=== PATIENT | female | born 1985 | race African-American/Black ===

== ENCOUNTER 2016-06-10 08:44 | Emergency (ER) | payer OTHER ==
[2016-06-10 08:49] VITALS: BP 150/79; PULSE 69; TEMP 98.2; BMI 44.3
--- NOTE | 2016-06-10 10:01 | PDOC ---
History of Present Illness - General Chief Complaint: Pain, Acute Stated Complaint: RT KNEE PAIN, SWOLLEN/BRUISED Time Seen by Provider: 06/10/16 09:13 History Source: Patient Exam Limitations: No Limitations - History of Present Illness Initial Comments: 06/10/16 10:33 Chief complaint: Right knee pain with swelling and bruising since falling on it yesterday History of present illness: Patient is a 31-year-old female insulin-dependent diabetic, with hypertension and repair of ACL right knee at 16 years of age. Patient reports that yesterday she was walking unsure whether or not of the condition of the ground that she was walking on was uneven or whether or not her right knee just gave out. Pt. has swelling, tenderness and bruising rt. knee since falling on it yesterday. Reports that she took ibuprofen yesterday but did not take any today. Patient is having difficulty walking due to pain. Patient has noticeable swelling to mid to upper patella. Patient can bend her knee is not able to extend fully. Denies any numbness of her right knee or leg. Patient denies any other injuries. Occurred: reports: yesterday Severity: Yes: severe (right knee swelling, tenderness, bruising ) Lower Extremity Pain Location: right: knee Method of Injury: Yes: fell Modifying Factors: improves with: immobilization Lower Ext. Injury Location - Specific Injury Location Knees: right ecchymosis (anterior ), right swelling, right pain Extremity Pain Location - Extremity Pain Location Extremity Pain Locations: right: knee Past History - Past Medical History Allergies/Adverse Reactions: Allergies Allergy/AdvReac Type Severity Reaction Status Date / Time No Known Allergies Allergy Verified 06/10/16 08:49 Home Medications: Ambulatory Orders Ibuprofen [Motrin -] 600 mg PO Q6H PRN #18 tablet MDD 4 06/10/16 Diabetes: Yes HTN: Yes Suicide Attempt (Hx): No Other medical history: obesity - Immunization History Immunization Up to Date: Yes - Psycho/Social/Smoking Cessation Hx Anxiety: No Suicidal Ideation: No Smoking Status: No Smoking History: Never smoked Number of Cigarettes Smoked Daily: 0 Information on smoking cessation initiated: No Hx Alcohol Use: No Drug/Substance Use Hx: No Substance Use Type: None Review of Systems - Review of Systems Able to Perform ROS?: Yes Constitutional: No: Symptoms Reported HEENTM: No: Symptoms Reported Respiratory: No: Symptoms reported Cardiac (ROS): No: Symptoms Reported ABD/GI: No: Symptoms Reported : No: Symptoms Reported Musculoskeletal: Yes: Joint Pain (rt. knee ), Joint Swelling (rt. knee) Integumentary: Yes: Bruising (rt. knee mid/suprapatella ) Neurological: No: Symptoms reported *Physical Exam - Vital Signs Last Vital Signs Temp Pulse Resp BP Pulse Ox 98.2 F 69 18 150/79 99 06/10/16 08:48 06/10/16 08:48 06/10/16 08:48 06/10/16 08:48 06/10/16 08:48 - Physical Exam General Appearance: Yes: Appropriately Dressed Vascular Pulses: Dorsalis-Pedis (R): 4+ Extremity: positive: Normal Capillary Refill, Tender (right knee ), Swelling ( rt.knee anterior/suprapatella ). negative: Normal Range of Motion (rt. knee with extension ) Integumentary: positive: Ecchymosis (mid/suprapatella rt. knee) Neurologic: positive: Alert, Normal Response, Respond to painful stimul (rt. knee), Responsive. negative: Numbness (rt. knee ), Sensory Deficit (rt. knee) Procedures - Consent Consent obtained: From Patient - Splinting Splint Location: Left: Knee Pre-Proc Neuro Vasc Exam: normal Pre-Made Type: knee immobilizer Splint Type: Yes: Long Leg (right ) Post-Proc Neuro Vasc Exam: normal Sling: No Complications: No Progress: 06/10/16 11:57 cane given for ambulation ED Treatment Course - ADDITIONAL ORDERS Additional order review: Laboratory Results 06/10/16 09:30 Urine HCG, Qual Negative Medical Decision Making - Medical Decision Making 06/10/16 10:36 Patient is a 31-year-old female insulin-dependent diabetic, with hypertension and repair of ACL right knee at 16 years of age. Patient reports that yesterday she was walking unsure whether or not of the condition of the ground that she was walking on was uneven or whether or not her right knee just gave out. Pt. has swelling, tenderness and bruising rt. knee since falling on it yesterday. Reports that she took ibuprofen yesterday but did not take any today. Patient is having difficulty walking due to pain. Patient has noticeable swelling to mid to upper patella. Patient can bend her knee is not able to extend fully. Denies any numbness of her right knee or leg. Patient denies any other injuries. Right knee bony abnormality And effusion plan: Urine hCG negative X-ray right knee no acute fracture, patella subluxed laterally however compared to xray 02/27/14 no change in position of patella Toradol 60 mg IM now knee immobilizer applied to right leg 06/10/16 11:58 06/10/16 11:59 follow up with orthopedist *DC/Admit/Observation/Transfer Diagnosis at time of Disposition: Fall Qualifiers: Encounter type: initial encounter Qualified Code(s): W19.XXXA - Unspecified fall, initial encounter Knee pain, acute Qualifiers: Laterality: right Qualified Code(s): M25.561 - Pain in right knee Contusion of knee, right Qualifiers: Encounter type: initial encounter Qualified Code(s): S80.01XA - Contusion of right knee, initial encounter - Discharge Dispostion Disposition: HOME Condition at time of disposition: Stable - Referrals Referrals: Shabbir Beck MD [Primary Care Provider] - Romeo Cabrera MD [Staff Physician] - - Patient Instructions Additional Instructions: Elevate right leg as much as possible and apply ice every hour or 2 for 15 minutes each time and keep immobilizer on during the day may take off at night and use Cane for ambulation You must follow up with orthopedist as soon as possible for further evaluation Return to emergency room if symptoms worsen Patient voiced understanding of discharge instructions and all questions were answered
[2016-06-10] MEDS ORDERED: KETOROLAC TROMETHAMINE 60 MG/2 ML VIAL ONE (10:06)
[2016-06-10] MEDS ORDERED: KETOROLAC TROMETHAMINE 60 MG/2 ML VIAL IM ONE (10:29)
== END 2016-06-10 12:10 | disposition home or self-care (01) ==
LOC: JERFT 08:44
PROC: 2W3LX1Z Immobilization of Right Lower Extremity using Splint (ICD-10-PCS; principal; 2016-06-10)
PROC: 3E0233Z Introduction of Anti-inflammatory into Muscle, Percutaneous Approach (ICD-10-PCS; 2016-06-10)
DX: S80.01XA Contusion of right knee, initial encounter (principal); E10.9 Type 1 diabetes mellitus without complications; Z79.4 Long term (current) use of insulin; I10 Essential (primary) hypertension; E66.01 Morbid (severe) obesity due to excess calories; Z68.41 Body mass index [BMI] 40.0-44.9, adult; W18.39XA Other fall on same level, initial encounter; Y93.01 Activity, walking, marching and hiking; Y92.480 Sidewalk as the place of occurrence of the external cause
CPT/HCPCS: 29505; 73562-TC-RT; 84703; 96372; 99281-25

== ENCOUNTER 2018-02-21 17:13 | Emergency (ER) | payer OTHER ==
[2018-02-21 17:18] VITALS: BP 133/94; PULSE 76; TEMP 98.1; BMI 44.8
[2018-02-21] MEDS ORDERED: ALBUTEROL SO4 2.5/IPRATROPIUM 0.5 INH SOL 3 ML VIAL.NEB. NEB ONE ×2 (17:46→17:48)
--- NOTE | 2018-02-21 17:55 | PDOC ---
History of Present Illness - General Chief Complaint: Cold Symptoms Stated Complaint: COUGHING/SORE THROAT Time Seen by Provider: 02/21/18 17:36 History Source: Patient Exam Limitations: No Limitations - History of Present Illness Initial Comments: 02/21/18 17:50 32 yr female with cough hoarse voice for 3 days worse today at work no fever. pt has history of asthma in the past. no abd pain or vomiting no chest pain. Past History - Past Medical History Allergies/Adverse Reactions: Allergies Allergy/AdvReac Type Severity Reaction Status Date / Time No Known Allergies Allergy Verified 02/21/18 17:17 Home Medications: Ambulatory Orders Benzonatate [Tessalon Pearls -] 200 mg PO TID #42 cap 02/21/18 COPD: No Diabetes: Yes HTN: Yes - Surgical History Appendectomy: Yes - Immunization History Immunization Up to Date: Yes - Suicide/Smoking/Psychosocial Hx Smoking Status: No Smoking History: Never smoked Number of Cigarettes Smoked Daily: 0 Information on smoking cessation initiated: No Hx Alcohol Use: No Drug/Substance Use Hx: No Substance Use Type: None Review of Systems - Review of Systems Able to Perform ROS?: Yes Is the patient limited Greek proficient: No Constitutional: No: Symptoms Reported HEENTM: Yes: Symptoms Reported Respiratory: Yes: Cough Cardiac (ROS): No: Symptoms Reported ABD/GI: No: Symptoms Reported : No: Symptoms Reported *Physical Exam - Vital Signs Last Vital Signs Temp Pulse Resp BP Pulse Ox 98.1 F 76 19 133/94 100 02/21/18 17:14 02/21/18 17:14 02/21/18 17:14 02/21/18 17:14 02/21/18 17:14 - Physical Exam General Appearance: Yes: Nourished, Appropriately Dressed HEENT: positive: EOMI, LINA, TMs Normal, Pharynx Normal Neck: positive: Supple. negative: Tender Respiratory/Chest: positive: Lungs Clear, Normal Breath Sounds, Decreased Breath Sounds. negative: Wheezing Cardiovascular: positive: Regular Rhythm, Regular Rate Gastrointestinal/Abdominal: positive: Normal Bowel Sounds, Soft Musculoskeletal: positive: Normal Inspection Extremity: positive: Normal Capillary Refill, Normal Inspection, Normal Range of Motion Integumentary: positive: Normal Color, Dry, Warm Neurologic: positive: Fully Oriented, Alert, Normal Mood/Affect, Normal Response , Motor Strength 5/5 Medical Decision Making - Medical Decision Making 02/21/18 17:51 cc: cough for one week worse the past 3 days , today hoarse voice no fever no chest pain will give duoneb now *DC/Admit/Observation/Transfer Diagnosis at time of Disposition: Viral upper respiratory tract infection with cough - Discharge Dispostion Disposition: HOME Condition at time of disposition: Good - Prescriptions Prescriptions: Benzonatate [Tessalon Pearls -] 200 mg PO TID #42 cap - Referrals Referrals: Shabbir Beck MD [Primary Care Provider] - - Patient Instructions Printed Discharge Instructions: DI for Viral Upper Respiratory Infection -- Adult Additional Instructions: drink pleanty of fluids to stay well hydrated honey on a teaspoon three times a day take ibuprofen as needed for pain gargle with warm salt water 4-5 times a day tessalon perels for cough voice rest follow with the ENT if symptoms worsen or persist - Post Discharge Activity Forms/Work/School Notes: Back to Work
== END 2018-02-21 18:41 | disposition home or self-care (01) ==
LOC: JERFT 17:13
PROC: 3E0F7GC Introduction of Other Therapeutic Substance into Respiratory Tract, Via Natural or Artificial Opening (ICD-10-PCS; principal; 2018-02-21)
DX: J06.9 Acute upper respiratory infection, unspecified (principal); I10 Essential (primary) hypertension; E11.9 Type 2 diabetes mellitus without complications; Z87.09 Personal history of other diseases of the respiratory system
CPT/HCPCS: 99281-25

== ENCOUNTER 2018-10-31 21:54 | Emergency (ER) | payer OTHER ==
[2018-10-31 22:26] VITALS: BMI 41.3
--- NOTE | 2018-10-31 23:09 | PDOC ---
History of Present Illness - General Chief Complaint: Head/Neck problem Stated Complaint: NUMBNESS FEELING SICK Time Seen by Provider: 10/31/18 22:39 - History of Present Illness Initial Comments: 10/31/18 23:06 CHIEF COMPLAINT: numbness, weakness HISTORY OF PRESENT ILLNESS: 33 yo F with hx of DMII, HTN, and depression presents to ED with numbness and weakness to R arm x 3 days. Patient states that she feels like her R foot is dragging and that she can't walk normally. Patient admits to being noncompliant with her diabetes and HTN medication, "don' t even ask me why, I just don't take them." Patient states she was seen at [facility] "sometimes this week because my my knee, they told me I have a sprained knee but I went to my doctor Dr. Beck and tony did an MRI and we're waiting for results." Denies change in vision, speech. No recent travel or sick contacts. PAST MEDICAL HISTORY: Denies past medical history FAMILY HISTORY: Denies SOCIAL HISTORY: Denies tobacco, alcohol, illicit drug use. SURGICAL HISTORY: Denies ALLERGIES: No known drug allergies REVIEW OF SYSTEMS General/Constitutional: Denies fever or chills. Denies weakness, weight change. HEENT: Denies change in vision. Denies ear pain or discharge. Denies sore throat. Cardiovascular: Denies chest pain or shortness of breath. Respiratory: Denies cough, wheezing, or hemoptysis. Gastrointestinal: Denies nausea, vomiting, diarrhea or constipation. Denies rectal bleeding. Genitourinary: Denies dysuria, frequency, or change in urination. Musculoskeletal: Numbness and weakness to R arm. "Dragging" R foot. Denies joint or muscle swelling or pain. Denies neck or back pain. Skin: Denies rash or easy bruising. Neurologic: Denies headache, vertigo, loss of consciousness, or loss of sensation. PHYSICAL EXAM General Appearance: Well-appearing, appropriately dressed. No apparent distress , no intoxication. HEENT: EOMI, PERRLA, normal ENT inspection, normal voice, TMs normal, pharynx normal. No conjunctival pallor. No photophobia, scleral icterus. Neck: Supple. Trachea midline. No tenderness, rigidity, carotid bruit, stridor , lymphadenopathy, or thyromegaly. Respiratory/Chest: Lungs CTAB. No shortness of breath, chest tenderness, respiratory distress, accessory muscle use. No crackles, rales, rhonchi, stridor , wheezing, dullness Cardiovascular: RRR. S1, S2. No JVD, murmur, bradycardia, tachycardia. Vascular Pulses: Dorsalis-Pedis (R): 2+, Dorsalis-Pedis (L): 2+ Gastrointestinal/Abdominal: Normal bowel sounds. Abdomen soft, non-distended. No tenderness or rebound tenderness. No organomegaly, pulsatile mass, guarding , hernia, hepatomegaly, splenomegaly. Lymphatic: No adenopathy, tenderness. Musculoskeletal/Extremities: Normal inspection. FROM of all extremities, normal capillary refill. Pelvis Stable. No CVA tenderness. No tenderness to extremities, pedal edema, swelling, erythema or deformity. Integumentary: Appropriate color, dry, warm. 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 Fully oriented, alert. Appropriate mood/affect. Motor strength 5/5. No appreciable EOM palsy, facial droop or sensory deficit. A&Ox3, follow commands, respond appropriately CN2-12: conjugate gaze, pupil round, equal and reactive to light. Visual field full to confrontation. EOMI without nystagmus, pursuit is smooth without saccade. Facial sensation and muscle activation intact bilaterally. Hearing intact bilaterally. Palate elevate symmetrically. Shoulder shrug and neck turn full strength. Tongue protrude midline. Motor: UE and LE strength 5/5 throughout bilaterally. Muscle tone and bulk normal. Sensory: pin prick & temp : BUE & BLE intact and equal bilaterally Vibration & propioception: intact bilaterally at 1st MCP and MTP joints. no sensory level noted on trunk Cerebellar: Rapid-alternating movement with regular rhythm without bradykinesia. Bnpcgu-sf-mirx and fnla-[id number] intact bilaterally without dysmetria or overshoot. R sided limp to gait. Negative Romberg No involuntary movement noted. No pronator drift. No clonus. Past History - Past Medical History Allergies/Adverse Reactions: Allergies Allergy/AdvReac Type Severity Reaction Status Date / Time No Known Allergies Allergy Verified 10/31/18 22:26 Home Medications: Ambulatory Orders NK [No Known Home Medication] 11/01/18 COPD: No Diabetes: Yes HTN: Yes - Surgical History Appendectomy: Yes - Immunization History Immunization Up to Date: Yes - Suicide/Smoking/Psychosocial Hx Smoking Status: No Smoking History: Never smoked Have you smoked in the past 12 months: No Number of Cigarettes Smoked Daily: 0 Information on smoking cessation initiated: No Hx Alcohol Use: Yes Drug/Substance Use Hx: No Substance Use Type: None *Physical Exam - Vital Signs Last Vital Signs Temp Pulse Resp BP Pulse Ox 98.5 F 54 L 18 175/85 H 100 10/31/18 22:23 10/31/18 22:23 10/31/18 22:23 10/31/18 22:23 10/31/18 22:23 ED Treatment Course - LABORATORY CBC & Chemistry Diagram: 11/01/18 00:01 11/01/18 00:01 Medical Decision Making - Medical Decision Making 11/01/18 02:26 33 yo F with hx of DMII, HTN, and depression presents to ED with numbness and weakness to R arm x 3 days. -labs -ekg -head ct labs - glucose 245, otherwise unremarkable ekg with sinus bradycardia. -fluids Pt signed out to Dr. Munoz. *DC/Admit/Observation/Transfer Diagnosis at time of Disposition: Knee pain, acute Qualifiers: Laterality: right Qualified Code(s): M25.561 - Pain in right knee - Discharge Dispostion Disposition: HOME Condition at time of disposition: Stable - Referrals Referrals: Ulises Ray MD [Staff Physician] - - Patient Instructions Printed Discharge Instructions: DI for Acute Pain -- Adult Additional Instructions: Please return to the emergency department with any new or worsening symptoms or concerns. Please follow up with your primary care physician within 72 hours. - Post Discharge Activity
[2018-11-01 00:41] LABS: BASO % 0.5 % (0-2.0); EOS % 1.3 % (0-4.5); HEMATOCRIT 36.3 % (32.4-45.2); HEMOGLOBIN 12.2 GM/dL (10.7-15.3); LYMPH % 35.4 % (8-40); MCH 28.7 pg (25.7-33.7); MCHC 33.5 g/dl (32.0-36.0); MEAN CELL VOLUME 85.8 fl (80-96); MEAN PLT VOLUME 8.2 fl (7.5-11.1); MONO % 7.5 % (3.8-10.2); NEUT % 55.3 % (42.8-82.8); PLATELET COUNT 320 K/MM3 (134-434); RBC 4.24 M/mm3 (3.60-5.2); RDW 14.2 % (11.6-15.6); WHITE BLOOD COUNT 9.8 K/mm3 (4.0-10.0)
[2018-11-01 00:43] VITALS: BP 156/83; PULSE 58; TEMP 98.6
[2018-11-01 00:44] LABS: URINE APPEARANCE CLEAR; URINE BILIRUBIN NEGATIVE (NEGATIVE); URINE COLOR YELLOW; URINE GLUCOSE (UA) 2+ (NEGATIVE); URINE KETONE NEGATIVE (NEGATIVE); URINE LEUK ESTERASE NEGATIVE (NEGATIVE); URINE NITRITE NEGATIVE (NEGATIVE); URINE PROTEIN TRACE (NEGATIVE); URINE UROBILINOGEN 0.2 mg/dL (0.2-1.0)
[2018-11-01 01:30] LABS: ALBUMIN 3.6 g/dl (3.4-5.0); BILIRUBIN,TOTAL 0.4 mg/dL (0.2-1); BLOOD UREA NITROGEN 13.2 mg/dL (7-18); CALCIUM 8.6 mg/dL (8.5-10.1); CREATININE 0.8 mg/dL (0.55-1.3); POTASSIUM 3.8 mmol/L (3.5-5.1)
[2018-11-01] MEDS ORDERED: SODIUM CHLORIDE 0.9% 500 ML INFUS.BAG IV ONE (02:19)
--- NOTE | 2018-11-01 03:43 | PDOC ---
*Physical Exam - Vital Signs Last Vital Signs Temp Pulse Resp BP Pulse Ox 98.6 F 58 L 18 156/83 99 10/31/18 22:45 10/31/18 22:45 10/31/18 22:45 10/31/18 22:45 10/31/18 22:45 - Physical Exam Comments: 11/01/18 03:37 GENERAL: Awake, alert, and fully oriented, in no acute distress HEAD: No signs of trauma, normocephalic, atraumatic EYES: PERRLA, EOMI, sclera anicteric, conjunctiva clear ENT: Auricles normal inspection, hearing grossly normal, nares patent, oropharynx clear without exudates. Moist mucosa NECK: Normal ROM, supple, no lymphadenopathy, JVD, or masses LUNGS: No distress, speaks full sentences, clear to auscultation bilaterally HEART: Regular rate and rhythm, normal S1 and S2, no murmurs, rubs or gallops, peripheral pulses normal and equal bilaterally. ABDOMEN: Soft, nontender, normoactive bowel sounds. No guarding, no rebound. No masses EXTREMITIES :+ Right sided limping gait. + R knee pain with passive extension. Otherwise normal inspection, Normal range of motion, no edema. No clubbing or cyanosis. NEUROLOGICAL: Cranial nerves II through XII grossly intact. Normal speech, normal gait, no focal sensorimotor deficits SKIN: Warm, Dry, normal turgor, no rashes or lesions noted ED Treatment Course - LABORATORY CBC & Chemistry Diagram: 11/01/18 00:01 11/01/18 00:01 - ADDITIONAL ORDERS Additional order review: Laboratory Results 11/01/18 11/01/18 11/01/18 00:10 00:10 00:01 Sodium 140 Potassium 3.8 Chloride 106 Carbon Dioxide 29 Anion Gap 5 L BUN 13.2 Creatinine 0.8 Est GFR (CKD-EPI)AfAm 112.27 Est GFR (CKD-EPI)NonAf 96.87 Random Glucose 245 H Lactic Acid Calcium 8.6 Total Bilirubin 0.4 AST 11 L ALT 15 Alkaline Phosphatase 96 Total Protein 8.0 Albumin 3.6 Urine Color Yellow Urine Appearance Clear Urine pH 5.0 Ur Specific [place] 1.020 Urine Protein Trace Urine Glucose (UA) 2+ H Urine Ketones Negative Urine Blood Negative Urine Nitrite Negative Urine Bilirubin Negative Urine Urobilinogen 0.2 Ur Leukocyte Esterase Negative Urine HCG, Qual Negative 11/01/18 00:00 Sodium Potassium Chloride Carbon Dioxide Anion Gap BUN Creatinine Est GFR (CKD-EPI)AfAm Est GFR (CKD-EPI)NonAf Random Glucose Lactic Acid 0.9 Calcium Total Bilirubin AST ALT Alkaline Phosphatase Total Protein Albumin Urine Color Urine Appearance Urine pH Ur Specific [place] Urine Protein Urine Glucose (UA) Urine Ketones Urine Blood Urine Nitrite Urine Bilirubin Urine Urobilinogen Ur Leukocyte Esterase Urine HCG, Qual 11/01/18 00:01 RBC 4.24 MCV 85.8 MCHC 33.5 RDW 14.2 MPV 8.2 Neutrophils % 55.3 Lymphocytes % 35.4 Monocytes % 7.5 Eosinophils % 1.3 Basophils % 0.5 - Medications Given in the ED: ED Medications Discontinued Medications Generic Name Dose Route Start Last Admin Trade Name Freq PRN Reason Stop Dose Admin Sodium Chloride 1,000 ml 11/01/18 02:19 11/01/18 02:40 Normal Saline - IV 11/01/18 02:20 1,000 ml ONCE ONE Administration Medical Decision Making - Medical Decision Making 11/01/18 03:40 33 yo F with h/o poorly controlled HTN, chronic R knee pain, and DM who p/w right lower extremity/knee weakness, and difficulty with ambulation. BP 175/85, HR 54, vitals otherwise wnl, AF, A&OX3. Physical exam unremarkable. Patient endorsed by Patricia Avilez NP. Absent neuro deficits on exam. CTH unremarkable, CBC unremarkable, UA negative. Glucose 245. Received NS. Patient symptoms improved. ED Course: 11/01/18 03:44 Patient ambulatory in ED. Stable for d/c with return precautions Advised to f/u PMD *DC/Admit/Observation/Transfer Diagnosis at time of Disposition: Knee pain, acute Qualifiers: Laterality: right Qualified Code(s): M25.561 - Pain in right knee - Discharge Dispostion Disposition: HOME Condition at time of disposition: Stable Decision to Admit order: No - Referrals Referrals: Ulises Ray MD [Staff Physician] - - Patient Instructions Printed Discharge Instructions: DI for Acute Pain -- Adult Additional Instructions: Please return to the emergency department with any new or worsening symptoms or concerns. Please follow up with your primary care physician within 72 hours. - Post Discharge Activity
--- NOTE | 2018-11-01 12:47 | EKG ---
Test Reason : Blood Pressure : / mmHG Vent. Rate : 052 BPM Atrial Rate : 052 BPM P-R Int : 162 ms QRS Dur : 090 ms QT Int : 448 ms P-R-T Axes : 011 021 005 degrees QTc Int : 416 ms SINUS BRADYCARDIA WITH SINUS ARRHYTHMIA NONSPECIFIC T WAVE ABNORMALITY Confirmed by ADAMARIS MARTINEZ MD ([id number]) on 11/01/2018 12:47:05 PM Referred By: Confirmed By:ADAMARIS MARTINEZ MD
== END 2018-11-01 04:50 | disposition home or self-care (01) ==
LOC: JER 21:54
PROC: 3E0337Z Introduction of Electrolytic and Water Balance Substance into Peripheral Vein, Percutaneous Approach (ICD-10-PCS; principal; 2018-10-31)
DX: M25.561 Pain in right knee (principal); G89.29 Other chronic pain; R26.89 Other abnormalities of gait and mobility; I10 Essential (primary) hypertension; E11.9 Type 2 diabetes mellitus without complications; F32.9 Major depressive disorder, single episode, unspecified; Z91.14 Patient's other noncompliance with medication regimen
CPT/HCPCS: 36415; 70450-TC; 80053; 81003; 83605; 84703; 85025; 93005; 93010; 99284-25

== ENCOUNTER 2018-11-04 18:14 | Inpatient (IN) | payer OTHER | END 2018-11-10 17:54 | disposition home or self-care (01) | LOC: JERBED 11-05 02:02 → J6S 11-05 06:22 → JER 18:14 ==

== ENCOUNTER 2019-12-29 22:00 | Inpatient (IN) | payer OTHER ==
--- OUTSIDE RECORDS SUMMARY | 2019-12-29 22:15 | XMS ---
:1985 Author Organization [facility] Care Team Providers Name Role Phone ED STAFF PHYSICIAN, MONIQUE Unavailable Unavailable BRENNA Song Unavailable Unavailable ED STAFF PHYSICIAN, STAFF Unavailable Unavailable TOMMIE COLLINS Unavailable Unavailable OUMAR PALMER Unavailable Unavailable [facility], [id number] Unavailable Unavailable ED STAFF PHYSICIANROSA Unavailable Unavailable EMANI GUNDERSON Unavailable Unavailable ZEINA Dailey Unavailable Unavailable Re-disclosure Warning The records that you are about to access may contain information from federally- assisted alcohol or drug abuse programs. If such information is present, then the following federally mandated warning applies: This information has been disclosed to you from records protected by federal confidentiality rules (42 CFR part 2). The federal rules prohibit you from making any further disclosure of this information unless further disclosure is expressly permitted by the written consent of the person to whom it pertains or as otherwise permitted by 42 CFR part 2. A general authorization for the release of medical or other information is NOT sufficient for this purpose. The Federal rules restrict any use of the information to criminally investigate or prosecute any alcohol or drug abuse patient.The records that you are about to access may contain highly sensitive health information, the redisclosure of which is protected by Article 27-F of the [facility] Public Health law. If you continue you may haveaccess to information: Regarding HIV / AIDS; Provided by facilities licensed or operated by the [facility] Office of Mental Health; or Provided by the [facility] Office for People With Developmental Disabilities. If such information is present, then the following [facility] mandated warning applies: This information has been disclosed to you from confidential records which are protected by state law. State law prohibits you from making any further disclosure of this information without the specific written consent of the person to whom it pertains, or as otherwise permitted by law. Any unauthorized further disclosure in violation of state law may result in a fine or residential sentence or both. A general authorization for the release of medical or other information is NOT sufficient authorization for further disclosure. Encounters Encounter Providers Location Date Indications Data Source(s ) Emergency Attender: ZEINA Mendoza 11/22/2019 [facility] PAWEL PAttender: 06:47:00 PM EDT [facility] Center STAFF ED STAFF - 11/23/2019 PHYSICIANAdmitter: 12:10:00 AM EDT ZEINA ARMAS P Patient discharged. Emergency Attender: MONIQUE ED STAFF H 10/24/2019 01:41:00 PM [facility] PHYSICIANAttender: BRENNA ANGULO EDT - 10/24/2019 [facility] KAttender: STAFF ED STAFF 08:12:00 PM EDT PHYSICIANAdmitter: MONIQUE ED STAFF PHYSICIAN Patient discharged. 10/24/2019 12:00:00 AM [facility] Medical EDT - 05/09/2019 Center 12:00:00 AM EST Outpatient 10/06/2019 05:15:00 PM [facility] Emergency Attender: ROSA ED H 06/25/2019 12:00:00 PM [facility] Medical STAFF EDT - 06/25/2019 Center PHYSICIANAttender: 08:22:00 PM EDT STAFF ED STAFF PHYSICIANAdmitter: ROSA ED STAFF PHYSICIAN Patient discharged. Outpatient Attender: [id number] [facility] 06/03/2019 12:25:35 PM [facility] ([facility]) Patient admitted. Inpatient Attender: OUMAR OSEGUERA H-HAL5 05/05/2019 03:12:00 [facility] YAttender: TOMMIE FELDMAN PM EST - 05/09/2019 [facility] AKINOAttender: STAFF ED STAFF 04:45:00 PM EST PHYSICIANAdmitter: OUMAR OSEGUERA YReferrer: OUMAR [place] Patient discharged. Emergency Attender: MONIQUE ED STAFF H 03/24/2019 11:39:00 AM [facility] PHYSICIANAttender: STAFF ED EST - 03/24/2019 Medical Center STAFF PHYSICIANAdmitter: 03:26:00 PM EST MONIQUE ED STAFF PHYSICIAN Patient discharged. Emergency H 10/27/2018 07:49:00 AM [facility] EDT Center Inpatient Attender: EMANI VERONICA H-HAL6 04/05/2018 05:41:00 PM [facility] YIPINGAdmitter: EST - 04/06/2018 Mira margy EMANI VERONICA 09:05:00 AM KYLAH JOAQUINReferrer: EMANI JOAQUIN Immunizations Vaccine Date Status Description Data Source(s) Influenza, injectable, MDCK, completed [facility] preservative free, Care Anna oration quadrivalent Medications Medication Brand Start Product Dose Route Administrative Pharm[facility] Indications Reaction Description Data Name Date Form Instructions Instructions Source(s) Acetaminoph acetam 1 complet Pain and Saint en 500 MG inophe ed Fever Kaylene Oral Tablet n Medical acetaminoph (Pain Center en (Pain and and Fever) Fever) 500 mg 500 mg Tablet, Tablet Ordered By: Janelle d By: LIUDMILAirection Aderon s: 1 tablet ke oral every Adenij six hours i, PRN pain MDDire ctions : 1 tablet oral every six hours PRN pain ampicillin- complet Saint sulbactam 3 ed [facility] Medical Intravenous Center EVERY 6 HOURS Now Routine doxycycline complet Saint hyclate 100 ed Kaylene mg IVPB Medical EVERY 12 Center HOUR Now Routine Insulin, insuli complet NovoLOG Mitch nt Aspart, n ed U-100 Kaylene Human 100 aspart Insulin Medic al UNT/ML U-100 aspart Center Injectable (NovoL Solution OG [NovoLog] U-100 insulin Insuli aspart n U-100 aspart (NovoLOG ) 100 U-100 unit/m Insulin L aspart) 100 Soluti unit/mL on, Solution, Ordere Ordered By: d By: amee Wolf MDDirection Adenij s: 0-10 i, subcutaneou MDDire s four ctions times daily : 0-10 before subcut meals and aneous at bedtime four times daily before meals and at bedtim e insulin insuli 15 U complet Levemir Mickey t detemir 100 n ed U-100 Kaylene UNT/ML detemi Insulin Medical Injectable r Center Solution U-100 [Levemir] (Levem insulin ir detemir U-100 U-100 Insuli (Levemir n) 100 U-100 unit/m Insulin) L 100 unit/mL Soluti Solution, on, Ordered By: Francis Luis d By: Radhames Shen MDDirection amee s: 15 unit Adenij subcutaneou i, s daily MDDire ctions : 15 unit subcut aneous daily Aspirin 81 aspiri 1 complet Mickey t MG Delayed n 81 ed Kaylene Release mg Medical Oral Tablet tablet Center aspirin 81 ,delay mg ed tablet,sowmya releas yed release e (DR/EC), (/EC Ordered By: ), in Francis Pop MDDirection d By: s: 1 tablet Sein oral daily Kiesha, MDDire ctions : 1 tablet oral daily 1 ML ketoro 1 mL complet Saint Ketorolac lac 30 ed Kaylene Tromethamin mg/mL Medical e 30 MG/ML (1 mL) Center Injection Soluti ketorolac on, 30 mg/mL (1 Ordere mL) d By: Radhames Recinos Ordered By: amee Shen, i, MDDirection MDDire s: 1 mL ctions intramuscul : 1 mL ar every intram six hours uscula PRN PAIN r every six hours PRN PAIN Naproxen naprox 1 complet Saint sodium 275 en ed Kaylene MG Oral sodium Medical Tablet 275 mg Center naproxen Tablet sodium 275 , mg Tablet, Ordere Ordered By: d By: Dayana Godinez MDDirection ch, s: 1 tablet MDDire oral three ctions times a day : 1 PRN pain tablet oral three times a day PRN pain Lisinopril lisino 1 complet Mickey t 10 MG Oral pril ed Kaylene Tablet 10 mg Medical lisinopril Tablet Center 10 mg , Tablet, Ordere Ordered By: d By: amee Wolf MDDirection Adenij s: 1 tablet i, oral daily MDDire ctions : 1 tablet oral daily sodium complet Saint chloride ed Kaylene 0.9 % (1000 Medical mL bag) Center Intravenous @ 100 mL/hr CONTINUOUS Cephalexin cephal 1 complet Mickey t 500 MG Oral exin ed Kaylene Capsule 500 mg Medical cephalexin Capsul Center 500 mg e, Capsule, Ordere Ordered By: d By: Joan Maier ns: 1 re, capsule FNPDir oral every ection twelve s: 1 hours capsul e oral every twelve hours methylPREDN 1 complet Saint ISolone 4 ed Kaylene mg Medical tablets,dos Center e pack, Ordered By: TANIA Stearnsirecttere ns: 1 package oral daily teriflunomi terifl complet Aubagio Saint de 14 MG unomid ed Kaylene Oral Tablet e Medical [Aubagio] ([facility]) 14 de mg (Aubagio) Tablet 14 mg Tablet 24 HR oxybut complet Saint Oxybutynin ynin ed Kaylene chloride 10 chlori Medica l MG Extended de 10 Center Release mg Oral Tablet tablet oxybutynin extend chloride 10 ed mg tablet releas extended e 24hr release 24hr Amlodipine amLODI complet Mickey t 10 MG Oral [place] ed Kaylene Tablet 10 mg Medical amLODIPine Tablet Center 10 mg Tablet Metoprolol metopr 1 complet Mickey t Tartrate 50 olol ed Kaylene MG Oral tartra Medical Tablet te 50 Center metoprolol mg tartrate 50 Tablet mg Tablet, , Ordered By: arun Gastelum By: MDDirection Sein s: 1 tablet Kiesha, oral twice MDDire a day ctions : 1 tablet oral twice a day Metformin metFOR 1 complet Saint hydrochlori MIN ed Kaylene de 1000 MG 1,000 Medical Oral Tablet mg Center metFORMIN Tablet 1,000 mg , Tablet, Ordere Ordered By: d By: Oumar Kinney MDDirection Kiesha, s: 1 tablet MDDire oral twice ctions a day : 1 tablet oral twice a day teriflunomi terifl complet Aubagio Saint de 14 MG unomid ed Kaylene Oral Tablet e Medical [Aubagio] ([facility]) 14 de mg (Aubagio) Tablet 14 mg Tablet ASPIRIN TAB complet Saint 81MG EC ed [facility] ASPIRIN TAB complet Saint 81MG EC [facility] Amlodipine amLODI complet Mickey t 10 MG Oral [place] ed Kaylene Tablet 10 mg Medical amLODIPine Tablet Center 10 mg Tablet Ciprofloxac ciprof complet Mtich nt in 500 MG loxaci ed Kaylene Oral Tablet n HCl Medical ciprofloxac 500 mg Center in HCl 500 Tablet mg Tablet Azithromyci AZITHr 1 complet Mitch nt n 250 MG omycin ed Kaylene Oral Tablet 250 mg Medica l AZITHromyci Tablet Center n 250 mg , Tablet, Ordere Ordered By: d By: Monique Purvis, madiha Purvis, s: 1 tablet MDDire oral daily ctions : 1 tablet oral daily Ciprofloxac ciprof 1 complet Mitch nt in 500 MG loxaci [facility] Oral Tablet n HCl Medical ciprofloxac 500 mg Center in HCl 500 Tablet mg Direct TabletDirec ions: tions: 1 1 tablet oral tablet twice a day oral twice a day BD PEN complet [facility] [id number] [facility] doxycycline Doxycy complet Misael tcheste hyclate 100 das ed r Count y MG Oral Hyclat Health Tablet e [100 Care Doxycycline mg Corporat io Hyclate Tablet n [100 mg ]: 100 Tablet]: Tablet 100 Tablet Oral Oral 10A-10 10A-10P P BD PEN complet Saint NEEDL [facility] [id number] [facility] albuterol 2 complet Saint sulfate [address] [facility]FA Medical Aerosol Center Inhaler, Ordered By: Tone Rae s: 2 puff by inhalation every six hours PRN shortness of breath Ibuprofen ibupro 1 complet Saint 800 MG Oral fen [facility] Tablet 800 mg Medical ibuprofen Tablet Center 800 mg , Tablet, Ordere Ordered By: d By: sloan Barragan s: 1 tablet , oral every DODire eight hours ctions PRN : 1 pain-modera tablet te oral every eight hours PRN pain-m oderat e Acetaminoph oxyCOD 1 complet Mitch nt en 325 MG / ONE-ac ed Guille s Oxycodone etamin Medical Hydrochlori ophen Center de 5 MG 5 Oral Tablet mg-325 oxyCODONE-a mg cetaminophe Tablet n 5 mg-325 , mg Tablet, Ordere Ordered By: d By: sloan Barragan s: 1 tablet , oral every DODire six hours ctions PRN pain : 1 tablet oral every six hours PRN pain atorvastati atorva 1 complet Mitch nt n 20 MG statin ed Kaylene Oral Tablet 20 mg Medical atorvastati Tablet Center n 20 mg , Tablet, Ordere Ordered By: d By: Oumar Kinney MDDirection Kiesha, s: 1 tablet MDDire oral daily ctions at bedtime : 1 tablet oral daily at bedtim e Amlodipine amLODI 1 complet Mickey t 10 MG Oral [place] ed Kaylene Tablet 10 mg Medical amLODIPine Tablet Center 10 mg , Tablet, Ordere Ordered By: d By: Ouamr Kinney MDDirection Kiesha, s: 1 tablet MDDire oral daily ctions : 1 tablet oral daily 3 ML insuli 1 U complet NovoLOG Mix Mitch nt Insulin, n asp ed 70-30FlexPen Gisele sephs Aspart prt-in U-100 Medical Protamine, sulin Center Human 70 aspart UNT/ML / (NovoL Insulin, OG Mix Aspart, 70-30F Human 30 lexPen UNT/ML Pen U-100) Injector 100 [NovoLog unit/m Mix] L insulin asp (70-30 prt-insulin ) aspart Insuli (NovoLOG n Pen, Mix Ordere 70-30FlexPe d By: n U-100) Sein 100 unit/mL Kiesha, (70-30) MDDire Insulin ctions Pen, : 1 Ordered By: unit Oumar Pop, subcut MDDirection aneous s: 1 unit daily subcutaneou s daily Lisinopril Lisino complet [place] cheste 10 MG Oral pril ed [facility] Tablet [10 mg Health Lisinopril Tablet Care [10 mg ]: 10 Corporatio Tablet]: 10 Tablet n Tablet Oral Oral DAILY IN DAILY MORNING IN [facility] G Lisinopril lisino 1 complet Mickey t 10 MG Oral pril ed [facility] Tablet 10 mg Medical lisinopril Tablet Center 10 mg , Tablet, Ordere Ordered By: d By: Oumar Kinney MDDirection Kiesha, s: 1 tablet MDDire oral daily ctions : 1 tablet oral daily ferrous ferrou 1 complet Saint sulfate 325 s ed Kaylene MG Oral sulfat Medical Tablet e 325 Center ferrous mg (65 sulfate 325 mg mg (65 mg iron) iron) Tablet Tablet, , Ordered By: Ordere arun Kinney By: MDDirection Sein s: 1 tablet Kiesha, oral daily MDDire ctions : 1 tablet oral daily gabapentin gabape 1 complet Mickey t 300 MG Oral ntin ed Kaylene Capsule 300 mg Medical gabapentin Capsul Center 300 mg e, Capsule, Ordere Ordered By: d By: Oumar Kinney MDDirection Kiesha, s: 1 MDDire capsule ctions oral three : 1 times a day capsul for for e oral numbness three and times tingling a day for for numbne ss and tingli ng ASPIRIN TAB complet [facility] 81MG EC ed [facility] Amlodipine amLODI complet Mickey t 10 MG Oral [place] ed Kaylene Tablet 10 mg Medical amLODIPine Tablet Center 10 mg Tablet ferrous ferrou complet Saint sulfate 325 s ed Kaylene MG Oral sulfat Medical Tablet e 325 Center ferrous mg (65 sulfate 325 mg mg (65 mg iron) iron) Tablet Tablet teriflunomi terifl complet Aubagio Saint de 14 MG unomid ed Kaylene Oral Tablet e Medical [Aubagio] ([facility] teriflunomi io) 14 de mg (Aubagio) Tablet 14 mg Tablet Ciprofloxac ciprof 1 complet Mitch nt in 500 MG loxaci ed Kaylene Oral Tablet n HCl Medical ciprofloxac 500 mg Center in HCl 500 Tablet mg Tablet, , Ordered By: Francis dias By: Rut Vidal, s: 1 tablet PADire oral twice ctions a day : 1 tablet oral twice a day Ibuprofen ibupro 1 complet Saint 600 MG Oral fen ed Kaylene Tablet 600 mg Medical ibuprofen Tablet Center 600 mg , Tablet, Ordere Ordered By: d By: Young Adams PADirection PADire s: 1 tablet ctions oral every : 1 eight hours tablet PRN pain oral every eight hours PRN pain Metoprolol metopr complet Mickey t Tartrate 50 olol ed Kaylene MG Oral tartra Medical Tablet te 50 Center metoprolol mg tartrate 50 Tablet mg Tablet Metformin metFOR complet Saint hydrochlori MIN ed Kaylene de 1000 MG 1,000 Medical Oral Tablet mg Center metFORMIN Tablet 1,000 mg Tablet 3 ML insuli complet NovoLOG Mix Mitch nt Insulin, n asp ed 70-30FlexPen Gisele sephs Aspart prt-in U-100 Medical Protamine, sulin Center Human 70 aspart UNT/ML / (NovoL Insulin, OG Mix Aspart, 70-30F Human 30 lexPen UNT/ML Pen U-100) Injector 100 [NovoLog unit/m Mix] L insulin asp (70-30 prt-insulin ) aspart Insuli (NovoLOG n Pen Mix 70-30FlexPe n U-100) 100 unit/mL (70-30) Insulin Pen metroNIDAZO 1 complet Saint LE 500 mg ed Kaylene TabletDirec Medical tions: 1 Center tablet oral every eight hours ferrous ferrou complet Saint sulfate 325 s ed Kaylene MG Oral sulfat Medical Tablet e 325 Center ferrous mg (65 sulfate 325 mg mg (65 mg iron) iron) Tablet Tablet Metronidazo Metron complet Misael tcheste le [address] [facility] Oral Tablet e [500 Health Metronidazo mg Care le [500 mg Tablet Corpora hal Tablet]: ]: 500 n 500 Tablet Tablet Oral Oral 10A-10P 10A-10 P ferrous ferrou complet Saint sulfate 325 s ed Kaylene MG Oral sulfat Medical Tablet e 325 Center ferrous mg (65 sulfate 325 mg mg (65 mg iron) iron) Tablet Tablet 3 ML insuli complet NovoLOG Mix Mitch nt Insulin, n asp ed 70-30FlexPen Gisele sephs Aspart prt-in U-100 Medical Protamine, sulin [place] Human 70 aspart UNT/ML / (NovoL Insulin, OG Mix Aspart, 70-30F Human 30 lexPen UNT/ML Pen U-100) Injector 100 [NovoLog unit/m Mix] L insulin asp (70-30 prt-insulin ) aspart Insuli (NovoLOG n Pen Mix 70-30FlexPe n U-100) 100 unit/mL (70-30) Insulin Pen Metformin metFOR complet Saint hydrochlori MIN ed Kaylene de 1000 MG 1,000 Medical Oral Tablet mg Center metFORMIN Tablet 1,000 mg Tablet Metformin metFOR complet [facility] hydrochlori MIN ed Kaylene de 1000 MG 1,000 Medical Oral Tablet mg Center metFORMIN Tablet 1,000 mg Tablet Metoprolol metopr complet Mickey t Tartrate 50 olol ed Kaylene MG Oral tartra Medical Tablet te 50 Center metoprolol mg tartrate 50 Tablet mg Tablet Metoprolol metopr complet Mickey t Tartrate 50 olol ed Kaylene MG Oral tartra Medical Tablet te 50 Center metoprolol mg tartrate 50 Tablet mg Tablet 3 ML insuli complet NovoLOG Mix Mitch nt Insulin, n asp ed 70-30FlexPen Gisele sephs Aspart prt-in U-100 Medical Protamine, sulin Center Human 70 aspart UNT/ML / (NovoL Insulin, OG Mix Aspart, 70-30F Human 30 lexPen UNT/ML Pen U-100) Injector 100 [NovoLog unit/m Mix] L insulin asp (70-30 prt-insulin ) aspart Insuli (NovoLOG n Pen Mix 70-30FlexPe n U-100) 100 unit/mL (70-30) Insulin Pen Acetaminoph Acetam complet Misael tcheste en 500 MG inophe ed r [facility] Oral Tablet n [500 Health Acetaminoph mg Care en [500 mg Tablet Corpora hal Tablet]: ]: n 1000 Oral 1000 EVERY 8 Oral HOURS EVERY 8 HOURS Insurance Providers Payer name Policy type Policy ID Covered Covered libertarian's Policy P bobby / Coverage libertarian ID relationship to [place] [facility] ormation type rivas MEDICAID [id number] SP [id number] AFFINITY [id number] SP [id number] AFFINITY O [id number] 01 [id number] HEALTH PLAN AFFINITY W [id number] 01 [id number] W [id number] 01 [id number] AFFINITY W [id number] 01 [id number] 200 AFFINITY O [id number] 01 [id number] 200 HEALTH PLAN Superior [id number] S [id number] 200 Vision MKD [place] [id number] S [id number] Options MKD Dental [id number] S [id number] Dentaquest D Medicaid [id number] S [id number] Regular Clinic Visit Affinity D [id number] S [id number] Managed Care Problems, Conditions, and Diagnoses Code Display Name Description Problem Type Effective Data Sour ce(s) Dates [id number] Recurrent major Recurrent major Complaint 10/08/2019 NET[facility]ART depressive depressive 09:15:00 PM ([place] episodes, moderate episodes, moderate EDT [facility]) I10 Essential ESSENTIAL Diagnosis 11/22/2019 [facility] (primary) (PRIMARY) 06:47:00 PM Medical Samuel r hypertension HYPERTENSION EDT E11.9 Type 2 diabetes TYPE 2 DIABETES Diagnosis 11/22/2019 Mickey Maurice mellitus without MELLITUS WITHOUT [facility]:47[facility] COMPLICATIONS EDT R10.9 Unspecified UNSPECIFIED Diagnosis 11/22/2019 [facility] mabry abdominal pain ABDOMINAL PAIN 06:47:00 PM Medic al Center EDT N70.11 Chronic CHRONIC Diagnosis 11/22/2019 [facility] salpingitis SALPINGITIS 06:47:[address] EDT R55 Syncope and SYNCOPE AND Diagnosis 11/22/2019 [facility]ab[facility] collapse COLLAPSE 06:47:00 PM Medical Cente r EDT N39.0 Urinary tract URINARY TRACT Diagnosis 10/24/2019 [facility] G[facility] pierce infection, site INFECTION, SITE 01:41:00 PM Med ical Center not specified NOT SPECIFIED EDT N83.9 Noninflammatory NONINFLAMMATORY Diagnosis 10/24/2019 [facility] Maurice disorder of ovary, DISORD OF OVARY, 01:41:00 PM Medical Center fallopian tube and FALLOP and BROAD EDT broad ligament, LIGMT, UNSP unspecified G35 Multiple sclerosis MULTIPLE SCLEROSIS Diagnosis 0 [facility] Kaylene 12:00:00 PM Medical Cente r EDT E11.65 Type 2 diabetes TYPE 2 DIABETES Diagnosis 05/09/2019 [facility] Maurice mellitus with MELLITUS WITH 04:45:00 PM Medical Center hyperglycemia HYPERGLYCEMIA EST G56.00 Carpal tunnel CARPAL TUNNEL Diagnosis 05/09/2019 [facility] pierce syndrome, SYNDROME, 04:45:00 PM Medical Cente r unspecified upper UNSPECIFIED UPPER EST limb LIMB Z79.4 residential PENITENTIARY Diagnosis 05/09/2019 [facility] (current) use of (CURRENT) USE OF 04:45:00 PM [facility] insulin INSULIN EST R20.0 Anesthesia of skin ANESTHESIA OF SKIN Diagnosis 0 [facility] 03:12:00 PM Medical Cente r EST J98.01 Acute bronchospasm ACUTE BRONCHOSPASM Diagnosis 9 [facility] Kaylene 11:39:00 AM Medical Cente r EST R05 Cough COUGH Diagnosis 03/24/2019 [facility] 11:39:00 AM Medical Cente r EST Y99.9 Unspecified UNSPECIFIED Diagnosis 10/27/2018 [facility] external cause EXTERNAL CAUSE 07:49:00 AM Medic al Center status STATUS EDT Y92.[address] Diagnosis 10/27/2018 [facility] or not applicable OR NOT APPLICABLE 07:49:00 AM Medical Center EDT Y93.9 Activity, ACTIVITY, Diagnosis 10/27/2018 [facility] unspecified UNSPECIFIED 07:49:[address] EDT X58.XXXA Exposure to other EXPOSURE TO OTHER Diagnosis 10/27/2018 [facility] specified factors, SPECIFIED FACTORS, 07:49:00 AM Medical Center initial encounter INITIAL ENCOUNTER EDT S83.91XA Sprain of SPRAIN OF Diagnosis 10/27/2018 [facility] unspecified site UNSPECIFIED SITE 07:49:00 AM [facility] of right knee, OF RIGHT KNEE, EDT initial encounter INITIAL ENCOUNTER M25.569 Pain in PAIN IN Diagnosis 10/27/2018 [facility] unspecified knee UNSPECIFIED KNEE 07:49:00 AM [facility] EDT E11.9 Type 2 diabetes Type 2 diabetes Diagnosis 06/18/2018 GREE NWAY ([place] mellitus without mellitus without 06:02:20 PM [facility] complications complications [facility]) D64.9 Anemia, Anemia, Diagnosis 06/18/2018 GEORGE (Moun t unspecified unspecified 06:02:20 PM [facility]) Results ID Date Data Source [id number] 11/22/2019 07:35:00 PM EDT [facility] 0400 Name Value Range Interpretation Description Data Sup porting Code Source(s) Document(s ) Erythrocytes 4.0-5.1 Below low normal <content Saint [#/volume] in styleCode="Bold Kaylene Blood by ">Red Blood Medical Automated count Cell Count Center </content>3.59 MCUMM L<content styleCode="Ital ics"> (4.0-5.1 MCUMM)</content > Leukocytes 4.4-11.0 <content Saint [#/volume] in styleCode="Bold Kaylene Blood by ">White Blood Medical Automated count Cell Count Center </content>8.48 KCUMM<content styleCode="Ital ics"> (4.4-11.0 KCUMM)</content > Hematocrit 36.0-46. Below low normal <content Saint [Volume 0 styleCode="Bold Kaylene Fraction] of ">Hematocrit Medical Blood by </content>30.5 Center Automated count % L<content styleCode="Ital ics"> (36.0-46.0 %)</content> Erythrocyte mean 32.0-37. <content [facility] corpuscular 0 styleCode="Bold Kaylene hemoglobin ">Mean Corpus. Medical concentration Hgb Center [Mass/volume] by Concentration Automated count (MCHC) </content>34.1 G/DL<content styleCode="Ital ics"> (32.0-37.0 G/DL)</content> Erythrocyte mean 26.0-34. <content [facility] corpuscular 0 styleCode="Bold Kaylene hemoglobin ">Mean Medical [Entitic mass] Corposcular Center by Automated Hemoglobin count </content>29.0 PG<content styleCode="Ital ics"> (26.0-34.0 PG)</content> Erythrocyte mean 80.0-100 <content Saint corpuscular .0 styleCode="Bold Kaylene volume [Entitic ">Mean Medical volume] by Corpuscular Center Automated count Volume </content>85.0 FL<content styleCode="Ital ics"> (80.0-100.0 FL)</content> Hemoglobin 12.3-16. Below low normal <content Saint [Mass/volume] in 0 styleCode="Bold Kaylene Blood ">Hemoglobin Medical </content>10.4 Center G/DL L<content styleCode="Ital ics"> (12.3-16.0 G/DL)</content> Platelets 130-400 <content Saint [#/volume] in styleCode="Bold Kaylene Blood by ">Platelet Medical Automated count Count Center </content>323 KCUMM<content styleCode="Ital ics"> (130-400 KCUMM)</content > UNK 0 <content Saint styleCode="Bold Kaylene ">Nucleated Red Medical Blood Cell Center </content>0.0 /100<content styleCode="Ital ics"> (0 /100)</content> Platelet mean 8.0-11.0 <content [facility] volume [Entitic styleCode="Bold Kaylene volume] in Blood ">Mean Platelet Medical by Automated Volume Center count </content>10.3 FL<content styleCode="Ital ics"> (8.0-11.0 FL)</content> UNK 0.0 <content [facility] styleCode="Bold Kaylene ">Nucleated Red Medical Blood Cell Center Count </content>0.00 KCUMM<content styleCode="Ital ics"> (0.0 KCUMM)</content > Erythrocyte 11.5-14. <content [facility] distribution 5 styleCode="Fitz Maurice width [Ratio] by ">Red Cell Medical Automated count Distribution Center Width </content>13.3 %<content styleCode="Ital ics"> (11.5-14.5 %)</content> ID Date Data Source GFR(Creatinine).[id number] 11/22/2019 07:35:00 PM EDT [facility] 0-0400 Name Value Range Interpretation Code Description Data Christy rce(s) Supporting Document(s ) UNK > 60 <content [facility] styleCode="Bold"> Medical Cent er EGFR </content>147 GFR<content styleCode="Italic s"> (> 60 GFR)</content> ID Date Data Source BMP.[id number] 11/22/2019 07:35:00 PM EDT [facility] Name Value Range Interpretation Description Data Sup porting Code Source(s) Document(s ) Potassium 3.5-5.3 <content [facility] [Moles/volume] styleCode="Fili Kaylene in Serum or d">Potassium Medical Plasma </content>4.0 Center MEQ/L<content styleCode="Madison lics"> (3.5-5.3 MEQ/L)</conten t> Sodium 137-145 Below low normal <content [facility] [Moles/volume] styleCode="Fili Kaylene in Serum or d">Sodium Medical Plasma </content>136 Center MEQ/L L<content styleCode="Madison lics"> (137-145 MEQ/L)</conten t> Carbon 22-30 <content [facility] dioxide, total styleCode="Fili Kaylene [Moles/volume] d">Carbon Medical in Serum or Dioxide Center Plasma </content>25 MEQ/L<content styleCode="Madison lics"> (22-30 MEQ/L)</conten t> UNK 7-17 <content [facility] styleCode="Fili Kaylene d">BUN Medical </content>7 Center MG/DL<content styleCode="Madison lics"> (7-17 MG/DL)</conten t> Glucose 74-106 Above high normal <content [facility] [Mass/volume] styleCode="Fili Hans in Serum or d">Glucose Medical Plasma </content>317 Center MG/DL H<content styleCode="Madison lics"> (74-106 MG/DL)</conten t> Calcium 8.4-10.2 <content [facility] [Mass/volume] styleCode="Fili Hans in Serum or d">Calcium Medical Plasma </content>9.2 Center MG/DL<content styleCode="Madison lics"> (8.4-10.2 MG/DL)</conten t> Chloride 98-107 <content [facility] [Moles/volume] styleCode="Fili Hans in Serum or d">Chloride Medical Plasma </content>105 Center MEQ/L<content styleCode="Madison lics"> (98-107 MEQ/L)</conten t> Creatinine 0.5-1.3 <content [facility] [Mass/volume] styleCode="Fili Hans in Serum or d">Creatinine Medical Plasma </content>0.6 Center MG/DL<content styleCode="Madison lics"> (0.5-1.3 MG/DL)</conten t> UNK > 60 <content [facility] styleCode="Fili Hans d">EGFR Medical </content>147 Center GFR<content styleCode="Madison lics"> (> 60 GFR)</content> ID Date Data Source Urinalysis.[id number] 11/22/2019 07:15:00 PM EDT [facility] 0 Name Value Range Interpretation Description Data Sup porting Code Source(s) Document(s ) Color of Urine YELLOW <content [facility] styleCode="Fili Hans d">Color, Medical Urine Center </content>YELL OW <content styleCode="Madison lics"> (YELLOW )</content> Glucose NEGATIVE <content [facility] [Mass/volume] styleCode="Fili Maurice in Urine by d">Urine Medical Test strip Glucose Center </content>250 MG/DL<content styleCode="Madison lics"> (NEGATIVE MG/DL)</conten t> UNK NEGATIVE <content [facility] styleCode="Fili Kaylene d">Urine Medical Bilirubin Center </content>NEGA TIVE <content styleCode="Madison lics"> (NEGATIVE )</content> UNK CLEAR <content [facility] styleCode="Fili Kaylene d">Urine Medical Clarity Center </content>Sl CLOUDY <content styleCode="Madison lics"> (CLEAR )</content> Ketones NEGATIVE <content [facility] [Mass/volume] styleCode="Fili Hans in Urine by d">Urine Medical Test strip Ketone Center </content>TRAC E MG/DL<content styleCode="Madison lics"> (NEGATIVE MG/DL)</conten t> Specific 1.015-1.02 Above high <content [facility] gravity of 5 normal styleCode="Fili Hans Urine by Test d">Urine Medical strip Specific Center [place] </content>>= 1.030 H<content styleCode="Madison lics"> (1.015-1.025 )</content> Hemoglobin NEGATIVE <content [facility] [Presence] in styleCode="Fili Hans Urine by Test d">Urine Blood Medical strip </content>MODE Center RATE <content styleCode="Madison lics"> (NEGATIVE )</content> Protein NEGATIVE <content [facility] [Mass/volume] styleCode="Fili Hans in Urine by d">Urine Medical Test strip Protein Center </content>30 MG/DL<content styleCode="Madison lics"> (NEGATIVE MG/DL)</conten t> Nitrite NEGATIVE <content [facility] [Presence] in styleCode="Fili Hans Urine by Test d">Urine Medical strip Nitrite Center </content>NEGA TIVE <content styleCode="Madison lics"> (NEGATIVE )</content> pH of Urine by 4.5-8.0 <content [facility] Test strip styleCode="Fili Kaylene d">Urine pH Medical </content>5.5 Center <content styleCode="Madison lics"> (4.5-8.0 )</content> Urobilinogen 0.2-1.0 <content [facility] [Units/volume] styleCode="Fili Hans in Urine by d">Urine Medical Test strip Urobilinogen Center </content>0.2 MG/DL<content styleCode="Madison lics"> (0.2-1.0 MG/DL)</conten t> Leukocyte NEGATIVE <content [facility] esterase styleCode="Fili Hans [Presence] in d">Urine Medical Urine by Test Leukocyte Center strip </content>SMAL L <content styleCode="Madison lics"> (NEGATIVE )</content> UNK NEGATIVE <content [facility] styleCode="Fili Kaylene d">Urine Medical Bacteria Center </content>MANY HPF<content styleCode="Madison lics"> (NEGATIVE HPF)</content> UNK 0-3 <content [facility] styleCode="Fili Kaylene d">Urine White Medical Blood Cell Center </content>10 - 20 HPF<content styleCode="Madison lics"> (0-3 HPF)</content> UNK 0-3 <content [facility] styleCode="Fili Kaylene d">Urine Red Medical Blood Cell Center </content>5 - 10 HPF<content styleCode="Madison lics"> (0-3 HPF)</content> UNK NONE SEEN <content [facility] styleCode="Fili Kaylene d">Epithelial Medical Cell Center </content>10 - 20 HPF<content styleCode="Madison lics"> (NONE SEEN HPF)</content> UNK 0-2 <content [facility] styleCode="Fili Kaylene d">Hyaline Medical Cast Center </content>1-3 LPF<content styleCode="Madison lics"> (0-2 LPF)</content> UNK NONE SEEN <content [facility] styleCode="Fili Kaylene d">Urine Mucus Medical </content>MANY Center HPF<content styleCode="Madison lics"> (NONE SEEN HPF)</content> ID Date Data Source Microbiology.[id number] 11/22/2019 07:15:00 PM EDT [facility] 400 Name Value Range Interpretation Code Description Data Christy rce(s) Supporting Document(s ) UNK <item><content [facility] styleCode="Bold"> Medical [facility] er Culture Status </content>
<t able><tbody><tr>< td>Specimen Number:</td><td>[id number]</td></tr ><tr><td>Sample Collection Date/Time: </td><td>11/22/2019 7:15 PM</td></tr><tr>< td>Specimen Source:</td><td>U RINE</td></tr><tr ><td>Culture Status:</td><td>P reliminary </td></tr><tr><td >Culture Report:</td><td>C ulture in progress </td></tr><tr><td >Urine Culture:</td><td> Collection Plate Date: 11/22/2019 19:45 </td></tr></tbody ></table></item> UNK <item><content [facility] styleCode="Bold"> Medical [facility] er Culture Report </content>
<t able><tbody><tr>< td>Specimen Number:</td><td>[id number]</td></tr ><tr><td>Sample Collection Date/Time: </td><td>11/22/2019 7:15 PM</td></tr><tr>< td>Specimen Source:</td><td>U RINE</td></tr><tr ><td>Urine Culture:</td><td> Collection Plate Date: 11/22/2019 19:45 </td></tr><tr><td >Culture Status:</td><td>P reliminary </td></tr><tr><td >Culture Report:</td><td>C ulture in progress </td></tr></tbody ></table></item> ID Date Data Source Urinalysis.[id number] 10/24/2019 02:55:00 PM EDT Mitch [facility] 0 Name Value Range Interpretation Description Data Sup porting Code Source(s) Document(s ) Color of Urine YELLOW <content [facility] styleCode="Fili Hans d">Color, Medical Urine Center </content>YELL OW <content styleCode="Madison lics"> (YELLOW )</content> UNK NEGATIVE <content [facility] styleCode="Fili Kaylene d">Urine Medical Bilirubin Center </content>NEGA TIVE <content styleCode="Madison lics"> (NEGATIVE )</content> UNK CLEAR <content [facility] styleCode="Fili Kaylene d">Urine Medical Clarity Center </content>ALTAGRACIA R <content styleCode="Madison lics"> (CLEAR )</content> Glucose NEGATIVE <content [facility] [Mass/volume] styleCode="Fili Hans in Urine by d">Urine Medical Test strip Glucose Center </content>>=10 00 MG/DL<content styleCode="Madison lics"> (NEGATIVE MG/DL)</conten t> Ketones NEGATIVE <content [facility] [Mass/volume] styleCode="Fili Hans in Urine by d">Urine Medical Test strip Ketone Center </content>NEGA TIVE MG/DL<content styleCode="Madison lics"> (NEGATIVE MG/DL)</conten t> pH of Urine by 4.5-8.0 <content [facility] Test strip styleCode="Fili Kaylene d">Urine pH Medical </content>5.5 Center <content styleCode="Madison lics"> (4.5-8.0 )</content> Hemoglobin NEGATIVE <content [facility] [Presence] in styleCode="Fili Hans Urine by Test d">Urine Blood Medical strip </content>TRAC Center E <content styleCode="Madison lics"> (NEGATIVE )</content> Specific 1.015-1.02 <content [facility] gravity of 5 styleCode="Fili Hans Urine by Test d">Urine Medical strip Specific Center [place] </content>1.02 5 <content styleCode="Madison lics"> (1.015-1.025 )</content> Protein NEGATIVE <content [facility] [Mass/volume] styleCode="Fili Maurice in Urine by d">Urine Medical Test strip Protein Center </content>NEGA TIVE MG/DL<content styleCode="Madison lics"> (NEGATIVE MG/DL)</conten t> UNK 0-3 <content [facility] styleCode="Fili Kaylene d">Urine Red Medical Blood Cell Center </content>3-5 HPF<content styleCode="Madison lics"> (0-3 HPF)</content> Urobilinogen 0.2-1.0 <content [facility] [Units/volume] styleCode="Fili Maurice in Urine by d">Urine Medical Test strip Urobilinogen Center </content>0.2 MG/DL<content styleCode="Madison lics"> (0.2-1.0 MG/DL)</conten t> Nitrite NEGATIVE <content [facility] [Presence] in styleCode="Fili Hans Urine by Test d">Urine Medical strip Nitrite Center </content>POSI TIVE <content styleCode="Madison lics"> (NEGATIVE )</content> Leukocyte NEGATIVE <content [facility] esterase styleCode="Fili Maurice [Presence] in d">Urine Medical Urine by Test Leukocyte Center strip </content>TRAC E <content styleCode="Madison lics"> (NEGATIVE )</content> UNK NEGATIVE <content [facility] styleCode="Fili Kaylene d">Urine Medical Bacteria Center </content>FEW HPF<content styleCode="Madison lics"> (NEGATIVE HPF)</content> UNK NONE SEEN <content [facility] styleCode="Fili Kaylene d">Epithelial Medical Cell Center </content>2-5 HPF<content styleCode="Madison lics"> (NONE SEEN HPF)</content> UNK 0-3 <content [facility] styleCode="Fili Kaylene d">Urine White Medical Blood Cell Center </content>10 - 20 HPF<content styleCode="Madison lics"> (0-3 HPF)</content> ID Date Data Source Microbiology.[id number] 10/24/2019 02:55:00 PM EDT [facility] 400 Name Value Range Interpretation Code Description Data Christy rce(s) Supporting Document(s ) UNK <item><content [facility] styleCode="Bold"> Medical [facility] er Culture Report </content>
<t able><tbody><tr>< td>Specimen Number:</td><td>[id number]</td></tr ><tr><td>Sample Collection Date/Time: </td><td> 0 2:55 PM</td></tr><tr>< td>Specimen Source:</td><td>U RINE</td></tr><tr ><td>Urine Culture:</td><td> Collection Plate Date: 10/24/2019 14:57 </td></tr><tr><td >Culture Status:</td><td>P reliminary </td></tr><tr><td >Culture Report:</td><td>C ulture in progress </td></tr></tbody ></table></item> UNK <item><content [facility] styleCode="Bold"> Medical [facility] er Culture Status </content>
<t able><tbody><tr>< td>Specimen Number:</td><td>[id number]</td></tr ><tr><td>Sample Collection Date/Time: </td><td> 0 2:55 PM</td></tr><tr>< td>Specimen Source:</td><td>U RINE</td></tr><tr ><td>Culture Status:</td><td>P reliminary </td></tr><tr><td >Culture Report:</td><td>C ulture in progress </td></tr><tr><td >Urine Culture:</td><td> Collection Plate Date: 10/24/2019 14:57 </td></tr></tbody ></table></item> ID Date Data Source Liver 10/24/2019 02:46:00 PM EDT [facility] Profile.[id number] Name Value Range Interpretation Description Data Sup porting Code Source(s) Document(s ) Aspartate 14-36 <content [facility] aminotransferase styleCode="Bold"> Magno hs [Enzymatic Aspartate Medical activity/volume] Aminotransferase Center in Serum or Plasma (AST) </content>26 IU/L<content styleCode="Italic s"> (14-36 IU/L)</content> Bilirubin.total 0.2-1.3 <content [facility] [Mass/volume] in styleCode="Bold"> Magno hs Serum or Plasma Bilirubin Total Medical </content>0.6 Center MG/DL<content styleCode="Italic s"> (0.2-1.3 MG/DL)</content> Alkaline 38-126 <content [facility] phosphatase styleCode="Bold"> Kaylene [Enzymatic Alkaline Medical activity/volume] Phosphatase (ALP) Cente r in Serum or Plasma </content>86 IU/L<content styleCode="Italic s"> (38-126 IU/L)</content> Alanine 7-30 <content [facility] aminotransferase styleCode="Bold"> Magno hs [Enzymatic Alanine Medical activity/volume] Aminotransferase Center in Serum or Plasma (ALT) </content>11 IU/L<content styleCode="Italic s"> (7-30 IU/L)</content> Albumin 3.5-5.0 <content [facility] [Mass/volume] in styleCode="Bold"> Magno hs Serum or Plasma Albumin Medical </content>3.6 Center G/DL<content styleCode="Italic s"> (3.5-5.0 G/DL)</content> UNK 0.0-0.3 <content [facility] styleCode="Bold"> Kaylene Bilirubin, Direct Medical </content>< 0.2 Center MG/DL<content styleCode="Italic s"> (0.0-0.3 MG/DL)</content> ID Date Data Source HematologyRou.[id number] 10/24/2019 02:46:00 PM EDT Mitch [facility] 0400 Name Value Range Interpretation Description Data Sup porting Code Source(s) Document(s ) Hemoglobin 12.3-16. Below low normal <content [facility] [Mass/volume] in 0 styleCode="Bold Kaylene Blood ">Hemoglobin Medical </content>11.9 Center G/DL L<content styleCode="Ital ics"> (12.3-16.0 G/DL)</content> Erythrocytes 4.0-5.1 <content [facility] [#/volume] in styleCode="Bold Kaylene Blood by ">Red Blood Medical Automated count Cell Count Center </content>4.05 MCUMM<content styleCode="Ital ics"> (4.0-5.1 MCUMM)</content > Erythrocyte mean 80.0-100 <content [facility] corpuscular .0 styleCode="Bold Kaylene volume [Entitic ">Mean Medical volume] by Corpuscular Center Automated count Volume </content>85.9 FL<content styleCode="Ital ics"> (80.0-100.0 FL)</content> Leukocytes 4.4-11.0 <content [facility] [#/volume] in styleCode="Bold Kaylene Blood by ">White Blood Medical Automated count Cell Count Center </content>8.08 KCUMM<content styleCode="Ital ics"> (4.4-11.0 KCUMM)</content > Hematocrit 36.0-46. Below low normal <content [facility] [Volume 0 styleCode="Bold Kaylene Fraction] of ">Hematocrit Medical Blood by </content>34.8 Center Automated count % L<content styleCode="Ital ics"> (36.0-46.0 %)</content> Erythrocyte mean 32.0-37. <content [facility] corpuscular 0 styleCode="Bold Kaylene hemoglobin ">Mean Corpus. Medical concentration Hgb Center [Mass/volume] by Concentration Automated count (MCHC) </content>34.2 G/DL<content styleCode="Ital ics"> (32.0-37.0 G/DL)</content> Erythrocyte 11.5-14. <content [facility] distribution 5 styleCode="Fitz Maurice width [Ratio] by ">Red Cell Medical Automated count Distribution Center Width </content>12.4 %<content styleCode="Ital ics"> (11.5-14.5 %)</content> Erythrocyte mean 26.0-34. <content [facility] corpuscular 0 styleCode="Bold Kaylene hemoglobin ">Mean Medical [Entitic mass] Corposcular Center by Automated Hemoglobin count </content>29.4 PG<content styleCode="Ital ics"> (26.0-34.0 PG)</content> Platelets 130-400 <content [facility] [#/volume] in styleCode="Bold Kaylene Blood by ">Platelet Medical Automated count Count Center </content>318 KCUMM<content styleCode="Ital ics"> (130-400 KCUMM)</content > UNK 0 <content [facility] styleCode="Bold Kaylene ">Nucleated Red Medical Blood Cell Center </content>0.0 /100<content styleCode="Ital ics"> (0 /100)</content> UNK 0.0 <content [facility] styleCode="Bold Kaylene ">Nucleated Red Medical Blood Cell Center Count </content>0.00 KCUMM<content styleCode="Ital ics"> (0.0 KCUMM)</content > Platelet mean 8.0-11.0 <content [facility] volume [Entitic styleCode="Bold Kaylene volume] in Blood ">Mean Platelet Medical by Automated Volume Center count </content>10.0 FL<content styleCode="Ital ics"> (8.0-11.0 FL)</content> ID Date Data Source GFR(Creatinine).[id number] 10/24/2019 02:46:00 PM EDT Mitch [facility] 0-0400 Name Value Range Interpretation Code Description Data Christy rce(s) Supporting Document(s ) UNK > 60 <content [facility] styleCode="Bold"> Medical Cent er EGFR </content>123 GFR<content styleCode="Italic s"> (> 60 GFR)</content> ID Date Data Source CHMROUTINECCDA.[id number] 10/24/2019 02:46:00 PM EDT [facility] -0400 Name Value Range Interpretation Description Data Sup porting Code Source(s) Document(s ) UNK 30-110 <content [facility] styleCode="Bold Medical ">Amylase Center </content>48 IU/L<content styleCode="Ital ics"> (30-110 IU/L)</content> Lipase 23-300 <content [facility] [Enzymatic styleCode="Bold Medical activity/vo ">Lipase Center lume] in </content>124 Serum or IU/L<content Plasma styleCode="Ital ics"> (23-300 IU/L)</content> ID Date Data Source [facility].[id number] 10/24/2019 02:46:00 PM EDT [facility] Name Value Range Interpretation Description Data Sup porting Code Source(s) Document(s ) Sodium 137-145 Below low <content [facility] [Moles/volume] in normal styleCode="Bold"> [facility]it [facility] Serum or Plasma Sodium Medical </content>132 Center MEQ/L L<content styleCode="Italic s"> (137-145 MEQ/L)</content> Carbon dioxide, 22-30 <content [facility] total styleCode="Bold"> Kaylene [Moles/volume] in Carbon Dioxide Medical Serum or Plasma </content>23 Center MEQ/L<content styleCode="Italic s"> (22-30 MEQ/L)</content> UNK 7-17 <content [facility] styleCode="Bold"> Kaylene BUN </content>10 Medical MG/DL<content Center styleCode="Italic s"> (7-17 MG/DL)</content> Chloride 98-107 <content [facility] [Moles/volume] in styleCode="Bold"> Mohit [facility] Serum or Plasma Chloride Medical </content>101 Center MEQ/L<content styleCode="Italic s"> (98-107 MEQ/L)</content> Potassium <content [facility] [Moles/volume] in styleCode="Bold"> Mohit phs Serum or Plasma Potassium Medical </content>Test Center not performed. MEQ/L (Reference Range: not available)
Calcium 8.4-10. <content [facility] [Mass/volume] in 2 styleCode="Bold"> Magno hs Serum or Plasma Calcium Medical </content>8.7 Center MG/DL<content styleCode="Italic s"> (8.4-10.2 MG/DL)</content> UNK > 60 <content [facility] styleCode="Bold"> Kalyene EGFR Medical </content>123 Center GFR<content styleCode="Italic s"> (> 60 GFR)</content> Creatinine 0.5-1.3 <content [facility] [Mass/volume] in styleCode="Bold"> Magno hs Serum or Plasma Creatinine Medical </content>0.7 Center MG/DL<content styleCode="Italic s"> (0.5-1.3 MG/DL)</content> Glucose 74-106 Above high <content [facility] [Mass/volume] in normal styleCode="Bold"> Magno hs Serum or Plasma Glucose Medical </content>278 Center MG/DL H<content styleCode="Italic s"> (74-106 MG/DL)</content> Alanine 7-30 <content [facility] aminotransferase styleCode="Bold"> Magno hs [Enzymatic Alanine Medical activity/volume] Aminotransferase Center in Serum or Plasma (ALT) </content>11 IU/L<content styleCode="Italic s"> (7-30 IU/L)</content> Alkaline 38-126 <content [facility] phosphatase styleCode="Bold"> Kaylene [Enzymatic Alkaline Medical activity/volume] Phosphatase (ALP) Cente r in Serum or Plasma </content>86 IU/L<content styleCode="Italic s"> (38-126 IU/L)</content> Bilirubin.total 0.2-1.3 <content [facility] [Mass/volume] in styleCode="Bold"> Magno hs Serum or Plasma Bilirubin Total Medical </content>0.6 Center MG/DL<content styleCode="Italic s"> (0.2-1.3 MG/DL)</content> Aspartate 14-36 <content [facility] aminotransferase styleCode="Bold"> Magno hs [Enzymatic Aspartate Medical activity/volume] Aminotransferase Center in Serum or Plasma (AST) </content>26 IU/L<content styleCode="Italic s"> (14-36 IU/L)</content> Albumin 3.5-5.0 <content [facility] [Mass/volume] in styleCode="Bold"> Magno hs Serum or Plasma Albumin Medical </content>3.6 Center G/DL<content styleCode="Italic s"> (3.5-5.0 G/DL)</content> ID Date Data Source Urinalysis.[id number] 06/25/2019 04:30:00 PM EDT Mitch [facility] 0 Name Value Range Interpretation Description Data Sup porting Code Source(s) Document(s ) UNK CLEAR <content Saint styleCode="[facility] d">Urine Medical Clarity Center </content>Sl CLOUDY <content styleCode="Madison lics"> (CLEAR )</content> Color of Urine YELLOW <content Saint styleCode="[facility] d">Color, Medical Urine Center </content>YELL OW <content styleCode="Madison lics"> (YELLOW )</content> Hemoglobin NEGATIVE <content [facility] [Presence] in styleCode="Fili Hans Urine by Test d">Urine Blood Medical strip </content>NEGA Center TIVE <content styleCode="Madison lics"> (NEGATIVE )</content> UNK NEGATIVE <content Saint styleCode="Fili Hans d">Urine Medical Bilirubin Center </content>NEGA TIVE <content styleCode="Madison lics"> (NEGATIVE )</content> Glucose NEGATIVE <content [facility] [Mass/volume] styleCode="Fili Hans in Urine by d">Urine Medical Test strip Glucose Center </content>>=10 00 MG/DL<content styleCode="Madison lics"> (NEGATIVE MG/DL)</conten t> Ketones NEGATIVE <content [facility] [Mass/volume] styleCode="Fili Hans in Urine by d">Urine Medical Test strip Ketone Center </content>NEGA TIVE MG/DL<content styleCode="Madison lics"> (NEGATIVE MG/DL)</conten t> Specific 1.015-1.02 Below low normal <content [facility] gravity of 5 styleCode="Fili Kaylene Urine by Test d">Urine Medical strip Specific Center [place] </content>1.01 0 L<content styleCode="Madison lics"> (1.015-1.025 )</content> pH of Urine by 4.5-8.0 <content [facility] Test strip styleCode="Fili Kaylene d">Urine pH Medical </content>6.0 Center <content styleCode="Madison lics"> (4.5-8.0 )</content> UNK 0-3 <content [facility] styleCode="Fili Kaylene d">Urine Red Medical Blood Cell Center </content>0-3 HPF<content styleCode="Madison lics"> (0-3 HPF)</content> Urobilinogen 0.2-1.0 <content [facility] [Units/volume] styleCode="Fili Kaylene in Urine by d">Urine Medical Test strip Urobilinogen Center </content>0.2 MG/DL<content styleCode="Madison lics"> (0.2-1.0 MG/DL)</conten t> Protein NEGATIVE <content [facility] [Mass/volume] styleCode="Fili Kaylene in Urine by d">Urine Medical Test strip Protein Center </content>NEGA TIVE MG/DL<content styleCode="Madison lics"> (NEGATIVE MG/DL)</conten t> Leukocyte NEGATIVE <content [facility] esterase styleCode="Fili Kaylene [Presence] in d">Urine Medical Urine by Test Leukocyte Center strip </content>TRAC E <content styleCode="Madison lics"> (NEGATIVE )</content> Nitrite NEGATIVE <content [facility] [Presence] in styleCode="Fili Kaylene Urine by Test d">Urine Medical strip Nitrite Center </content>POSI TIVE <content styleCode="Madison lics"> (NEGATIVE )</content> UNK NONE SEEN <content Saint styleCode="Fili Kaylene d">Epithelial Medical Cell Center </content>20-2 5 HPF<content styleCode="Madison lics"> (NONE SEEN HPF)</content> UNK 0-3 <content styleCode="Fili Hans d">Urine White Medical Blood Cell Center </content>5 - 10 HPF<content styleCode="Madison lics"> (0-3 HPF)</content> UNK NEGATIVE <content styleCode="Fili Hans d">Urine Medical Bacteria Center </content>MANY HPF<content styleCode="Madison lics"> (NEGATIVE HPF)</content> UNK NONE SEEN <content [facility] styleCode="Fili Hans d">Yeast Cell Medical </content>FEW Center HPF<content styleCode="Madison lics"> (NONE SEEN HPF)</content> ID Date Data Source Microbiology.[id number] 06/25/2019 04:30:00 PM EDT [facility] 400 Name Value Range Interpretation Code Description Data Christy rce(s) Supporting Document(s ) UNK <item><content Kaylene styleCode="Bold"> Medical Cent er Culture Status </content>
<t able><tbody><tr>< td>Specimen Number:</td><td>[id number]</td></tr ><tr><td>Sample Collection Date/Time: </td><td> 0 4:30 PM</td></tr><tr>< td>Specimen Source:</td><td>U RINE</td></tr><tr ><td>Culture Status:</td><td>P reliminary </td></tr><tr><td >Culture Report:</td><td>C ulture in progress </td></tr><tr><td >Urine Culture:</td><td> Collection Plate Date: 06/25/2019 16:40 </td></tr></tbody ></table></item> UNK <item><content [facility] styleCode="Bold"> Medical Cent er Culture Report </content>
<t able><tbody><tr>< td>Specimen Number:</td><td>[id number]</td></tr ><tr><td>Sample Collection Date/Time: </td><td> 0 4:30 PM</td></tr><tr>< td>Specimen Source:</td><td>U RINE</td></tr><tr ><td>Urine Culture:</td><td> Collection Plate Date: 06/25/2019 16:40 </td></tr><tr><td >Culture Status:</td><td>P reliminary </td></tr><tr><td >Culture Report:</td><td>C ulture in progress </td></tr></tbody ></table></item> ID Date Data Source HematologyRou.[id number] 06/25/2019 03:47:00 PM EDT [facility] 0400 Name Value Range Interpretation Description Data Sup porting Code Source(s) Document(s ) Erythrocytes 4.0-5.1 <content [facility] [#/volume] in styleCode="Bold Kaylene Blood by ">Red Blood Medical Automated count Cell Count Center </content>4.30 MCUMM<content styleCode="Ital ics"> (4.0-5.1 MCUMM)</content > Hematocrit 36.0-46. <content [facility] [Volume 0 styleCode="Bold Kaylene Fraction] of ">Hematocrit Medical Blood by </content>36.1 Center Automated count %<content styleCode="Ital ics"> (36.0-46.0 %)</content> Leukocytes 4.4-11.0 <content [facility] [#/volume] in styleCode="Bold Kaylene Blood by ">White Blood Medical Automated count Cell Count Center </content>10.77 KCUMM<content styleCode="Ital ics"> (4.4-11.0 KCUMM)</content > Hemoglobin 12.3-16. Below low normal <content [facility] [Mass/volume] in 0 styleCode="Bold Kaylene Blood ">Hemoglobin Medical </content>12.0 Center G/DL L<content styleCode="Ital ics"> (12.3-16.0 G/DL)</content> Erythrocyte 11.5-14. <content [facility] distribution 5 styleCode="Bold Kaylene width [Ratio] by ">Red Cell Medical Automated count Distribution Center Width </content>13.1 %<content styleCode="Ital ics"> (11.5-14.5 %)</content> Erythrocyte mean 26.0-34. <content [facility] corpuscular 0 styleCode="Bold Kaylene hemoglobin ">Mean Medical [Entitic mass] Corposcular Center by Automated Hemoglobin count </content>27.9 PG<content styleCode="Ital ics"> (26.0-34.0 PG)</content> Erythrocyte mean 80.0-100 <content [facility] corpuscular .0 styleCode="Bold Kaylene volume [Entitic ">Mean Medical volume] by Corpuscular Center Automated count Volume </content>84.0 FL<content styleCode="Ital ics"> (80.0-100.0 FL)</content> Erythrocyte mean 32.0-37. <content [facility] corpuscular 0 styleCode="Bold Kaylene hemoglobin ">Mean Corpus. Medical concentration Hgb Center [Mass/volume] by Concentration Automated count (MCHC) </content>33.2 G/DL<content styleCode="Ital ics"> (32.0-37.0 G/DL)</content> Platelets 130-400 <content [facility] [#/volume] in styleCode="Bold Kaylene Blood by ">Platelet Medical Automated count Count Center </content>345 KCUMM<content styleCode="Ital ics"> (130-400 KCUMM)</content > UNK 0 <content [facility] styleCode="Bold Kaylene ">Nucleated Red Medical Blood Cell Center </content>0.0 /100<content styleCode="Ital ics"> (0 /100)</content> UNK 0.0 <content [facility] styleCode="Bold Kaylene ">Nucleated Red Medical Blood Cell Center Count </content>0.00 KCUMM<content styleCode="Ital ics"> (0.0 KCUMM)</content > Platelet mean 8.0-11.0 <content [facility] volume [Entitic styleCode="Bold Kaylene volume] in Blood ">Mean Platelet Medical by Automated Volume Center count </content>9.8 FL<content styleCode="Ital ics"> (8.0-11.0 FL)</content> ID Date Data Source GFR(Creatinine).[id number] 06/25/2019 03:47:00 PM EDT [facility] 0-0400 Name Value Range Interpretation Code Description Data Christy rce(s) Supporting Document(s ) UNK > 60 <content [facility] styleCode="Bold"> Medical Cent er EGFR </content>123 GFR<content styleCode="Italic s"> (> 60 GFR)</content> ID Date Data Source MROUTINECCDA.[id number] 06/25/2019 03:47:00 PM EDT [facility] -0400 Name Value Range Interpretation Code Description Data Christy rce(s) Supporting Document(s ) UNK NEGATIVE <content [facility] styleCode="Bold" Medical Cente r >Acetone </content>NEGATI VE <content styleCode="Itali cs"> (NEGATIVE )</content> ID Date Data Source CardiacMarkers.[id number] 06/25/2019 03:47:00 PM EDT [facility] -0400 Name Value Range Interpretation Description Data Sup porting Code Source(s) Document(s ) Troponin < 0.034 <content [facility] I.cardiac styleCode="Bold Kaylene [Mass/volume ">Troponin I Medical ] in Serum </content>< Center or Plasma 0.012 NG/ML<content styleCode="Ital ics"> (< 0.034 NG/ML)</content > ID Date Data Source BMP.[id number] 06/25/2019 03:47:00 PM EDT [facility] Name Value Range Interpretation Description Data Sup porting Code Source(s) Document(s ) Carbon 22-30 <content [facility] dioxide, total styleCode="Fili Kaylene [Moles/volume] d">Carbon Medical in Serum or Dioxide Center Plasma </content>30 MEQ/L<content styleCode="Madison lics"> (22-30 MEQ/L)</conten t> Potassium 3.5-5.3 <content [facility] [Moles/volume] styleCode="Fili Kaylene in Serum or d">Potassium Medical Plasma </content>4.3 Center MEQ/L<content styleCode="Madison lics"> (3.5-5.3 MEQ/L)</conten t> Sodium 137-145 <content [facility] [Moles/volume] styleCode="Fili Kaylene in Serum or d">Sodium Medical Plasma </content>137 Center MEQ/L<content styleCode="Madison lics"> (137-145 MEQ/L)</conten t> Chloride 98-107 <content [facility] [Moles/volume] styleCode="Fili Kaylene in Serum or d">Chloride Medical Plasma </content>101 Center MEQ/L<content styleCode="Madison lics"> (98-107 MEQ/L)</conten t> UNK 7-17 <content [facility] styleCode="Fili Kaylene d">BUN Medical </content>13 Center MG/DL<content styleCode="Madison lics"> (7-17 MG/DL)</conten t> Calcium 8.4-10.2 <content [facility] [Mass/volume] styleCode="Fili Kaylene in Serum or d">Calcium Medical Plasma </content>9.7 Center MG/DL<content styleCode="Madison lics"> (8.4-10.2 MG/DL)</conten t> Glucose 74-106 Above high normal <content [facility] [Mass/volume] styleCode="Fili Kaylene in Serum or d">Glucose Medical Plasma </content>308 Center MG/DL H<content styleCode="Madison lics"> (74-106 MG/DL)</conten t> Creatinine 0.5-1.3 <content [facility] [Mass/volume] styleCode="Fili Kaylene in Serum or d">Creatinine Medical Plasma </content>0.7 Center MG/DL<content styleCode="Madison lics"> (0.5-1.3 MG/DL)</conten t> UNK > 60 <content [facility] styleCode="Fili Kaylene d">EGFR Medical </content>123 Center GFR<content styleCode="Madison lics"> (> 60 GFR)</content> ID Date Data Source GFR(Creatinine).[id number] 05/09/2019 06:30:00 AM [facility] 0-0500 Name Value Range Interpretation Code Description Data Christy rce(s) Supporting Document(s ) UNK > 60 <content [facility] styleCode="Bold"> Medical Cent er EGFR </content>124 GFR<content styleCode="Italic s"> (> 60 GFR)</content> ID Date Data Source ChemistrySpecia.[id number] 05/09/2019 06:30:00 AM [facility] 0-0500 Name Value Range Interpretation Description Data Sup porting Code Source(s) Document(s ) Folate > 3.0 <content [facility] [Mass/volume] styleCode="Fili Kaylene in Serum or d">Folic Acid Medical Plasma </content>7.59 Center NG/ML<content styleCode="Madison lics"> (> 3.0 NG/ML)</conten t> Cobalamin 239-931 <content [facility] (Vitamin B12) styleCode="Fili Kaylene [Mass/volume] d">Vitamin B12 Medical in Serum or </content>483 Center Plasma PG/ML<content styleCode="Madison lics"> (239-931 PG/ML)</conten t> ID Date Data Source CHMROUTINECCDA.[id number] 05/09/2019 06:30:00 AM [facility] -0500 Name Value Range Interpretation Code Description Data Supporting Source(s) Document(s ) Folate > 3.0 <content [facility] Kay[facility] [Mass/volum styleCode="Bold Medical e] in Serum ">Folic Acid Center or Plasma </content>7.59 NG/ML<content styleCode="Ital ics"> (> 3.0 NG/ML)</content > ID Date Data Source [facility].[id number] 05/09/2019 06:30:00 AM EST [facility] Name Value Range Interpretation Description Data Sup porting Code Source(s) Document(s ) Potassium 3.5-5.3 <content [facility] [Moles/volume] styleCode="Fili Kaylene in Serum or d">Potassium Medical Plasma </content>3.8 Center MEQ/L<content styleCode="Madison lics"> (3.5-5.3 MEQ/L)</conten t> Chloride 98-107 <content [facility] [Moles/volume] styleCode="Fili Kaylene in Serum or d">Chloride Medical Plasma </content>104 Center MEQ/L<content styleCode="Madison lics"> (98-107 MEQ/L)</conten t> Sodium 137-145 <content [facility] [Moles/volume] styleCode="Fili Kaylene in Serum or d">Sodium Medical Plasma </content>138 Center MEQ/L<content styleCode="Madison lics"> (137-145 MEQ/L)</conten t> UNK 7-17 <content [facility] styleCode="Fili Kaylene d">BUN Medical </content>14 Center MG/DL<content styleCode="Madison lics"> (7-17 MG/DL)</conten t> Creatinine 0.5-1.3 <content [facility] [Mass/volume] styleCode="Fili Kaylene in Serum or d">Creatinine Medical Plasma </content>0.7 Center MG/DL<content styleCode="Madison lics"> (0.5-1.3 MG/DL)</conten t> UNK > 60 <content [facility] styleCode="Fili Kaylene d">EGFR Medical </content>124 Center GFR<content styleCode="Madison lics"> (> 60 GFR)</content> Calcium 8.4-10.2 <content [facility] [Mass/volume] styleCode="Fili Kaylene in Serum or d">Calcium Medical Plasma </content>9.0 Center MG/DL<content styleCode="Madison lics"> (8.4-10.2 MG/DL)</conten t> Glucose 74-106 <content [facility] [Mass/volume] styleCode="Fili Kaylene in Serum or d">Glucose Medical Plasma </content>98 Center MG/DL<content styleCode="Madison lics"> (74-106 MG/DL)</conten t> Carbon 22-30 <content [facility] dioxide, total styleCode="Fili Kaylene [Moles/volume] d">Carbon Medical in Serum or Dioxide Center Plasma </content>28 MEQ/L<content styleCode="Madison lics"> (22-30 MEQ/L)</conten t> ID Date Data Source Liver 05/07/2019 06:15:00 AM EST [facility] Profile.[id number] Name Value Range Interpretation Description Data Sup porting Code Source(s) Document(s ) Aspartate 14-36 <content [facility] aminotransferase styleCode="Bold"> Magno hs [Enzymatic Aspartate Medical activity/volume] Aminotransferase Center in Serum or Plasma (AST) </content>16 IU/L<content styleCode="Italic s"> (14-36 IU/L)</content> Alanine 7-30 <content [facility] aminotransferase styleCode="Bold"> Magno hs [Enzymatic Alanine Medical activity/volume] Aminotransferase Center in Serum or Plasma (ALT) </content>13 IU/L<content styleCode="Italic s"> (7-30 IU/L)</content> Bilirubin.total 0.2-1.3 <content [facility] [Mass/volume] in styleCode="Bold"> Magno hs Serum or Plasma Bilirubin Total Medical </content>0.4 Center MG/DL<content styleCode="Italic s"> (0.2-1.3 MG/DL)</content> Albumin 3.5-5.0 <content [facility] [Mass/volume] in styleCode="Bold"> Magno hs Serum or Plasma Albumin Medical </content>3.8 Center G/DL<content styleCode="Italic s"> (3.5-5.0 G/DL)</content> Alkaline 38-126 <content [facility] phosphatase styleCode="Bold"> Kaylene [Enzymatic Alkaline Medical activity/volume] Phosphatase (ALP) Cente r in Serum or Plasma </content>97 IU/L<content styleCode="Italic s"> (38-126 IU/L)</content> ID Date Data Source HematologyRou.[id number] 05/07/2019 06:15:00 AM [facility] 0500 Name Value Range Interpretation Description Data Sup porting Code Source(s) Document(s ) Leukocytes 4.4-11.0 Above high <content [facility] [#/volume] in normal styleCode="Bold Kaylene Blood by ">White Blood Medical Automated count Cell Count Center </content>13.38 KCUMM H<content styleCode="Ital ics"> (4.4-11.0 KCUMM)</content > Erythrocytes 4.0-5.1 <content [facility] [#/volume] in styleCode="Bold Kaylene Blood by ">Red Blood Medical Automated count Cell Count Center </content>4.13 MCUMM<content styleCode="Ital ics"> (4.0-5.1 MCUMM)</content > Erythrocyte mean 80.0-100 <content [facility] corpuscular .0 styleCode="Bold Kaylene volume [Entitic ">Mean Medical volume] by Corpuscular Center Automated count Volume </content>85.0 FL<content styleCode="Ital ics"> (80.0-100.0 FL)</content> Hemoglobin 12.3-16. Below low normal <content [facility] [Mass/volume] in 0 styleCode="Bold Kaylene Blood ">Hemoglobin Medical </content>11.9 Center G/DL L<content styleCode="Ital ics"> (12.3-16.0 G/DL)</content> Erythrocyte mean 26.0-34. <content [facility] corpuscular 0 styleCode="Bold Kaylene hemoglobin ">Mean Medical [Entitic mass] Corposcular Center by Automated Hemoglobin count </content>28.8 PG<content styleCode="Ital ics"> (26.0-34.0 PG)</content> Erythrocyte mean 32.0-37. <content [facility] corpuscular 0 styleCode="Bold Kaylene hemoglobin ">Mean Corpus. Medical concentration Hgb Center [Mass/volume] by Concentration Automated count (MCHC) </content>33.9 G/DL<content styleCode="Ital ics"> (32.0-37.0 G/DL)</content> Hematocrit 36.0-46. Below low normal <content [facility] [Volume 0 styleCode="Bold Kaylene Fraction] of ">Hematocrit Medical Blood by </content>35.1 Center Automated count % L<content styleCode="Ital ics"> (36.0-46.0 %)</content> Erythrocyte 11.5-14. <content [facility] distribution 5 styleCode="Bold Kaylene width [Ratio] by ">Red Cell Medical Automated count Distribution Center Width </content>12.8 %<content styleCode="Ital ics"> (11.5-14.5 %)</content> UNK 0 <content [facility] styleCode="Bold Kaylene ">Nucleated Red Medical Blood Cell Center </content>0.0 /100<content styleCode="Ital ics"> (0 /100)</content> Platelets 130-400 <content [facility] [#/volume] in styleCode="Bold Kaylene Blood by ">Platelet Medical Automated count Count Center </content>334 KCUMM<content styleCode="Ital ics"> (130-400 KCUMM)</content > Platelet mean 8.0-11.0 <content [facility] volume [Entitic styleCode="Bold Kaylene volume] in Blood ">Mean Platelet Medical by Automated Volume Center count </content>10.3 FL<content styleCode="Ital ics"> (8.0-11.0 FL)</content> UNK 0.0 <content [facility] styleCode="Bold Kaylene ">Nucleated Red Medical Blood Cell Center Count </content>0.00 KCUMM<content styleCode="Ital ics"> (0.0 KCUMM)</content > ID Date Data Source GFR(Creatinine).[id number] 05/07/2019 06:15:00 AM [facility] 0-0500 Name Value Range Interpretation Code Description Data Christy rce(s) Supporting Document(s ) UNK > 60 <content [facility] styleCode="Bold"> Medical Cent er EGFR </content>124 GFR<content styleCode="Italic s"> (> 60 GFR)</content> ID Date Data Source MROUTINEMALGORZATADA.[id number] 05/07/2019 06:15:00 AM [facility] -0500 Name Value Range Interpretation Description Data Sup porting Code Source(s) Document(s ) UNK 2.3-3.5 <content [facility] styleCode="Bold Medical ">Globulin Center </content>3.4 G/DL<content styleCode="Ital ics"> (2.3-3.5 G/DL)</content> Protein 6.3-8.2 <content [facility] [Mass/volum styleCode="Bold Medical e] in Serum ">Total Protein Center or Plasma </content>7.2 G/DL<content styleCode="Ital ics"> (6.3-8.2 G/DL)</content> UNK >= 1.0 <content [facility] styleCode="Bold Medical ">AG Ratio Center </content>1.1 <content styleCode="Ital ics"> (>= 1.0 )</content> ID Date Data Source [facility].[id number] 05/07/2019 06:15:00 AM [facility] Name Value Range Interpretation Description Data Sup porting Code Source(s) Document(s ) Sodium 137-145 Below low <content [facility] [Moles/volume] in normal styleCode="Bold"> Mohit phs Serum or Plasma Sodium Medical </content>133 Center MEQ/L L<content styleCode="Italic s"> (137-145 MEQ/L)</content> Potassium 3.5-5.3 <content [facility] [Moles/volume] in styleCode="Bold"> Mohit phs Serum or Plasma Potassium Medical </content>4.3 Center MEQ/L<content styleCode="Italic s"> (3.5-5.3 MEQ/L)</content> Glucose 74-106 Above high <content [facility] [Mass/volume] in normal styleCode="Bold"> Magno hs Serum or Plasma Glucose Medical </content>395 Center MG/DL H<content styleCode="Italic s"> (74-106 MG/DL)</content> Carbon dioxide, 22-30 <content [facility] total styleCode="Bold"> Kaylene [Moles/volume] in Carbon Dioxide Medical Serum or Plasma </content>23 Center MEQ/L<content styleCode="Italic s"> (22-30 MEQ/L)</content> UNK 7-17 <content [facility] styleCode="Bold"> Kaylene BUN </content>16 Medical MG/DL<content Center styleCode="Italic s"> (7-17 MG/DL)</content> Creatinine 0.5-1.3 <content [facility] [Mass/volume] in styleCode="Bold"> Amgno hs Serum or Plasma Creatinine Medical </content>0.7 Center MG/DL<content styleCode="Italic s"> (0.5-1.3 MG/DL)</content> Chloride 98-107 <content [facility] [Moles/volume] in styleCode="Bold"> Mohit phs Serum or Plasma Chloride Medical </content>101 Center MEQ/L<content styleCode="Italic s"> (98-107 MEQ/L)</content> UNK > 60 <content [facility] styleCode="Bold"> Kaylene EGFR Medical </content>124 Center GFR<content styleCode="Italic s"> (> 60 GFR)</content> Calcium 8.4-10. <content [facility] [Mass/volume] in 2 styleCode="Bold"> Magno hs Serum or Plasma Calcium Medical </content>9.7 Center MG/DL<content styleCode="Italic s"> (8.4-10.2 MG/DL)</content> Alkaline 38-126 <content [facility] phosphatase styleCode="Bold"> Kaylene [Enzymatic Alkaline Medical activity/volume] Phosphatase (ALP) Cente r in Serum or Plasma </content>97 IU/L<content styleCode="Italic s"> (38-126 IU/L)</content> Alanine 7-30 <content [facility] aminotransferase styleCode="Bold"> Magno hs [Enzymatic Alanine Medical activity/volume] Aminotransferase Center in Serum or Plasma (ALT) </content>13 IU/L<content styleCode="Italic s"> (7-30 IU/L)</content> Aspartate 14-36 <content [facility] aminotransferase styleCode="Bold"> Magno hs [Enzymatic Aspartate Medical activity/volume] Aminotransferase Center in Serum or Plasma (AST) </content>16 IU/L<content styleCode="Italic s"> (14-36 IU/L)</content> Albumin 3.5-5.0 <content [facility] [Mass/volume] in styleCode="Bold"> Magno hs Serum or Plasma Albumin Medical </content>3.8 Center G/DL<content styleCode="Italic s"> (3.5-5.0 G/DL)</content> Bilirubin.total 0.2-1.3 <content [facility] [Mass/volume] in styleCode="Bold"> Magno hs Serum or Plasma Bilirubin Total Medical </content>0.4 Center MG/DL<content styleCode="Italic s"> (0.2-1.3 MG/DL)</content> ID Date Data Source LIPID.[id number] 05/06/2019 06:10:00 AM EST [facility] Name Value Range Interpretation Description Data Sup porting Code Source(s) Document(s ) Triglyceride < 150 <content [facility] [Mass/volume] in styleCode="Fili Kaylene Serum or Plasma d">Triglycerid [facility] Center </content>64 MG/DL<content styleCode="Madison lics"> (< 150 MG/DL)</conten t> Cholesterol -<200 Above high normal <content [facility] [Mass/volume] in styleCode="Fili Kaylene Serum or Plasma d">Cholesterol Medical </content>217 Center MG/DL H<content styleCode="Madison lics"> (-<200 MG/DL)</conten t> UNK > 60 Below low normal <content [facility] styleCode="Fili Kaylene d">HDL- Medical Cholesterol Center </content>58 MG/DL L<content styleCode="Madison lics"> (> 60 MG/DL)</conten t> UNK < 100 Above high normal <content [facility] styleCode="Fili Kaylene d">LDL-Cholest Medical gene Center </content>146 MG/DL H<content styleCode="Madison lics"> (< 100 MG/DL)</conten t> ID Date Data Source Hormones.[id number] 05/06/2019 06:10:00 AM [facility] Name Value Range Interpretation Description Data Sup porting Code Source(s) Document(s ) Thyrotropin 0.465-4. <content [facility] [Units/volume] 68 styleCode="Fili Kaylene in Serum or d">Thyroid Medical Plasma by Stimulating Center Detection Hormone limit <= 0.05 </content>0.53 mIU/L 5 MIU/L<content styleCode="Madison lics"> (0.465-4.68 MIU/L)</conten t> ID Date Data Source HematologyRou.[id number] 05/06/2019 06:10:00 AM EST [facility] 0500 Name Value Range Interpretation Description Data Sup porting Code Source(s) Document(s ) Hemoglobin 12.3-16. <content [facility] [Mass/volume] in 0 styleCode="Bold Kaylene Blood ">Hemoglobin Medical </content>12.3 Center G/DL<content styleCode="Ital ics"> (12.3-16.0 G/DL)</content> Leukocytes 4.4-11.0 Above high <content [facility] [#/volume] in normal styleCode="Bold Kaylene Blood by ">White Blood Medical Automated count Cell Count Center </content>11.60 KCUMM H<content styleCode="Ital ics"> (4.4-11.0 KCUMM)</content > Erythrocytes 4.0-5.1 <content [facility] [#/volume] in styleCode="Bold Kaylene Blood by ">Red Blood Medical Automated count Cell Count Center </content>4.36 MCUMM<content styleCode="Ital ics"> (4.0-5.1 MCUMM)</content > Hematocrit 36.0-46. <content [facility] [Volume 0 styleCode="Bold Kaylene Fraction] of ">Hematocrit Medical Blood by </content>37.3 Center Automated count %<content styleCode="Ital ics"> (36.0-46.0 %)</content> Erythrocyte 11.5-14. <content [facility] distribution 5 styleCode="Bold Kaylene width [Ratio] by ">Red Cell Medical Automated count Distribution Center Width </content>12.6 %<content styleCode="Ital ics"> (11.5-14.5 %)</content> Erythrocyte mean 80.0-100 <content [facility] corpuscular .0 styleCode="Bold Kaylene volume [Entitic ">Mean Medical volume] by Corpuscular Center Automated count Volume </content>85.6 FL<content styleCode="Ital ics"> (80.0-100.0 FL)</content> Erythrocyte mean 32.0-37. <content [facility] corpuscular 0 styleCode="Bold Kaylene hemoglobin ">Mean Corpus. Medical concentration Hgb Center [Mass/volume] by Concentration Automated count (MCHC) </content>33.0 G/DL<content styleCode="Ital ics"> (32.0-37.0 G/DL)</content> Erythrocyte mean 26.0-34. <content [facility] corpuscular 0 styleCode="Bold Kaylene hemoglobin ">Mean Medical [Entitic mass] Corposcular Center by Automated Hemoglobin count </content>28.2 PG<content styleCode="Ital ics"> (26.0-34.0 PG)</content> UNK 0 <content [facility] styleCode="Bold Kaylene ">Nucleated Red Medical Blood Cell Center </content>0.0 /100<content styleCode="Ital ics"> (0 /100)</content> Platelets 130-400 <content [facility] [#/volume] in styleCode="Bold Kaylene Blood by ">Platelet Medical Automated count Count Center </content>329 KCUMM<content styleCode="Ital ics"> (130-400 KCUMM)</content > UNK 0.0 <content [facility] styleCode="Bold Kaylene ">Nucleated Red Medical Blood Cell Center Count </content>0.00 KCUMM<content styleCode="Ital ics"> (0.0 KCUMM)</content > Platelet mean 8.0-11.0 <content [facility] volume [Entitic styleCode="Bold Kaylene volume] in Blood ">Mean Platelet Medical by Automated Volume Center count </content>10.2 FL<content styleCode="Ital ics"> (8.0-11.0 FL)</content> ID Date Data Source GFR(Creatinine).[id number] 05/06/2019 06:10:00 AM [facility] 0-0500 Name Value Range Interpretation Code Description Data Christy rce(s) Supporting Document(s ) UNK > 60 <content [facility] styleCode="Bold"> Medical Cent er EGFR </content>124 GFR<content styleCode="Italic s"> (> 60 GFR)</content> ID Date Data Source CHMROUTINECCDA.[id number] 05/06/2019 06:10:00 AM [facility] -0500 Name Value Range Interpretation Description Data Sup porting Code Source(s) Document(s ) Magnesium 1.6-2.3 <content [facility] [Mass/volume] styleCode="Fili Kaylene in Serum or d">Magnesium Medical Plasma </content>1.8 Center MG/DL<content styleCode="Madison lics"> (1.6-2.3 MG/DL)</conten t> Phosphate 2.5-4.5 <content [facility] [Mass/volume] styleCode="Fili Kaylene in Serum or d">Phosphorus Medical Plasma </content>3.8 Center MG/DL<content styleCode="Madison lics"> (2.5-4.5 MG/DL)</conten t> ID Date Data Source BMP.[id number] 05/06/2019 06:10:00 AM [facility] Name Value Range Interpretation Description Data Sup porting Code Source(s) Document(s ) Sodium 137-145 Below low normal <content [facility] [Moles/volume] styleCode="Fili Kaylene in Serum or d">Sodium Medical Plasma </content>136 Center MEQ/L L<content styleCode="Madison lics"> (137-145 MEQ/L)</conten t> Potassium 3.5-5.3 <content [facility] [Moles/volume] styleCode="Fili Kaylene in Serum or d">Potassium Medical Plasma </content>4.6 Center MEQ/L<content styleCode="Madison lics"> (3.5-5.3 MEQ/L)</conten t> UNK 7-17 <content [facility] styleCode="Fili Kaylene d">BUN Medical </content>14 Center MG/DL<content styleCode="Madison lics"> (7-17 MG/DL)</conten t> Creatinine 0.5-1.3 <content [facility] [Mass/volume] styleCode="Fili Kaylene in Serum or d">Creatinine Medical Plasma </content>0.7 Center MG/DL<content styleCode="Madison lics"> (0.5-1.3 MG/DL)</conten t> Carbon 22-30 <content [facility] dioxide, total styleCode="Fili Kaylene [Moles/volume] d">Carbon Medical in Serum or Dioxide Center Plasma </content>23 MEQ/L<content styleCode="Madison lics"> (22-30 MEQ/L)</conten t> Chloride 98-107 <content [facility] [Moles/volume] styleCode="Fili Kaylene in Serum or d">Chloride Medical Plasma </content>102 Center MEQ/L<content styleCode="Madison lics"> (98-107 MEQ/L)</conten t> Glucose 74-106 Above upper panic <content [facility] [Mass/volume] limits styleCode="Fili Kaylene in Serum or d">Glucose Medical Plasma </content><con Center tent styleCode="Fili d">428 MG/DL HH</content><c ontent styleCode="Madison lics"> (74-106 MG/DL)</conten t> UNK > 60 <content [facility] styleCode="Fili Hans d">EGFR Medical </content>124 Center GFR<content styleCode="Madison lics"> (> 60 GFR)</content> Calcium 8.4-10.2 <content [facility] [Mass/volume] styleCode="Fili Hans in Serum or d">Calcium Medical Plasma </content>9.4 Center MG/DL<content styleCode="Madison lics"> (8.4-10.2 MG/DL)</conten t> ID Date Data Source Urinalysis.[id number] 05/05/2019 04:43:00 PM EST [facility] 0 Name Value Range Interpretation Description Data Sup porting Code Source(s) Document(s ) Color of Urine YELLOW <content [facility] styleCode="Fili Hans d">Color, Medical Urine Center </content>YELL OW <content styleCode="Madison lics"> (YELLOW )</content> UNK NEGATIVE <content [facility] styleCode="Fili Hans d">Urine Medical Bilirubin Center </content>NEGA TIVE <content styleCode="Madison lics"> (NEGATIVE )</content> Glucose NEGATIVE <content [facility] [Mass/volume] styleCode="Fili Hans in Urine by d">Urine Medical Test strip Glucose Center </content>>=10 00 MG/DL<content styleCode="Madison lics"> (NEGATIVE MG/DL)</conten t> UNK CLEAR <content [facility] styleCode="Fili Kaylene d">Urine Medical Clarity Center </content>ALTGARACIA R <content styleCode="Madison lics"> (CLEAR )</content> Ketones NEGATIVE <content [facility] [Mass/volume] styleCode="Fili Hans in Urine by d">Urine Medical Test strip Ketone Center </content>NEGA TIVE MG/DL<content styleCode="Madison lics"> (NEGATIVE MG/DL)</conten t> Protein NEGATIVE <content [facility] [Mass/volume] styleCode="Fili Hans in Urine by d">Urine Medical Test strip Protein Center </content>NEGA TIVE MG/DL<content styleCode="Madison lics"> (NEGATIVE MG/DL)</conten t> Specific 1.015-1.02 Below low normal <content [facility] gravity of 5 styleCode="Fili Hans Urine by Test d">Urine Medical strip Specific Center [place] </content>1.01 0 L<content styleCode="Madison lics"> (1.015-1.025 )</content> pH of Urine by 4.5-8.0 <content [facility] Test strip styleCode="Fili Kaylene d">Urine pH Medical </content>5.5 Center <content styleCode="Madison lics"> (4.5-8.0 )</content> Hemoglobin NEGATIVE <content [facility] [Presence] in styleCode="Fili Hans Urine by Test d">Urine Blood Medical strip </content>SMAL Center L <content styleCode="Madison lics"> (NEGATIVE )</content> Urobilinogen 0.2-1.0 <content [facility] [Units/volume] styleCode="Fili Kaylene in Urine by d">Urine Medical Test strip Urobilinogen Center </content>0.2 MG/DL<content styleCode="Madison lics"> (0.2-1.0 MG/DL)</conten t> Nitrite NEGATIVE <content [facility] [Presence] in styleCode="Fili Hans Urine by Test d">Urine Medical strip Nitrite Center </content>NEGA TIVE <content styleCode="Madison lics"> (NEGATIVE )</content> UNK 0-3 <content [facility] styleCode="Fili Kaylene d">Urine Red Medical Blood Cell Center </content>3-5 HPF<content styleCode="Madison lics"> (0-3 HPF)</content> Leukocyte NEGATIVE <content [facility] esterase styleCode="Fili Kaylene [Presence] in d">Urine Medical Urine by Test Leukocyte Center strip </content>NEGA TIVE <content styleCode="Madison lics"> (NEGATIVE )</content> UNK NEGATIVE <content [facility] styleCode="Fili Kaylene d">Urine Medical Bacteria Center </content>MANY HPF<content styleCode="Madison lics"> (NEGATIVE HPF)</content> UNK NONE <content [facility] styleCode="Fili Kaylene d">Amorphous Medical [place] Center </content>FEW HPF<content styleCode="Madison lics"> (NONE HPF)</content> UNK NONE SEEN <content [facility] styleCode="Fili Kaylene d">Epithelial Medical Cell Center </content>5 - 10 HPF<content styleCode="Madison lics"> (NONE SEEN HPF)</content> UNK 0-3 <content [facility] styleCode="Fili Kaylene d">Urine White Medical Blood Cell Center </content>3-5 HPF<content styleCode="Madison lics"> (0-3 HPF)</content> ID Date Data Source HematologyRou.[id number] 05/05/2019 04:43:00 PM [facility] 0500 Name Value Range Interpretation Description Data Sup porting Code Source(s) Document(s ) Leukocytes 4.4-11.0 <content [facility] [#/volume] in styleCode="Bold Kaylene Blood by ">White Blood Medical Automated count Cell Count Center </content>10.23 KCUMM<content styleCode="Ital ics"> (4.4-11.0 KCUMM)</content > Erythrocytes 4.0-5.1 <content [facility] [#/volume] in styleCode="Bold Kaylene Blood by ">Red Blood Medical Automated count Cell Count Center </content>4.03 MCUMM<content styleCode="Ital ics"> (4.0-5.1 MCUMM)</content > Hematocrit 36.0-46. Below low normal <content [facility] [Volume 0 styleCode="Bold Kaylene Fraction] of ">Hematocrit Medical Blood by </content>34.3 Center Automated count % L<content styleCode="Ital ics"> (36.0-46.0 %)</content> Hemoglobin 12.3-16. Below low normal <content [facility] [Mass/volume] in 0 styleCode="Bold Kaylene Blood ">Hemoglobin Medical </content>11.5 Center G/DL L<content styleCode="Ital ics"> (12.3-16.0 G/DL)</content> Erythrocyte mean 80.0-100 <content [facility] corpuscular .0 styleCode="Bold Kaylene volume [Entitic ">Mean Medical volume] by Corpuscular Center Automated count Volume </content>85.1 FL<content styleCode="Ital ics"> (80.0-100.0 FL)</content> Erythrocyte 11.5-14. <content [facility] distribution 5 styleCode="Bold Kaylene width [Ratio] by ">Red Cell Medical Automated count Distribution Center Width </content>12.9 %<content styleCode="Ital ics"> (11.5-14.5 %)</content> Platelets 130-400 <content Saint [#/volume] in styleCode="Bold Kaylene Blood by ">Platelet Medical Automated count Count Center </content>316 KCUMM<content styleCode="Ital ics"> (130-400 KCUMM)</content > Platelet mean 8.0-11.0 <content Saint volume [Entitic styleCode="Bold Kaylene volume] in Blood ">Mean Platelet Medical by Automated Volume Center count </content>9.9 FL<content styleCode="Ital ics"> (8.0-11.0 FL)</content> Erythrocyte mean 32.0-37. <content [facility] corpuscular 0 styleCode="Bold Kaylene hemoglobin ">Mean Corpus. Medical concentration Hgb Center [Mass/volume] by Concentration Automated count (MCHC) </content>33.5 G/DL<content styleCode="Ital ics"> (32.0-37.0 G/DL)</content> Erythrocyte mean 26.0-34. <content [facility] corpuscular 0 styleCode="Bold Kaylene hemoglobin ">Mean Medical [Entitic mass] Corposcular Center by Automated Hemoglobin count </content>28.5 PG<content styleCode="Ital ics"> (26.0-34.0 PG)</content> UNK 1.6-7.3 <content [facility] styleCode="Bold Kaylene ">Neutrophil Medical Count Center </content>6.70 KCUMM<content styleCode="Ital ics"> (1.6-7.3 KCUMM)</content > Neutrophils 36-66 <content Saint [#/volume] in styleCode="Bold Kaylene Blood by ">Neutrophil Medical Automated count </content>65.5 Center %<content styleCode="Ital ics"> (36-66 %)</content> UNK 1.0-4.8 <content [facility] styleCode="Bold Kaylene ">Lymphocyte Medical Count Center </content>2.68 KCUMM<content styleCode="Ital ics"> (1.0-4.8 KCUMM)</content > Lymphocytes 24.0-44. <content [facility] [#/volume] in 0 styleCode="Bold Kaylene Blood by ">Lymphocyte Medical Automated count </content>26.2 Center %<content styleCode="Ital ics"> (24.0-44.0 %)</content> Eosinophils 0-5.0 <content Saint [#/volume] in styleCode="Bold Kaylene Blood by ">Eosinophil Medical Automated count </content>0.7 Center %<content styleCode="Ital ics"> (0-5.0 %)</content> Monocytes 3.0-10.0 <content [facility] [#/volume] in styleCode="Bold Kaylene Blood by ">Monocyte Medical Automated count </content>6.6 Center %<content styleCode="Ital ics"> (3.0-10.0 %)</content> UNK 0.2-0.9 <content [facility] styleCode="Bold Kaylene ">Monocyte Medical Count Center </content>0.68 KCUMM<content styleCode="Ital ics"> (0.2-0.9 KCUMM)</content > UNK 0.0-0.6 <content [facility] styleCode="Bold Kaylene ">Eosinophil Medical Count Center </content>0.07 KCUMM<content styleCode="Ital ics"> (0.0-0.6 KCUMM)</content > UNK 0-0.1 <content [facility] styleCode="Bold Kaylene ">Immature Medical Granulocyte Center Count </content>0.05 KCUMM<content styleCode="Ital ics"> (0-0.1 KCUMM)</content > UNK 0.0-0.3 <content [facility] styleCode="Bold Kaylene ">Basophil Medical Count Center </content>0.05 KCUMM<content styleCode="Ital ics"> (0.0-0.3 KCUMM)</content > UNK 0 <content [facility] styleCode="Bold Kaylene ">Nucleated Red Medical Blood Cell Center </content>0.0 /100<content styleCode="Ital ics"> (0 /100)</content> UNK 0.0 <content [facility] styleCode="Bold Kaylene ">Nucleated Red Medical Blood Cell Center Count </content>0.00 KCUMM<content styleCode="Ital ics"> (0.0 KCUMM)</content > Basophils 0.0-1.0 <content [facility] [#/volume] in styleCode="Bold Kaylene Blood by ">Basophil Medical Automated count </content>0.5 Center %<content styleCode="Ital ics"> (0.0-1.0 %)</content> UNK < 1 <content [facility] styleCode="Bold Kaylene ">Immature Medical Granulocyte Center Ratio </content>0.5 %<content styleCode="Ital ics"> (< 1 %)</content> ID Date Data Source GFR(Creatinine).[id number] 05/05/2019 04:43:00 PM EST [facility] 0-0500 Name Value Range Interpretation Code Description Data Christy rce(s) Supporting Document(s ) UNK > 60 <content [facility] [place] styleCode="Bold"> Medical Cent er EGFR </content>102 GFR<content styleCode="Italic s"> (> 60 GFR)</content> ID Date Data Source CHMROUTINECCDA.[id number] 05/05/2019 04:43:00 PM EST [facility] -0500 Name Value Range Interpretation Code Description Data Christy rce(s) Supporting Document(s ) UNK 4.2-5.8 Above high normal <content [facility] s styleCode="Bold" Medical Cente r >Hemoglobin A1C </content>11.7 % H<content styleCode="Itali cs"> (4.2-5.8 %)</content> UNK NEGATIVE <content Kaylene styleCode="Bold" Medical Cente r >Acetone </content>NEGATI VE <content styleCode="Itali cs"> (NEGATIVE )</content> ID Date Data Source CardiacMarkers.[id number] 05/05/2019 04:43:00 PM EST Mitch [facility] -0500 Name Value Range Interpretation Description Data Sup porting Code Source(s) Document(s ) Troponin < 0.034 <content Saint I.cardiac styleCode="Bold Kaylene [Mass/volume ">Troponin I Medical ] in Serum </content>< Center or Plasma 0.012 NG/ML<content styleCode="Ital ics"> (< 0.034 NG/ML)</content > ID Date Data Source BMP.[id number] 05/05/2019 04:43:00 PM EST [facility] Name Value Range Interpretation Description Data Sup porting Code Source(s) Document(s ) Sodium 137-145 Below low normal <content [facility] [Moles/volume] styleCode="Fili Kaylene in Serum or d">Sodium Medical Plasma </content>136 Center MEQ/L L<content styleCode="Madison lics"> (137-145 MEQ/L)</conten t> Carbon 22-30 <content [facility] dioxide, total styleCode="Fili Kaylene [Moles/volume] d">Carbon Medical in Serum or Dioxide Center Plasma </content>24 MEQ/L<content styleCode="Madison lics"> (22-30 MEQ/L)</conten t> Chloride 98-107 <content [facility] [Moles/volume] styleCode="Fili Kaylene in Serum or d">Chloride Medical Plasma </content>103 Center MEQ/L<content styleCode="Madison lics"> (98-107 MEQ/L)</conten t> Potassium 3.5-5.3 <content [facility] [Moles/volume] styleCode="Fili Kaylene in Serum or d">Potassium Medical Plasma </content>4.3 Center MEQ/L<content styleCode="Madison lics"> (3.5-5.3 MEQ/L)</conten t> Creatinine 0.5-1.3 <content [facility] [Mass/volume] styleCode="Fili Hans in Serum or d">Creatinine Medical Plasma </content>0.7 Center MG/DL<content styleCode="Madison lics"> (0.5-1.3 MG/DL)</conten t> Calcium 8.4-10.2 <content [facility] [Mass/volume] styleCode="Fili Hans in Serum or d">Calcium Medical Plasma </content>9.3 Center MG/DL<content styleCode="Madison lics"> (8.4-10.2 MG/DL)</conten t> UNK > 60 <content [facility] styleCode="Fili Hans d">EGFR Medical </content>102 Center GFR<content styleCode="Madison lics"> (> 60 GFR)</content> UNK 7-17 <content [facility] styleCode="Fili Hans d">BUN Medical </content>14 Center MG/DL<content styleCode="Madison lics"> (7-17 MG/DL)</conten t> Glucose 74-106 Above high normal <content [facility] [Mass/volume] styleCode="Fili Hans in Serum or d">Glucose Medical Plasma </content>359 Center MG/DL H<content styleCode="Madison lics"> (74-106 MG/DL)</conten t> ID Date Data Source Liver Profile 04/06/2018 05:30:00 AM EST [facility] Name Value Range Interpretation Description Data Sup porting Code Source(s) Document(s ) Aspartate 14-36 Above high <content [facility] aminotransferase normal styleCode="Bold"> Magno hs [Enzymatic Aspartate Medical activity/volume] Aminotransferase Center in Serum or Plasma (AST) </content>47 IU/L H<content styleCode="Italic s"> (14-36 IU/L)</content> Albumin 3.5-5.0 Below low <content [facility] [Mass/volume] in normal styleCode="Bold"> Magno hs Serum or Plasma Albumin Medical </content>3.2 Center G/DL L<content styleCode="Italic s"> (3.5-5.0 G/DL)</content> Alanine 7-30 <content [facility] aminotransferase styleCode="Bold"> Magno hs [Enzymatic Alanine Medical activity/volume] Aminotransferase Center in Serum or Plasma (ALT) </content>25 IU/L<content styleCode="Italic s"> (7-30 IU/L)</content> Alkaline 38-126 <content [facility] phosphatase styleCode="Bold"> Kaylene [Enzymatic Alkaline Medical activity/volume] Phosphatase (ALP) Cente r in Serum or Plasma </content>81 IU/L<content styleCode="Italic s"> (38-126 IU/L)</content> Bilirubin.total 0.2-1.3 <content [facility] [Mass/volume] in styleCode="Bold"> Magno hs Serum or Plasma Bilirubin Total Medical </content>0.8 Center MG/DL<content styleCode="Italic s"> (0.2-1.3 MG/DL)</content> ID Date Data Source HematologyRou 04/06/2018 05:30:00 AM EST [facility] Name Value Range Interpretation Description Data Sup porting Code Source(s) Document(s ) Erythrocytes 4.0-5.1 Below low normal <content [facility] [#/volume] in styleCode="Bold Kaylene Blood by ">Red Blood Medical Automated count Cell Count Center </content>3.51 MCUMM L<content styleCode="Ital ics"> (4.0-5.1 MCUMM)</content > Hematocrit 36.0-46. Below low normal <content [facility] [Volume 0 styleCode="Bold Kaylene Fraction] of ">Hematocrit Medical Blood by </content>29.8 Center Automated count % L<content styleCode="Ital ics"> (36.0-46.0 %)</content> Hemoglobin 12.3-16. Below low normal <content [facility] [Mass/volume] in 0 styleCode="Bold Kaylene Blood ">Hemoglobin Medical </content>10.1 Center G/DL L<content styleCode="Ital ics"> (12.3-16.0 G/DL)</content> Leukocytes 4.4-11.0 Above high <content Saint [#/volume] in normal styleCode="Bold Kaylene Blood by ">White Blood Medical Automated count Cell Count Center </content>13.82 KCUMM H<content styleCode="Ital ics"> (4.4-11.0 KCUMM)</content > Erythrocyte mean 80.0-100 <content [facility] corpuscular .0 styleCode="Bold Kaylene volume [Entitic ">Mean Medical volume] by Corpuscular Center Automated count Volume </content>84.9 FL<content styleCode="Ital ics"> (80.0-100.0 FL)</content> Erythrocyte mean 32.0-37. <content [facility] corpuscular 0 styleCode="Bold Kaylene hemoglobin ">Mean Corpus. Medical concentration Hgb Center [Mass/volume] by Concentration Automated count (MCHC) </content>33.9 G/DL<content styleCode="Ital ics"> (32.0-37.0 G/DL)</content> Erythrocyte 11.5-14. <content [facility] distribution 5 styleCode="Bold Kaylene width [Ratio] by ">Red Cell Medical Automated count Distribution Center Width </content>13.1 %<content styleCode="Ital ics"> (11.5-14.5 %)</content> Erythrocyte mean 26.0-34. <content [facility] corpuscular 0 styleCode="Bold Kaylene hemoglobin ">Mean Medical [Entitic mass] Corposcular Center by Automated Hemoglobin count </content>28.8 PG<content styleCode="Ital ics"> (26.0-34.0 PG)</content> Platelets 130-400 <content Saint [#/volume] in styleCode="Bold Kaylene Blood by ">Platelet Medical Automated count Count Center </content>348 KCUMM<content styleCode="Ital ics"> (130-400 KCUMM)</content > Platelet mean 8.0-11.0 <content [facility] volume [Entitic styleCode="Bold Kaylene volume] in Blood ">Mean Platelet Medical by Automated Volume Center count </content>9.4 FL<content styleCode="Ital ics"> (8.0-11.0 FL)</content> UNK 0.0 <content Saint styleCode="Bold Kaylene ">Nucleated Red Medical Blood Cell Center Count </content>0.00 KCUMM<content styleCode="Ital ics"> (0.0 KCUMM)</content > UNK 0 <content styleCode="Bold Kaylene ">Nucleated Red Medical Blood Cell Center </content>0.0 /100<content styleCode="Ital ics"> (0 /100)</content> ID Date Data Source GFR(Creatinine) 04/06/2018 05:30:00 AM [facility] Name Value Range Interpretation Code Description Data Christy rce(s) Supporting Document(s ) UNK > 60 <content [facility] styleCode="Bold"> Medical Cent er EGFR </content>107 GFR<content styleCode="Italic s"> (> 60 GFR)</content> ID Date Data Source Coagulation Rout 04/06/2018 05:30:00 AM [facility] Name Value Range Interpretation Description Data Sup porting Code Source(s) Document(s ) UNK 9.0-13.0 Above high normal <content styleCode="Bold" Kaylene >Protime Medical </content>15.0 Center SEC H<content styleCode="Itali cs"> (9.0-13.0 SEC)</content> aPTT in 25.1-36. <content Saint Platelet poor 5 styleCode="Bold" Kaylene plasma by >Partial Medical Coagulation Thromboplastin Center assay Time </content>30.7 SEC<content styleCode="Itali cs"> (25.1-36.5 SEC)</content> INR in 0.80-1.2 Above high normal <content [facility] Platelet poor 0 styleCode="Bold" Kaylene plasma by >INR Medical Coagulation </content>1.32 # Center assay H<content styleCode="Itali cs"> (0.80-1.20 #)</content> ID Date Data Source CHMROUTINECCDA 04/06/2018 05:30:00 AM [facility] Name Value Range Interpretation Description Data Sup porting Code Source(s) Document(s ) UNK >= 1.0 Below low normal <content [facility] styleCode="Bold Medical ">AG Ratio Center </content>0.8 NM L<content styleCode="Ital ics"> (>= 1.0 NM)</content> Protein 6.3-8.2 <content [facility] [place] [Mass/volum styleCode="Bold Medical e] in Serum ">Total Protein Center or Plasma </content>7.0 G/DL<content styleCode="Ital ics"> (6.3-8.2 G/DL)</content> UNK 2.3-3.5 Above high normal <content [facility] styleCode="Bold Medical ">Globulin Center </content>3.8 G/DL H<content styleCode="Ital ics"> (2.3-3.5 G/DL)</content> ID Date Data Source BMP 04/06/2018 05:30:00 AM [facility] Name Value Range Interpretation Description Data Sup porting Code Source(s) Document(s ) Sodium 137-145 <content [facility] [Moles/volume] in styleCode="Bold"> Mohit phs Serum or Plasma Sodium Medical </content>138 Center MEQ/L<content styleCode="Italic s"> (137-145 MEQ/L)</content> Carbon dioxide, 22-30 <content Saint total styleCode="Bold"> Kaylene [Moles/volume] in Carbon Dioxide Medical Serum or Plasma </content>26 Center MEQ/L<content styleCode="Italic s"> (22-30 MEQ/L)</content> Creatinine 0.5-1.3 <content [facility] [Mass/volume] in styleCode="Bold"> Magno hs Serum or Plasma Creatinine Medical </content>0.8 Center MG/DL<content styleCode="Italic s"> (0.5-1.3 MG/DL)</content> UNK 7-17 <content Saint styleCode="Bold"> Kaylene BUN </content>9 Medical MG/DL<content Center styleCode="Italic s"> (7-17 MG/DL)</content> Potassium 3.5-5.3 <content [facility] [Moles/volume] in styleCode="Bold"> Mohit phs Serum or Plasma Potassium Medical </content>4.0 Center MEQ/L<content styleCode="Italic s"> (3.5-5.3 MEQ/L)</content> Chloride 98-107 <content [facility] [Moles/volume] in styleCode="Bold"> Mohit phs Serum or Plasma Chloride Medical </content>103 Center MEQ/L<content styleCode="Italic s"> (98-107 MEQ/L)</content> Glucose 74-106 Above high <content Saint [Mass/volume] in normal styleCode="Bold"> Magno hs Serum or Plasma Glucose Medical </content>189 Center MG/DL H<content styleCode="Italic s"> (74-106 MG/DL)</content> Calcium 8.4-10. <content [facility] [Mass/volume] in 2 styleCode="Bold"> Magno hs Serum or Plasma Calcium Medical </content>8.6 Center MG/DL<content styleCode="Italic s"> (8.4-10.2 MG/DL)</content> UNK > 60 <content [facility] styleCode="Bold"> Kaylene EGFR Medical </content>107 Center GFR<content styleCode="Italic s"> (> 60 GFR)</content> Aspartate 14-36 Above high <content [facility] aminotransferase normal styleCode="Bold"> Magno hs [Enzymatic Aspartate Medical activity/volume] Aminotransferase Center in Serum or Plasma (AST) </content>47 IU/L H<content styleCode="Italic s"> (14-36 IU/L)</content> Bilirubin.total 0.2-1.3 <content [facility] [Mass/volume] in styleCode="Bold"> Magno hs Serum or Plasma Bilirubin Total Medical </content>0.8 Center MG/DL<content styleCode="Italic s"> (0.2-1.3 MG/DL)</content> Alanine 7-30 <content [facility] aminotransferase styleCode="Bold"> Magno hs [Enzymatic Alanine Medical activity/volume] Aminotransferase Center in Serum or Plasma (ALT) </content>25 IU/L<content styleCode="Italic s"> (7-30 IU/L)</content> Albumin 3.5-5.0 Below low <content [facility] [Mass/volume] in normal styleCode="Bold"> Magno hs Serum or Plasma Albumin Medical </content>3.2 Center G/DL L<content styleCode="Italic s"> (3.5-5.0 G/DL)</content> Alkaline 38-126 <content [facility] phosphatase styleCode="Bold"> Kaylene [Enzymatic Alkaline Medical activity/volume] Phosphatase (ALP) Cente r in Serum or Plasma </content>81 IU/L<content styleCode="Italic s"> (38-126 IU/L)</content> ID Date Data Source Microbiology 04/05/2018 10:45:00 PM EST [facility] Name Value Range Interpretation Code Description Data Christy rce(s) Supporting Document(s ) UNK <item><content [facility] styleCode="Bold"> Medical Cent er Culture Status </content>
<t able><tbody><tr>< td>Specimen Number:</td><td>[id number]</td></tr ><tr><td>Sample Collection Date/Time: </td><td>04/05/20 18 10:45 PM</td></tr><tr>< td>Specimen Source:</td><td>B LOOD</td></tr><tr ><td>Culture Report:</td><td>C ulture in progress </td></tr><tr><td >Culture Status:</td><td>P reliminary </td></tr><tr><td >Blood Culture:</td><td> Collection Plate Date: 04/05/2018 22:56 </td></tr></tbody ></table></item> UNK <item><content [facility] styleCode="Bold"> Medical Cent er Culture Report </content>
<t able><tbody><tr>< td>Specimen Number:</td><td>[id number]</td></tr ><tr><td>Sample Collection Date/Time: </td><td>04/05/20 18 10:45 PM</td></tr><tr>< td>Specimen Source:</td><td>B LOOD</td></tr><tr ><td>Blood Culture:</td><td> Collection Plate Date: 04/05/2018 22:56 </td></tr><tr><td >Culture Status:</td><td>P reliminary </td></tr><tr><td >Culture Report:</td><td>C ulture in progress </td></tr></tbody ></table></item> ID Date Data Source Urinalysis 04/05/2018 07:20:00 PM EST [facility] Name Value Range Interpretation Description Data Sup porting Code Source(s) Document(s ) UNK CLEAR <content [facility] styleCode="Fili Kaylene d">Urine Medical Clarity Center </content>ALTAGRACIA R <content styleCode="Madison lics"> (CLEAR )</content> Color of Urine YELLOW <content [facility] styleCode="Fili Kaylene d">Color, Medical Urine Center </content>YELL OW <content styleCode="Madison lics"> (YELLOW )</content> Glucose NEGATIVE <content [facility] [Mass/volume] styleCode="Fili Hans in Urine by d">Urine Medical Test strip Glucose Center </content>NEGA TIVE MG/DL<content styleCode="Madison lics"> (NEGATIVE MG/DL)</conten t> Ketones NEGATIVE <content [facility] [Mass/volume] styleCode="Fili Hans in Urine by d">Urine Medical Test strip Ketone Center </content>TRAC E MG/DL<content styleCode="Madison lics"> (NEGATIVE MG/DL)</conten t> UNK NEGATIVE <content [facility] styleCode="Fili Kaylene d">Urine Medical Bilirubin Center </content>NEGA TIVE <content styleCode="Madison lics"> (NEGATIVE )</content> Hemoglobin NEGATIVE <content Saint [Presence] in styleCode="Fili Kaylene Urine by Test d">Urine Blood Medical strip </content>[facility] L <content styleCode="Madison lics"> (NEGATIVE )</content> Specific 1.015-1.02 <content Saint gravity of 5 styleCode="Flii Kaylene Urine by Test d">Urine Medical strip Specific Center [place] </content>1.02 0 NM<content styleCode="Madison lics"> (1.015-1.025 NM)</content> Protein NEGATIVE <content Saint [Mass/volume] styleCode="Fili Kaylene in Urine by d">Urine Medical Test strip Protein Center </content>30 MG/DL<content styleCode="Madison lics"> (NEGATIVE MG/DL)</conten t> pH of Urine by 4.5-8.0 <content Saint Test strip styleCode="Fili Kaylene d">Urine pH Medical </content>5.5 Center NM<content styleCode="Madison lics"> (4.5-8.0 NM)</content> Urobilinogen 0.2-1.0 <content Saint [Units/volume] styleCode="Fili Kaylene in Urine by d">Urine Medical Test strip Urobilinogen Center </content>0.2 MG/DL<content styleCode="Madison lics"> (0.2-1.0 MG/DL)</conten t> Leukocyte NEGATIVE <content Saint esterase styleCode="Fili Kaylene [Presence] in d">Urine Medical Urine by Test Leukocyte Center strip </content>MODE RATE <content styleCode="Madison lics"> (NEGATIVE )</content> Nitrite NEGATIVE <content Saint [Presence] in styleCode="Fili Kaylene Urine by Test d">Urine Medical strip Nitrite Center </content>NEGA TIVE <content styleCode="Madison lics"> (NEGATIVE )</content> UNK 0-3 <content Saint styleCode="Fili Kaylene d">Urine White Medical Blood Cell Center </content>50 - 100 HPF<content styleCode="Madison lics"> (0-3 HPF)</content> UNK 0-3 <content Saint styleCode="Fili Kaylene d">Urine Red Medical Blood Cell Center </content>3-5 HPF<content styleCode="Madison lics"> (0-3 HPF)</content> UNK <content Saint styleCode="Fili Kaylene d">Epithelial Medical Cell Center </content>5 - 10 LPF (Reference Range: not available)<br/ > ID Date Data Source [id number] 04/02/2018 11:58:19 AM EST [facility] [id number] Name Value Range Interpretation Description Data Source(s ) Supporting Code Document(s ) Antibody NEG <td> [facility] 04/01/2018 [facility] 06:44</td><td> Care Antibody Corporation Screen </td><td> NEG
</td> Specimen 04/04/20 <td> [facility] expiration 18 23:59 04/01/2018 [facility] date of Blood 06:44</td><td> Care Specimen Corporation Expiration Date </td><td> 04/04/2018 23:59
</td> ABO-Rh Type O POS <td> [facility] 04/01/2018 [facility] 06:44</td><td> Care ABO-Rh Type Corporation </td><td> O POS
</td> Specimen 04/04/20 <td> [facility] expiration 18 23:59 04/01/2018 [facility] date of Blood 06:44</td><td> Care Specimen Corporation Expiration Date </td><td> 04/04/2018 23:59
</td> Antibody NEG <td> [facility] Screen 04/01/2018 [facility] 06:44</td><td> Care Antibody Corporation Screen </td><td> NEG
</td> ABO-Rh Type O POS <td> [facility] 04/01/2018 [facility] 06:44</td><td> Care ABO-Rh [employer] </td><td> O POS
</td> Specimen 04/04/20 <td> [facility] expiration 18 23:59 04/01/2018 [facility] date of Blood 06:44</td><td> Care Specimen Corporation Expiration Date </td><td> 04/04/2018 23:59
</td> Antibody NEG <td> [facility] Screen 04/01/2018 [facility] 06:44</td><td> Care Antibody Corporation Screen </td><td> NEG
</td> ABO-Rh Type O POS <td> [facility] 04/01/2018 [facility] 06:44</td><td> Care ABO-Rh [employer] </td><td> O POS
</td> ID Date Data Source [id number] 04/01/2018 09:56:13 AM EST [facility] [place] [id number] Corporation Name Value Range Interpretation Description Data Sup porting Code Source(s) Document(s ) Chest PA (PACSIMAGE <td> [facility] & Lateral 04/01/2018 [facility] ) Final 08:51</td><td> Care Result Chest PA & Corporation Name: CYNDIE Kristal MALEEQUA </td><td><para graph Sex: F : styleCode="Madison 1985 lics">(PACSIMA Location: F Admitting Physician: )</paragraph>< EMERGENCY br/>
SERVICE Final Result Requesting Physician:

ALIYAH SALDANA Name: CYNDIE, Exam: MALEEQUA CHEST PA AND
LATERAL 04/01/2018 Sex: F 09:12
PA and lateral : view of the 1985 chest Location: F Comparison:
05/31/2014 Admitting Indication: Physician: ADMISSION EMERGENCY Findings: SERVICE Lungs: Clear.
Heart and Requesting Mediastinum: Physician: Normal heart ALIYAH ELS size. Normal tree and

mediastinum. Exam: CHEST PA Pleura: The AND LATERAL costophrenic 04/01/2018 sulci are not 09:12 blunted. Bones and soft

<br/ tissues: > PA and Normal. lateral view IMPRESSION: of the chest 1. Unremarkable

chest x-ray Comparison: 2. Clinical 05/31/2014 history, including

signs, Indication: symptoms, or ADMISSION known diagnoses,

should be Findings: included on all

requisitions Lungs: Clear. to document medical
necessity. Heart and "Admission" is Mediastinum: not adequate. Normal heart size. Normal tree and Resident mediastinum. Radiologist: Attending

Radiologist: Pleura: The Bubba costophrenic Abraham MUNIZ sulci are not Finalizing blunted. Radiologist:
Bubba Bones and soft Abraham MUNIZ tissues: Transcribed Normal. Date:

04/01/2018 09:21 IMPRESSION: Finalized Date:

04/01/2018 1. 09:22 Unremarkable chest x-ray
2. Clinical history, including signs, symptoms, or known diagnoses,
should be included on all requisitions to document medical necessity.
"Admission" is not adequate.

<br/ >

Resident Radiologist:
Attending Radiologist: Bubba Rosario MD
Finalizing Radiologist: Bubba Rosario MD
Transcribed Date: 04/01/2018 09:21
Finalized Date: 04/01/2018 09:22

</td > Chest PA (PACSIMAGE <td> [facility] & Lateral 04/01/2018 [facility] ) Final 08:51</td><td> Care Result Chest PA & Corporation Name: MARCELLKristal MALEEQUA </td><td><para graph Sex: F : styleCode="Madison 1985 lics">(PACSIMA Location: F GE Admitting Physician: )</paragraph>< EMERGENCY br/>
SERVICE Final Result Requesting Physician:

ALIYAH SALDANA Name: CYNDIE, Exam: MALEEQUA CHEST PA AND
LATERAL 04/01/2018 Sex: F 09:12
PA and lateral : view of the 1985 chest Location: F Comparison:
05/31/2014 Admitting Indication: Physician: ADMISSION EMERGENCY Findings: SERVICE Lungs: Clear.
Heart and Requesting Mediastinum: Physician: Normal heart ALIYAH SALDANA size. Normal tree and

mediastinum. Exam: CHEST PA Pleura: The AND LATERAL costophrenic 04/01/2018 sulci are not 09:12 blunted. Bones and soft

<br/ tissues: > PA and Normal. lateral view IMPRESSION: of the chest 1. Unremarkable

chest x-ray Comparison: 2. Clinical 05/31/2014 history, including

signs, Indication: symptoms, or ADMISSION known diagnoses,

should be Findings: included on all

requisitions Lungs: Clear. to document medical
necessity. Heart and "Admission" is Mediastinum: not adequate. Normal heart size. Normal tree and Resident mediastinum. Radiologist: Attending

Radiologist: Pleura: The Bubba costophrenic Abraham MUNIZ sulci are not Finalizing blunted. Radiologist:
Bubba Bones and soft Abraham MUNIZ tissues: Transcribed Normal. Date:

04/01/2018 09:21 IMPRESSION: Finalized Date:

04/01/2018 1. 09:22 Unremarkable chest x-ray
2. Clinical history, including signs, symptoms, or known diagnoses,
should be included on all requisitions to document medical necessity.
"Admission" is not adequate.

<br/ >

Resident Radiologist:
Attending Radiologist: Bubba Rosario MD
Finalizing Radiologist: Bubba Rosario MD
Transcribed Date: 04/01/2018 09:21
Finalized Date: 04/01/2018 09:22

</td > Chest PA (PACSIMAGE <td> [facility] & Lateral 04/01/2018 [facility] ) Final 08:51</td><td> Care Result Chest PA & Corporation Name: CYNDIE Kristal MALEEQUA </td><td><para graph Sex: F : styleCode="Madison 1985 lics">(PACSIMA Location: F Admitting Physician: )</paragraph>< EMERGENCY br/>
SERVICE Final Result Requesting Physician:

ALIYAH SALDANA Name: CYNDIE, Exam: MALEEQUA CHEST PA AND
LATERAL 04/01/2018 Sex: F 09:12
PA and lateral : view of the 1985 chest Location: F Comparison:
05/31/2014 Admitting Indication: Physician: ADMISSION EMERGENCY Findings: SERVICE Lungs: Clear.
Heart and Requesting Mediastinum: Physician: Normal heart ALIYAH SALDANA size. Normal tree and

mediastinum. Exam: CHEST PA Pleura: The AND LATERAL costophrenic 04/01/2018 sulci are not 09:12 blunted. Bones and soft

<br/ tissues: > PA and Normal. lateral view IMPRESSION: of the chest 1. Unremarkable

chest x-ray Comparison: 2. Clinical 05/31/2014 history, including

signs, Indication: symptoms, or ADMISSION known diagnoses,

should be Findings: included on all

requisitions Lungs: Clear. to document medical
necessity. Heart and "Admission" is Mediastinum: not adequate. Normal heart size. Normal tree and Resident mediastinum. Radiologist: Attending

Radiologist: Pleura: The Bubba costophrenic Abraham MUNIZ sulci are not Finalizing blunted. Radiologist:
Bubba Bones and soft Abraham MUNIZ tissues: Transcribed Normal. Date:

04/01/2018 09:21 IMPRESSION: Finalized Date:

04/01/2018 1. 09:22 Unremarkable chest x-ray
2. Clinical history, including signs, symptoms, or known diagnoses,
should be included on all requisitions to document medical necessity.
"Admission" is not adequate.

<br/ >

Resident Radiologist:
Attending Radiologist: Bubba Rosario MD
Finalizing Radiologist: Bubba Rosario MD
Transcribed Date: 04/01/2018 09:21
Finalized Date: 04/01/2018 09:22

</td > Chest PA (PACSIMAGE <td> [facility] & Lateral 04/01/2018 [facility] ) Final 08:51</td><td> Care Result Chest PA & Corporation Name: Kristal AGEE MALEEQUA </td><td><para graph Sex: F : styleCode="Madison 1985 lics">(PACSIMA Location: F Admitting Physician: )</paragraph>< EMERGENCY br/>
SERVICE Final Result Requesting Physician:

ALIYAH SALDANA Name: CYNDIE Exam: MALEEQUA CHEST PA AND
LATERAL 04/01/2018 Sex: F 09:12
PA and lateral : view of the 1985 chest Location: F Comparison:
05/31/2014 Admitting Indication: Physician: ADMISSION EMERGENCY Findings: SERVICE Lungs: Clear.
Heart and Requesting Mediastinum: Physician: Normal heart ALIYAH SALDANA size. Normal tree and

mediastinum. Exam: CHEST PA Pleura: The AND LATERAL costophrenic 04/01/2018 sulci are not 09:12 blunted. Bones and soft

<br/ tissues: > PA and Normal. lateral view IMPRESSION: of the chest 1. Unremarkable

chest x-ray Comparison: 2. Clinical 05/31/2014 history, including

signs, Indication: symptoms, or ADMISSION known diagnoses,

should be Findings: included on all

requisitions Lungs: Clear. to document medical
necessity. Heart and "Admission" is Mediastinum: not adequate. Normal heart size. Normal tree and Resident mediastinum. Radiologist: Attending

Radiologist: Pleura: The Bubba costophrenic Abraham MUNIZ sulci are not Finalizing blunted. Radiologist:
Bubba Bones and soft Abraham MUNIZ tissues: Transcribed Normal. Date:

04/01/2018 09:21 IMPRESSION: Finalized Date:

04/01/2018 1. 09:22 Unremarkable chest x-ray
2. Clinical history, including signs, symptoms, or known diagnoses,
should be included on all requisitions to document medical necessity.
"Admission" is not adequate.

<br/ >

Resident Radiologist:
Attending Radiologist: Bubba Rosario MD
Finalizing Radiologist: Bubba Rosario MD
Transcribed Date: 04/01/2018 09:21
Finalized Date: 04/01/2018 09:22

</td > ID Date Data Source [id number] 04/01/2018 09:56:13 AM EST [facility] [place] [id number] Corporation Name Value Range Interpretation Description Data Sup porting Code Source(s) Document(s ) Leukocytes 9.7 k/mm3 4.5-10 <td> 04/02/2018 [facility] [#/volume] in .8 05:45</td><td> [facility] Blood by k/mm3 WBC </td><td> Health Care Automated count Corporation 9.7
(4.5-10.8) k/mm3 </td> Erythrocytes 3.98 m/mm3 3.80-5 <td> 04/02/2018 [facility] r [#/volume] in .10 05:45</td><td> [facility] Blood m/mm3 RBC </td><td> Health Care Corporation 3.98
(3.80-5.10) m/mm3 </td> Erythrocyte 86.4 fL 80.0-9 <td> 04/02/2018 [facility] mean 6.0 fL 05:45</td><td> [facility] corpuscular MCV </td><td> Health Care volume [[employer] volume] by 86.4 Automated count
(80.0-96.0) fL </td> Erythrocyte 28.4 pg 27.0-3 <td> 04/02/2018 [facility] mean 1.5 pg 05:45</td><td> [facility] corpuscular MCH </td><td> Health Care hemoglobin Corporation [Entitic mass] 28.4 by Automated count
(27.0-31.5) pg </td> Hematocrit 34.4 % 36.0-4 <td> 04/02/2018 [facility] [Volume 5.0 % 05:45</td><td> County Fraction] of HCT Health Care Blood by </td><td><jose miguel Corporation Automated count raph styleCode="Bold "> 34.4 L </paragraph>
(36.0-45.0) % </td> Erythrocyte 32.8 % 32.0-3 <td> 04/02/2018 [facility] mean 6.0 % 05:45</td><td> [facility] corpuscular MCHC </td><td> Health Care hemoglobin Corporation concentration 32.8 [Mass/volume] in Blood from
Fetus by (32.0-36.0) % Automated count </td> Hemoglobin 11.3 g/dL 11.6-1 <td> 04/02/2018 [facility] [Mass/volume] 5.0 05:45</td><td> County in Blood g/dL HGB Health Care </td><td><jose miguel Corporation raph styleCode="Bold "> 11.3 L </paragraph>
(11.6-15.0) g/dL </td> Basophils+Eosin 0.7 % 0.0-5. <td> 04/02/[address] [facility] ter ophils+Monocyte 0 % 05:45</td><td> County s [#/volume] in Eosinophils Health Care Blood by </td><td> [employer] Automated count 0.7
(0.0-5.0) % </td> Platelets 365 k/mm3 160-41 <td> 04/02/2018 [facility] [#/volume] in 0 05:45</td><td> [facility] Blood by k/mm3 Platelet Count Health Care Automated count </td><td> [employer] 365
(160-410) k/mm3 </td> Platelet mean 9.8 fL 9.8-12 <td> 04/02/2018 [facility] r volume [Entitic .8 fL 05:45</td><td> County volume] in MPV </td><td> Health Care Blood by [employer] Automated count 9.8
(9.8-12.8) fL </td> Monocytes/Leuko 8.6 % 0.0-11 <td> 04/02/2018 [facility] cytes [Pure .0 % 05:45</td><td> County number Monocytes. Health Care fraction] in </td><td> [employer] Blood by Automated count 8.6
(0.0-11.0) % </td> Lymphocytes 22.9 % 18.0-5 <td> 04/02/2018 [facility] [#/volume] in 3.0 % 05:45</td><td> [facility] Blood by Lymphocytes Health Care Automated count </td><td> [employer] 22.9
(18.0-53.0) % </td> Erythrocyte 12.4 % 11.5-1 <td> 04/02/2018 [facility] distribution 4.5 % 05:45</td><td> [facility] width [Entitic RDW </td><td> Health Car e volume] by [employer] Automated count 12.4
(11.5-14.5) % </td> Neutrophils [#] 67.1 % 36.0-7 <td> 04/02/2018 [facility] in Body fluid 3.0 % 05:45</td><td> [facility] by Manual count Neutrophils Health Care </td><td> [employer] 67.1
(36.0-73.0) % </td> Immature 0.4 % 0.0-0. <td> 04/02/2018 [facility] granulocytes/10 5 % 05:45</td><td> [facility] 0 leukocytes in IG% </td><td> [facility] re Blood by [employer] Automated count 0.4
(0.0-0.5) %
The IG fraction represents metamyelocytes, myelocytes and/or
promyelocytes and is only reported as part of the automated
differential when found at a percentage of less than 6.
If higher than 6%, a manual differential will be performed.

(0.0-0.5) % </td> Basophils 0.3 % 0.0-2. <td> 04/02/2018 [facility] [#/volume] in 0 % 05:45</td><td> [facility] Blood by [employer] [facility] [employer] Automated count </td><td> [employer] 0.3
(0.0-2.0) % </td> Chloride 108 mEq/L 98-107 <td> 04/01/2018 [facility] [Moles/volume] mEq/L 06:44</td><td> [facility] in Serum or Chloride Health Care Plasma </td><td><Ynvisible raph styleCode="Bold "> 108 H </paragraph>
(98-107) mEq/L </td> Glucose 218 mg/dL 70-105 <td> 04/01/2018 [facility] [Mass/volume] mg/dL 06:44</td><td> County in Blood Glucose-Serum Health Care </td><td><jose miguel [employer] raph styleCode="Bold "> 218 H </paragraph>
(70-105) mg/dL </td> Sodium 138 mEq/L 135-14 <td> 04/01/2018 [facility] [Moles/volume] 5 06:44</td><td> County in Serum or mEq/L Sodium-Serum Health Care Plasma </td><td> [employer] 138
(135-145) mEq/L </td> Urea nitrogen 8 mg/dL 6-22 <td> 04/01/2018 [facility] r [Mass/volume] mg/dL 06:44</td><td> County in Blood BUN </td><td> Health Care [facility] 8
(6-22) mg/dL </td> Potassium 3.7 mEq/L 3.5-5. <td> 04/01/2018 [facility] [Moles/volume] 1 06:44</td><td> County in Serum or mEq/L Potassium-Serum Health Care Plasma </td><td> [employer] 3.7
(3.5-5.1) mEq/L </td> Carbon dioxide, 24 mEq/L 22-30 <td> 04/01/2018 [facility] total mEq/L 06:44</td><td> County [Moles/volume] CO2 </td><td> Health Car e in Serum or Corporation Plasma 24
(22-30) mEq/L </td> Calcium 8.8 mg/dL 8.6-10 <td> 04/01/2018 [facility] [Mass/volume] .2 06:44</td><td> County in Blood mg/dL Calcium Health Care </td><td> [employer] 8.8
(8.6-10.2) mg/dL </td> Creatinine 0.87 mg/dL 0.57-1 <td> 04/01/2018 [facility] [Moles/volume] .11 06:44</td><td> County in Serum or mg/dL Creatinine. Health Care Plasma </td><td> [employer] 0.87
(0.57-1.11) mg/dL </td> Hemolysis index No <td> 04/01/2018 [facility] of Serum or Hemolysis 06:44</td><td> [facility] Plasma Hemolysis Index Health [facility] </td><td> [employer] No Hemolysis
</td> Anion gap in 6 mEq/L 7-13 <td> 04/01/2018 [facility] Serum or Plasma mEq/L 06:44</td><td> [facility] Anion Gap Health Care </td><td><Ynvisible raph styleCode="Bold "> 6 L </paragraph>
(7-13) mEq/L </td> Lipemic index No Lipemia <td> 04/01/2018 [facility] of Serum or 06:44</td><td> [facility] Plasma Lipemia Index Health [facility] </td><td> [employer] No Lipemia
</td> Hemoglobin A1C 9.7 % 4.0-5. <td> 04/01/2018 [facility] 6 % 06:44</td><td> [facility] Hemoglobin A1C [facility] Care </td><td><[employer] graph styleCode="Bold "> 9.7 H </paragraph>
(4.0-5.6) %
Increased risk for diabetes mellitus is seen in patients with HgA1C values
between 5.7-6.4%. Values > or = 6.5% are considered diagnostic of diabetes
mellitus.
===
ESTIMATED AVERAGE GLUCOSE (eAG)
---
RELATIONSHIP BETWEEN A1C AND eAG
===
A1C(%) eAG(mg/dL)
6 1 26
7 1 54
8 1 83
9 2 12
10 240
11 269
12 298
Source: Adapted from [place] [employer]. Standards of medical
care in diabetes-2014. Diabetes Care.2014;37(Tsang pp 1):S14-S80, table 8.

PLEASE NOTE NEW REFERENCE RANGES EFFECTIVE 14

(4.0-5.6) % </td> Prothrombin 10.9 secs 9.8-12 <td> 04/01/2018 [facility] time (PT) .0 06:44</td><td> [facility] secs Prothrombin Health Care Time. [facility] </td><td> 10.9
(9.8-12.0) secs </td> Icteric index Not <td> 04/01/2018 [facility] r of Serum or Icteric 06:44</td><td> [facility] Plasma Icteric Index Health Care </td><td> [facility] Not Icteric
</td> Glucose 112 mg/dL 70-105 <td> 04/03/2018 [facility] [Mass/volume] mg/dL 08:26</td><td> [facility] in Capillary Glucose - Health Care blood by Finger Stick [employer] Glucometer </td><td><jose miguel raph styleCode="Bold "> 112 H </paragraph>
(70-105) mg/dL </td> aPTT panel - 31.8 secs 25.0-3 <td> 04/01/2018 [facility] Platelet poor 2.0 06:44</td><td> [facility] plasma secs Partial [facility] Thromboplastin [facility] Time </td><td> 31.8
(25.0-32.0) secs </td> Erythrocyte 28.4 pg 27.0-3 <td> 04/02/2018 [facility] mean 1.5 pg 05:45</td><td> [facility] corpuscular MCH </td><td> Health Care hemoglobin Corporation [Entitic mass] 28.4 by Automated count
(27.0-31.5) pg </td> Erythrocyte 86.4 fL 80.0-9 <td> 04/02/2018 [facility] mean 6.0 fL 05:45</td><td> [facility] corpuscular MCV </td><td> Health Care volume [[employer] volume] by 86.4 Automated count
(80.0-96.0) fL </td> Hematocrit 34.4 % 36.0-4 <td> 04/02/2018 [facility] [Volume 5.0 % 05:45</td><td> [facility] Fraction] of HCT Health Care Blood by </td><td><Ynvisible Automated count raph styleCode="Bold "> 34.4 L </paragraph>
(36.0-45.0) % </td> Hemoglobin 11.3 g/dL 11.6-1 <td> 04/02/2018 [facility] [Mass/volume] 5.0 05:45</td><td> [facility] in Blood g/dL [facility]GB Health Care </td><td><Ynvisible raph styleCode="Bold "> 11.3 L </paragraph>
(11.6-15.0) g/dL </td> Erythrocytes 3.98 m/mm3 3.80-5 <td> 04/02/2018 [facility] r [#/volume] in .10 05:45</td><td> County Blood m/mm3 RBC </td><td> Health Care [employer] 3.98
(3.80-5.10) m/mm3 </td> Leukocytes 9.7 k/mm3 4.5-10 <td> 04/02/2018 [facility] [#/volume] in .8 05:45</td><td> [facility] Blood by k/mm3 WBC </td><td> Health Care Automated count [employer] 9.7
(4.5-10.8) k/mm3 </td> Monocytes/Leuko 8.6 % 0.0-11 <td> 04/02/2018 [facility] cytes [Pure .0 % 05:45</td><td> County number Monocytes. Health Care fraction] in </td><td> [employer] Blood by Automated count 8.6
(0.0-11.0) % </td> Lymphocytes 22.9 % 18.0-5 <td> 04/02/2018 [facility] [#/volume] in 3.0 % 05:45</td><td> [facility] Blood by Lymphocytes Health Care Automated count </td><td> [employer] 22.9
(18.0-53.0) % </td> Platelets 365 k/mm3 160-41 <td> 04/02/2018 [facility] [#/volume] in 0 05:45</td><td> [facility] Blood by k/mm3 Platelet Count Health Care Automated count </td><td> [employer] 365
(160-410) k/mm3 </td> Platelet mean 9.8 fL 9.8-12 <td> 04/02/2018 [facility] r volume [Entitic .8 fL 05:45</td><td> County volume] in MPV </td><td> Health Care Blood by [employer] Automated count 9.8
(9.8-12.8) fL </td> Erythrocyte 12.4 % 11.5-1 <td> 04/02/2018 [facility] distribution 4.5 % 05:45</td><td> County width [Entitic RDW </td><td> Health Car e volume] by [employer] Automated count 12.4
(11.5-14.5) % </td> Erythrocyte 32.8 % 32.0-3 <td> 04/02/2018 [facility] mean 6.0 % 05:45</td><td> [facility] corpuscular MCHC </td><td> [facility] hemoglobin [employer] concentration 32.8 [Mass/volume] in Blood from
Fetus by (32.0-36.0) % Automated count </td> Sodium 138 mEq/L 135-14 <td> 04/01/2018 [facility] [Moles/volume] 5 06:44</td><td> County in Serum or mEq/L Sodium-Serum [facility] Plasma </td><td> Corporation 138
(135-145) mEq/L </td> Glucose 218 mg/dL 70-105 <td> 04/01/2018 [facility] [Mass/volume] mg/dL 06:44</td><td> [facility] in Blood Glucose-Serum [facility] </td><td><[facility] raph styleCode="Bold "> 218 H </paragraph>
(70-105) mg/dL </td> Neutrophils [#] 67.1 % 36.0-7 <td> 04/02/2018 [facility] in Body fluid 3.0 % 05:45</td><td> [facility] by Manual count Neutrophils [facility] </td><td> [employer] 67.1
(36.0-73.0) % </td> Immature 0.4 % 0.0-0. <td> 04/02/2018 [facility] granulocytes/10 5 % 05:45</td><td> [facility] 0 leukocytes in IG% </td><td> [facility] Blood by [employer] Automated count 0.4
(0.0-0.5) %
The IG fraction represents metamyelocytes, myelocytes and/or
promyelocytes and is only reported as part of the automated
differential when found at a percentage of less than 6.
If higher than 6%, a manual differential will be performed.

(0.0-0.5) % </td> Basophils 0.3 % 0.0-2. <td> 04/02/2018 [facility] [#/volume] in 0 % 05:45</td><td> County Blood by Basophils [facility] Care Automated count </td><td> Corporation 0.3
(0.0-2.0) % </td> Basophils+Eosin 0.7 % 0.0-5. <td> 04/02/2018 [facility] ophils+Monocyte 0 % 05:45</td><td> County s [#/volume] in Eosinophils Health Care Blood by </td><td> [employer] Automated count 0.7
(0.0-5.0) % </td> Calcium 8.8 mg/dL 8.6-10 <td> 04/01/2018 [facility] [Mass/volume] .2 06:44</td><td> [facility] in Blood mg/dL Calcium [facility] </td><td> [employer] 8.8
(8.6-10.2) mg/dL </td> Creatinine 0.87 mg/dL 0.57-1 <td> 04/01/2018 [facility] [Moles/volume] .11 06:44</td><td> [facility] in Serum or mg/dL Creatinine. Health Care Plasma </td><td> [employer] 0.87
(0.57-1.11) mg/dL </td> Urea nitrogen 8 mg/dL 6-22 <td> 04/01/2018 [facility] r [Mass/volume] mg/dL 06:44</td><td> [facility] in Blood BUN </td><td> [facility] Care [facility] 8
(6-22) mg/dL </td> Carbon dioxide, 24 mEq/L 22-30 <td> 04/01/2018 [facility] total mEq/L 06:44</td><td> [facility] [Moles/volume] CO2 </td><td> Health [facility] e in Serum or Corporation Plasma 24
(22-30) mEq/L </td> Chloride 108 mEq/L 98-107 <td> 04/01/2018 [facility] [Moles/volume] mEq/L 06:44</td><td> County in Serum or Chloride Health Care Plasma </td><td><Ynvisible raph styleCode="Bold "> 108 H </paragraph>
(98-107) mEq/L </td> Potassium 3.7 mEq/L 3.5-5. <td> 04/01/2018 [facility] [Moles/volume] 1 06:44</td><td> [facility] in Serum or mEq/L Potassium-Serum Health Care Plasma </td><td> [employer] 3.7
(3.5-5.1) mEq/L </td> Hemoglobin A1C 9.7 % 4.0-5. <td> 04/01/2018 [facility] 6 % 06:44</td><td> [facility] Hemoglobin A1C Health Care </td><td><[employer] graph styleCode="Bold "> 9.7 H </paragraph>
(4.0-5.6) %
Increased risk for diabetes mellitus is seen in patients with HgA1C values
between 5.7-6.4%. Values > or = 6.5% are considered diagnostic of diabetes
mellitus.
===
ESTIMATED AVERAGE GLUCOSE (eAG)
---
RELATIONSHIP BETWEEN A1C AND eAG
===
A1C(%) eAG(mg/dL)
6 1 26
7 1 54
8 1 83
9 2 12
10 240
11 269
12 298
Source: Adapted from [place] [employer]. Standards of medical
care in diabetes-2014. Diabetes Care.2014;37(Tsang pp 1):S14-S80, table 8.

PLEASE NOTE NEW REFERENCE RANGES EFFECTIVE 14

(4.0-5.6) % </td> aPTT panel - 31.8 secs 25.0-3 <td> 04/01/2018 [facility] Platelet poor 2.0 06:44</td><td> [facility] plasma secs Partial Health Care Thromboplastin [facility] Time </td><td> 31.8
(25.0-32.0) secs </td> Prothrombin 10.9 secs 9.8-12 <td> 04/01/2018 [facility] time (PT) .0 06:44</td><td> [facility] secs Prothrombin Health Care Time. Corporation </td><td> 10.9
(9.8-12.0) secs </td> Icteric index Not <td> 04/01/2018 [facility] r of Serum or Icteric 06:44</td><td> [facility] Plasma Icteric Index Health Care </td><td> Corporation Not Icteric
</td> Lipemic index No Lipemia <td> 04/01/2018 [facility] er of Serum or 06:44</td><td> [facility] Plasma Lipemia Index Health Care </td><td> [employer] No Lipemia
</td> Hemolysis index No <td> 04/01/[address] Serum or Hemolysis 06:44</td><td> [facility] Plasma Hemolysis Index Health Care </td><td> Corporation No Hemolysis
</td> Anion gap in 6 mEq/L 7-13 <td> 04/01/2018 [facility] Serum or Plasma mEq/L 06:44</td><td> [facility] Anion Gap Health Care </td><td><Ynvisible raph styleCode="Bold "> 6 L </paragraph>
(7-13) mEq/L </td> Glucose 132 mg/dL 70-105 <td> 04/02/2018 [facility] [Mass/volume] mg/dL 21:21</td><td> [facility] in Capillary Glucose - Health Care blood by Finger Stick [employer] Glucometer </td><td><jose miguel raph styleCode="Bold "> 132 H </paragraph>
(70-105) mg/dL </td> Leukocytes 9.7 k/mm3 4.5-10 <td> 04/02/2018 [facility] [#/volume] in .8 05:45</td><td> [facility] Blood by k/mm3 WBC </td><td> Health Care Automated count [employer] 9.7
(4.5-10.8) k/mm3 </td> Erythrocyte 28.4 pg 27.0-3 <td> 04/02/2018 [facility] mean 1.5 pg 05:45</td><td> [facility] corpuscular MCH </td><td> Health Care hemoglobin Corporation [Entitic mass] 28.4 by Automated count
(27.0-31.5) pg </td> Erythrocyte 86.4 fL 80.0-9 <td> 04/02/2018 [facility] mean 6.0 fL 05:45</td><td> [facility] corpuscular MCV </td><td> Health Care volume [[employer] volume] by 86.4 Automated count
(80.0-96.0) fL </td> Hematocrit 34.4 % 36.0-4 <td> 04/02/2018 [facility] [Volume 5.0 % 05:45</td><td> [facility] Fraction] of HCT Health Care Blood by </td><td><Ynvisible Automated count raph styleCode="Bold "> 34.4 L </paragraph>
(36.0-45.0) % </td> Hemoglobin 11.3 g/dL 11.6-1 <td> 04/02/2018 [facility] [Mass/volume] 5.0 05:45</td><td> [facility] in Blood g/dL HGB Health Care </td><td><Ynvisible raph styleCode="Bold "> 11.3 L </paragraph>
(11.6-15.0) g/dL </td> Erythrocytes 3.98 m/mm3 3.80-5 <td> [facility]/02/[facility] [#/volume] in .10 05:45</td><td> [facility] Blood m/mm3 RBC </td><td> [facility] 3.98
(3.80-5.10) m/mm3 </td> Monocytes/Leuko 8.6 % 0.0-11 <td> 04/02/2018 [facility] cyt[facility] [Pure .0 % 05:45</td><td> County number Monocytes. Health Care fraction] in </td><td> [facility] Blood by Automated count 8.6
(0.0-11.0) % </td> Lymphocytes 22.9 % 18.0-5 <td> 04/02/2018 [facility] [#/volume] in 3.0 % 05:45</td><td> [facility] Blood by Lymphocytes Health Care Automated count </td><td> [employer] 22.9
(18.0-53.0) % </td> Platelets 365 k/mm3 160-41 <td> 04/02/2018 [facility] [#/volume] in 0 05:45</td><td> [facility] Blood by k/mm3 Platelet Count Health Care Automated count </td><td> [employer] 365
(160-410) k/mm3 </td> Platelet mean 9.8 fL 9.8-12 <td> [facility] [Entitic .8 fL 05:45</td><td> County volume] in MPV </td><td> Health Care Blood by [employer] Automated count 9.8
(9.8-12.8) fL </td> Erythrocyte 12.4 % 11.5-1 <td> 04/02/2018 [facility] distribution 4.5 % 05:45</td><td> County width [Entitic RDW </td><td> Health Car e volume] by [employer] Automated count 12.4
(11.5-14.5) % </td> Erythrocyte 32.8 % 32.0-3 <td> 04/02/2018 [facility] mean 6.0 % 05:45</td><td> [facility] corpuscular MCHC </td><td> Health Care hemoglobin [employer] concentration 32.8 [Mass/volume] in Blood from
Fetus by (32.0-36.0) % Automated count </td> Sodium 138 mEq/L 135-14 <td> 04/01/2018 [facility] [Moles/volume] 5 06:44</td><td> [facility] in Serum or mEq/L Sodium-Serum Health Care Plasma </td><td> [employer] 138
(135-145) mEq/L </td> Glucose 218 mg/dL 70-105 <td> 04/01/2018 [facility] [Mass/volume] mg/dL 06:44</td><td> [facility] in Blood Glucose-Serum Health Care </td><td><jose miguel [employer] raph styleCode="Bold "> 218 H </paragraph>
(70-105) mg/dL </td> Neutrophils [#] 67.1 % 36.0-7 <td> 04/02/2018 [facility] in Body fluid 3.0 % 05:45</td><td> County by Manual count Neutrophils Health Care </td><td> [employer] 67.1
(36.0-73.0) % </td> Immature 0.4 % 0.0-0. <td> 04/02/2018 [facility] granulocytes/10 5 % 05:45</td><td> County 0 leukocytes in IG% </td><td> Health Ca re Blood by [employer] Automated count 0.4
(0.0-0.5) %
The IG fraction represents metamyelocytes, myelocytes and/or
promyelocytes and is only reported as part of the automated
differential when found at a percentage of less than 6.
If higher than 6%, a manual differential will be performed.

(0.0-0.5) % </td> Basophils 0.3 % 0.0-2. <td> 04/02/2018 [facility] [#/volume] in 0 % 05:45</td><td> [facility] Blood by Basophils [facility] Automated count </td><td> [employer] 0.3
(0.0-2.0) % </td> Basophils+Eosin 0.7 % 0.0-5. <td> 04/02/2018 [facility] ophils+Monocyte 0 % 05:45</td><td> [facility] s [#/volume] in Eosinophils [facility] Blood by </td><td> [employer] Automated count 0.7
(0.0-5.0) % </td> Calcium 8.8 mg/dL 8.6-10 <td> 04/01/2018 [facility] [Mass/volume] .2 06:44</td><td> [facility] in Blood mg/dL Calcium [facility] </td><td> [employer] 8.8
(8.6-10.2) mg/dL </td> Creatinine 0.87 mg/dL 0.57-1 <td> 04/01/2018 [facility] [Moles/volume] .11 06:44</td><td> [facility] in Serum or mg/dL Creatinine. [facility] Plasma </td><td> [employer] 0.87
(0.57-1.11) mg/dL </td> Urea nitrogen 8 mg/dL 6-22 <td> 04/01/2018 [facility] r [Mass/volume] mg/dL 06:44</td><td> [facility] in Blood BUN </td><td> [facility] [employer] 8
(6-22) mg/dL </td> Carbon dioxide, 24 mEq/L 22-30 <td> 04/01/2018 [facility] total mEq/L 06:44</td><td> [facility] [Moles/volume] CO2 </td><td> Health Car e in Serum or Corporation Plasma 24
(22-30) mEq/L </td> Chloride 108 mEq/L 98-107 <td> 04/01/2018 [facility] [Moles/volume] mEq/L 06:44</td><td> [facility] in Serum or Chloride Health Care Plasma </td><td><jose miguel [facility] raph styleCode="Bold "> 108 H </paragraph>
(98-107) mEq/L </td> Potassium 3.7 mEq/L 3.5-5. <td> 04/01/2018 [facility] [Moles/volume] 1 06:44</td><td> [facility] in Serum or mEq/L Potassium-Serum Health Care Plasma </td><td> [facility] 3.7
(3.5-5.1) mEq/L </td> aPTT panel - 31.8 secs 25.0-3 <td> 04/01/2018 [facility] Platelet poor 2.0 06:44</td><td> [facility] plasma secs Partial Health Care Thromboplastin [facility] Time </td><td> 31.8
(25.0-32.0) secs </td> Prothrombin 10.9 secs 9.8-12 <td> 04/01/2018 [facility] time (PT) .0 06:44</td><td> [facility] secs Prothrombin Health Care Time. [facility] </td><td> 10.9
(9.8-12.0) secs </td> Icteric index Not <td> 04/01/2018 [facility] r of Serum or Icteric 06:44</td><td> [facility] Plasma Icteric Index Health Care </td><td> [employer] Not Icteric
</td> Lipemic index No Lipemia <td> 04/01/2018 [facility] er of Serum or 06:44</td><td> [facility] Plasma Lipemia Index Health Care </td><td> [employer] No Lipemia
</td> Hemolysis index No <td> 04/01/2018 [facility] of Serum or Hemolysis 06:44</td><td> [facility] Plasma Hemolysis Index Health Care </td><td> [employer] No Hemolysis
</td> Anion gap in 6 mEq/L 7-13 <td> 04/01/2018 [facility] Serum or Plasma mEq/L 06:44</td><td> [facility] Anion Gap Health Care </td><td><Ynvisible raph styleCode="Bold "> 6 L </paragraph>
(7-13) mEq/L </td> Glucose 135 mg/dL 70-105 <td> 04/02/2018 [facility] [Mass/volume] mg/dL 08:10</td><td> [facility] in Capillary Glucose - Health Care blood by Finger Stick [employer] Glucometer </td><td><[employer] raph styleCode="Bold "> 135 H </paragraph>
(70-105) mg/dL </td> Hemoglobin A1C 9.7 % 4.0-5. <td> 04/01/2018 [facility] 6 % 06:44</td><td> [facility] Hemoglobin A1C [facility] Care </td><td><[employer] graph styleCode="Bold "> 9.7 H </paragraph>
(4.0-5.6) %
Increased risk for diabetes mellitus is seen in patients with HgA1C values
between 5.7-6.4%. Values > or = 6.5% are considered diagnostic of diabetes
mellitus.
===
ESTIMATED AVERAGE GLUCOSE (eAG)
---
RELATIONSHIP BETWEEN A1C AND eAG
===
A1C(%) eAG(mg/dL)
6 1 26
7 1 54
8 1 83
9 2 12
10 240
11 269
12 298
Source: Adapted from [place] [employer]. Standards of medical
care in diabetes-2014. Diabetes Care.2014;37(Tsang pp 1):S14-S80, table 8.

PLEASE NOTE NEW REFERENCE RANGES EFFECTIVE 14

(4.0-5.6) % </td> Erythrocytes 3.81 m/mm3 3.80-5 <td> [facility]01[facility] [#/volume] in .10 06:44</td><td> [facility] Blood m/mm3 RBC </td><td> [employer] 3.81
(3.80-5.10) m/mm3 </td> Leukocytes 9.4 k/mm3 4.5-10 <td> 04/01/2018 [facility] [#/volume] in .8 06:44</td><td> [facility] Blood by k/mm3 WBC </td><td> [employer] 9.4
(4.5-10.8) k/mm3 </td> Erythrocyte 12.7 % 11.5-1 <td> 04/01/2018 [facility] distribution 4.5 % 06:44</td><td> [facility] width [Entitic RDW </td><td> Health Car e volume] by Corporation Automated count 12.7
(11.5-14.5) % </td> Erythrocyte 32.7 % 32.0-3 <td> 04/01/2018 [facility] mean 6.0 % 06:44</td><td> [facility] corpuscular MCHC </td><td> Health Care hemoglobin [employer] concentration 32.7 [Mass/volume] in Blood from
Fetus by (32.0-36.0) % Automated count </td> Erythrocyte 28.6 pg 27.0-3 <td> 04/01/2018 [facility] mean 1.5 pg 06:44</td><td> [facility] corpuscular MCH </td><td> Health Care hemoglobin [employer] [Entitic mass] 28.6 by Automated count
(27.0-31.5) pg </td> Erythrocyte 87.4 fL 80.0-9 <td> 04/01/2018 [facility] mean 6.0 fL 06:44</td><td> [facility] corpuscular MCV </td><td> Health Care volume [[employer] volume] by 87.4 Automated count
(80.0-96.0) fL </td> Hematocrit 33.3 % 36.0-4 <td> 04/01/2018 [facility] [Volume 5.0 % 06:44</td><td> [facility] Fraction] of HCT Health Care Blood by </td><td><Ynvisible Automated count raph styleCode="Bold "> 33.3 L </paragraph>
(36.0-45.0) % </td> Hemoglobin 10.9 g/dL 11.6-1 <td> 04/01/2018 [facility] [Mass/volume] 5.0 06:44</td><td> [facility] in Blood g/dL HGB Health Care </td><td><Ynvisible raph styleCode="Bold "> 10.9 L </paragraph>
(11.6-15.0) g/dL </td> Carbon dioxide, 24 mEq/L 22-30 <td> 04/01/2018 [facility] total mEq/L 06:44</td><td> [facility] [Moles/volume] CO2 </td><td> Health Car e in Serum or Corporation Plasma 24
(22-30) mEq/L </td> Chloride 108 mEq/L 98-107 <td> 04/01/2018 [facility] [Moles/volume] mEq/L 06:44</td><td> [facility] in Serum or Chloride Health Care Plasma </td><td><jose miguel [employer] raph styleCode="Bold "> 108 H </paragraph>
(98-107) mEq/L </td> Potassium 3.7 mEq/L 3.5-5. <td> 04/01/2018 [facility] [Moles/volume] 1 06:44</td><td> [facility] in Serum or mEq/L Potassium-Serum Health Care Plasma </td><td> [employer] 3.7
(3.5-5.1) mEq/L </td> Sodium 138 mEq/L 135-14 <td> 04/01/2018 [facility] [Moles/volume] 5 06:44</td><td> [facility] in Serum or mEq/L Sodium-Serum Health Care Plasma </td><td> [employer] 138
(135-145) mEq/L </td> Glucose 218 mg/dL 70-105 <td> 04/01/2018 [facility] [Mass/volume] mg/dL 06:44</td><td> [facility] in Blood Glucose-Serum Health Care </td><td><Ynvisible raph styleCode="Bold "> 218 H </paragraph>
(70-105) mg/dL </td> Platelets 288 k/mm3 160-41 <td> 04/01/2018 [facility] [#/volume] in 0 06:44</td><td> [facility] Blood by k/mm3 Platelet Count Health Care Automated count </td><td> [employer] 288
(160-410) k/mm3 </td> Platelet mean 9.7 fL 9.8-12 <td> 04/01/2018 [facility] r volume [Entitic .8 fL 06:44</td><td> County volume] in V Health Care Blood by </td><td><Ynvisible Automated count raph styleCode="Bold "> 9.7 L </paragraph>
(9.8-12.8) fL </td> Lipemic index No Lipemia <td> 04/01/2018 [facility] er of Serum or 06:44</td><td> [facility] Plasma Lipemia Index Health [facility] </td><td> [employer] No Lipemia
</td> Hemolysis index No <td> 04/01/2018 [facility] of Serum or Hemolysis 06:44</td><td> [facility] Plasma Hemolysis Index [facility] </td><td> [employer] No Hemolysis
</td> Anion gap in 6 mEq/L 7-13 <td> 04/01/2018 [facility] Serum or Plasma mEq/L 06:44</td><td> [facility] Anion Gap [facility] </td><td><Ynvisible raph styleCode="Bold "> 6 L </paragraph>
(7-13) mEq/L </td> Calcium 8.8 mg/dL 8.6-10 <td> 04/01/2018 [facility] [Mass/volume] .2 06:44</td><td> [facility] in Blood mg/dL Calcium Health Care </td><td> [employer] 8.8
(8.6-10.2) mg/dL </td> Creatinine 0.87 mg/dL 0.57-1 <td> 04/01/2018 [facility] [Moles/volume] .11 06:44</td><td> [facility] in Serum or mg/dL Creatinine. [facility] Care Plasma </td><td> [employer] 0.87
(0.57-1.11) mg/dL </td> Urea nitrogen 8 mg/dL 6-22 <td> 04/01/2018 [facility] r [Mass/volume] mg/dL 06:44</td><td> [place] in Blood BUN </td><td> [facility] 8
(6-22) mg/dL </td> Glucose 154 mg/dL 70-105 <td> 04/01/2018 [facility] [Mass/volume] mg/dL 08:07</td><td> [facility] in Capillary Glucose - [facility] blood by Finger Stick [employer] Glucometer </td><td><jose miguel raph styleCode="Bold "> 154 H </paragraph>
(70-105) mg/dL </td> Hemoglobin A1C 9.7 % 4.0-5. <td> 04/01/[address] 6 % 06:44</td><td> [facility] Hemoglobin A1C [facility] </td><td><[employer] graph styleCode="Bold "> 9.7 H </paragraph>
(4.0-5.6) %
Increased risk for diabetes mellitus is seen in patients with HgA1C values
between 5.7-6.4%. Values > or = 6.5% are considered diagnostic of diabetes
mellitus.
===
ESTIMATED AVERAGE GLUCOSE (eAG)
---
RELATIONSHIP BETWEEN A1C AND eAG
===
A1C(%) eAG(mg/dL)
6 1 26
7 1 54
8 1 83
9 2 12
10 240
11 269
12 298
Source: Adapted from [place] [employer]. Standards of medical
care in diabetes-2014. Diabetes Care.2014;37(Tsang pp 1):S14-S80, table 8.

PLEASE NOTE NEW REFERENCE RANGES EFFECTIVE 14

(4.0-5.6) % </td> aPTT panel - 31.8 secs 25.0-3 <td> 04/01/2018 [facility] Platelet poor 2.0 06:44</td><td> [facility] plasma secs Partial Health Care Thromboplastin [facility] Time </td><td> 31.8
(25.0-32.0) secs </td> Prothrombin 10.9 secs 9.8-12 <td> 04/01/2018 [facility] time (PT) .0 06:44</td><td> [facility] secs Prothrombin Health Care Time. Corporation </td><td> 10.9
(9.8-12.0) secs </td> Icteric index Not <td> 04/01/2018 [facility] r of Serum or Icteric 06:44</td><td> [facility] Plasma Icteric Index Health Care </td><td> Corporation Not Icteric
</td> Procedure Social History Code Duration Value Status Description Data Source(s ) Smoking 11/22/2019 Denies Ever completed Denies Ever Smoked [facility] 07:46:00 PM EDT Smoked [facility] enter Smoking 11/22/2019 Denies Ever completed Denies Ever Smoked [facility] 07:13:00 PM EDT [facility] enter Smoking 11/22/2019 Denies Ever completed Denies Ever Smoked [facility] 06:54:00 PM EDT [facility] enter Smoking 10/24/2019 Denies Ever completed Denies Ever Smoked [facility] 04:23:00 PM EDT [facility] enter Smoking 10/24/2019 Denies Ever completed Denies Ever Smoked [facility] 01:47:00 PM EDT [facility] enter Smoking 06/25/2019 Denies Ever completed Denies Ever Smoked [facility] 02:04:00 PM EDT [facility] enter Smoking 06/25/2019 Denies Ever completed Denies Ever Smoked [facility] 01:15:00 PM EDT [facility] enter Smoking 06/25/2019 Denies Ever completed Denies Ever Smoked [facility] 12:43:00 PM EDT [facility]oked [facility] enter Smoking 05/05/2019 Denies Ever completed Denies Ever Smoked [facility] 08:22:00 PM EST [facility] enter Smoking 05/05/2019 Denies Ever completed Denies Ever Smoked [facility] 08:00:00 PM EST [facility] enter Smoking 05/05/2019 Denies Ever completed Denies Ever Smoked [facility] 05:36:00 PM EST [facility] enter Smoking 05/05/2019 Denies Ever completed Denies Ever Smoked [facility] 03:45:00 PM EST [facility] enter Smoking 05/05/2019 Denies Ever completed Denies Ever Smoked [facility] 03:41:00 PM EST [facility] enter Smoking 03/24/2019 Denies Ever completed Denies Ever Smoked [facility] 12:10:00 PM EST [facility] enter Smoking 03/24/2019 Denies Ever completed Denies Ever Smoked [facility] 12:07:00 PM EST [facility] enter Smoking 03/24/2019 Denies Ever completed Denies Ever Smoked [facility] 11:44:00 AM EST [facility] enter Smoking 10/27/2018 Denies Ever completed Denies Ever Smoked [facility] 08:41:00 AM EDT Smoked [facility] enter Smoking 10/27/2018 Denies Ever completed Denies Ever Smoked [facility] 08:11:00 AM EDT Smoked [facility] enter Smoking 10/27/2018 Denies Ever completed Denies Ever Smoked [facility] 08:07:00 AM EDT Smoked [facility] enter Smoking 04/06/2018 Denies Ever completed Denies Ever Smoked [facility] 04:37:00 AM EST Smoked [facility] enter Smoking 04/05/2018 Denies Ever completed Denies Ever Smoked [facility] 06:10:00 PM EST Smoked [facility] enter Smoking 04/05/2018 Denies Ever completed Denies Ever Smoked [facility] 05:44:00 PM EST [facility] enter Smoking 04/05/2018 Denies Ever completed Denies Ever Smoked [facility] 05:44:00 PM EST [facility] enter Smoking 04/05/2018 Denies Ever completed Denies Ever Smoked [facility] 05:44:00 PM EST Smoked [facility] enter Smoking Never smoker completed Never smoker [facility] Vital Signs ID Date Data Source UNK Name Value Range Interpretation Code Description Data Source(s) Body temperature 36.009278 36.605776 [facility] Respiratory rate 18 /min 18 /min [facility] Oxygen saturation 99 % 99 % [facility] Arterial blood [facility] by Pulse oximetry Heart rate 73 /min 73 /min [facility] Diastolic blood 94 mm[Hg] 94 mm[Hg] [facility] Systolic blood 166 mm[Hg] 166 mm[Hg] [facility] Body temperature 36.210790 36.275538 [facility] Oxygen saturation 99 % 99 % [facility] Arterial blood [facility] Center by Pulse oximetry Heart rate 58 /min 58 /min [facility] Diastolic blood 88 mm[Hg] 88 mm[Hg] [facility] Systolic blood 182 mm[Hg] 182 mm[Hg] [facility] Oxygen saturation 97 % 97 % [facility] blood [facility] Center by Pulse oximetry Heart rate 65 /min 65 /min [facility] Diastolic blood 93 mm[Hg] 93 mm[Hg] [facility] Systolic blood 145 mm[Hg] 145 mm[Hg] [facility] Oxygen saturation 96 % 96 % [facility] blood [facility] Center by Pulse oximetry Heart rate 80 /min 80 /min [facility] Heart rate 80 /min 80 /min [facility] Diastolic blood 85 mm[Hg] 85 mm[Hg] [facility] Systolic blood 156 mm[Hg] 156 mm[Hg] [facility] Body temperature 36.835476 36.475588 [facility] Respiratory rate 17 /min 17 /min [facility] Oxygen saturation 99 % 99 % [facility] Arterial blood [facility] by Pulse oximetry Heart rate 71 /min 71 /min [facility] Body height 172.680696 172.023755 cm [facility] Diastolic blood 91 mm[Hg] 91 mm[Hg] [facility] pressure Medical Center Systolic blood 159 mm[Hg] 159 mm[Hg] [facility] Center Body temperature 36.182270 36.174066 [facility] Respiratory rate 18 /min 18 /min [facility] Oxygen saturation 99 % 99 % [facility] Arterial blood [facility] Center by Pulse oximetry Heart rate 75 /min 75 /min [facility] Diastolic blood 75 mm[Hg] 75 mm[Hg] [facility] pressure [facility] Systolic blood 127 mm[Hg] 127 mm[Hg] [facility] Center Body weight 130.859635 130.696922 kg [facility] Measured kg Medical Center Body temperature 37.841899 37.891417 [facility] Respiratory rate 1 /min 1 /min [facility] Oxygen saturation 98 % 98 % [facility] Arterial blood [facility] by Pulse oximetry Heart rate 82 /min 82 /min [facility] Body height 173.023257 173.840317 cm [facility] Diastolic blood 66 mm[Hg] 66 mm[Hg] [facility] Systolic blood 144 mm[Hg] 144 mm[Hg] [facility] Center Body mass index 43.4 kg/m2 43.4 kg/m2 [facility] (BMI) [Ratio] Medical [facility] Body mass index 42.4 kg/m2 42.4 kg/m2 [facility] (BMI) [Ratio] Medical [facility] Body weight 127.797552 127.321252 kg [facility] Measured kg Medical Center Body temperature 36.208076 36.272605 [facility] Respiratory rate 18 /min 18 /min [facility] Oxygen saturation 98 % 98 % [facility] Arterial blood [facility] by Pulse oximetry Heart rate 102 /min 102 /min [facility] Body height 173.745436 173.1144[address] [facility] Diastolic blood 54 mm[Hg] 54 mm[Hg] [facility] pressure Medical Center Systolic blood 118 mm[Hg] 118 mm[Hg] [facility] Body temperature 37.455939 37.151206 [facility] Respiratory rate 18 /min 18 /min [facility] Heart rate 64 /min 64 /min [facility] Diastolic blood 72 mm[Hg] 72 mm[Hg] [facility] Systolic blood 131 mm[Hg] 131 mm[Hg] [facility] Body temperature 36.014930 36.323195 [facility] Respiratory rate 18 /min 18 /min [facility] Heart rate 70 /min 70 /min [facility] Diastolic blood 90 mm[Hg] 90 mm[Hg] [facility] Systolic blood 110 mm[Hg] 110 mm[Hg] [facility] Medical [place] Body temperature 36.896399 36.517824 [facility] Respiratory rate 18 /min 18 /min [facility] Oxygen saturation 99 % 99 % [facility] Arterial blood [facility] by Pulse oximetry Heart rate 75 /min 75 /min [facility] Diastolic blood 62 mm[Hg] 62 mm[Hg] [facility] Systolic blood 106 mm[Hg] 106 mm[Hg] [facility] [place] Body temperature 37.228154 37.045612 [facility] Respiratory rate 20 /min 20 /min [facility] Heart rate 74 /min 74 /min [facility] Diastolic blood 87 mm[Hg] 87 mm[Hg] [facility] Systolic blood 144 mm[Hg] 144 mm[Hg] [facility] Body temperature 37.932417 37.360030 [facility] Respiratory rate 16 /min 16 /min [facility] Heart rate 56 /min 56 /min [facility] Diastolic blood 88 mm[Hg] 88 mm[Hg] [facility] Systolic blood 150 mm[Hg] 150 mm[Hg] [facility] Oxygen saturation 98 % 98 % [facility] Arterial blood [facility] by Pulse oximetry Body weight 134.556400 134.660350 kg [facility] Measured kg Medical Center Body height 173.959825 173.138853 cm [facility] Body mass index 44.26 kg/m2 44.26 kg/m2 [facility] (BMI) [Ratio] Medical [address] Body weight 134.627285 134.974376 kg [facility] Measured kg [facility] Body height 172.722303 172.198894 cm [facility] Body mass index 44.92 kg/m2 44.92 kg/m2 [facility] (BMI) [Ratio] Medical [address] Oxygen saturation 99 % 99 % [facility] Arterial blood [facility] by Pulse oximetry Body weight 134.186790 134.891965 kg [facility] Measured kg Medical Center Body height 173.985478 173.912953 cm [facility] Body mass index 44.26 kg/m2 44.26 kg/m2 [facility] (BMI) [Ratio] Medical [facility] ter Body temperature 36.279020 36.199996 [facility] Respiratory rate 16 /min 16 /min [facility] Heart rate 78 /min 78 /min [facility] Diastolic blood 96 mm[Hg] 96 mm[Hg] [facility] Systolic blood 153 mm[Hg] 153 mm[Hg] [facility] Body temperature 37.386314 37.771700 [facility] Respiratory rate 18 /min 18 /min [facility] Heart rate 86 /min 86 /min [facility] Diastolic blood 90 mm[Hg] 90 mm[Hg] [facility] Systolic blood 151 mm[Hg] 151 mm[Hg] [facility] Body weight 134.582371 134.656344 kg [facility] Measured kg Medical Center Oxygen saturation 98 % 98 % [facility] blood [facility] by Pulse oximetry Body height 173.368772 173.130660 cm [facility] Body mass index 44.26 kg/m2 44.26 kg/m2 [facility] (BMI) [Ratio] Medical [address] Body temperature 36.215038 36.731359 [facility] Respiratory rate 18 /min 18 /min [facility] Heart rate 86 /min 86 /min [facility] Diastolic blood 114 mm[Hg] 114 mm[Hg] [facility] pressure Medical Center Systolic blood 148 mm[Hg] 148 mm[Hg] [facility] Oxygen saturation 99 % 99 % [facility] blood [facility] by Pulse oximetry Body temperature 36.670308 36.617013 [facility] Respiratory rate 18 /min 18 /min [facility] Heart rate 82 /min 82 /min [facility] Diastolic blood 84 mm[Hg] 84 mm[Hg] [facility] Systolic blood 129 mm[Hg] 129 mm[Hg] [facility] Body weight 133.780297 133.333310 kg [facility] Measured kg Medical Center Body height 172.720622 172.449126 cm [facility] Medical [place] Body mass index 44.7 kg/m2 44.7 kg/m2 [facility] (BMI) [Ratio] Medical [facility] ter Body temperature 36.264338 36.136995 [facility] Respiratory rate 17 /min 17 /min [facility] Oxygen saturation 98 % 98 % [facility] blood [facility] by Pulse oximetry Heart rate 86 /min 86 /min [facility] Diastolic blood 87 mm[Hg] 87 mm[Hg] [facility] Medical [place] Systolic blood 192 mm[Hg] 192 mm[Hg] [facility] [place] Body temperature 37.712568 37.213562 [facility] Respiratory rate 19 /min 19 /min [facility] Oxygen saturation 97 % 97 % [facility] blood [facility] by Pulse oximetry Heart rate 98 /min 98 /min [facility] Diastolic blood 88 mm[Hg] 88 mm[Hg] [facility] Systolic blood 155 mm[Hg] 155 mm[Hg] [facility] [place] Body weight 127.998078 127.014650 kg [facility] Measured kg Medical Center Body temperature 36.643370 36.399688 [facility] Respiratory rate 20 /min 20 /min [facility] Oxygen saturation 98 % 98 % [facility] blood [facility] by Pulse oximetry Heart rate 97 /min 97 /min [facility] Diastolic blood 84 mm[Hg] 84 mm[Hg] [facility] Systolic blood 154 mm[Hg] 154 mm[Hg] [facility] Body temperature 36.175021 36.414248 [facility] Respiratory rate 18 /min 18 /min [facility] Oxygen saturation 97 % 97 % [facility] Arterial blood [facility] by Pulse oximetry Heart rate 76 /min 76 /min [facility] Diastolic blood 104 mm[Hg] 104 mm[Hg] [facility] [place] Systolic blood 186 mm[Hg] 186 mm[Hg] [facility] [place] Body temperature 36.860827 36.172685 [facility] Respiratory rate 20 /min 20 /min [facility] Heart rate 94 /min 94 /min [facility] Diastolic blood 60 mm[Hg] 60 mm[Hg] [facility] [place] Systolic blood 133 mm[Hg] 133 mm[Hg] [facility] Body weight 123.984813 123.296368 kg [facility] Measured kg Medical Center Body height 172.3369[address] [facility] Body mass index 41.43 kg/m2 41.43 kg/m2 [facility] (BMI) [Ratio] Medical [facility] ter Body temperature 37.656126 37.999659 [facility] Respiratory rate 20 /min 20 /min [facility] Heart rate 96 /min 96 /min [facility] Diastolic blood 75 mm[Hg] 75 mm[Hg] [facility] Systolic blood 129 mm[Hg] 129 mm[Hg] [facility] Systolic blood 149 mm[Hg] 149 mm[Hg] [facility] [place] Body weight 110.918424 110.027082 kg [facility] Measured kg Medical Center Body temperature 37.382577 37.589567 [facility] Body temperature 37.136457 37.380786 [facility] Respiratory rate 18 /min 18 /min [facility] Respiratory rate 19 /min 19 /min [facility] Oxygen saturation 98 % 98 % [facility] Arterial blood [facility] by Pulse oximetry Oxygen saturation 97 % 97 % [facility] Arterial blood [facility] by Pulse oximetry Heart rate 120 /min 120 /min [facility] Heart rate 125 /min 125 /min [facility] Diastolic blood 71 mm[Hg] 71 mm[Hg] [facility] pressure Medical Center Systolic blood 149 mm[Hg] 149 mm[Hg] [facility] pressure [facility] Center Diastolic blood 71 mm[Hg] 71 mm[Hg] [facility] Diastolic blood 80 {} Normal (applies to 80 {} [place] pressure non-numeric results) [facility] Systolic blood 139 {} Normal (applies to 139 {} [place] pressure non-numeric results) [facility] First Respiration 18.0000 {} Normal (applies to 18.0000 {} [place] rate Set non-numeric results) [facility] Heart rate 60.0000 {} Normal (applies to 60.0000 {} [place] non-numeric results) [facility] Body temperature 97.0000 {} Normal (applies to 97.0000 {} [place] non-numeric results) [facility] Diastolic blood 79 {} Normal (applies to 79 {} [place] pressure non-numeric results) [facility] Systolic blood 141 {} Normal (applies to 141 {} [place] pressure non-numeric results) [facility] First Respiration 18.0000 {} Normal (applies to 18.0000 {} [place] rate Set non-numeric results) [facility] Heart rate 78.0000 {} Normal (applies to 78.0000 {} [place] non-numeric results) [facility] Body temperature 97.8000 {} Normal (applies to 97.8000 {} [place] non-numeric results) [facility] Diastolic blood 93 {} Normal (applies to 93 {} [place] pressure non-numeric results) [facility] Systolic blood 158 {} Normal (applies to 158 {} [place] pressure non-numeric results) [facility] First Respiration 18.0000 {} Normal (applies to 18.0000 {} [place] rate Set non-numeric results) [facility] Heart rate 83.0000 {} Normal (applies to 83.0000 {} [place] non-numeric results) [facility] Body temperature 98.0000 {} Normal (applies to 98.0000 {} [place] non-numeric results) [facility] Diastolic blood 88 {} Normal (applies to 88 {} [place] pressure non-numeric results) [facility] Systolic blood 153 {} Normal (applies to 153 {} [place] pressure non-numeric results) [facility] First Respiration 19.0000 {} Normal (applies to 19.0000 {} [place] rate Set non-numeric results) [facility] Heart rate 83.0000 {} Normal (applies to 83.0000 {} [place] non-numeric results) [facility] Body temperature 97.7000 {} Normal (applies to 97.7000 {} [place] non-numeric results) [facility] wt - obtain Normal (applies to {} [place] non-numeric results) [facility] weight - kg 123.2000 {} Normal (applies to 123.2000 {} [place] non-numeric results) [facility] Patient Treatment Plan of Care Planned Activity Planned Date Details Description Data Source (s) Acetaminophen 325 MG / [facility] Oxycodone Hydrochloride 5 MG Center Oral Tablet Ibuprofen 800 MG Oral Tablet [facility] teriflunomide 14 MG Oral Tablet [facility]] [place] 24 HR Oxybutynin chloride 10 MG [facility] Extended Release Oral Tablet Center 3 ML Insulin, Aspart Protamine, [facility] Human 70 UNT/ML / Insulin, C enter Aspart, Human 30 UNT/ML Pen Injector [NovoLog Mix] Metoprolol Tartrate 50 MG Oral [facility] Tablet [place] Metoprolol Tartrate 50 MG Oral [facility] Tablet Center Metformin hydrochloride 1000 MG [facility] Oral Tablet [place] Metformin hydrochloride 1000 MG [facility] Oral Tablet Center 3 ML Insulin, Aspart Protamine, [facility] Human 70 UNT/ML / Insulin, C enter Aspart, Human 30 UNT/ML Pen Injector [NovoLog Mix] ferrous sulfate 325 MG Oral [facility] Tablet [place] ferrous sulfate 325 MG Oral [facility] Ciprofloxacin 500 MG Oral Sa [facility] Ciprofloxacin 500 MG Oral Sa [facility] BD PEN NEEDL MIS [id number] [facility] BD PEN NEEDL MIS [id number] [facility] teriflunomide 14 MG Oral Tablet [facility] [[facility]] [place] ASPIRIN TAB 81MG EC [facility] ASPIRIN TAB 81MG EC [facility] Amlodipine 10 MG Oral Tablet [facility] Amlodipine 10 MG Oral Tablet [facility] Ibuprofen 600 MG Oral Tablet [facility] Ciprofloxacin 500 MG Oral Sa [facility] 3 ML Insulin, Aspart Protamine, [facility] Human 70 UNT/ML / Insulin, C enter Aspart, Human 30 UNT/ML Pen Injector [NovoLog Mix] Metoprolol Tartrate 50 MG Oral [facility] Metformin hydrochloride 1000 MG [facility] Oral Tablet [place] ferrous sulfate 325 MG Oral [facility] teriflunomide 14 MG Oral Tablet [facility] [[facility]] [place] ASPIRIN TAB 81MG EC [facility] Amlodipine 10 MG Oral Tablet [facility] methylPREDNISolone 4 mg [facility] tablets,dose pack, Ordered By: [place] Sidney Reyes FNPDirections: 1 package oral daily Cephalexin 500 MG Oral Capsule [facility] Aspirin 81 MG Delayed Release [facility] Tablet [place] Lisinopril 10 MG Oral Tablet [facility] gabapentin 300 MG Oral Capsule [facility] atorvastatin 20 MG Oral Tablet [facility] Metoprolol Tartrate 50 MG Oral [facility] Metformin hydrochloride 1000 MG [facility] Oral Tablet [place] 3 ML Insulin, Aspart Protamine, [facility] Human 70 UNT/ML / Insulin, C enter Aspart, Human 30 UNT/ML Pen Injector [NovoLog Mix] ferrous sulfate 325 MG Oral [facility] Amlodipine 10 MG Oral Tablet [facility] Azithromycin 250 MG Oral Tablet [facility] albuterol sulfate 90 mcg HFA [facility] Aerosol Inhaler, Ordered By: Pj Purvis MDDirections: 2 puff by inhalation every six hours PRN shortness of breath Naproxen sodium 275 MG Oral [facility] metroNIDAZOLE 500 mg [facility] TabletDirections: 1 tablet oral [place] every eight hours sodium chloride 0.9 % (1000 mL [facility] bag) Intravenous @ 100 mL/hr [place] CONTINUOUS Lisinopril 10 MG Oral Tablet [facility] 1 ML Ketorolac Tromethamine 30 [facility] MG/ML Injection Center insulin detemir 100 UNT/ML S [facility] Injectable Solution [Levemir] [place] Insulin, Aspart, Human 100 S [facility] UNT/ML Injectable Solution C enter [NovoLog] doxycycline hyclate 100 mg IVPB [facility] EVERY 12 HOUR Now Routine Ce nter ampicillin-sulbactam 3 g Mitch [facility] Intravenous EVERY 6 HOURS Now Center Routine Acetaminophen 500 MG Oral Sa [facility] Tablet Center
--- NOTE | 2019-12-29 22:34 | PDOC ---
History of Present Illness - General Chief Complaint: Pain Stated Complaint: ABD PAIN Time Seen by Provider: 12/29/19 22:26 History Source: Patient - History of Present Illness Initial Comments: 12/29/19 23:38 34-year-old female complaining of right sided pelvic pain/suprapubic pain for the last month. Patient has been seen at [facility] 1 month ago reports that she was started on antibiotic and was referred to [facility]. Patient reports that symptoms has not gotten better. Denies fever/chills, nausea, vomiting, diarrhea. Patient reports that the pain to the right side shoots to the right flank area. Patient reports frequency of urination denies any dysuria. Past medical history of hypertension, IDDM, MS. reports vaginal discharge, denies STI exposure or recent new partners 12/29/19 23:49 Past History - Medical History Allergies/Adverse Reactions: Allergies Allergy/AdvReac Type Severity Reaction Status Date / Time No Known Allergies Allergy Verified 12/29/19 22:05 Home Medications: Ambulatory Orders Ferrous Sulfate [Feosol] 325 mg PO DAILY 06/27/19 Insulin (Novolog 70/30) [Novolog Mix 70/30 Vial -] 35 units SQ BID 06/27/19 Lisinopril [Prinivil] 10 mg PO DAILY 06/27/19 Metformin HCl [Glucophage] 500 mg PO BID 06/27/19 Teriflunomide [Aubagio] 14 mg PO DAILY 12/30/19 Anemia: No Asthma: Yes Cancer: No Cardiac Disorders: No COPD: No CHF: No Diabetes: Yes HTN: Yes Seizures: No Other medical history: MULTIPLE SCLEROSIS - Surgical History Appendectomy: Yes Orthopedic Surgery: Yes (R knee surgery ACL) - Reproductive History Is Patient Now?: No - Immunization History Immunization Up to Date: Yes - Psycho-Social/Smoking History Smoking Status: No Smoking History: Never smoked Have you smoked in the past 12 months: No Number of Cigarettes Smoked Daily: 0 - Substance Abuse Hx (Audit-C & DAST Scrn) How often the patient has a drink containing alcohol: Never Score: In Men: 4 or > Positive; In Women: 3 or > Positive: 0 Screen Result (Pos requires Nsg. Audit-10AR): Negative In the last yr the pt used illegal drug/Rx for NonMed reason: No Score: Yes response is considered Positive: 0 Screen Result (Positive result requires Nsg. DAST-10): Negative Review of Systems - Review of Systems Able to Perform ROS?: Yes Is the patient limited Danish proficient: No Constitutional: No: Symptoms Reported, See HPI, Chills, Diaphoresis, Fever, Loss of Appetite, Malaise, Night Sweats, Weakness, Weight Stable, Unintentional Wgt. Loss, Unexplained wgt Loss, Other ABD/GI: Yes: Abdominal cramping : Yes: Frequency, Flank Pain. No: Symptoms Reported, See HPI, Burning, Dysuria, Discharge, Hematuria, Incontinence, Pain, Urgency, Testicular Mass, Testicular Swelling, Lesions, Testicular Pain, Other *Physical Exam - Vital Signs Last Vital Signs Temp Pulse Resp BP Pulse Ox 98.5 F 92 H 18 188/94 H 100 12/29/19 22:02 12/29/19 22:02 12/29/19 22:02 12/29/19 22:02 12/29/19 22:02 - Physical Exam General Appearance: Yes: Appropriately Dressed Respiratory/Chest: positive: Lungs Clear, Normal Breath Sounds Cardiovascular: positive: Regular Rhythm, Regular Rate Female Pelvic Exam: positive: normal external exam, cervical os closed, other (copious yellow discharge) Gastrointestinal/Abdominal: positive: Normal Bowel Sounds, Tender (right pelvic/) Musculoskeletal: negative: CVA Tenderness Extremity: positive: Normal Capillary Refill Integumentary: positive: Normal Color, Dry, Warm Neurologic: positive: Fully Oriented, Alert, Normal Mood/Affect ED Treatment Course - LABORATORY CBC & Chemistry Diagram: 12/30/19 00:32 12/30/19 00:33 ED Progress Note - Progress Note Progress Note: 12/30/19 01:03 Normal uterus. Normal endometrium thickness measuring approximately 9.5 mm. There is a 10 cm x 5.4 cm complex cystic septated lesion of the right adnexa. This could possibly represent a tubo-ovarian abscess. Please note that the right ovary is not clearly visualized and therefore an associated torsion cannot be excluded. There is Doppler blood flow to the septations of the complex lesion. Normal left ovary with dominant follicle and with positive Doppler blood flow. No free fluid. 12/30/19 01:20 patient to be admitted under children's book author service. patient signed out to Dr. alvarez Medical Decision Making - Medical Decision Making 12/30/19 00:53 patient reports that her children's book author is [email or web address]. Dr. marshall covering the practice paged for 12/30/19 03:[address] Alvarez. recommends IV antibiotics and admission. patient admitted under Dr. alvarez service Discharge - Discharge Information Problems reviewed: Yes Clinical Impression/Diagnosis: Pelvic pain, TOA (tubo-ovarian abscess) UTI (urinary tract infection) Qualifiers: Urinary tract infection type: acute cystitis Hematuria presence: with hematuria Qualified Code(s): N30.01 - Acute cystitis with hematuria - Admission Yes - Follow up/Referral - Patient Discharge Instructions - Post Discharge Activity
[2019-12-29 22:52] LABS: EPI CELLS >36 /uL (0-25.1); HCG,QUALITATIVE URINE Negative; HYALINE CASTS 5 /uL (0-3.1); PH,URINE 5.5 (5.0-8.0); URINE APPEARANCE TURBID; URINE BACTERIA 7969 /uL (0-1359); URINE BILIRUBIN NEGATIVE (NEGATIVE); URINE COLOR YELLOW; URINE GLUCOSE (UA) 3+ (NEGATIVE); URINE KETONE NEGATIVE (NEGATIVE); URINE LEUK ESTERASE 2+ (NEGATIVE); URINE NITRITE NEGATIVE (NEGATIVE); URINE PROTEIN 1+ (NEGATIVE); URINE UROBILINOGEN 0.2 mg/dL (0.2-1.0); URINE WBC 7485 /uL (0-25.8)
--- NOTE | 2019-12-29 22:55 | PDOC ---
*Physical Exam - Vital Signs Last Vital Signs Temp Pulse Resp BP Pulse Ox 98.5 F 92 H 18 188/94 H 100 12/29/19 22:02 12/29/19 22:02 12/29/19 22:02 12/29/19 22:02 12/29/19 22:02 ED Treatment Course - LABORATORY CBC & Chemistry Diagram: 12/30/19 00:32 12/30/19 00:33 - ADDITIONAL ORDERS Additional order review: Laboratory Results 12/29/19 22:30 Urine Color Yellow Urine Appearance Turbid Urine pH 5.5 Ur Specific [place] 1.023 Urine Protein 1+ H Urine Glucose (UA) 3+ H Urine Ketones Negative Urine Blood 2+ H Urine Nitrite Negative Urine Bilirubin Negative Urine Urobilinogen 0.2 Ur Leukocyte Esterase 2+ H Urine WBC (Auto) 7485 Urine Casts (Auto) 5 U Epithel Cells (Auto) >36 Urine Bacteria (Auto) 7969 Urine HCG, Qual Negative Medical Decision Making - Medical Decision Making 12/29/19 22:55 Patient seen by the advanced practice provider under my supervision. Ancillary testing reviewed as necessary. I agree with plan as outlined by the advanced practice provider. Discharge - Discharge Information Problems reviewed: Yes Clinical Impression/Diagnosis: Pelvic pain, TOA (tubo-ovarian abscess) UTI (urinary tract infection) Qualifiers: Urinary tract infection type: acute cystitis Hematuria presence: with hematuria Qualified Code(s): N30.01 - Acute cystitis with hematuria - Follow up/Referral - Patient Discharge Instructions - Post Discharge Activity
[2019-12-29] MEDS ORDERED: ACETAMINOPHEN 500 MG TABLET (FP) PO ONE (23:10)
[2019-12-29 23:20] LABS: URINE RBC 115.5 /uL (0-23.9); YEAST NON SEEN (NEGATIVE)
[2019-12-29] MEDS ORDERED: ACETAMINOPHEN 325 MG TABLET (FP) ONE (23:34)
[2019-12-30 00:44] LABS: BASO % 0.8 % (0-2.0); EOS % 1.1 % (0-4.5); HEMATOCRIT 31.5 % (32.4-45.2); HEMOGLOBIN 10.5 GM/dL (10.7-15.3); LYMPH % 27.3 % (8-40); MCH 27.9 pg (25.7-33.7); MCHC 33.4 g/dl (32.0-36.0); MEAN CELL VOLUME 83.8 fl (80-96); MEAN PLT VOLUME 8.1 fl (7.5-11.1); MONO % 9.8 % (3.8-10.2); PLATELET COUNT 387 K/MM3 (134-434); RBC 3.76 M/mm3 (3.60-5.2); WHITE BLOOD COUNT 10.1 K/mm3 (4.0-10.0)
[2019-12-30 01:13] LABS: ALBUMIN 3.4 g/dl (3.4-5.0); BILIRUBIN,TOTAL 0.3 mg/dL (0.2-1); BLOOD UREA NITROGEN 8.9 mg/dL (7-18); CALCIUM 8.5 mg/dL (8.5-10.1); CREATININE 0.9 mg/dL (0.55-1.3); POTASSIUM 3.8 mmol/L (3.5-5.1); TOT PROT 7.5 g/dl (6.4-8.2)
[2019-12-30] MEDS ORDERED: CEFOTETAN DISODIUM 2 GM in DEXTROSE 5%-WATER - 100 ML IVPB ONE (01:15)
[2019-12-30] MEDS ORDERED: SODIUM CHLORIDE 1,000 ML IV SCH (01:15)
[2019-12-30] MEDS ORDERED: DOXYCYCLINE INJECTION 100 MG in DEXTROSE 5%-WATER - 100 ML IVPB ONE (01:15)
[2019-12-30] MEDS ORDERED: DOXYCYCLINE HYCLATE 100 MG VIAL ONE (01:25)
--- OUTSIDE RECORDS SUMMARY | 2019-12-30 01:36 | XMS ---
:1985 Author Organization [facility] Care Team Providers Name Role Phone ED STAFF PHYSICIAN, MONIQUE Unavailable Unavailable BRENNA Song Unavailable Unavailable ED STAFF PHYSICIAN, STAFF Unavailable Unavailable TOMMIE COLLINS Unavailable Unavailable OUMAR PALMER Unavailable Unavailable [facility], [facility]9 Unavailable Unavailable ED STAFF PHYSICIANROSA Unavailable [...] is protected by Article 27-F of the [facility] Public Health law. If you continue you may haveaccess to information: Regarding HIV / AIDS; Provided by facilities licensed or operated by the [facility] Office of Mental Health; or Provided by the [facility] Office for People With Developmental Disabilities. If such information is present, then the following [facility] mandated warning applies: This information has been [...] law may result in a fine or halfway sentence or both. A general authorization for the release of medical or other information is NOT sufficient authorization for further disclosure. Encounters Encounter Providers Location Date Indications Data Source(s ) Emergency Attender: ZEINA Mendoza 11/22/2019 [facility] PAWEL PAttender: 06:47:00 PM EDT Medical Center STAFF ED STAFF - 11/23/2019 PHYSICIANAdmitter: 12:10:00 AM EDT ZEINA ARMAS P Patient discharged. Emergency Attender: MONIQUE ED STAFF H 10/24/2019 01:41:00 PM [facility] PHYSICIANAttender: BRENNA ANGULO EDT - 10/24/2019 [facility] KAttender: STAFF ED STAFF 08:12:00 PM EDT PHYSICIANAdmitter: [place] [facility] STAFF PHYSICIAN Patient discharged. 10/24/2019 12:00:00 AM [facility] EDT - 05/09/2019 [place] 12:00:00 AM EST Outpatient 10/06/2019 05:15:00 [facility] Emergency Attender: ROSA ED H 06/25/2019 12:00:00 PM [facility] Medical STAFF EDT - 06/25/2019 Center PHYSICIANAttender: 08:22:00 PM EDT STAFF ED STAFF PHYSICIANAdmitter: [facility] ED STAFF PHYSICIAN Patient discharged. Outpatient Attender: [id number] [facility]CC 06/03/2019 12:25:35 PM [facility] ([facility]) Patient admitted. Inpatient Attender: OUMAR OSEGUERA H-HAL5 05/05/2019 03:12:00 [facility] YAttender: TOMMIE FELDMAN PM EST - 05/09/2019 [facility] AKINOAttender: STAFF ED STAFF 04:45:00 PM EST PHYSICIANAdmitter: OUMAR OSEGUERA YReferrer: OUMAR OSEGUERA Y Patient discharged. Emergency Attender: MONIQUE ED STAFF H 03/24/2019 11:39:00 AM [facility] PHYSICIANAttender: STAFF ED EST - 03/24/2019 Medical Center STAFF PHYSICIANAdmitter: 03:26:00 PM EST MONIQUE ED STAFF PHYSICIAN Patient discharged. Emergency H 10/27/2018 07:49:00 AM [facility] EDT Center Inpatient Attender: EMANI VERONICA H-HAL6 04/05/2018 05:41:00 PM [facility] YIPINGAdmitter: EST - 04/06/2018 [facility] ter EMANI VERONICA 09:05:00 AM EST EMANIReferrer: EMANI JOAQUIN Immunizations Vaccine Date Status Description Data Source(s) Influenza, injectable, MDCK, completed [facility] preservative free, Care Anna oration quadrivalent Medications Medication Brand Start Product Dose Route Administrative [facility] Indications Reaction Description Data Name Date Form Instructions Instructions Source(s) Acetaminoph acetam 1 complet Pain and Saint en 500 MG inophe ed Fever [facility] Oral Tablet n Medical acetaminoph (Pain Center en (Pain and and Fever) Fever) 500 mg 500 mg Tablet, Tablet Ordered By: Janelle d By: LIUDMILAirection Aderon s: 1 tablet ke oral every Adenij six hours i, PRN pain MDDire ctions : 1 tablet oral every six hours PRN pain ampicillin- complet Saint sulbactam 3 ed [facility] g Medical Intravenous Center EVERY 6 HOURS Now Routine doxycycline complet Saint hyclate 100 ed Kaylene mg IVPB Medical EVERY 12 Center HOUR Now Routine Insulin, insuli complet NovoLOG Mitch nt Aspart, n ed U-100 [facility] Human 100 aspart Insulin Medic al UNT/ML [...] unit/mL Soluti Solution, on, Ordered By: Francis dias By: Radhames Shen MDDirection ke s: 15 unit Adenij subcutaneou i, s daily MDDire ctions : 15 unit subcut aneous daily Aspirin 81 aspiri 1 complet Mickey t MG Delayed n 81 ed Kaylene Release mg Medical Oral Tablet tablet Center aspirin 81 ,delay mg ed tablet,sowmya releas yed release e (/EC), (/EC Ordered By: ), in Francis Pop MDDirection d By: s: 1 tablet Sein oral daily Kiesha, MDDire ctions : 1 tablet oral daily 1 ML ketoro 1 mL complet Saint Ketorolac lac 30 ed Kalyene Tromethamin mg/mL Medical e 30 MG/ML (1 [...] Medical tablets,dos Center e pack, Ordered By: Beau Stearns ns: 1 package oral daily teriflunomi terifl complet Aubagio Saint de 14 MG unomid ed Kaylene Oral Tablet e Medical [Aubagio] ([facility] teriflunomi io) 14 de mg (Aubagio) Tablet 14 mg Tablet 24 HR oxybut complet Saint Oxybutynin ynin ed Kaylene chloride 10 chlori Medica l MG Extended de 10 Center Release mg Oral Tablet tablet oxybutynin extend chloride 10 ed mg tablet releas extended e 24hr release 24hr Amlodipine amLODI complet Mickey t 10 MG Oral Owsley ed Kaylene Tablet 10 mg Medical amLODIPine [...] ed Kaylene Oral Tablet e Medical [Aubagio] ([facility] teriflunoid io) 14 de mg (Aubagio) Tablet 14 mg Tablet ASPIRIN TAB complet Saint 81MG EC ed [facility] ASPIRIN TAB complet Saint 81MG EC ed [facility] Amlodipine amLODI complet Mickey t 10 MG Oral Owsley ed Kaylene Tablet 10 mg Medical amLODIPine Tablet Center 10 mg Tablet Ciprofloxac ciprof complet Mitch nt in 500 MG loxaci [...] oral twice a day BD PEN complet Saint NEEDL [facility] [id number] Medical [place] doxycycline Doxycy complet Misael tcheste hyclate 100 das ed r Count y MG Oral Hyclat Health Tablet e [100 Care Doxycycline mg Corporat io Hyclate Tablet n [100 mg ]: 100 Tablet]: Tablet 100 Tablet Oral Oral 10A-10 10A-10P P BD PEN complet Saint NEEDL [facility] [id number] [facility] Center albuterol 2 complet Saint sulfate 90 [facility] Medical Aerosol Center Inhaler, Ordered By: Tone Rae s: 2 puff by inhalation every six hours PRN shortness of breath Ibuprofen ibupro 1 complet Saint 800 MG Oral fen [facility] Tablet 800 mg Medical ibuprofen Tablet [...] 1 complet Mickey t 10 MG Oral Owsley ed Kaylene Tablet 10 mg Medical amLODIPine [...] ctions Pen, : 1 Ordered By: unit christiane Kinney MDDyury aneous s: 1 unit daily subcutaneou s daily Lisinopril Lisino complet [facility] 10 MG Oral pril ed [facility] Tablet [10 mg Health Lisinopril Tablet Care [10 mg ]: 10 Corporatio Tablet]: 10 Tablet n Tablet Oral Oral DAILY IN DAILY MORNING IN [facility] Lisinopril lisino 1 complet Mickey t 10 [...] iron) iron) Tablet Tablet, , Ordered By: Orderarun Keller By: MDDirection Sein s: 1 tablet Kiesha, oral daily MDDire ctions : 1 tablet oral daily gabapentin gabape 1 complet Mickey t 300 MG Oral ntin ed Kaylene Capsule 300 mg Medical gabapentin Capsul Center 300 mg e, Capsule, Ordere Ordered By: d By: Oumar Pop Sein MDDirection Kiesha, s: 1 MDDire capsule ctions oral three : 1 times a day capsul for for e oral numbness three and times tingling a day for for numbne ss and tingli ng ASPIRIN TAB complet Saint 81MG EC ed [facility] Amlodipine amLODI complet Mickey t 10 MG Oral Owsley ed Kaylene Tablet 10 mg Medical amLODIPine [...] , Ordered By: Francis dias By: Rut Vidal Green, s: 1 tablet PADire oral twice ctions [...] Misael tcheste le 500 MG idazol ed r County Oral Tablet e [500 Health Metronidazo mg [...] Gisele sephs Aspart prt-in U-100 Medical Protamine, [facility] Human 70 aspart UNT/ML / (NovoL Insulin, OG Mix Aspart, 70-30F Human 30 lexPen UNT/ML Pen U-100) Injector 100 [NovoLog unit/m Mix] L insulin asp (70-30 prt-insulin ) aspart Insuli (NovoLOG n Pen Mix 70-30FlexPe n U-100) 100 unit/mL (70-30) Insulin Pen Acetaminoph Acetam complet Misael tcheste en 500 MG inophe ed r County Oral Tablet n [500 Health Acetaminoph mg Care en [500 mg Tablet Corpora hal Tablet]: ]: n 1000 Oral 1000 EVERY 8 Oral HOURS EVERY 8 HOURS Insurance Providers Payer name Policy type Policy ID Covered Covered alliance party's Policy P bobby / Coverage alliance party ID relationship to Rivas Inf ormation type rivas AFFINITY [id number] SP [id number] 200 MEDICAID [id number] SP [id number] AFFINITY O [id number] 01 [id number] HEALTH PLAN AFFINITY W [id number] 01 [id number] W [id number] 01 [id number] AFFINITY W [id number] 01 [id number] 200 AFFINITY O [id number] 01 [id number] 200 HEALTH PLAN [place] [id number] S [id number] 200 Vision MKD [place] [facility] [id number] S [id number] Options MKD Dental [id number] S [id number] 200 Dentaquest MKD Medicaid [id number] S [id number] Regular Clinic Visit Aff[facility] [id number] S [id number] Managed Care Problems, Conditions, and Diagnoses Code Display Name Description Problem Type Effective Data Sour ce(s) Dates [id number] Recurrent major Recurrent major Complaint 10/08/2019 [facility] depressive depressive 09:15:00 PM ([place] episodes, moderate episodes, moderate EDT [facility]) I10 Essential ESSENTIAL Diagnosis 11/22/2019 [facility] (primary) (PRIMARY) 06:47:00 PM Medical Samuel laurent hypertension HYPERTENSION EDT E11.9 Type 2 diabetes TYPE 2 DIABETES Diagnosis 11/22/2019 [facility] mellitus without MELLITUS WITHOUT 06:47:00 PM [facility] complications COMPLICATIONS EDT R10.9 Unspecified UNSPECIFIED Diagnosis [...] G35 Multiple sclerosis MULTIPLE SCLEROSIS Diagnosis 0 [facility] 12:00:00 PM Medical Cente r EDT E11.65 Type 2 diabetes TYPE 2 DIABETES Diagnosis 05/09/2019 [facility] mellitus with MELLITUS WITH 04:45:00 PM Medical Center hyperglycemia HYPERGLYCEMIA EST G56.00 Carpal tunnel CARPAL TUNNEL Diagnosis 05/09/2019 [facility] G[facility]le pierce syndrome, SYNDROME, 04:45:00 PM Medical Cente r unspecified upper UNSPECIFIED UPPER EST limb LIMB Z79.4 [facility] Diagnosis 05/09/2019 [facility] (current) use of (CURRENT) USE OF 04:45:00 PM [facility] insulin INSULIN EST R20.0 Anesthesia of skin ANESTHESIA OF SKIN Diagnosis 0 [facility] 03:12:00 PM Medical Cente r EST J98.01 Acute bronchospasm ACUTE BRONCHOSPASM Diagnosis 9 [facility] 11:39:00 AM Medical Cente r EST R05 Cough COUGH Diagnosis 03/24/2019 [facility] 11:39:00 AM Medical Cente r EST Y99.9 Unspecified UNSPECIFIED Diagnosis 10/27/2018 [facility] Gu[facility] mabry external cause EXTERNAL CAUSE 07:49:00 AM Medic al Center status STATUS EDT Y92.[address] Diagnosis 10/27/2018 [facility] or not applicable OR NOT APPLICABLE 07:49:00 AM Medical Center EDT Y93.9 Activity, ACTIVITY, Diagnosis 10/27/2018 [facility] unspecified UNSPECIFIED 07:49:[address] EDT X58.XXXA Exposure to other EXPOSURE TO OTHER Diagnosis 10/27/2018 [facility] specified factors, SPECIFIED FACTORS, 07:49:00 AM Medical Center initial encounter INITIAL ENCOUNTER EDT S83.91XA Sprain of SPRAIN OF Diagnosis 10/27/2018 [facility] unspecified site UNSPECIFIED SITE 07:49:00 AM M edical Center of right knee, OF RIGHT KNEE, EDT initial encounter INITIAL ENCOUNTER M25.569 Pain in PAIN IN Diagnosis 10/27/2018 [facility] unspecified knee UNSPECIFIED KNEE 07:49:00 AM M ical Center EDT E11.9 Type 2 diabetes Type 2 diabetes Diagnosis 06/18/2018 GREE NWJIMMY ([place] mellitus without mellitus without 06:02:20 PM [facility] complications [facility]) D64.9 Anemia, Anemia, Diagnosis 06/18/2018 GEORGE (Moun t unspecified unspecified 06:02:20 PM [facility]) Results ID Date Data Source HematologyRou.[id number] 11/22/2019 07:35:00 PM EDT [facility] 0400 Name Value Range Interpretation Description Data [...] low normal <content Saint [Volume 0 styleCode="Bold [facility] Fraction] of ">Hematocrit Medical Blood by </content>30.5 [...] > Erythrocyte 11.5-14. <content Saint distribution 5 styleCode="Bold Kaylene width [Ratio] by ">Red Cell Medical Automated count Distribution Center Width </content>13.3 %<content styleCode="Ital ics"> (11.5-14.5 %)</content> ID Date Data Source GFR(Creatinine).[id number] 11/22/2019 07:35:00 PM EDT [facility] 0-0400 Name Value Range Interpretation Code Description Data Christy rce(s) Supporting Document(s ) UNK > 60 <content [facility] styleCode="Bold"> Medical Cent er EGFR </content>147 GFR<content styleCode="Italic s"> (> 60 GFR)</content> ID Date Data Source BMP.[id number] 11/22/2019 07:35:[address] [facility] Name Value Range Interpretation Description Data Sup [...] (> 60 GFR)</content> ID Date Data Source Urinalysis.[id number] 11/22/2019 07:15:00 PM EDT [facility] 0 Name Value Range Interpretation Description Data Sup porting Code Source(s) Document(s ) Color of Urine YELLOW <content Saint styleCode="Fili Hans d">Color, Medical Urine Center </content>YELL OW <content styleCode="Madison lics"> (YELLOW )</content> Glucose NEGATIVE <content Saint [Mass/volume] styleCode="Fili Maurice in Urine by d">Urine Medical Test strip Glucose Center </content>250 MG/DL<content styleCode="Madison lics"> (NEGATIVE MG/DL)</conten t> UNK NEGATIVE <content Saint styleCode="Fili Hans d">Urine Medical Bilirubin Center </content>NEGA TIVE <content styleCode="Madison lics"> (NEGATIVE )</content> UNK CLEAR <content Saint styleCode="Fili Hans d">Urine Medical Clarity Center </content>Sl CLOUDY <content styleCode="Madison lics"> (CLEAR )</content> Ketones NEGATIVE <content Saint [Mass/volume] styleCode="Fili Hans in Urine by d">Urine Medical Test strip Ketone Center </content>TRAC E MG/DL<content styleCode="Madison lics"> (NEGATIVE MG/DL)</conten t> Specific 1.015-1.02 Above high <content Saint gravity of 5 normal styleCode="Fili Maurice Urine by Test d">Urine Medical strip Specific Center [place] </content>>= 1.030 H<content styleCode="Madison lics"> (1.015-1.025 )</content> Hemoglobin NEGATIVE <content Saint [Presence] in styleCode="Fili Maurice Urine by Test d">Urine Blood Medical strip </content>MODE Center RATE <content styleCode="Madison lics"> (NEGATIVE )</content> Protein NEGATIVE <content Saint [Mass/volume] styleCode="Fili Hans in Urine by d">Urine Medical Test strip Protein Center </content>30 MG/DL<content styleCode="Madison lics"> (NEGATIVE MG/DL)</conten t> Nitrite NEGATIVE <content Saint [Presence] in styleCode="Fili Maurice Urine by Test d">Urine Medical strip Nitrite Center </content>NEGA TIVE <content styleCode="Madison lics"> (NEGATIVE )</content> pH of Urine by 4.5-8.0 <content Saint Test strip styleCode="Fili Hans d">Urine pH Medical </content>5.5 Center <content styleCode="Madison [...] (NONE SEEN HPF)</content> ID Date Data Source Microbiology.[id number] 11/22/2019 07:15:00 PM EDT [facility] 400 Name Value Range Interpretation Code Description Data Christy rce(s) Supporting Document(s ) UNK <item><content [facility] styleCode="Bold"> Medical [facility] Culture Status </content>
<t able><tbody><tr>< td>Specimen Number:</td><td>[id number]</td></tr ><tr><td>Sample Collection Date/Time: </td><td>11/22/2019 7:15 PM</td></tr><tr>< td>Specimen Source:</td><td>U RINE</td></tr><tr ><td>Culture Status:</td><td>P reliminary </td></tr><tr><td >Culture Report:</td><td>C ulture in progress </td></tr><tr><td >Urine Culture:</td><td> Collection Plate Date: 11/22/2019 19:45 </td></tr></tbody ></table></item> UNK <item><content [facility] styleCode="Bold"> Medical [facility] Culture Report </content>
<t able><tbody><tr>< td>Specimen Number:</td><td>[id number]</td></tr ><tr><td>Sample Collection Date/Time: </td><td>11/22/2019 7:15 PM</td></tr><tr>< td>Specimen Source:</td><td>U RINE</td></tr><tr ><td>Urine Culture:</td><td> Collection Plate Date: 11/22/2019 19:45 </td></tr><tr><td >Culture Status:</td><td>P reliminary </td></tr><tr><td >Culture Report:</td><td>C ulture in progress </td></tr></tbody ></table></item> ID Date Data Source Urinalysis.[id number] 10/24/2019 02:55:00 PM EDT [facility] 0 Name Value Range Interpretation Description Data Sup porting Code Source(s) Document(s ) Color of Urine YELLOW <content Saint styleCode="[facility] d">Color, Medical Urine Center </content>YELL OW <content styleCode="Madison lics"> (YELLOW )</content> UNK NEGATIVE <content Saint styleCode="[facility] d">Urine Medical Bilirubin Center </content>NEGA TIVE <content styleCode="Madison lics"> (NEGATIVE )</content> UNK CLEAR <content Saint styleCode="[facility] d">Urine Medical Clarity Center </content>ALTAGRACIA R <content [...] 1.015-1.02 <content Saint gravity of 5 styleCode="Fili Kaylene Urine by Test d">Urine Medical strip Specific Center [place] </content>1.02 5 <content styleCode="Madison lics"> (1.015-1.025 )</content> Protein NEGATIVE <content Saint [Mass/volume] styleCode="Fili Hans in Urine by d">Urine Medical Test strip Protein Center </content>NEGA TIVE MG/DL<content styleCode="Madison lics"> (NEGATIVE MG/DL)</conten t> UNK 0-3 <content Saint styleCode="Fili Hans d">Urine Red Medical Blood Cell Center </content>3-5 HPF<content styleCode="Madison lics"> (0-3 HPF)</content> Urobilinogen 0.2-1.0 <content Saint [Units/volume] styleCode="Fili Maurice in Urine by d">Urine Medical Test strip Urobilinogen Center </content>0.2 MG/DL<content styleCode="Madison lics"> (0.2-1.0 MG/DL)</conten t> Nitrite NEGATIVE <content Saint [Presence] in styleCode="Fili Maurice Urine by Test d">Urine Medical strip Nitrite Center </content>POSI TIVE <content styleCode="Madison lics"> (NEGATIVE )</content> Leukocyte NEGATIVE <content Saint esterase styleCode="[facility] [Presence] in d">Urine Medical Urine by Test Leukocyte Center strip </content>TRAC E <content styleCode="Madison lics"> (NEGATIVE )</content> UNK NEGATIVE <content Saint styleCode="Fili Hans d">Urine Medical Bacteria Center </content>FEW HPF<content styleCode="Madison lics"> (NEGATIVE HPF)</content> UNK NONE SEEN <content Saint styleCode="Fili Kaylene d">Epithelial Medical Cell Center </content>2-5 HPF<content styleCode="Madison lics"> (NONE SEEN HPF)</content> UNK 0-3 <content Saint styleCode="Fili Kaylene d">Urine White Medical Blood Cell Center </content>10 - 20 HPF<content styleCode="Madison lics"> (0-3 HPF)</content> ID Date Data Source Microbiology.[id number] 10/24/2019 02:55:00 PM EDT [facility] 400 Name Value Range Interpretation Code Description Data Christy rce(s) Supporting Document(s ) UNK <item><content [facility] styleCode="Bold"> Medical [facility] er Culture Report </content>
<t able><tbody><tr>< td>Specimen Number:</td><td>[id number]</td></tr ><tr><td>Sample Collection Date/Time: </td><td> 0 2:55 PM</td></tr><tr>< td>Specimen Source:</td><td>U RINE</td></tr><tr ><td>Urine Culture:</td><td> Collection Plate Date: 10/24/2019 14:57 </td></tr><tr><td >Culture Status:</td><td>P reliminary </td></tr><tr><td >Culture Report:</td><td>C ulture in progress </td></tr></tbody ></table></item> UNK <item><content [facility] styleCode="Bold"> Medical [facility] er Culture Status </content>
<t able><tbody><tr>< td>Specimen Number:</td><td>[id number]</td></tr ><tr><td>Sample Collection Date/Time: </td><td> 0 2:55 PM</td></tr><tr>< td>Specimen Source:</td><td>U RINE</td></tr><tr ><td>Culture Status:</td><td>P reliminary </td></tr><tr><td >Culture Report:</td><td>C ulture in progress </td></tr><tr><td >Urine Culture:</td><td> Collection Plate Date: 10/24/2019 14:57 </td></tr></tbody ></table></item> ID Date Data Source Liver 10/24/2019 02:46:00 PM EDT [facility] Profile.[id number] Name Value Range Interpretation Description Data Sup [...] s"> (0.0-0.3 MG/DL)</content> ID Date Data Source HematologyRou.[id number] 10/24/2019 02:46:00 PM EDT [facility] 0400 Name Value Range Interpretation Description Data [...] mean 26.0-34. <content Saint corpuscular 0 styleCode="Bold [facility] hemoglobin ">Mean Medical [Entitic mass] Corposcular Center [...] ics"> (8.0-11.0 FL)</content> ID Date Data Source GFR(Creatinine).[id number] 10/24/2019 02:46:00 PM EDT [facility] 0-0400 Name Value Range Interpretation Code Description Data Christy rce(s) Supporting Document(s ) UNK > 60 <content [facility] styleCode="Bold"> Medical Cent er EGFR </content>123 GFR<content styleCode="Italic s"> (> 60 GFR)</content> ID Date Data Source NAMROUTFAITHCCDA.[id number] 10/24/2019 02:46:00 PM EDT [facility] -0400 Name Value Range Interpretation Description Data Sup porting Code Source(s) Document(s ) UNK 30-110 <content [facility] styleCode="Bold Medical ">Amylase Center </content>48 IU/L<content styleCode="Ital ics"> (30-110 IU/L)</content> Lipase 23-300 <content [facility] [Enzymatic styleCode="Bold Medical activity/vo ">Lipase Center lume] in </content>124 Serum or IU/L<content Plasma styleCode="Ital ics"> (23-300 IU/L)</content> ID Date Data Source [facility].[id number] 10/24/2019 02:46:[address] [facility] Name Value Range Interpretation Description Data Sup porting Code Source(s) Document(s ) Sodium 137-145 Below low <content Saint [Moles/volume] in normal styleCode="Bold"> Mohit phs Serum or Plasma Sodium Medical </content>132 Center [...] 60 <content Saint styleCode="Bold"> Kaylene EGFR Medical </content>123 Center GFR<content styleCode="Italic s"> [...] s"> (3.5-5.0 G/DL)</content> ID Date Data Source Urinalysis.[id number] 06/25/2019 04:30:00 PM EDT [facility] 0 Name Value Range Interpretation Description Data Sup porting Code Source(s) Document(s ) UNK CLEAR <content Saint styleCode="Fili Kaylene d">Urine Medical Clarity Center </content>Sl CLOUDY <content styleCode="Madison lics"> (CLEAR )</content> Color of Urine YELLOW <content Saint styleCode="[facility] d">Color, Medical Urine Center </content>YELL OW <content styleCode="Madison lics"> (YELLOW )</content> Hemoglobin NEGATIVE <content Saint [Presence] in styleCode="Fili Hans Urine by Test d">Urine Blood Medical strip </content>NEGA Center TIVE <content styleCode="Madison lics"> (NEGATIVE )</content> UNK NEGATIVE <content Saint styleCode="Fili Kaylene d">Urine Medical Bilirubin Center </content>NEGA TIVE <content styleCode="Madison lics"> (NEGATIVE )</content> Glucose NEGATIVE <content Saint [Mass/volume] styleCode="Fili Kaylene in Urine by d">Urine Medical Test strip Glucose Center </content>>=10 00 MG/DL<content styleCode="Madison lics"> (NEGATIVE MG/DL)</conten t> Ketones NEGATIVE <content Saint [Mass/volume] styleCode="Fili Kaylene in Urine by d">Urine Medical Test strip Ketone Center </content>NEGA TIVE MG/DL<content styleCode="Madison lics"> (NEGATIVE MG/DL)</conten t> Specific 1.015-1.02 Below low normal <content Saint gravity of 5 styleCode="Fili Hans Urine by Test d">Urine Medical strip Specific Center [place] </content>1.01 0 L<content styleCode="Madison lics"> (1.015-1.025 )</content> pH of Urine by 4.5-8.0 <content Saint Test strip styleCode="Fili Kaylene d">Urine pH Medical </content>6.0 Center <content styleCode="Madison lics"> (4.5-8.0 )</content> UNK 0-3 <content Saint styleCode="Fili Kaylene d">Urine Red Medical Blood Cell Center </content>0-3 HPF<content styleCode="Madison lics"> (0-3 HPF)</content> Urobilinogen 0.2-1.0 <content Saint [Units/volume] styleCode="Fili Hans [...] Kaylene d">Urine White Medical Blood Cell Center </content>5 - 10 HPF<content styleCode="Madison lics"> (0-3 HPF)</content> UNK NEGATIVE <content [facility] styleCode="Fili Kaylene d">Urine Medical Bacteria Center </content>MANY HPF<content styleCode="Madison lics"> (NEGATIVE HPF)</content> UNK NONE SEEN <content [facility] styleCode="Fili Hans d">Yeast Cell Medical </content>FEW Center HPF<content styleCode="Madison lics"> (NONE SEEN HPF)</content> ID Date Data Source Microbiology.[id number] 06/25/2019 04:30:00 PM EDT [facility] 400 Name Value Range Interpretation Code Description Data Christy rce(s) Supporting Document(s ) UNK <item><content [facility] styleCode="Bold"> Medical Cent er Culture Status </content>
<t able><tbody><tr>< td>Specimen Number:</td><td>[id number]</td></tr ><tr><td>Sample Collection Date/Time: </td><td> 0 4:30 PM</td></tr><tr>< td>Specimen Source:</td><td>U RINE</td></tr><tr ><td>Culture Status:</td><td>P reliminary </td></tr><tr><td >Culture Report:</td><td>C ulture in progress </td></tr><tr><td >Urine Culture:</td><td> Collection Plate Date: 06/25/2019 16:40 </td></tr></tbody ></table></item> UNK <item><content [facility] styleCode="Bold"> Medical Cent er Culture Report </content>
<t able><tbody><tr>< td>Specimen Number:</td><td>[id number]</td></tr ><tr><td>Sample Collection Date/Time: </td><td> 0 4:30 PM</td></tr><tr>< td>Specimen Source:</td><td>U RINE</td></tr><tr ><td>Urine Culture:</td><td> Collection Plate Date: 06/25/2019 16:40 </td></tr><tr><td >Culture Status:</td><td>P reliminary </td></tr><tr><td >Culture Report:</td><td>C ulture in progress </td></tr></tbody ></table></item> ID Date Data Source HematologyRou.[id number] 06/25/2019 03:47:00 PM EDT [facility] 0400 Name Value Range Interpretation Description Data Sup porting Code Source(s) Document(s ) Erythrocytes 4.0-5.1 <content Saint [#/volume] in styleCode="Bold [facility] Blood by ">Red Blood Medical Automated count Cell Count Center </content>4.30 MCUMM<content styleCode="Ital ics"> (4.0-5.1 MCUMM)</content > Hematocrit 36.0-46. <content [facility] [Volume 0 styleCode="Bold [facility] Fraction] of ">Hematocrit Medical Blood by </content>36.1 Center Automated count %<content styleCode="Ital ics"> (36.0-46.0 %)</content> Leukocytes 4.4-11.0 <content [facility] [#/volume] in styleCode="Bold [facility] Blood by ">White Blood Medical Automated count [...] ics"> (8.0-11.0 [place])</content> ID Date Data Source GFR(Creatinine).[id number] 06/25/2019 03:47:00 PM EDT [facility] 0-0400 Name Value Range Interpretation Code Description Data Christy rce(s) Supporting Document(s ) UNK > 60 <content [facility] styleCode="Bold"> Medical Cent er EGFR </content>123 GFR<content styleCode="Italic s"> (> 60 GFR)</content> ID Date Data Source CHMROUTINECCDA.[id number] 06/25/2019 03:47:00 PM EDT [facility] -0400 Name Value Range Interpretation Code Description Data Crhisty rce(s) Supporting Document(s ) UNK NEGATIVE <content [facility] styleCode="Bold" Medical Cente r >Acetone </content>NEGATI VE <content styleCode="Itali cs"> (NEGATIVE )</content> ID Date Data Source CardiacMarkers.[id number] 06/25/2019 03:47:00 PM EDT [facility] -0400 Name Value Range Interpretation Description Data Sup porting Code Source(s) Document(s ) Troponin < 0.034 <content [facility] I.cardiac styleCode="Bold Kaylene [Mass/volume ">Troponin I Medical ] in Serum </content>< Center or Plasma 0.012 NG/ML<content styleCode="Ital ics"> (< 0.034 NG/ML)</content > ID Date Data Source BMP.[id number] 06/25/2019 03:47:00 PM EDT [facility] Name Value Range Interpretation [...] (> 60 GFR)</content> ID Date Data Source GFR(Creatinine).[id number] 05/09/2019 06:30:00 AM [facility] 0-0500 Name Value Range Interpretation Code Description Data Christy rce(s) Supporting Document(s ) UNK > 60 <content [facility] styleCode="Bold"> Medical Cent er EGFR </content>124 GFR<content styleCode="Italic s"> (> 60 GFR)</content> ID Date Data Source ChemistrySpecia.[id number] 05/09/2019 06:30:00 AM [facility] 0-0500 Name Value Range Interpretation Description Data [...] (239-931 PG/ML)</conten t> ID Date Data Source CHMROUTINECCDA.[id number] 05/09/2019 06:30:00 AM [facility] -0500 Name Value Range Interpretation Code Description Data Supporting Source(s) Document(s ) Folate > 3.0 <content [facility] Kay[facility] [Mass/volum styleCode="Bold Medical e] in Serum ">Folic Acid Center or Plasma </content>7.59 NG/ML<content styleCode="Ital ics"> (> 3.0 NG/ML)</content > ID Date Data Source [facility].[id number] 05/09/2019 06:30:00 AM EST [facility] Name Value Range Interpretation [...] Data Source Liver 05/07/2019 06:15:00 AM EST [facility] Profile.[id number] Name Value Range Interpretation Description Data Sup [...] s"> (38-126 IU/L)</content> ID Date Data Source HematologyRou.[id number] 05/07/2019 06:15:00 AM EST [facility] 0500 Name Value Range Interpretation Description Data [...] (0.0 KCUMM)</content > ID Date Data Source GFR(Creatinine).[id number] 05/07/2019 06:15:00 AM [facility] 0-0500 Name Value Range Interpretation Code Description Data Christy rce(s) Supporting Document(s ) UNK > 60 <content [facility] styleCode="Bold"> Medical Cent er EGFR </content>124 GFR<content styleCode="Italic s"> (> 60 GFR)</content> ID Date Data Source ALEXIA.[id number] 05/07/2019 06:15:00 AM [facility] -0500 Name Value Range Interpretation Description Data Sup porting Code Source(s) Document(s ) UNK 2.3-3.5 <content [facility] styleCode="Bold Medical ">Globulin Center </content>3.4 G/DL<content styleCode="Ital ics"> (2.3-3.5 G/DL)</content> Protein 6.3-8.2 <content [facility] [Mass/volum styleCode="Bold Medical e] in Serum ">Total Protein Center or Plasma </content>7.2 G/DL<content styleCode="Ital ics"> (6.3-8.2 G/DL)</content> UNK >= 1.0 <content [facility] styleCode="Bold Medical ">AG Ratio Center </content>1.1 <content styleCode="Ital ics"> (>= 1.0 )</content> ID Date Data Source [facility].[id number] 05/07/2019 06:15:[address] [facility] Name Value Range Interpretation Description Data Sup [...] s"> (0.2-1.3 MG/DL)</content> ID Date Data Source LIPID.[id number] 05/06/2019 06:10:00 AM EST [facility] Name Value Range Interpretation Description Data Sup porting Code Source(s) Document(s ) Triglyceride < 150 <content [facility] [Mass/volume] in styleCode="Fili Kaylene Serum or Plasma d">Triglycerid Medical Center </content>64 MG/DL<content styleCode="Madison lics"> (< 150 [...] 100 MG/DL)</conten t> ID Date Data Source Hormones.[id number] 05/06/2019 06:10:00 AM [facility] Name Value Range Interpretation Description Data Sup porting Code Source(s) Document(s ) Thyrotropin 0.465-4. <content [facility] [Units/volume] 68 styleCode="Fili Kaylene in Serum or d">Thyroid Medical Plasma by Stimulating Center Detection Hormone limit <= 0.05 </content>0.53 mIU/L 5 MIU/L<content styleCode="Madison lics"> (0.465-4.68 MIU/L)</conten t> ID Date Data Source HematologyRou.[id number] 05/06/2019 06:10:00 AM [place] [address] [facility] 0500 Name Value Range Interpretation Description Data [...] ics"> (8.0-11.0 [place])</content> ID Date Data Source GFR(Creatinine).[id number] 05/06/2019 06:10:00 AM [facility] 0-0500 Name Value Range Interpretation Code Description Data Christy rce(s) Supporting Document(s ) UNK > 60 <content [facility] styleCode="Bold"> Medical Cent er EGFR </content>124 GFR<content styleCode="Italic s"> (> 60 GFR)</content> ID Date Data Source CHMROUTINECCDA.[id number] 05/06/2019 06:10:00 AM [facility] -0500 Name Value Range Interpretation Description Data Sup porting Code Source(s) Document(s ) Magnesium 1.6-2.3 <content [facility] [Mass/volume] styleCode="Fili Kaylene in Serum or d">Magnesium Medical Plasma </content>1.8 Center MG/DL<content styleCode="Madison lics"> (1.6-2.3 MG/DL)</conten t> Phosphate 2.5-4.5 <content [facility] [Mass/volume] styleCode="Fili Kaylene in Serum or d">Phosphorus Medical Plasma </content>3.8 Center MG/DL<content styleCode="Madison lics"> (2.5-4.5 MG/DL)</conten t> ID Date Data Source BMP.[id number] 05/06/2019 06:10:00 AM EST [facility] Name Value Range Interpretation Description [...] Serum or Dioxide Center Plasma </content>23 MEQ/L<content styleCode="Mdaison lics"> (22-30 MEQ/L)</conten t> Chloride 98-107 <content [...] (8.4-10.2 MG/DL)</conten t> ID Date Data Source Urinalysis.[id number] 05/05/2019 04:43:00 PM EST [facility] 0 Name Value Range Interpretation Description Data Sup porting Code Source(s) Document(s ) Color of Urine YELLOW <content [facility] styleCode="[facility] d">Color, Medical Urine Center </content>YELL OW [...] </content>ALTAGRACIA R <content styleCode="Madison lics"> (CLEAR )</content> Ketones [...] by Test d">Urine Medical strip Specific Center [place] </content>1.01 0 L<content styleCode="Madison lics"> (1.015-1.025 )</content> [...] lics"> (NONE SEEN HPF)</content> UNK 0-3 <content styleCode="[facility] Kaylene d">Urine White Medical Blood Cell Center </content>3-5 HPF<content styleCode="Madison lics"> (0-3 HPF)</content> ID Date Data Source HematologyRou.[id number] 05/05/2019 04:43:00 PM EST [facility] 0500 Name Value Range Interpretation Description Data [...] (< 1 %)</content> ID Date Data Source GFR(Creatinine).[id number] 05/05/2019 04:43:00 PM EST [facility] 0-0500 Name Value Range Interpretation Code Description Data Christy rce(s) Supporting Document(s ) UNK > 60 <content [facility] styleCode="Bold"> Medical Cent er EGFR </content>102 GFR<content styleCode="Italic s"> (> 60 GFR)</content> ID Date Data Source CHMROUTINECCDA.[id number] 05/05/2019 04:43:00 PM EST [facility] -0500 Name Value Range Interpretation Code Description Data Christy rce(s) Supporting Document(s ) UNK 4.2-5.8 Above high normal <content [facility] styleCode="Bold" Medical Cente r >Hemoglobin A1C </content>11.7 % H<content styleCode="Itali cs"> (4.2-5.8 %)</content> UNK NEGATIVE <content [facility] Kaylene styleCode="Bold" Medical Cente r >Acetone </content>NEGATI VE <content styleCode="Itali cs"> (NEGATIVE )</content> ID Date Data Source CardiacMarkers.[id number] 05/05/2019 04:43:00 PM EST [facility] -0500 Name Value Range Interpretation Description Data Sup porting Code Source(s) Document(s ) Troponin < 0.034 <content [facility] I.cardiac styleCode="Bold Kaylene [Mass/volume ">Troponin I Medical ] in Serum </content>< Center or Plasma 0.012 NG/ML<content styleCode="Ital ics"> (< 0.034 NG/ML)</content > ID Date Data Source [id number] 05/05/2019 04:43:[address] [facility] Name Value Range Interpretation Description Data Sup [...] Source Liver Profile 04/06/2018 05:30:00 AM EST [facility] Name Value Range Interpretation Description [...] Data Source HematologyRou 04/06/2018 05:30:00 AM EST [facility] Name Value Range Interpretation Description [...] ics"> (0.0 KCUMM)</content > UNK 0 <content [facility] styleCode="Bold Kaylene ">Nucleated Red Medical Blood Cell Center </content>0.0 /100<content styleCode="Ital ics"> (0 /100)</content> ID Date Data Source GFR(Creatinine) 04/06/2018 05:30:00 AM [facility] Name Value Range Interpretation Code Description Data Christy rce(s) Supporting Document(s ) UNK > 60 <content [facility] styleCode="Bold"> Medical Cent er EGFR </content>107 GFR<content styleCode="Italic s"> (> 60 GFR)</content> ID Date Data Source Coagulation Rout 04/06/2018 05:30:00 AM [facility] Name Value Range Interpretation Description Data Sup porting Code Source(s) Document(s ) UNK 9.0-13.0 Above high normal <content [facility] styleCode="Bold" Kaylene >Protime Medical </content>15.0 Center SEC [...] Date Data Source CHMROUTINECCDA 04/06/2018 05:30:00 AM [facility] Name Value Range Interpretation Description Data Sup porting Code Source(s) Document(s ) UNK >= 1.0 Below low normal <content [facility] styleCode="Bold Medical ">AG Ratio Center </content>0.8 NM L<content styleCode="Ital ics"> (>= 1.0 NM)</content> Protein 6.3-8.2 <content [facility] Kaylene [Mass/volum styleCode="Bold Medical e] in Serum ">Total Protein Center or Plasma </content>7.0 G/DL<content styleCode="Ital ics"> (6.3-8.2 G/DL)</content> UNK 2.3-3.5 Above high normal <content [place] [facility] styleCode="Bold Medical ">Globulin Center </content>3.8 G/DL H<content styleCode="Ital ics"> (2.3-3.5 G/DL)</content> ID Date Data Source [facility] 04/06/2018 05:30:00 AM [facility] Name Value Range Interpretation Description [...] styleCode="Italic s"> (3.5-5.0 G/DL)</content> Alkaline 38-126 <content [facility] phosphatase styleCode="Bold"> [facility] [Enzymatic Alkaline Medical activity/volume] Phosphatase (ALP) Cente r in Serum or Plasma </content>81 IU/L<content styleCode="Italic s"> (38-126 IU/L)</content> ID Date Data Source Microbiology 04/05/2018 10:45:00 PM EST [facility] Name Value Range Interpretation Code Description Data Christy rce(s) Supporting Document(s ) UNK <item><content [facility] styleCode="Bold"> Medical Cent er Culture Status </content>
<t able><tbody><tr>< td>Specimen Number:</td><td>[id number]</td></tr ><tr><td>Sample Collection Date/Time: </td><td>04/05/20 18 10:45 PM</td></tr><tr>< td>Specimen Source:</td><td>B LOOD</td></tr><tr ><td>Culture Report:</td><td>C ulture in progress </td></tr><tr><td >Culture Status:</td><td>P reliminary </td></tr><tr><td >Blood Culture:</td><td> Collection Plate Date: 04/05/2018 22:56 </td></tr></tbody ></table></item> UNK <item><content [facility] styleCode="Bold"> Medical Cent er Culture Report </content>
<t able><tbody><tr>< td>Specimen Number:</td><td>[id number]</td></tr ><tr><td>Sample Collection Date/Time: </td><td>04/05/20 18 10:45 PM</td></tr><tr>< td>Specimen Source:</td><td>B LOOD</td></tr><tr ><td>Blood Culture:</td><td> Collection Plate Date: 04/05/2018 22:56 </td></tr><tr><td >Culture Status:</td><td>P reliminary </td></tr><tr><td >Culture Report:</td><td>C ulture in progress </td></tr></tbody ></table></item> ID Date Data Source Urinalysis 04/05/2018 07:20:00 PM EST [facility] Name Value Range Interpretation Description Data Sup porting Code Source(s) Document(s ) UNK CLEAR <content [facility] styleCode="Fili Kaylene d">Urine Medical Clarity Center </content>ALTAGRACIA R <content styleCode="Madison lics"> (CLEAR )</content> Color of Urine YELLOW <content [facility] styleCode="Fili Kaylene d">Color, Medical Urine Center </content>YELL OW <content styleCode="Madison lics"> (YELLOW )</content> Glucose NEGATIVE <content [facility] [Mass/volume] styleCode="Fili Kaylene in Urine by d">Urine Medical Test strip Glucose Center </content>NEGA TIVE MG/DL<content styleCode="Madison lics"> (NEGATIVE MG/DL)</conten t> Ketones NEGATIVE <content [facility] [Mass/volume] styleCode="Fili Kaylene in Urine by d">Urine Medical Test strip Ketone Center </content>TRAC E MG/DL<content styleCode="Madison lics"> (NEGATIVE MG/DL)</conten t> UNK NEGATIVE <content Saint styleCode="Fili Akylene d">Urine Medical Bilirubin Center </content>NEGA TIVE <content styleCode="Madison lics"> (NEGATIVE )</content> Hemoglobin NEGATIVE <content Saint [Presence] in styleCode="Fili Kaylene Urine by Test d">Urine Blood Medical strip </content>SMAL Center L <content styleCode="Madison lics"> (NEGATIVE )</content> Specific 1.015-1.02 <content Saint gravity of 5 styleCode="Fili Kaylene Urine by Test d">Urine Medical strip Specific Center [place] </content>1.02 0 NM<content styleCode="Madison lics"> (1.015-1.025 NM)</content> [...] not available)<br/ > ID Date Data Source [id number] 04/02/2018 11:58:19 AM EST [facility] [id number] Corporation Name Value Range Interpretation Description Data Source(s ) Supporting Code Document(s ) Antibody NEG <td> [place] Screen 04/01/2018 [facility] 06:44</td><td> Care Antibody Corporation Screen </td><td> NEG
</td> Specimen 04/04/20 <td> [place] expiration 18 23:59 04/01/2018 [facility] date of Blood 06:44</td><td> Care Specimen Corporation Expiration Date </td><td> 04/04/2018 23:59
</td> ABO-Rh Type O POS <td> [place] 04/01/2018 [facility] 06:44</td><td> Care ABO-Rh Type Corporation </td><td> O POS
</td> Specimen 04/04/20 <td> [place] expiration 18 23:59 04/01/2018 [facility] date of Blood 06:44</td><td> Care Specimen Corporation Expiration Date </td><td> 04/04/2018 23:59
</td> Antibody NEG <td> [place] Screen 04/01/2018 [facility] 06:44</td><td> Care Antibody [employer] Screen </td><td> NEG
</td> ABO-Rh Type O POS <td> [place] 04/01/2018 [facility] 06:44</td><td> Care ABO-Rh [employer] </td><td> O POS
</td> Specimen 04/04/20 <td> [place] expiration 18 23:59 04/01/2018 [facility] date of Blood 06:44</td><td> Care Specimen [employer] Expiration Date </td><td> 04/04/2018 23:59
</td> Antibody NEG <td> [place] Screen 04/01/2018 [facility] 06:44</td><td> Care Antibody [employer] Screen </td><td> NEG
</td> ABO-Rh Type O POS <td> [place] 04/01/2018 [facility] 06:44</td><td> Care ABO-Rh [employer] </td><td> O POS
</td> ID Date Data Source [id number] 04/01/2018 09:56:13 AM EST [facility] [id number] Corporation Name Value Range Interpretation Description Data Sup porting Code Source(s) Document(s ) Chest PA (PACSIMAGE <td> [place] & Lateral 04/01/2018 [facility] ) Final 08:51</td><td> Care Result Chest PA & Corporation Name: Kristal AGEE MALEEQUConrado </td><td><para graph Sex: F : styleCode="Madison 1985 [...] 09:22

</td > Chest PA (PACSIMAGE <td> [place] & Lateral 04/01/2018 [facility] ) Final 08:51</td><td> Care Result Chest PA & Corporation [facility] </td><td><para graph Sex: F : styleCode="Madison 1985 [...] 09:22

</td > Chest PA (PACSIMAGE <td> [place] & Lateral 04/01/2018 [facility] ) Final 08:51</td><td> Care Result Chest PA & Corporation Name: CYNDIE Lateral MALEEQUA </td><td><para graph Sex: F : styleCode="Madison [...] 09:22

</td > Chest PA (PACSIMAGE <td> [place] & Lateral 04/01/2018 [facility] ) Final 08:51</td><td> Care Result Chest PA [...] mediastinum. Radiologist: Attending

Radiologist: Pleura: The Bubba costpaco Rosario MD sulci are not Finalizing blunted. Radiologist:
Bubba [...] 09:22

</td > ID Date Data Source [id number] 04/01/2018 09:56:13 AM EST [facility] [id number] Corporation Name Value Range Interpretation Description Data Sup porting Code Source(s) Document(s ) Leukocytes 9.7 k/mm3 4.5-10 <td> 04/02/2018 [place] [#/volume] in .8 05:45</td><td> [facility] Blood by k/mm3 WBC </td><td> Health Care Automated count Corporation 9.7
(4.5-10.8) k/mm3 </td> Erythrocytes 3.98 m/mm3 3.80-5 <td> 04/02/2018 [facility] [#/volume] in .10 05:45</td><td> [facility] Blood m/mm3 RBC </td><td> Health Care Corporation 3.98
(3.80-5.10) m/mm3 </td> Erythrocyte 86.4 fL 80.0-9 <td> 04/02/2018 [place] mean 6.0 fL 05:45</td><td> [facility] corpuscular MCV </td><td> Health Care volume [[employer] volume] by 86.4 Automated count
(80.0-96.0) fL </td> Erythrocyte 28.4 pg 27.0-3 <td> 04/02/2018 [place] mean 1.5 pg 05:45</td><td> [facility] corpuscular MCH </td><td> Health Care hemoglobin Corporation [Entitic mass] 28.4 by Automated count
(27.0-31.5) pg </td> Hematocrit 34.4 % 36.0-4 <td> 04/02/2018 [place] [Volume 5.0 % 05:45</td><td> County Fraction] of HCT Health Care Blood by </td><td><jsoe miguel Corporation Automated count raph styleCode="Bold "> 34.4 L </paragraph>
(36.0-45.0) % </td> Erythrocyte 32.8 % 32.0-3 <td> 04/02/2018 [place] mean 6.0 % 05:45</td><td> [facility] corpuscular MCHC </td><td> Health Care hemoglobin Corporation concentration 32.8 [Mass/volume] in Blood from
Fetus by (32.0-36.0) % Automated count </td> Hemoglobin 11.3 g/dL 11.6-1 <td> 04/02/2018 [place] [Mass/volume] 5.0 05:45</td><td> County in Blood g/dL HGB Health Care </td><td><jose miguel Corporation raph styleCode="Bold "> 11.3 L </paragraph>
(11.6-15.0) g/dL </td> Basophils+Eosin 0.7 % 0.0-5. <td> 04/02/[address] [facility] [address] ophils+Monocyte 0 % 05:45</td><td> County s [#/volume] in Eosinophils Health Care Blood by </td><td> [employer] Automated count 0.7
(0.0-5.0) % </td> Platelets 365 k/mm3 160-41 <td> 04/02/2018 [place] [#/volume] in 0 05:45</td><td> [facility] Blood by k/mm3 Platelet Count Health Care Automated count </td><td> [employer] 365
(160-410) k/mm3 </td> Platelet mean 9.8 fL 9.8-12 <td> 04/02/2018 [facility] r volume [Entitic .8 fL 05:45</td><td> County volume] in MPV </td><td> Health Care Blood by [employer] Automated count 9.8
(9.8-12.8) fL </td> Monocytes/Leuko 8.6 % 0.0-11 <td> 04/02/2018 [facility] cytes [Pure .0 % 05:45</td><td> County number Monocytes. Health Care fraction] in </td><td> [employer] Blood by Automated count 8.6
(0.0-11.0) % </td> Lymphocytes 22.9 % 18.0-5 <td> 04/02/2018 [place] [#/volume] in 3.0 % 05:45</td><td> [facility] Blood by Lymphocytes Health Care Automated count </td><td> [employer] 22.9
(18.0-53.0) % </td> Erythrocyte 12.4 % 11.5-1 <td> 04/02/2018 [place] distribution 4.5 % 05:45</td><td> [facility] width [Entitic RDW </td><td> Health Car e volume] by [employer] Automated count 12.4
(11.5-14.5) % </td> Neutrophils [#] 67.1 % 36.0-7 <td> 04/02/2018 [facility] in Body fluid 3.0 % 05:45</td><td> [facility] by Manual count Neutrophils Health Care </td><td> [employer] 67.1
(36.0-73.0) % </td> Immature 0.4 % 0.0-0. <td> 04/02/2018 [place] granulocytes/10 5 % 05:45</td><td> [facility] 0 leukocytes in IG% </td><td> Health Ca re Blood by [employer] Automated count 0.4
(0.0-0.5) %
The IG fraction represents metamyelocytes, myelocytes and/or
promyelocytes and is only reported as part of the automated
differential when found at a percentage of less than 6.
If higher than 6%, a manual differential will be performed.

(0.0-0.5) % </td> Basophils 0.3 % 0.0-2. <td> 04/02/2018 [place] [#/volume] in 0 % 05:45</td><td> [facility] Blood by [employer] [facility] [employer] Automated count </td><td> [employer] 0.3
(0.0-2.0) % </td> Chloride 108 mEq/L 98-107 <td> 04/01/2018 [place] [Moles/volume] mEq/L 06:44</td><td> [facility] in Serum or Chloride Health Care Plasma </td><td><Vigster raph styleCode="Bold "> 108 H </paragraph>
(98-107) mEq/L </td> Glucose 218 mg/dL 70-105 <td> 04/01/2018 [place] [Mass/volume] mg/dL 06:44</td><td> County in Blood Glucose-Serum Health Care </td><td><jose miguel [employer] raph styleCode="Bold "> 218 H </paragraph>
(70-105) mg/dL </td> Sodium 138 mEq/L 135-14 <td> 04/01/2018 [place] [Moles/volume] 5 06:44</td><td> County in Serum or mEq/L Sodium-Serum Health Care Plasma </td><td> [employer] 138
(135-145) mEq/L </td> Urea nitrogen 8 mg/dL 6-22 <td> 04/01/2018 [facility] r [Mass/volume] mg/dL 06:44</td><td> [place] in Blood BUN </td><td> Health Care [facility] 8
(6-22) mg/dL </td> Potassium 3.7 mEq/L 3.5-5. <td> 04/01/2018 [place] [Moles/volume] 1 06:44</td><td> County in Serum or mEq/L Potassium-Serum Health Care Plasma </td><td> [facility] 3.7
(3.5-5.1) mEq/L </td> Carbon dioxide, 24 mEq/L 22-30 <td> 04/01/2018 [facility] total mEq/L 06:44</td><td> [facility] [Moles/volume] CO2 </td><td> Health Car e in Serum or Corporation Plasma 24
(22-30) mEq/L </td> Calcium 8.8 mg/dL 8.6-10 <td> 04/01/2018 [place] [Mass/volume] .2 06:44</td><td> [place] in Blood mg/dL Calcium Health Care </td><td> [facility] 8.8
(8.6-10.2) mg/dL </td> Creatinine 0.87 mg/dL 0.57-1 <td> 04/01/2018 [place] [Moles/volume] .11 06:44</td><td> [place] in Serum or mg/dL Creatinine. [facility] Plasma </td><td> [facility] 0.87
(0.57-1.11) mg/dL </td> Hemolysis index No <td> 04/01/2018 [facility] of Serum or Hemolysis 06:44</td><td> [facility] Plasma Hemolysis Index [facility] </td><td> [facility] No Hemolysis
</td> Anion gap in 6 mEq/L 7-13 <td> 04/01/2018 [place] Serum or Plasma mEq/L 06:44</td><td> [facility] Anion Gap [facility] </td><td><Vigster raph styleCode="Bold "> 6 L </paragraph>
(7-13) mEq/L </td> Lipemic index No Lipemia <td> 04/01/2018 [facility] of Serum or 06:44</td><td> [facility] Plasma Lipemia Index [facility] </td><td> [facility] No Lipemia
</td> Hemoglobin A1C 9.7 % 4.0-5. <td> 04/01/2018 [facility] 6 % 06:44</td><td> [facility] Hemoglobin A1C [facility] </td><td><[employer] [facility] graph styleCode="Bold "> 9.7 H </paragraph>
(4.0-5.6) [...]
11 269
12 298
Source: Adapted from [place]. Standards of medical
care in diabetes-2014. Diabetes Care.2014;37(Tsang pp 1):S14-S80, table 8.

PLEASE NOTE NEW REFERENCE RANGES EFFECTIVE 14

(4.0-5.6) % </td> Prothrombin 10.9 secs 9.8-12 <td> 04/01/2018 [place] time (PT) .0 06:44</td><td> [facility] secs Prothrombin Health Care Time. [facility] </td><td> 10.9
(9.8-12.0) secs </td> Icteric index Not <td> 04/01/2018 [facility] r of Serum or Icteric 06:44</td><td> [facility] Plasma Icteric Index Health Care </td><td> [facility] Not Icteric
</td> Glucose 112 mg/dL 70-105 <td> 04/03/2018 [place] [Mass/volume] mg/dL 08:26</td><td> [facility] in Capillary Glucose - Health Care blood by [employer] [facility] Glucometer </td><td><jose miguel raph styleCode="Bold "> 112 H </paragraph>
(70-105) mg/dL </td> aPTT panel - 31.8 secs 25.0-3 <td> 04/01/2018 [place] Platelet poor 2.0 06:44</td><td> [facility] plasma secs Partial [facility] Care Thromboplastin [facility] Time </td><td> 31.8
(25.0-32.0) secs </td> Erythrocyte 28.4 pg 27.0-3 <td> 04/02/2018 [place] mean 1.5 pg 05:45</td><td> [facility] corpuscular MCH </td><td> Health Care hemoglobin [employer] [Entitic mass] 28.4 by Automated count
(27.0-31.5) pg </td> Erythrocyte 86.4 fL 80.0-9 <td> 04/02/2018 [place] mean 6.0 fL 05:45</td><td> [facility] corpuscular MCV </td><td> Health Care volume [[employer] volume] by 86.4 Automated count
(80.0-96.0) fL </td> Hematocrit 34.4 % 36.0-4 <td> 04/02/2018 [place] [Volume 5.0 % 05:45</td><td> [facility] Fraction] of HCT Health Care Blood by </td><td><Vigster Automated count raph styleCode="Bold "> 34.4 L </paragraph>
(36.0-45.0) % </td> Hemoglobin 11.3 g/dL 11.6-1 <td> 04/02/2018 [place] [Mass/volume] 5.0 05:45</td><td> [place] in Blood g/dL [facility] </td><td><Vigster raph styleCode="Bold "> 11.3 L </paragraph>
(11.6-15.0) g/dL </td> Erythrocytes 3.98 m/mm3 3.80-5 <td> 04/02/2018 [facility] r [#/volume] in .10 05:45</td><td> [facility] Blood m/mm3 RBC </td><td> Health Care [facility] 3.98
(3.80-5.10) m/mm3 </td> Leukocytes 9.7 k/mm3 4.5-10 <td> 04/02/2018 [place] [#/volume] in .8 05:45</td><td> [facility] Blood by k/mm3 WBC </td><td> Health Care Automated count [facility] 9.7
(4.5-10.8) k/mm3 </td> Monocytes/Leuko 8.6 % 0.0-11 <td> 04/02/2018 [facility] cytes [Pure .0 % 05:45</td><td> County number Monocytes. Health Care fraction] in </td><td> [facility] Blood by Automated count 8.6
(0.0-11.0) % </td> Lymphocytes 22.9 % 18.0-5 <td> 04/02/2018 [place] [#/volume] in 3.0 % 05:45</td><td> [facility] Blood by Lymphocytes Health Care Automated count </td><td> [facility] 22.9
(18.0-53.0) % </td> Platelets 365 k/mm3 160-41 <td> 04/02/2018 [place] [#/volume] in 0 05:45</td><td> [facility] Blood by k/mm3 Platelet Count Health Care Automated count </td><td> [facility] 365
(160-410) k/mm3 </td> Platelet mean 9.8 fL 9.8-12 <td> 04/02/2018 [facility] r volume [Entitic .8 fL 05:45</td><td> County volume] in MPV </td><td> Health Care Blood by [facility] Automated count 9.8
(9.8-12.8) fL </td> Erythrocyte 12.4 % 11.5-1 <td> 04/02/2018 [place] distribution 4.5 % 05:45</td><td> County width [Entitic RDW </td><td> Health Car e volume] by [facility] Automated count 12.4
(11.5-14.5) % </td> Erythrocyte 32.8 % 32.0-3 <td> 04/02/2018 [place] mean 6.0 % 05:45</td><td> [facility] corpuscular MCHC </td><td> Health Care hemoglobin [facility] concentration 32.8 [Mass/volume] in Blood from
Fetus by (32.0-36.0) % Automated count </td> Sodium 138 mEq/L 135-14 <td> 04/01/2018 [place] [Moles/volume] 5 06:44</td><td> [place] in Serum or mEq/L Sodium-Serum Health Care Plasma </td><td> [facility] 138
(135-145) mEq/L </td> Glucose 218 mg/dL 70-105 <td> 04/01/2018 [place] [Mass/volume] mg/dL 06:44</td><td> [facility] in Blood Glucose-Serum Health [facility] </td><td><jose miguel [facility] raph styleCode="Bold "> 218 H </paragraph>
(70-105) mg/dL </td> Neutrophils [#] 67.1 % 36.0-7 <td> 04/02/2018 [facility] in Body fluid 3.0 % 05:45</td><td> [facility] by Manual count Neutrophils Health Care </td><td> [facility] 67.1
(36.0-73.0) % </td> Immature 0.4 % 0.0-0. <td> 04/02/2018 [place] granulocytes/10 5 % 05:45</td><td> [facility] 0 leukocytes in IG% </td><td> Health Ca re Blood by [facility] Automated count 0.4
(0.0-0.5) %
The IG fraction represents metamyelocytes, myelocytes and/or
promyelocytes and is only reported as part of the automated
differential when found at a percentage of less than 6.
If higher than 6%, a manual differential will be performed.

(0.0-0.5) % </td> Basophils 0.3 % 0.0-2. <td> 04/02/2018 [place] [#/volume] in 0 % 05:45</td><td> County Blood by Basophils [facility] Care Automated count </td><td> [facility] 0.3
(0.0-2.0) % </td> Basophils+Eosin 0.7 % 0.0-5. <td> 04/02/2018 [facility] ophils+Monocyte 0 % 05:45</td><td> County s [#/volume] in Eosinophils Health Care Blood by </td><td> [facility] Automated count 0.7
(0.0-5.0) % </td> Calcium 8.8 mg/dL 8.6-10 <td> 04/01/2018 [place] [Mass/volume] .2 06:44</td><td> [facility] in Blood mg/dL Calcium Health Care </td><td> [facility] 8.8
(8.6-10.2) mg/dL </td> Creatinine 0.87 mg/dL 0.57-1 <td> 04/01/2018 [place] [Moles/volume] .11 06:44</td><td> [facility] in Serum or mg/dL Creatinine. Health Care Plasma </td><td> [facility] 0.87
(0.57-1.11) mg/dL </td> Urea nitrogen 8 mg/dL 6-22 <td> 04/01/2018 [facility] r [Mass/volume] mg/dL 06:44</td><td> [place] in Blood BUN </td><td> Health Care [facility] 8
(6-22) mg/dL </td> Carbon dioxide, 24 mEq/L 22-30 <td> 04/01/2018 [facility] total mEq/L 06:44</td><td> [facility] [Moles/volume] CO2 </td><td> Health Car e in Serum or [facility] Plasma 24
(22-30) mEq/L </td> Chloride 108 mEq/L 98-107 <td> 04/01/2018 [place] [Moles/volume] mEq/L 06:44</td><td> County in Serum or Chloride Health Care Plasma </td><td><Vigster raph styleCode="Bold "> 108 H </paragraph>
(98-107) mEq/L </td> Potassium 3.7 mEq/L 3.5-5. <td> 04/01/2018 [place] [Moles/volume] 1 06:44</td><td> County in Serum or mEq/L Potassium-Serum Health Care Plasma </td><td> [facility] 3.7
(3.5-5.1) mEq/L </td> Hemoglobin A1C 9.7 % 4.0-5. <td> 04/01/2018 [facility] 6 % 06:44</td><td> [facility] Hemoglobin A1C Health Care </td><td><[employer] [facility] graph styleCode="Bold "> 9.7 H </paragraph>
(4.0-5.6) [...]
11 269
12 298
Source: Adapted from [place] [employer]. Standards of medical
care in diabetes-2014. Diabetes Care.2014;37(Tsang pp 1):S14-S80, table 8.

PLEASE NOTE NEW REFERENCE RANGES EFFECTIVE 14

(4.0-5.6) % </td> aPTT panel - 31.8 secs 25.0-3 <td> 04/01/2018 [place] Platelet poor 2.0 06:44</td><td> [facility] plasma secs Partial Health Care Thromboplastin [facility] Time </td><td> 31.8
(25.0-32.0) secs </td> Prothrombin 10.9 secs 9.8-12 <td> 04/01/2018 [place] time (PT) .0 06:44</td><td> [facility] secs Prothrombin Health Care Time. Corporation </td><td> 10.9
(9.8-12.0) secs </td> Icteric index Not <td> 04/01/2018 [facility] r of Serum or Icteric 06:44</td><td> [facility] Plasma Icteric Index Health Care </td><td> [facility] Not Icteric
</td> Lipemic index No Lipemia <td> 04/01/2018 [facility] er of Serum or 06:44</td><td> [facility] Plasma Lipemia Index Health Care </td><td> [facility] No Lipemia
</td> Hemolysis index No <td> 04/01/2018 [facility] of Serum or Hemolysis 06:44</td><td> [facility] Plasma Hemolysis Index Health Care </td><td> [facility] No Hemolysis
</td> Anion gap in 6 mEq/L 7-13 <td> 04/01/2018 [place] Serum or Plasma mEq/L 06:44</td><td> [facility] Anion Gap Health Care </td><td><jose miguelPhotolitec raph styleCode="Bold "> 6 L </paragraph>
(7-13) mEq/L </td> Glucose 132 mg/dL 70-105 <td> 04/02/2018 [place] [Mass/volume] mg/dL 21:21</td><td> [facility] in Capillary Glucose - Health Care blood by [employer] Glucometer </td><td><jose miguel raph styleCode="Bold "> 132 H </paragraph>
(70-105) mg/dL </td> Leukocytes 9.7 k/mm3 4.5-10 <td> 04/02/2018 [place] [#/volume] in .8 05:45</td><td> [facility] Blood by k/mm3 WBC </td><td> Health Care Automated count [facility] 9.7
(4.5-10.8) k/mm3 </td> Erythrocyte 28.4 pg 27.0-3 <td> 04/02/2018 [place] mean 1.5 pg 05:45</td><td> [facility] corpuscular MCH </td><td> Health Care hemoglobin [employer] [Entitic mass] 28.4 by Automated count
(27.0-31.5) pg </td> Erythrocyte 86.4 fL 80.0-9 <td> 04/02/2018 [place] mean 6.0 fL 05:45</td><td> [facility] corpuscular MCV </td><td> Health Care volume [[employer] volume] by 86.4 Automated count
(80.0-96.0) fL </td> Hematocrit 34.4 % 36.0-4 <td> 04/02/2018 [place] [Volume 5.0 % 05:45</td><td> County Fraction] of HCT Health Care Blood by </td><td><Vigster Automated count raph styleCode="Bold "> 34.4 L </paragraph>
(36.0-45.0) % </td> Hemoglobin 11.3 g/dL 11.6-1 <td> 04/02/2018 [place] [Mass/volume] 5.0 05:45</td><td> [place] in Blood g/dL [facility] </td><td><Vigster raph styleCode="Bold "> 11.3 L </paragraph>
(11.6-15.0) g/dL </td> Erythrocytes 3.98 m/mm3 3.80-5 <td> 04/02/2018 [facility] r [#/volume] in .10 05:45</td><td> [facility] Blood m/mm3 RBC </td><td> [facility] 3.98
(3.80-5.10) m/mm3 </td> Monocytes/Leuko 8.6 % 0.0-11 <td> 04/02/2018 [facility] cytes [Pure .0 % 05:45</td><td> County number Monocytes. Health Care fraction] in </td><td> [facility] Blood by Automated count 8.6
(0.0-11.0) % </td> Lymphocytes 22.9 % 18.0-5 <td> 04/02/2018 [place] [#/volume] in 3.0 % 05:45</td><td> [facility] Blood by Lymphocytes Health Care Automated count </td><td> [facility] 22.9
(18.0-53.0) % </td> Platelets 365 k/mm3 160-41 <td> 04/02/2018 [place] [#/volume] in 0 05:45</td><td> [facility] Blood by k/mm3 Platelet Count Health Care Automated count </td><td> [facility] 365
(160-410) k/mm3 </td> Platelet mean 9.8 fL 9.8-12 <td> 04/02/2018 [facility] r volume [Entitic .8 fL 05:45</td><td> County volume] in MPV </td><td> Health Care Blood by [facility] Automated count 9.8
(9.8-12.8) fL </td> Erythrocyte 12.4 % 11.5-1 <td> 04/02/2018 [place] distribution 4.5 % 05:45</td><td> County width [Entitic RDW </td><td> Health Car e volume] by [facility] Automated count 12.4
(11.5-14.5) % </td> Erythrocyte 32.8 % 32.0-3 <td> 04/02/2018 [place] mean 6.0 % 05:45</td><td> [facility] corpuscular MCHC </td><td> Health Care hemoglobin [facility] concentration 32.8 [Mass/volume] in Blood from
Fetus by (32.0-36.0) % Automated count </td> Sodium 138 mEq/L 135-14 <td> 04/01/2018 [place] [Moles/volume] 5 06:44</td><td> County in Serum or mEq/L Sodium-Serum Health Care Plasma </td><td> [facility] 138
(135-145) mEq/L </td> Glucose 218 mg/dL 70-105 <td> 04/01/2018 [place] [Mass/volume] mg/dL 06:44</td><td> [place] in Blood Glucose-Serum Health Care </td><td><jose miguel [facility] raph styleCode="Bold "> 218 H </paragraph>
(70-105) mg/dL </td> Neutrophils [#] 67.1 % 36.0-7 <td> 04/02/2018 [facility] in Body fluid 3.0 % 05:45</td><td> County by Manual count Neutrophils Health Care </td><td> [facility] 67.1
(36.0-73.0) % </td> Immature 0.4 % 0.0-0. <td> 04/02/2018 [place] granulocytes/10 5 % 05:45</td><td> [facility] 0 leukocytes in IG% </td><td> [facility] Blood by [facility] Automated count 0.4
(0.0-0.5) %
The IG fraction represents metamyelocytes, myelocytes and/or
promyelocytes and is only reported as part of the automated
differential when found at a percentage of less than 6.
If higher than 6%, a manual differential will be performed.

(0.0-0.5) % </td> Basophils 0.3 % 0.0-2. <td> 04/02/2018 [place] [#/volume] in 0 % 05:45</td><td> [facility] Blood by Basophils [facility] Automated count </td><td> [facility] 0.3
(0.0-2.0) % </td> Basophils+Eosin 0.7 % 0.0-5. <td> 04/02/2018 [facility] ophils+Monocyte 0 % 05:45</td><td> [facility] s [#/volume] in Eosinophils [facility] Blood by </td><td> [facility] Automated count 0.7
(0.0-5.0) % </td> Calcium 8.8 mg/dL 8.6-10 <td> 04/01/2018 [place] [Mass/volume] .2 06:44</td><td> [facility] in Blood mg/dL Calcium [facility] </td><td> [facility] 8.8
(8.6-10.2) mg/dL </td> Creatinine 0.87 mg/dL 0.57-1 <td> 04/01/2018 [place] [Moles/volume] .11 06:44</td><td> [facility] in Serum or mg/dL Creatinine. [facility] Plasma </td><td> [facility] 0.87
(0.57-1.11) mg/dL </td> Urea nitrogen 8 mg/dL 6-22 <td> 04/01/2018 [facility] r [Mass/volume] mg/dL 06:44</td><td> County in Blood BUN </td><td> Health Care [facility] 8
(6-22) mg/dL </td> Carbon dioxide, 24 mEq/L 22-30 <td> 04/01/2018 [facility] total mEq/L 06:44</td><td> [facility] [Moles/volume] CO2 </td><td> Health Car e in Serum or Corporation Plasma 24
(22-30) mEq/L </td> Chloride 108 mEq/L 98-107 <td> 04/01/2018 [place] [Moles/volume] mEq/L 06:44</td><td> [facility] in Serum or Chloride Health Care Plasma </td><td><jose miguel [facility] raph styleCode="Bold "> 108 H </paragraph>
(98-107) mEq/L </td> Potassium 3.7 mEq/L 3.5-5. <td> 04/01/2018 [place] [Moles/volume] 1 06:44</td><td> County in Serum or mEq/L Potassium-Serum Health Care Plasma </td><td> [facility] 3.7
(3.5-5.1) mEq/L </td> aPTT panel - 31.8 secs 25.0-3 <td> 04/01/2018 [place] Platelet poor 2.0 06:44</td><td> [facility] plasma secs Partial Health Care Thromboplastin [facility] Time </td><td> 31.8
(25.0-32.0) secs </td> Prothrombin 10.9 secs 9.8-12 <td> 04/01/2018 [place] time (PT) .0 06:44</td><td> [facility] secs Prothrombin Health Care Time. [facility] </td><td> 10.9
(9.8-12.0) secs </td> Icteric index Not <td> 04/01/2018 [facility] r of Serum or Icteric 06:44</td><td> [facility] Plasma Icteric Index Health Care </td><td> [facility] Not Icteric
</td> Lipemic index No Lipemia <td> 04/01/2018 [facility] er of Serum or 06:44</td><td> [facility] Plasma Lipemia Index Health Care </td><td> [facility] No Lipemia
</td> Hemolysis index No <td> 04/01/2018 [facility] of Serum or Hemolysis 06:44</td><td> [facility] Plasma Hemolysis Index [facility] </td><td> [facility] No Hemolysis
</td> Anion gap in 6 mEq/L 7-13 <td> 04/01/2018 [place] Serum or Plasma mEq/L 06:44</td><td> [facility] Anion Gap Health [facility] </td><td><Vigster raph styleCode="Bold "> 6 L </paragraph>
(7-13) mEq/L </td> Glucose 135 mg/dL 70-105 <td> 04/02/2018 [place] [Mass/volume] mg/dL 08:10</td><td> [facility] in Capillary Glucose - [facility] Care blood by [employer] [facility] Glucometer </td><td><[employer] raph styleCode="Bold "> 135 H </paragraph>
(70-105) mg/dL </td> Hemoglobin A1C 9.7 % 4.0-5. <td> 04/01/2018 [facility] 6 % 06:44</td><td> [facility] Hemoglobin A1C [facility] </td><td><[employer] graph styleCode="Bold "> 9.7 H </paragraph>
(4.0-5.6) [...]
11 269
12 298
Source: Adapted from [place] [employer]. Standards of medical
care in diabetes-2014. Diabetes Care.2014;37(Tsang pp 1):S14-S80, table 8.

PLEASE NOTE NEW REFERENCE RANGES EFFECTIVE 14

(4.0-5.6) % </td> Erythrocytes 3.81 m/mm3 3.80-5 <td> 04/01/2018 [facility] [#/volume] in .10 06:44</td><td> [facility] Blood m/mm3 RBC </td><td> [employer] 3.81
(3.80-5.10) m/mm3 </td> Leukocytes 9.4 k/mm3 4.5-10 <td> 04/01/2018 [place] [#/volume] in .8 06:44</td><td> [facility] Blood by k/mm3 WBC </td><td> [employer] Automated count [facility] 9.4
(4.5-10.8) k/mm3 </td> Erythrocyte 12.7 % 11.5-1 <td> 04/01/2018 [place] distribution 4.5 % 06:44</td><td> County width [Entitic RDW </td><td> Health Car e volume] by Corporation Automated count 12.7
(11.5-14.5) % </td> Erythrocyte 32.7 % 32.0-3 <td> 04/01/2018 [place] mean 6.0 % 06:44</td><td> [facility] corpuscular MCHC </td><td> Health Care hemoglobin [employer] concentration 32.7 [Mass/volume] in Blood from
Fetus by (32.0-36.0) % Automated count </td> Erythrocyte 28.6 pg 27.0-3 <td> 04/01/2018 [place] mean 1.5 pg 06:44</td><td> [facility] corpuscular MCH </td><td> Health Care hemoglobin [employer] [Entitic mass] 28.6 by Automated count
(27.0-31.5) pg </td> Erythrocyte 87.4 fL 80.0-9 <td> 04/01/2018 [place] mean 6.0 fL 06:44</td><td> [facility] corpuscular MCV </td><td> Health Care volume [[employer] volume] by 87.4 Automated count
(80.0-96.0) fL </td> Hematocrit 33.3 % 36.0-4 <td> 04/01/2018 [place] [Volume 5.0 % 06:44</td><td> [place] Fraction] of HCT Health Care Blood by </td><td><[employer] Automated count raph styleCode="Bold "> 33.3 L </paragraph>
(36.0-45.0) % </td> Hemoglobin 10.9 g/dL 11.6-1 <td> 04/01/2018 [place] [Mass/volume] 5.0 06:44</td><td> [place] in Blood g/dL [facility] </td><td><Vigster raph styleCode="Bold "> 10.9 L </paragraph>
(11.6-15.0) g/dL </td> Carbon dioxide, 24 mEq/L 22-30 <td> 04/01/2018 [facility] total mEq/L 06:44</td><td> [facility] [Moles/volume] CO2 </td><td> Health Car e in Serum or Corporation Plasma 24
(22-30) mEq/L </td> Chloride 108 mEq/L 98-107 <td> 04/01/2018 [place] [Moles/volume] mEq/L 06:44</td><td> County in Serum or Chloride Health Care Plasma </td><td><Vigster raph styleCode="Bold "> 108 H </paragraph>
(98-107) mEq/L </td> Potassium 3.7 mEq/L 3.5-5. <td> 04/01/2018 [place] [Moles/volume] 1 06:44</td><td> County in Serum or mEq/L Potassium-Serum Health Care Plasma </td><td> [facility] 3.7
(3.5-5.1) mEq/L </td> Sodium 138 mEq/L 135-14 <td> 04/01/2018 [place] [Moles/volume] 5 06:44</td><td> County in Serum or mEq/L Sodium-Serum Health Care Plasma </td><td> [facility] 138
(135-145) mEq/L </td> Glucose 218 mg/dL 70-105 <td> 04/01/2018 [place] [Mass/volume] mg/dL 06:44</td><td> [place] in Blood Glucose-Serum Health Care </td><td><Vigster raph styleCode="Bold "> 218 H </paragraph>
(70-105) mg/dL </td> Platelets 288 k/mm3 160-41 <td> 04/01/2018 [place] [#/volume] in 0 06:44</td><td> County Blood by k/mm3 Platelet Count Health Care Automated count </td><td> [facility] 288
(160-410) k/mm3 </td> Platelet mean 9.7 fL 9.8-12 <td> 04/01/2018 [facility] r volume [Entitic .8 fL 06:44</td><td> County volume] in V Health Care Blood by </td><td><[employer] Automated count raph styleCode="Bold "> 9.7 L </paragraph>
(9.8-12.8) fL </td> Lipemic index No Lipemia <td> 04/01/2018 [facility] of Serum or 06:44</td><td> [facility] Plasma Lipemia Index Health [facility] </td><td> [facility] No Lipemia
</td> Hemolysis index No <td> 04/01/2018 [facility] of Serum or Hemolysis 06:44</td><td> [facility] Plasma Hemolysis Index [facility] </td><td> [facility] No Hemolysis
</td> Anion gap in 6 mEq/L 7-13 <td> 04/01/2018 [place] Serum or Plasma mEq/L 06:44</td><td> [facility] Anion Gap [facility] Care </td><td><Vigster raph styleCode="Bold "> 6 L </paragraph>
(7-13) mEq/L </td> Calcium 8.8 mg/dL 8.6-10 <td> 04/01/2018 [place] [Mass/volume] .2 06:44</td><td> [place] in Blood mg/dL Calcium Health Care </td><td> [facility] 8.8
(8.6-10.2) mg/dL </td> Creatinine 0.87 mg/dL 0.57-1 <td> 04/01/2018 [place] [Moles/volume] .11 06:44</td><td> [facility] in Serum or mg/dL Creatinine. Health Care Plasma </td><td> [facility] 0.87
(0.57-1.11) mg/dL </td> Urea nitrogen 8 mg/dL 6-22 <td> 04/01/2018 [facility] [Mass/volume] mg/dL 06:44</td><td> [facility] in Blood BUN </td><td> [facility] 8
(6-22) mg/dL </td> Glucose 154 mg/dL 70-105 <td> 04/01/2018 [place] [Mass/volume] mg/dL 08:07</td><td> [facility] in Capillary Glucose - [facility] blood by [employer] Glucometer </td><td><jose miguel raph styleCode="Bold "> 154 H </paragraph>
(70-105) mg/dL </td> Hemoglobin A1C 9.7 % 4.0-5. <td> 04/01/2018 [facility] ter 6 % 06:44</td><td> [facility] Hemoglobin A1C [facility] </td><td><[employer] graph styleCode="Bold "> 9.7 H [...]
11 269
12 298
Source: Adapted from [employer]. Standards of medical
care in diabetes-2014. Diabetes Care.2014;37(Tsang pp 1):S14-S80, table 8.

PLEASE NOTE NEW REFERENCE RANGES EFFECTIVE 14

(4.0-5.6) % </td> aPTT panel - 31.8 secs 25.0-3 <td> 04/01/2018 [place] Platelet poor 2.0 06:44</td><td> [facility] plasma secs Partial Health Care Thromboplastin [facility] Association Time </td><td> 31.8
(25.0-32.0) secs </td> Prothrombin 10.9 secs 9.8-12 <td> 04/01/2018 [place] time (PT) .0 06:44</td><td> [facility] secs Prothrombin Health Care Time. Corporation </td><td> 10.9
(9.8-12.0) secs </td> Icteric index Not <td> 04/01/2018 [facility] r of Serum or Icteric 06:44</td><td> [facility] Plasma Icteric Index Health Care </td><td> Corporation [...] enter Smoking Never smoker completed Never smoker [facility] Vital Signs ID Date Data Source UNK Name Value Range Interpretation Code Description Data Source(s) Body temperature 36.806328 36.243340 [facility] Respiratory rate 18 /min 18 /min [facility] Oxygen saturation 99 % 99 % [facility] Arterial blood Medical Center by Pulse oximetry Heart rate 73 /min 73 /min [facility] Diastolic blood 94 mm[Hg] 94 mm[Hg] [facility] Systolic blood 166 mm[Hg] 166 mm[Hg] [facility] Body temperature 36.662551 36.199612 [facility] Oxygen saturation 99 % 99 % [facility] Arterial blood Medical Center by Pulse oximetry Heart rate 58 /min 58 /min [facility] Diastolic blood 88 mm[Hg] 88 mm[Hg] [facility] Systolic blood 182 mm[Hg] 182 mm[Hg] [facility] Oxygen saturation 97 % 97 % [facility] blood [facility] Center by Pulse oximetry Heart rate 65 /min 65 /min [facility] Diastolic blood 93 mm[Hg] 93 mm[Hg] [facility] [place] Systolic blood 145 mm[Hg] 145 mm[Hg] [facility] Oxygen saturation 96 % 96 % [facility] blood [facility] by Pulse oximetry Heart rate 80 /min 80 /min [facility] Heart rate 80 /min 80 /min [facility] Diastolic blood 85 mm[Hg] 85 mm[Hg] [facility] Systolic blood 156 mm[Hg] 156 mm[Hg] [facility] Body temperature 36.771190 36.827265 [facility] Respiratory rate 17 /min 17 /min [facility] Oxygen saturation 99 % 99 % [facility] Arterial blood [facility] Center by Pulse oximetry Heart rate 71 /min 71 /min [facility] Body height 172.283794 172.654031 cm [facility] Diastolic blood 91 mm[Hg] 91 mm[Hg] [facility] pressure Medical Center Systolic blood 159 mm[Hg] 159 mm[Hg] [facility] Center Body temperature 36.597373 36.837185 [facility] Respiratory rate 18 /min 18 /min [facility] Oxygen saturation 99 % 99 % [facility] Arterial blood [facility] Center by Pulse oximetry Heart rate 75 /min 75 /min [facility] Diastolic blood 75 mm[Hg] 75 mm[Hg] [facility] Systolic blood 127 mm[Hg] 127 mm[Hg] [facility] Center Body weight 130.143477 130.163718 kg [facility] Measured kg Medical Center Body temperature 37.723615 37.984724 [facility] Respiratory rate 1 /min 1 /min [facility] Oxygen saturation 98 % 98 % [facility] Arterial blood [facility] Center by Pulse oximetry Heart rate 82 /min 82 /min [facility] Body height 173.550926 173.220717 cm [facility] Diastolic blood 66 mm[Hg] 66 mm[Hg] [facility] Center Systolic blood 144 mm[Hg] 144 mm[Hg] [facility] Body mass index 43.4 kg/m2 43.4 kg/m2 [facility] (BMI) [Ratio] Medical [facility] Body mass index 42.4 kg/m2 42.4 kg/m2 [facility] (BMI) [Ratio] Medical [facility] Body weight 127.414184 127.197566 kg [facility] Measured kg Medical Center Body temperature 36.939918 36.540201 [facility] Respiratory rate 18 /min 18 /min [facility] Oxygen saturation 98 % 98 % [facility] Arterial blood [facility] by Pulse oximetry Heart rate 102 /min 102 /min [facility] Body height 173.311731 173.350398 cm [facility] Medical [place] Diastolic blood 54 mm[Hg] 54 mm[Hg] [facility] pressure Medical Center Systolic blood 118 mm[Hg] 118 mm[Hg] [facility] Body temperature 37.830163 37.160586 [facility] Respiratory rate 18 /min 18 /min [facility] Heart rate 64 /min 64 /min [facility] Diastolic blood 72 mm[Hg] 72 mm[Hg] [facility] Systolic blood 131 mm[Hg] 131 mm[Hg] [facility] Body temperature 36.000622 36.992390 [facility] Respiratory rate 18 /min 18 /min [facility] Heart rate 70 /min 70 /min [facility] Diastolic blood 90 mm[Hg] 90 mm[Hg] [facility] Systolic blood 110 mm[Hg] 110 mm[Hg] [facility] Body temperature 36.194080 36.964151 [facility] Respiratory rate 18 /min 18 /min [facility] Oxygen saturation 99 % 99 % [facility] Arterial blood Medical Center by Pulse oximetry Heart rate 75 /min 75 /min [facility] Diastolic blood 62 mm[Hg] 62 mm[Hg] [facility] [place] Systolic blood 106 mm[Hg] 106 mm[Hg] [facility] Body temperature 37.820338 37.681134 [facility] Respiratory rate 20 /min 20 /min [facility] Heart rate 74 /min 74 /min [facility] Diastolic blood 87 mm[Hg] 87 mm[Hg] [facility] Center Systolic blood 144 mm[Hg] 144 mm[Hg] [facility] [place] Body temperature 37.949366 37.330845 [facility] Respiratory rate 16 /min 16 /min [facility] Heart rate 56 /min 56 /min [facility] Diastolic blood 88 mm[Hg] 88 mm[Hg] [facility] Center Systolic blood 150 mm[Hg] 150 mm[Hg] [facility] Oxygen saturation 98 % 98 % [facility] Arterial blood [facility] Center by Pulse oximetry Body weight 134.201747 134.532064 kg [facility] Measured kg Medical Center Body height 173.601593 173.142049 cm [facility] Medical Center Body mass index 44.26 kg/m2 44.26 kg/m2 [facility] (BMI) [Ratio] Medical [address] Body weight 134.610614 134.794511 kg [facility] Measured kg Medical Center Body height 172.356126 172.729437 cm [facility] Medical Center Body mass index 44.92 kg/m2 44.92 kg/m2 [facility] (BMI) [Ratio] Medical [facility] ter Oxygen saturation 99 % 99 % [facility] blood [facility] Center by Pulse oximetry Body weight 134.154176 134.296654 kg [facility] Measured kg Medical Center Body height 173.006899 173.704302 cm [facility] Medical Center Body mass index 44.26 kg/m2 44.26 kg/m2 [facility] (BMI) [Ratio] Medical [facility] ter Body temperature 36.649118 36.246646 [facility] Respiratory rate 16 /min 16 /min [facility] Heart rate 78 /min 78 /min [facility] Diastolic blood 96 mm[Hg] 96 mm[Hg] [facility] Systolic blood 153 mm[Hg] 153 mm[Hg] [facility] Center Body temperature 37.703296 37.517594 [facility] Respiratory rate 18 /min 18 /min [facility] Heart rate 86 /min 86 /min [facility] Diastolic blood 90 mm[Hg] 90 mm[Hg] [facility] Center Systolic blood 151 mm[Hg] 151 mm[Hg] [facility] Body weight 134.281389 134.263122 kg [facility] Measured kg Medical Center Oxygen saturation 98 % 98 % [facility] by Pulse oximetry Body height 173.364662 173.412160 cm [facility] Medical Center Body mass index 44.26 kg/m2 44.26 kg/m2 [facility] (BMI) [Ratio] [facility] [address] Body temperature 36.644787 36.122271 [facility] Respiratory rate 18 /min 18 /min [facility] Heart rate 86 /min 86 /min [facility] Diastolic blood 114 mm[Hg] 114 mm[Hg] [facility] pressure Medical Center Systolic blood 148 mm[Hg] 148 mm[Hg] [facility] Center Oxygen saturation 99 % 99 % [facility] Arterial blood [facility] Center by Pulse oximetry Body temperature 36.445786 36.466135 [facility] Respiratory rate 18 /min 18 /min [facility] Heart rate 82 /min 82 /min [facility] Diastolic blood 84 mm[Hg] 84 mm[Hg] [facility] pressure Medical Center Systolic blood 129 mm[Hg] 129 mm[Hg] [facility] pressure Medical Center Body weight 133.501623 133.365712 kg [facility] Measured kg Medical Center Body height 172.124794 172.253389 cm [facility] Medical Center Body mass index 44.7 kg/m2 44.7 kg/m2 [facility] (BMI) [Ratio] Medical [facility] ter Body temperature 36.809455 36.692457 [facility] Respiratory rate 17 /min 17 /min [facility] Oxygen saturation 98 % 98 % [facility] Arterial blood [facility] Center by Pulse oximetry Heart rate 86 /min 86 /min [facility] Diastolic blood 87 mm[Hg] 87 mm[Hg] [facility] Systolic blood 192 mm[Hg] 192 mm[Hg] [facility] Body temperature 37.032202 37.738657 [facility] Respiratory rate 19 /min 19 /min [facility] Oxygen saturation 97 % 97 % [facility] Arterial blood [facility] by Pulse oximetry Heart rate 98 /min 98 /min [facility] Diastolic blood 88 mm[Hg] 88 mm[Hg] [facility] Center Systolic blood 155 mm[Hg] 155 mm[Hg] [facility] Center Body weight 127.994992 127.275204 kg [facility] Measured kg Medical Center Body temperature 36.132566 36.995447 [facility] Respiratory rate 20 /min 20 /min [facility] Oxygen saturation 98 % 98 % [facility] Arterial blood Medical Center by Pulse oximetry Heart rate 97 /min 97 /min [facility] Diastolic blood 84 mm[Hg] 84 mm[Hg] [facility] Center Systolic blood 154 mm[Hg] 154 mm[Hg] [facility] Body temperature 36.112843 36.637289 [facility] Respiratory rate 18 /min 18 /min [facility] Oxygen saturation 97 % 97 % [facility] in Arterial blood [facility] by Pulse oximetry Heart rate 76 /min 76 /min [facility] Diastolic blood 104 mm[Hg] 104 mm[Hg] [facility] [place] Systolic blood 186 mm[Hg] 186 mm[Hg] [facility] [place] Body temperature 36.233487 36.586847 [facility] Respiratory rate 20 /min 20 /min [facility] Heart rate 94 /min 94 /min [facility] Diastolic blood 60 mm[Hg] 60 mm[Hg] [facility] Systolic blood 133 mm[Hg] 133 mm[Hg] [facility] Body weight 123.230194 123.764298 kg [facility] Measured kg Medical Center Body height 172.645376 172.805192 cm [facility] Body mass index 41.43 kg/m2 41.43 kg/m2 [facility] osep (BMI) [Ratio] Medical [facility] ter Body temperature 37.694977 37.800367 [facility] Respiratory rate 20 /min 20 /min [facility] Heart rate 96 /min 96 /min [facility] Diastolic blood 75 mm[Hg] 75 mm[Hg] [facility] Center Systolic blood 129 mm[Hg] 129 mm[Hg] [facility] [place] Systolic blood 149 mm[Hg] 149 mm[Hg] [facility] [place] Body weight 110.258331 110.691167 kg [facility] Measured kg Medical Center Body temperature 37.657406 37.484377 [facility] Body temperature 37.784011 37.135103 [facility] Respiratory rate 18 /min 18 /min [facility] Respiratory rate 19 /min 19 /min [facility] Oxygen saturation 98 % 98 % [facility] by Pulse oximetry Oxygen saturation 97 % 97 % [facility] Center by Pulse oximetry Heart rate 120 /min 120 /min [facility] Heart rate 125 /min 125 /min [facility] Diastolic blood 71 mm[Hg] 71 mm[Hg] [facility] pressure [facility] Center Systolic blood 149 mm[Hg] 149 mm[Hg] [facility] pressure Medical Center Diastolic blood 71 mm[Hg] 71 mm[Hg] [facility] Diastolic blood 80 {} Normal (applies to 80 {} [place] pressure non-numeric results) [facility] Systolic blood 139 {} Normal (applies to 139 {} [place] pressure non-numeric results) [facility] First Respiration 18.0000 {} Normal (applies to 18.0000 {} [place] rate Set non-numeric results) [facility] Heart rate 60.0000 {} Normal (applies to 60.0000 {} [place] non-numeric results) [facility] Body temperature 97.0000 {} Normal (applies to 97.0000 {} [place] non-numeric results) [facility] Diastolic blood 79 {} Normal (applies to 79 {} [place] pressure non-numeric results) [facility] Systolic blood 141 {} Normal (applies to 141 {} [place] pressure non-numeric results) [facility] First Respiration 18.0000 {} Normal (applies to 18.0000 {} [place] rate Set non-numeric results) [facility] Heart rate 78.0000 {} Normal (applies to 78.0000 {} [place] non-numeric results) [facility] Body temperature 97.8000 {} Normal (applies to 97.8000 {} [place] non-numeric results) [facility] Diastolic blood 93 {} Normal (applies to 93 {} [place] pressure non-numeric results) [facility] Systolic blood 158 {} Normal (applies to 158 {} [place] pressure non-numeric results) [facility] First Respiration 18.0000 {} Normal (applies to 18.0000 {} [place] rate Set non-numeric results) [facility] Heart rate 83.0000 {} Normal (applies to 83.0000 {} [place] non-numeric results) [facility] Body temperature 98.0000 {} Normal (applies to 98.0000 {} [place] non-numeric results) [facility] Diastolic blood 88 {} Normal (applies to 88 {} [place] pressure non-numeric results) [facility] Systolic blood 153 {} Normal (applies to 153 {} [place] pressure non-numeric results) [facility] First Respiration 19.0000 {} Normal (applies to 19.0000 {} [place] rate Set non-numeric results) [facility] Heart rate 83.0000 {} Normal (applies to 83.0000 {} [place] non-numeric results) [facility] Body temperature 97.7000 {} Normal (applies to 97.7000 {} [place] non-numeric results) [facility] wt - obtain Normal (applies to {} [place] non-numeric results) [facility] weight - kg 123.2000 {} Normal (applies to 123.2000 {} [place] non-numeric results) [facility] Patient Treatment Plan of Care Planned Activity Planned Date Details Description Data Source (s) Acetaminophen 325 MG / [facility] Oxycodone Hydrochloride 5 MG Center Oral Tablet Ibuprofen 800 MG Oral Tablet [facility] teriflunomide 14 MG Oral Tablet [facility] [Aubagio] [place] 24 HR Oxybutynin chloride 10 MG [facility] Extended Release Oral Tablet Center 3 ML Insulin, Aspart Protamine, [facility] Human 70 UNT/ML / Insulin, C enter Aspart, Human 30 UNT/ML Pen Injector [NovoLog Mix] Metoprolol Tartrate 50 MG Oral [facility] Tablet [place] Metoprolol Tartrate 50 MG Oral [facility] Tablet [place] Metformin hydrochloride 1000 MG [facility] Oral Tablet Center Metformin hydrochloride 1000 MG [facility] Oral Tablet Center 3 ML Insulin, Aspart Protamine, [facility] Human 70 UNT/ML / Insulin, C enter Aspart, Human 30 UNT/ML Pen Injector [NovoLog Mix] ferrous sulfate 325 MG Oral [facility] Tablet [place] ferrous sulfate 325 MG Oral [facility] Ciprofloxacin 500 MG Oral [facility] Ciprofloxacin 500 MG Oral [facility] BD PEN NEEDL MIS [id number] [facility] BD PEN NEEDL MIS [id number] [facility] teriflunomide 14 MG Oral Tablet [facility] [[facility]] [place] ASPIRIN TAB 81MG EC [facility] ASPIRIN TAB 81MG EC [facility] Amlodipine 10 MG Oral Tablet [facility] Amlodipine 10 MG Oral Tablet [facility] Ibuprofen 600 MG Oral Tablet [facility] Ciprofloxacin 500 MG Oral [facility] 3 ML Insulin, Aspart Protamine, [facility] Human 70 UNT/ML / Insulin, C enter Aspart, Human 30 UNT/ML Pen Injector [NovoLog Mix] Metoprolol Tartrate 50 MG Oral [facility] Metformin hydrochloride 1000 MG [facility] Oral Tablet [place] ferrous sulfate 325 MG Oral [facility] teriflunomide 14 MG Oral Tablet [facility] [[facility]] [place] ASPIRIN TAB 81MG EC [facility] Amlodipine 10 MG Oral Tablet [facility] methylPREDNISolone 4 mg [facility] tablets,dose pack, Ordered By: [place] Sidney Reyes, FNPDirections: 1 package oral daily Cephalexin 500 MG Oral Capsule [facility] Aspirin 81 MG Delayed Release [facility] Oral Tablet [place] Lisinopril 10 MG Oral Tablet [facility] gabapentin 300 MG Oral Capsule [facility] atorvastatin 20 MG Oral Tablet [facility] Metoprolol Tartrate 50 MG Oral [facility] Metformin hydrochloride 1000 MG [facility] Oral Tablet [place] 3 ML Insulin, Aspart Protamine, [facility] Human 70 UNT/ML / Insulin, C enter Aspart, Human 30 UNT/ML Pen Injector [NovoLog Mix] ferrous sulfate 325 MG Oral [facility] Amlodipine 10 MG Oral Tablet [facility] Azithromycin 250 MG Oral Tablet [facility] albuterol sulfate 90 mcg HFA [facility] Aerosol Inhaler, Ordered By: Pj Purvis, MDDirections: 2 puff by inhalation every six hours PRN shortness of breath Naproxen sodium 275 MG Oral [facility] Tablet [place] metroNIDAZOLE 500 mg [facility] TabletDirections: 1 tablet oral [place] every eight hours sodium chloride 0.9 % (1000 mL [facility] bag) Intravenous @ 100 mL/hr [place] CONTINUOUS Lisinopril 10 MG Oral Tablet [facility] 1 ML Ketorolac Tromethamine 30 [facility] MG/ML Injection Center insulin detemir 100 UNT/ML [facility] Injectable Solution [Levemir] [place] Insulin, Aspart, Human [address] [facility] UNT/ML Injectable Solution C enter [NovoLog] doxycycline hyclate 100 mg IVPB [facility] EVERY 12 HOUR Now Routine Ce nter ampicillin-sulbactam 3 g [facility] Intravenous EVERY 6 HOURS Now Center Routine Acetaminophen 500 MG Oral Sa [facility] Tablet Center
[2019-12-30] MEDS ORDERED: ELECTROLYTE-148 SOLN 1,000 ML IV SCH (07:15)
--- NOTE | 2019-12-30 07:16 | HP ---
Past Medical History - Primary Care Physician PCP:: Martha Alvarez - Admission Chief Complaint: Pelvic Pain. 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 usg in radiology suggestive of TOA? will obtain official report from radiologist today usg done in office just showed multiple cystic ovary History Source: Patient Limitations to Obtaining History: No Limitations - Past Medical History Cardiovascular: Yes: HTN Endocrine: Yes: Diabetes Mellitus - Past Surgical History Past Surgical History: Yes: Appendectomy, Hx Myomectomy: No Hx Transabdominal Cerclage: No - Smoking History Smoking history: Never smoked Have you smoked in the past 12 months: No Aproximately how many cigarettes per day: 0 - Alcohol/Substance Use Hx Alcohol Use: No Home Medications - Allergies Allergies/Adverse Reactions: Allergies Allergy/AdvReac Type Severity Reaction Status Date / Time No Known Allergies Allergy Verified 12/29/19 22:05 - Home Medications Home Medications: Ambulatory Orders Ferrous Sulfate [Feosol] 325 mg PO DAILY 06/27/19 Insulin (Novolog 70/30) [Novolog Mix 70/30 Vial -] 35 units SQ BID 06/27/19 Lisinopril [Prinivil] 10 mg PO DAILY 06/27/19 Metformin HCl [Glucophage] 500 mg PO BID 06/27/19 Teriflunomide [Aubagio] 14 mg PO DAILY 12/30/19 Review of Systems - Review of Systems Constitutional: reports: No Symptoms Eyes: reports: No Symptoms HENT: reports: No Symptoms Neck: reports: No Symptoms Cardiovascular: reports: No Symptoms Respiratory: reports: No Symptoms Gastrointestinal: reports: Abdominal Pain (mostly suprapubic) Genitourinary: reports: No Symptoms Breasts: reports: No Symptoms Reported Musculoskeletal: reports: No Symptoms Integumentary: reports: No Symptoms Neurological: reports: No Symptoms Endocrine: reports: No Symptoms Hematology/Lymphatic: reports: No Symptoms Psychiatric: reports: No Symptoms 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: Vital Signs Temperature 97.6 F 12/30/19 06:19 Pulse Rate 60 12/30/19 06:19 Respiratory Rate 12/30/19 06:19 Blood Pressure 136/94 12/30/19 06:19 O2 Sat by Pulse Oximetry (%) 99 12/30/19 06:19 Constitutional: Yes: Well Nourished, Mild Distress Gastrointestinal: Yes: Soft, Abdomen, Obese, Tenderness Labs: CBC, BMP 12/30/19 00:32 12/30/19 00:33 Problem List - Problem (1) Pelvic pain Code(s): R10.2 - PELVIC AND PERINEAL PAIN (2) UTI (urinary tract infection) Code(s): N39.0 - URINARY TRACT INFECTION, SITE NOT SPECIFIED Qualifiers: Urinary tract infection type: acute cystitis Hematuria presence: with hematuria Qualified Code(s): N30.01 - Acute cystitis with hematuria Assessment/Plan Pelvic Pain - usg suggestive of possible TOA UTI Ovarian cyst PCO Plan Admit for IV abs
--- NOTE | 2019-12-30 09:20 | CON.ID ---
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 usg in radiology suggestive of TOA? will obtain official report from radiologist today usg done in office just showed multiple cystic ovary patient also mentions that she feels weak and has pain all over the body - History Source History Provided By: Patient Limitations to Obtaining History: No Limitations - Past Medical History Cardio/Vascular: Yes: HTN ...LMP: 12/22/19 ...: No Endocrine: Yes: Diabetes Mellitus - Past Surgical History Past Surgical History: Yes: Appendectomy, - Alcohol/Substance Use Hx Alcohol Use: No - Smoking History Smoking history: Never smoked Have you smoked in the past 12 months: No Aproximately how many cigarettes per day: 0 Home Medications - Allergies Allergies/Adverse Reactions: Allergies Allergy/AdvReac Type Severity Reaction Status Date / Time No Known Allergies Allergy Verified 12/29/19 22:05 - Home Medications Home Medications: Ambulatory Orders Ferrous Sulfate [Feosol] 325 mg PO DAILY 06/27/19 Insulin (Novolog 70/30) [Novolog Mix 70/30 Vial -] 35 units SQ BID 06/27/19 Lisinopril [Prinivil] 10 mg PO DAILY 06/27/19 Metformin HCl [Glucophage] 500 mg PO BID 06/27/19 Teriflunomide [Aubagio] 14 mg PO DAILY 12/30/19 Review of Systems - Review of Systems Constitutional: reports: Weakness Eyes: reports: No Symptoms HENT: reports: No Symptoms Neck: reports: No Symptoms Cardiovascular: reports: No Symptoms Respiratory: reports: No Symptoms Gastrointestinal: reports: Abdominal Pain Genitourinary: reports: Dysuria Musculoskeletal: reports: No Symptoms Integumentary: reports: No Symptoms Neurological: reports: No Symptoms Endocrine: reports: No Symptoms Hematology/Lymphatic: reports: No Symptoms Psychiatric: reports: No Symptoms Physical Exam Vital Signs: Vital Signs Temperature 97.6 F 12/30/19 06:19 Pulse Rate 60 12/30/19 06:19 Respiratory Rate 19 12/30/19 06:19 Blood Pressure 136/94 12/30/19 06:19 O2 Sat by Pulse Oximetry (%) 99 12/30/19 06:19 Constitutional: Yes: Well Nourished, Calm, Mild Distress Eyes: Yes: Conjunctiva Clear Neck: Yes: Supple, Trachea Midline Cardiovascular: Yes: Regular Rate and Rhythm Respiratory: Yes: Regular, CTA Bilaterally Gastrointestinal: Yes: Normal Bowel Sounds, Soft Musculoskeletal: Yes: WNL Extremities: Yes: WNL Neurological: Yes: Alert, Oriented Psychiatric: Yes: Alert, Oriented Labs: CBC, BMP 12/30/19 00:32 12/30/19 00:33 Imaging - Results Chest X-ray: Report Reviewed, Image Reviewed Cat Scan: Report Reviewed, Image Reviewed Assessment/Plan Problem List - Problem (1) Pelvic pain Code(s): R10.2 - PELVIC AND PERINEAL PAIN (2) UTI (urinary tract infection) Code(s): N39.0 - URINARY TRACT INFECTION, SITE NOT SPECIFIED Qualifiers: Urinary tract infection type: acute cystitis Hematuria presence: with hematuria Qualified Code(s): N30.01 - Acute cystitis with hematuria Assessment/Plan Pelvic Pain UTI Ovarian cyst plan continue abx await for learning engineer final plan if patient remains stable and no further workup from learning engineer will switch to oral abx
--- NOTE | 2019-12-30 10:06 | EKG ---
Test Reason : Blood Pressure : / mmHG Vent. Rate : 054 BPM Atrial Rate : 054 BPM P-R Int : 156 ms QRS Dur : 092 ms QT Int : 480 ms P-R-T Axes : 037 039 032 degrees QTc Int : 455 ms SINUS BRADYCARDIA WITH SINUS ARRHYTHMIA OTHERWISE NORMAL ECG WHEN COMPARED WITH ECG OF 27-JUN-2019 02:09, NONSPECIFIC T WAVE ABNORMALITY HAS REPLACED INVERTED T WAVES IN INFERIOR LEADS Confirmed by MD FRANCISCO JAVIER, ELHAM ([id number]) on 12/30/2019 10:06:33 AM Referred By: Confirmed By:ELHAM MCINTYRE MD
[2019-12-30 12:49] VITALS: BMI 41.8
[2019-12-30] MEDS ORDERED: ACETAMINOPHEN 325 MG TABLET (FP) PO PRN (14:23)
[2019-12-30] MEDS ORDERED: IBUPROFEN 800 MG/8 ML IJ IVPB PRN (14:29)
[2019-12-30] MEDS: oxyCODONE HCL 5 MG TABLET PO PRN ×2 (14:44→18:00)
[2019-12-30] MEDS: SODIUM CHLORIDE 1,000 ML IV SCH (14:46)
[2019-12-30] MEDS ORDERED: CEFTRIAXONE 2 MG in DEXTROSE 5%-WATER - 50 ML IVPB SCH (17:30)
[2019-12-30] MEDS ORDERED: DEXTROSE 5%-WATER 100 ML IVPB ONE (17:57)
[2019-12-30] MEDS: CEFTRIAXONE 2 GM in DEXTROSE 5%-WATER 100 ML IVPB SCH (18:00)
[2019-12-30] MEDS ORDERED: TERIFLUNOMIDE 14 MG PO SCH (22:00)
[2019-12-30] MEDS: LISINOPRIL 10 MG TABLET (FP) PO SCH (22:23)
[2019-12-30] MEDS: INSULIN (NOVOLOG MIX 70/30) 100 UNITS/ML MDV SQ SCH (22:23)
[2019-12-31] MEDS: metFORMIN HCL 500 MG TABLET (FP) PO SCH ×2 (06:05→16:35)
[2019-12-31] MEDS: SODIUM CHLORIDE 1,000 ML IV SCH ×3 (06:07→21:31)
[2019-12-31] MEDS: INSULIN (NOVOLOG MIX 70/30) 100 UNITS/ML MDV SQ SCH ×2 (06:09→16:36)
[2019-12-31] MEDS ORDERED: DEXTROSE 5%-WATER 100 ML IVPB ONE (08:34)
[2019-12-31] MEDS: LISINOPRIL 10 MG TABLET (FP) PO SCH (09:10)
[2019-12-31] MEDS: CEFTRIAXONE 2 GM in DEXTROSE 5%-WATER 100 ML IVPB SCH (09:11)
--- NOTE | 2019-12-31 09:50 | PN ---
Progress Note, Physician History of Present Illness: pain main issues ct scan results noted - Current Medication List Current Medications: Active Medications Acetaminophen (Tylenol -) 650 mg PO Q4H PRN PRN Reason: Pain 1-3 or fever Sodium Chloride (Normal Saline -) 1,000 mls @ 75 mls/hr IV ASDIR [facility] Last Admin: 12/31/19 06:07 Dose: 75 mls/hr Documented by: Ceftriaxone Sodium 2 gm/ (Dextrose) 100 mls @ 100 mls/hr IVPB DAILY [facility]; Protocol Last Admin: 12/31/19 09:11 Dose: 100 mls/hr Documented by: Ibuprofen (Caldolor Injection -) 800 mg IVPB Q8H PRN PRN Reason: PAIN LEVEL 4 - 6 Insulin Aspart (Novolog Mix 70/30 Vial) 35 units SQ BIDAC [facility] Last Admin: 12/31/19 06:09 Dose: Not Given Documented by: Lisinopril (Prinivil) 10 mg PO DAILY [facility] Last Admin: 12/31/19 09:10 Dose: 10 mg Documented by: Metformin HCl (Glucophage -) 500 mg PO BIDAC [facility] Last Admin: 12/31/19 06:05 Dose: 500 mg Documented by: Non-Formulary Medication (Teriflunomide [Aubagio]) 14 mg PO DAILY [facility] Oxycodone HCl (Roxicodone -) 5 mg PO Q4H PRN PRN Reason: PAIN LEVEL 6-10 Last Admin: 12/30/19 14:44 Dose: 5 mg Documented by: Oxycodone HCl (Roxicodone -) 10 mg PO Q4H PRN PRN Reason: PAIN LEVEL 7 - 10 Last Admin: 12/30/19 18:00 Dose: 10 mg Documented by: - Objective Vital Signs: Vital Signs Temperature 98.6 F 12/31/19 09:06 Pulse Rate 74 12/31/19 09:06 Respiratory Rate 18 12/31/19 09:06 Blood Pressure 133/72 12/31/19 09:06 O2 Sat by Pulse Oximetry (%) 99 12/31/19 09:06 Constitutional: Yes: No Distress, Calm Eyes: Yes: Conjunctiva Clear Respiratory: Yes: Regular, CTA Bilaterally Gastrointestinal: Yes: Normal Bowel Sounds, Soft Musculoskeletal: Yes: WNL Extremities: Yes: WNL Neurological: Yes: Alert, Oriented Psychiatric: Yes: Alert, Oriented Labs: CBC, BMP 12/30/19 00:32 12/30/19 00:33 Assessment/Plan Problem List - Problem (1) Pelvic pain Code(s): R10.2 - PELVIC AND PERINEAL PAIN (2) UTI (urinary tract infection) Code(s): N39.0 - URINARY TRACT INFECTION, SITE NOT SPECIFIED Qualifiers: Urinary tract infection type: acute cystitis Hematuria presence: with hematuria Qualified Code(s): N30.01 - Acute cystitis with hematuria Assessment/Plan Pelvic Pain UTI Ovarian cyst plan will switch abx to zosyn await for all results 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
[2019-12-31] MEDS ORDERED: DEXTROSE 5%-WATER - 50 ML IVPB ONE ×2 (10:48→16:12)
[2019-12-31] MEDS ORDERED: PIPERACILLIN/TAZOBACTAM 3.375 GM VIAL IVPB ONE ×2 (10:48→16:12)
[2019-12-31] MEDS: PIPERACILLIN/TAZOB 3.375 GM 3.375 GM in DEXTROSE 5%-WATER - 50 ML IVPB SCH ×2 (10:51→16:59)
[2019-12-31] MEDS: oxyCODONE HCL 5 MG TABLET PO PRN ×2 (17:09→20:08)
--- NOTE | 2019-12-31 17:10 | PN ---
Progress Note (SOAP) - Subjective Chief Complaint: Pt feeling better with abs and smiling and hasn't taken any pain meds Pt found sitting in bed ID consult appreciated - Current Medications Current Medications: Active Medications Acetaminophen (Tylenol -) 650 mg PO Q4H PRN PRN Reason: Pain 1-3 or fever Sodium Chloride (Normal Saline -) 1,000 mls @ 75 mls/hr IV ASDIR [facility] Last Admin: 12/31/19 15:40 Dose: Not Given Documented by: Piperacillin Sod/Tazobactam (Sod 3.375 gm/ Dextrose) 50 mls @ 100 mls/hr IVPB Q8H-IV [facility]; Protocol Last Admin: 12/31/19 10:51 Dose: 100 mls/hr Documented by: Ibuprofen (Caldolor Injection -) 800 mg IVPB Q8H PRN PRN Reason: PAIN LEVEL 4 - 6 Insulin Aspart (Novolog Mix 70/30 Vial) 35 units SQ BIDAC [facility] Last Admin: 12/31/19 16:36 Dose: 35 units Documented by: Lisinopril (Prinivil) 10 mg PO DAILY [facility] Last Admin: 12/31/19 09:10 Dose: 10 mg Documented by: Metformin HCl (Glucophage -) 500 mg PO BIDAC [facility] Last Admin: 12/31/19 16:35 Dose: 500 mg Documented by: Non-Formulary Medication (Teriflunomide [Aubagio]) 14 mg PO DAILY [facility] Oxycodone HCl (Roxicodone -) 5 mg PO Q4H PRN PRN Reason: PAIN LEVEL 6-10 Last Admin: 12/30/19 14:44 Dose: 5 mg Documented by: Oxycodone HCl (Roxicodone -) 10 mg PO Q4H PRN PRN Reason: PAIN LEVEL 7 - 10 Last Admin: 12/30/19 18:00 Dose: 10 mg Documented by: - Objective Vital Signs: Vital Signs Temperature 98.7 F 12/31/19 13:51 Pulse Rate 92 H 12/31/19 13:51 Respiratory Rate 18 12/31/19 13:51 Blood Pressure 137/81 12/31/19 13:51 O2 Sat by Pulse Oximetry (%) 99 12/31/19 09:06 Constitutional: Yes: Well Nourished, No Distress, Obese Gastrointestinal: Yes: Soft, Abdomen, Obese Genitourinary: Yes: Other (no CMT or uterine tenderness) Neurological: Yes: WNL, Alert, Oriented Labs Lab Results: CBCD WBC 10.1 K/mm3 (4.0-10.0) H 12/30/19 00:32 RBC 3.76 M/mm3 (3.60-5.2) 12/30/19 00:32 Hgb 10.5 GM/dL (10.7-15.3) L 12/30/19 00:32 Hct 31.5 % (32.4-45.2) L 12/30/19 00:32 MCV 83.8 fl (80-96) 12/30/19 00:32 MCHC 33.4 g/dl (32.0-36.0) 12/30/19 00:32 RDW 14.0 % (11.6-15.6) 12/30/19 00:32 Plt Count 387 K/MM3 (134-434) D 12/30/19 00:32 MPV 8.1 fl (7.5-11.1) 12/30/19 00:32 CMP Sodium 137 mmol/L (136-145) 12/30/19 00:33 Potassium 3.8 mmol/L (3.5-5.1) 12/30/19 00:33 Chloride 104 mmol/L (98-107) 12/30/19 00:33 Carbon Dioxide 27 mmol/L (21-32) 12/30/19 00:33 Anion Gap 5 MMOL/L (8-16) L 12/30/19 00:33 BUN 8.9 mg/dL (7-18) 12/30/19 00:33 Creatinine 0.9 mg/dL (0.55-1.3) 12/30/19 00:33 Random Glucose 362 mg/dL (74-106) H 12/30/19 00:33 Calcium 8.5 mg/dL (8.5-10.1) 12/30/19 00:33 Total Bilirubin 0.3 mg/dL (0.2-1) 12/30/19 00:33 AST 16 U/L (15-37) 12/30/19 00:33 ALT 12 U/L (13-61) L 12/30/19 00:33 Alkaline Phosphatase 94 U/L (45-117) 12/30/19 00:33 Total Protein 7.5 g/dl (6.4-8.2) 12/30/19 00:33 Albumin 3.4 g/dl (3.4-5.0) 12/30/19 00:33 Problem List - Problems (1) Pelvic pain Code(s): R10.2 - PELVIC AND PERINEAL PAIN (2) UTI (urinary tract infection) Code(s): N39.0 - URINARY TRACT INFECTION, SITE NOT SPECIFIED Qualifiers: Urinary tract infection type: acute cystitis Hematuria presence: with hematuria Qualified Code(s): N30.01 - Acute cystitis with hematuria Assessment/Plan Pelvic Pain UTI RO TOA PCO Plan Continue antibiotics per ID Consider DC home in AM if afebrile on po abs if cleared by ID
[2020-01-01] MEDS ORDERED: PIPERACILLIN/TAZOBACTAM 3.375 GM VIAL IVPB ONE ×3 (00:01→16:47)
[2020-01-01] MEDS ORDERED: DEXTROSE 5%-WATER - 50 ML IVPB ONE ×3 (00:01→16:47)
[2020-01-01] MEDS: oxyCODONE HCL 5 MG TABLET PO PRN ×4 (00:04→21:31)
[2020-01-01] MEDS: PIPERACILLIN/TAZOB 3.375 GM 3.375 GM in DEXTROSE 5%-WATER - 50 ML IVPB SCH ×2 (01:15→09:15)
[2020-01-01] MEDS: metFORMIN HCL 500 MG TABLET (FP) PO SCH ×2 (06:12→17:12)
[2020-01-01] MEDS: INSULIN (NOVOLOG MIX 70/30) 100 UNITS/ML MDV SQ SCH ×2 (06:12→17:15)
[2020-01-01] MEDS ORDERED: INSULIN (NOVOLOG) ASPART 100 UNITS/ML 10ML VIAL ONE (06:43)
[2020-01-01] MEDS: LISINOPRIL 10 MG TABLET (FP) PO SCH (09:15)
--- NOTE | 2020-01-01 12:39 | PN ---
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 - Current Medication List Current Medications: Active Medications Acetaminophen (Tylenol -) 650 mg PO Q4H PRN PRN Reason: Pain 1-3 or fever Last Admin: 01/01/20 10:10 Dose: 650 mg Documented by: Sodium Chloride (Normal Saline -) 1,000 mls @ 75 mls/hr IV ASDIR [facility] Last Admin: 12/31/19 21:31 Dose: 75 mls/hr Documented by: Piperacillin Sod/Tazobactam (Sod 3.375 gm/ Dextrose) 50 mls @ 100 mls/hr IVPB Q8H-IV [facility]; Protocol Last Admin: 01/01/20 09:15 Dose: 100 mls/hr Documented by: Ibuprofen (Caldolor Injection -) 800 mg IVPB Q8H PRN PRN Reason: PAIN LEVEL 4 - 6 Insulin Aspart (Novolog Mix 70/30 Vial) 35 units SQ BIDAC [facility] Last Admin: 01/01/20 06:12 Dose: 35 units Documented by: Lisinopril (Prinivil) 10 mg PO DAILY [facility] Last Admin: 01/01/20 09:15 Dose: 10 mg Documented by: Metformin HCl (Glucophage -) 500 mg PO BIDAC [facility] Last Admin: 01/01/20 06:12 Dose: 500 mg Documented by: Non-Formulary Medication (Teriflunomide [Aubagio]) 14 mg PO DAILY [facility] Oxycodone HCl (Roxicodone -) 5 mg PO Q4H PRN PRN Reason: PAIN LEVEL 6-10 Last Admin: 12/31/19 20:08 Dose: 5 mg Documented by: Oxycodone HCl (Roxicodone -) 10 mg PO Q4H PRN PRN Reason: PAIN LEVEL 7 - 10 Last Admin: 01/01/20 10:09 Dose: 10 mg Documented by: - Objective Vital Signs: Vital Signs Temperature 98.2 F 01/01/20 09:19 Pulse Rate 61 01/01/20 09:19 Respiratory Rate 18 01/01/20 09:19 Blood Pressure 129/77 01/01/20 09:19 O2 Sat by Pulse Oximetry (%) 98 01/01/20 09:19 Constitutional: Yes: No Distress, Calm Cardiovascular: Yes: S1, S2 Respiratory: Yes: Regular, CTA Bilaterally Gastrointestinal: Yes: Normal Bowel Sounds, Soft Musculoskeletal: Yes: WNL Extremities: Yes: WNL Neurological: Yes: Alert, Oriented Psychiatric: Yes: Alert, Oriented Labs: CBC, BMP 12/30/19 00:32 12/30/19 00:33 Assessment/Plan Problem List - Problem (1) Pelvic pain Code(s): R10.2 - PELVIC AND PERINEAL PAIN (2) UTI (urinary tract infection) Code(s): N39.0 - URINARY TRACT INFECTION, SITE NOT SPECIFIED Qualifiers: Urinary tract infection type: acute cystitis Hematuria presence: with hematuria Qualified Code(s): N30.01 - Acute cystitis with hematuria Assessment/Plan Pelvic Pain UTI Ovarian cyst plan continue abx can be changed to oral augmentin and flagyl for 5 more days
--- NOTE | 2020-01-01 15:37 | DS ---
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: Vital Signs Temperature 98.1 F 01/01/20 14:50 Pulse Rate 56 L 01/01/20 14:50 Respiratory Rate 18 01/01/20 14:50 Blood Pressure 127/83 01/01/20 14:50 O2 Sat by Pulse Oximetry (%) 100 01/01/20 14:50 Constitutional: Yes: Well Nourished, No Distress, Obese Neck: Yes: WNL Cardiovascular: Yes: WNL Gastrointestinal: Yes: WNL, Soft, Abdomen, Obese Uterus: Yes: Normal, Anteverted, Soft Neurological: Yes: WNL, Alert, Oriented Labs: CBC, BMP 12/30/19 00:32 12/30/19 00:33 Discharge Summary Problems reviewed: Yes Reason For Visit: URINARY TRACT INFECTION, TUBO-OVARIAN ABSCESS, Current Active Problems Pelvic pain (Acute) TOA (tubo-ovarian abscess) (Acute) UTI (urinary tract infection) (Acute) Hospital Course: IV antibiotics unremarkable stay Condition: Good - Instructions Diet, Activity, Other Instructions: Dr. Martha Alvarez Classer discharge instructions Physical activity Resume your normal everyday activity as tolerated no heavy lifting or exercise until seen by your surgeon. You may walk unlimited carlitos of and climb stairs. You may resume driving the car when you feel safe and comfortable behind the wheel. No sexual activity as instructed by Dr. Alvarez. Wound care If you have a bandage, leave it on, and keep dry for 48-72 hours. After that time discard the outer bandage. If they are tapes on the skin under the out of bandage leave them in place. They will peel off in the next 7 to 10 days. Do Not Peel them off. You may shower the day after surgery. If there are tapes present on the skin, you may shower over them. Diet There are no dietary restrictions. Eat healthy, high-fiber foods. Drink 6 to 8 glasses of liquid each day. This will assist in keeping your bowels are regular. Pain management You may take Tylenol or acetaminophen or Ibuprofen (for example, Motrin, Advil etc.) from my pain prescription medication is ordered should be taken as prescri bed for moderate to severe pain. Call Dr. Alvarez for any of the following: Severe pain not relieved by medication Fever of 101 or higher Excessive bleeding or drainage on dressing Inability to urinate Call the office at [phone] for an appointment in seven days. Referrals: Shabbir Beck MD [Primary Care Provider] - Martha Alvarez MD [Staff Physician] - Disposition: HOME - Home Medications Comprehensive Discharge Medication List: Ambulatory Orders Ferrous Sulfate [Feosol] 325 mg PO DAILY 06/27/19 Insulin (Novolog 70/30) [Novolog Mix 70/30 Vial -] 35 units SQ BID 06/27/19 Lisinopril [Prinivil] 10 mg PO DAILY 06/27/19 Metformin HCl [Glucophage] 500 mg PO BID 06/27/19 Teriflunomide [Aubagio] 14 mg PO DAILY 12/30/19 Amoxicillin/Potassium Clav [Augmentin 500-125 Tablet] 1 each PO BID #10 tablet 01/01/20 metroNIDAZOLE [Metronidazole] 500 mg PO BID 5 Days #10 tablet 01/01/20
[2020-01-01] MEDS ORDERED: ONDANSETRON 8 MG TABLET (FP) PO PRN (16:12)
[2020-01-01] MEDS ORDERED: INSULIN (NOVOLOG MIX 70/30) 100 UNITS/ML MDV SQ ONE (17:51)
[2020-01-02] MEDS ORDERED: DEXTROSE 5%-WATER - 50 ML IVPB ONE (00:29)
[2020-01-02] MEDS ORDERED: PIPERACILLIN/TAZOBACTAM 3.375 GM VIAL IVPB ONE (00:29)
[2020-01-02] MEDS: oxyCODONE HCL 5 MG TABLET PO PRN (03:10)
[2020-01-02] MEDS: INSULIN (NOVOLOG MIX 70/30) 100 UNITS/ML MDV SQ SCH (06:11)
[2020-01-02] MEDS ORDERED: INSULIN (LEVEMIR) 100 UNITS/ML UNITS SQ ONE (06:29)
[2020-01-02] MEDS ORDERED: INSULIN (NOVOLOG) ASPART 100 UNITS/ML 10ML VIAL ONE (06:29)
[2020-01-02] MEDS: metFORMIN HCL 500 MG TABLET (FP) PO SCH ×2 (07:00→09:49)
[2020-01-02 08:18] VITALS: BP 124/54; PULSE 63; TEMP 97.6
[2020-01-02] MEDS: PIPERACILLIN/TAZOB 3.375 GM 3.375 GM in DEXTROSE 5%-WATER - 50 ML IVPB SCH (09:12)
[2020-01-02] MEDS: LISINOPRIL 10 MG TABLET (FP) PO SCH (09:12)
--- NOTE | 2020-01-02 11:16 | PN ---
Progress Note, Physician History of Present Illness: stable no new issues - Current Medication List Current Medications: Active Medications Acetaminophen (Tylenol -) 650 mg PO Q4H PRN PRN Reason: Pain 1-3 or fever Last Admin: 01/01/20 10:10 Dose: 650 mg Documented by: Sodium Chloride (Normal Saline -) 1,000 mls @ 75 mls/hr IV ASDIR [facility] Last Admin: 12/31/19 21:31 Dose: 75 mls/hr Documented by: Piperacillin Sod/Tazobactam (Sod 3.375 gm/ Dextrose) 50 mls @ 100 mls/hr IVPB Q8H-IV [facility]; Protocol Last Admin: 01/02/20 09:12 Dose: Not Given Documented by: Ibuprofen (Caldolor Injection -) 800 mg IVPB Q8H PRN PRN Reason: PAIN LEVEL 4 - 6 Insulin Aspart (Novolog Mix 70/30 Vial) 35 units SQ [facility]IDAC [facility] Last Admin: 01/02/20 06:11 Dose: Not Given Documented by: Lisinopril (Prinivil) 10 mg PO DAILY [facility] Last Admin: 01/02/20 09:12 Dose: 10 mg Documented by: Metformin HCl (Glucophage -) 500 mg PO BIDAC [facility] Last Admin: 01/02/20 09:49 Dose: 500 mg Documented by: Non-Formulary Medication (Teriflunomide [Aubagio]) 14 mg PO DAILY [facility] Ondansetron HCl (Zofran -) 8 mg PO Q8H PRN PRN Reason: NAUSEA Last Admin: 01/01/20 17:13 Dose: 8 mg Documented by: Oxycodone HCl (Roxicodone -) 5 mg PO Q4H PRN PRN Reason: PAIN LEVEL 6-10 Last Admin: 12/31/19 20:08 Dose: 5 mg Documented by: Oxycodone HCl (Roxicodone -) 10 mg PO Q4H PRN PRN Reason: PAIN LEVEL 7 - 10 Last Admin: 01/02/20 03:10 Dose: 10 mg Documented by: - Objective Vital Signs: Vital Signs Temperature 97.6 F 01/02/20 08:17 Pulse Rate 63 01/02/20 08:17 Respiratory Rate 18 01/02/20 09:00 Blood Pressure 124/54 L 01/02/20 08:17 O2 Sat by Pulse Oximetry (%) 99 01/02/20 09:00 Constitutional: Yes: No Distress, Calm Cardiovascular: Yes: S1, S2 Respiratory: Yes: Regular, CTA Bilaterally Gastrointestinal: Yes: Normal Bowel Sounds, Soft Musculoskeletal: Yes: WNL Extremities: Yes: WNL Neurological: Yes: Alert, Oriented Psychiatric: Yes: Alert, Oriented Labs: CBC, BMP 12/30/19 00:32 12/30/19 00:33 Assessment/Plan Problem List - Problem (1) Pelvic pain Code(s): R10.2 - PELVIC AND PERINEAL PAIN (2) UTI (urinary tract infection) Code(s): N39.0 - URINARY TRACT INFECTION, SITE NOT SPECIFIED Qualifiers: Urinary tract infection type: acute cystitis Hematuria presence: with hematuria Qualified Code(s): N30.01 - Acute cystitis with hematuria Assessment/Plan Pelvic Pain UTI Ovarian cyst plan continue abx can be changed to oral augmentin and flagyl for 5 more days
== END 2020-01-02 12:24 | disposition home or self-care (01) | DRG 463 ==
LOC: JER 22:00 → JERBED 12-30 01:21 → J7W 12-30 10:46
PROVIDERS: ADMIT Obstetrics & Gynecology; ATTEND Obstetrics & Gynecology
DX: N30.01 Acute cystitis with hematuria (principal); G35 Multiple sclerosis; I10 Essential (primary) hypertension; E11.9 Type 2 diabetes mellitus without complications; N83.291 Other ovarian cyst, right side; J45.909 Unspecified asthma, uncomplicated; N70.93 Salpingitis and oophoritis, unspecified; E66.9 Obesity, unspecified; Z68.41 Body mass index [BMI] 40.0-44.9, adult
CPT/HCPCS: 36415; 74176-TC; 76830-TC; 80053; 81003; 82010; 82962; 84703; 85025; 87086; 87186; 93005; 93010; 99285-25; U0003

== ENCOUNTER 2020-03-19 12:45 | Inpatient (IN) | payer OTHER ==
[2020-03-19 15:47] LABS: BASO % 0.9 % (0-2.0); EOS % 0.7 % (0-4.5); HEMATOCRIT 31.3 % (32.4-45.2); HEMOGLOBIN 10.1 GM/dL (10.7-15.3); MCH 25.3 pg (25.7-33.7); MCHC 32.1 g/dl (32.0-36.0); MEAN CELL VOLUME 78.7 fl (80-96); MEAN PLT VOLUME 8.9 fl (7.5-11.1); MONO % 5.3 % (3.8-10.2); NEUT % 66.1 % (42.8-82.8); PLATELET COUNT 376 K/MM3 (134-434); RBC 3.98 M/mm3 (3.60-5.2); RDW 16.5 % (11.6-15.6); WHITE BLOOD COUNT 10.1 K/mm3 (4.0-10.0)
[2020-03-19 15:49] LABS: EPI CELLS >36 /uL (0-25.1); HYALINE CASTS 1 /uL (0-3.1); URINE APPEARANCE Error; URINE BACTERIA 1911 /uL (0-1359); URINE BILIRUBIN NEGATIVE (NEGATIVE); URINE COLOR YELLOW; URINE GLUCOSE (UA) 3+ (NEGATIVE); URINE KETONE NEGATIVE (NEGATIVE); URINE LEUK ESTERASE 2+ (NEGATIVE); URINE NITRITE NEGATIVE (NEGATIVE); URINE PROTEIN 2+ (NEGATIVE); URINE RBC 42 /uL (0-23.9); URINE UROBILINOGEN 0.2 mg/dL (0.2-1.0); URINE WBC 3197 /uL (0-25.8)
[2020-03-19 17:30] LABS: URINE APPEARANCE CLEAR; URINE BILIRUBIN NEGATIVE (NEGATIVE); URINE COLOR YELLOW; URINE GLUCOSE (UA) TRACE (NEGATIVE); URINE KETONE NEGATIVE (NEGATIVE); URINE LEUK ESTERASE NEGATIVE (NEGATIVE); URINE NITRITE NEGATIVE (NEGATIVE); URINE PROTEIN TRACE (NEGATIVE); URINE UROBILINOGEN 0.2 mg/dL (0.2-1.0)
[2020-03-19 17:33] LABS: POTASSIUM 4.3 mmol/L (3.5-5.1)
[2020-03-19 17:36] LABS: ALBUMIN 3.4 g/dl (3.4-5.0); BLOOD UREA NITROGEN 9.3 mg/dL (7-18)
[2020-03-19 17:40] LABS: BILIRUBIN,TOTAL 0.2 mg/dL (0.2-1); TOT PROT 7.8 g/dl (6.4-8.2)
[2020-03-19] MEDS ORDERED: methylPREDNISolone NA SUCC 125 MG/2 ML VIAL IVPB ONE ×2 (17:40→17:46)
[2020-03-19] MEDS ORDERED: methylPREDNISolone NA SUCC 125 MG/2 ML VIAL ONE (17:52)
[2020-03-19] MEDS ORDERED: LISINOPRIL 10 MG TABLET PO ONE (20:20)
[2020-03-19] MEDS ORDERED: LISINOPRIL 5 MG TABLET ONE (23:58)
[2020-03-20] MEDS ORDERED: methylPREDNISolone NA SUCC 125 MG/2 ML VIAL ONE ×3 (04:25→17:58)
[2020-03-20] MEDS: methylPREDNISolone NA SUCC 125 MG/2 ML VIAL IVPUSH SCH ×3 (04:32→18:05)
[2020-03-20] MEDS ORDERED: metFORMIN HCL 500 MG TABLET (FP) ONE (07:43)
[2020-03-20] MEDS ORDERED: INSULIN (NOVOLOG MIX 70/30) 100 UNITS/ML MDV SQ ONE ×2 (07:46→16:33)
[2020-03-20] MEDS: metFORMIN HCL 500 MG TABLET (FP) PO SCH ×2 (07:50→16:37)
[2020-03-20] MEDS: INSULIN SLIDING SCALE (NOVOLOG) 1 VIAL SQ SCH ×4 (07:51→23:11)
[2020-03-20] MEDS: INSULIN (NOVOLOG MIX 70/30) 100 UNITS/ML MDV SQ SCH ×2 (07:51→16:37)
[2020-03-20] MEDS ORDERED: FERROUS SO4 325 MG TABLET (FP) ONE (08:52)
[2020-03-20] MEDS ORDERED: ENOXAPARIN NA (PORCINE) 40 MG/0.4 ML DISP.SYRIN SQ ONE (08:52)
[2020-03-20] MEDS: LISINOPRIL 10 MG TABLET PO SCH (09:51)
[2020-03-20] MEDS: ENOXAPARIN NA (PORCINE) 40 MG/0.4 ML DISP.SYRIN SQ SCH (09:51)
[2020-03-20] MEDS: FERROUS SO4 325 MG TABLET (FP) PO SCH (09:51)
[2020-03-20 09:58] LABS: BASO % 0.7 % (0-2.0); HEMATOCRIT 34.9 % (32.4-45.2); HEMOGLOBIN 11.3 GM/dL (10.7-15.3); LYMPH % 6.6 % (8-40); MCH 25.7 pg (25.7-33.7); MCHC 32.3 g/dl (32.0-36.0); MEAN CELL VOLUME 79.7 fl (80-96); MEAN PLT VOLUME 8.5 fl (7.5-11.1); MONO % 0.5 % (3.8-10.2); NEUT % 92.2 % (42.8-82.8); PLATELET COUNT 376 K/MM3 (134-434); RBC 4.38 M/mm3 (3.60-5.2); RDW 16.4 % (11.6-15.6); WHITE BLOOD COUNT 14.6 K/mm3 (4.0-10.0)
[2020-03-20 10:32] LABS: POTASSIUM 4.9 mmol/L (3.5-5.1)
[2020-03-20 10:37] LABS: CALCIUM 9.5 mg/dL (8.5-10.1)
[2020-03-20 10:38] LABS: ALBUMIN 3.6 g/dl (3.4-5.0); BLOOD UREA NITROGEN 15.6 mg/dL (7-18)
[2020-03-20 10:41] LABS: CREATININE 1.1 mg/dL (0.55-1.3)
[2020-03-20 10:42] LABS: BILIRUBIN,TOTAL 0.7 mg/dL (0.2-1)
[2020-03-20 10:43] LABS: TOT PROT 8.8 g/dl (6.4-8.2)
[2020-03-20 11:43] LABS: ANISOCYTOSIS 0; HELMET CELLS 0; HOWELL-JOLLY BODIES 0; MACROCYTOSIS 0; OVALOCYTE 0; PLATELET ESTIMATE NORMAL; ROULEAU 0; SICKELED CELLS 0; TARGET CELLS 0; TEAR DROP CELLS 0; TOXIC GRANULATION 0
[2020-03-21 00:21] VITALS: BMI 42.5
[2020-03-21] MEDS: methylPREDNISolone NA SUCC 125 MG/2 ML VIAL IVPB SCH ×4 (03:19→20:53)
[2020-03-21] MEDS: INSULIN (NOVOLOG MIX 70/30) 100 UNITS/ML MDV SQ SCH ×2 (06:42→17:12)
[2020-03-21] MEDS: INSULIN SLIDING SCALE (NOVOLOG) 1 VIAL SQ SCH ×4 (06:42→21:00)
[2020-03-21] MEDS: metFORMIN HCL 500 MG TABLET (FP) PO SCH ×2 (06:45→17:11)
[2020-03-21 08:13] LABS: BASO % 0.3 % (0-2.0); HEMATOCRIT 31.7 % (32.4-45.2); HEMOGLOBIN 10.1 GM/dL (10.7-15.3); LYMPH % 4.3 % (8-40); MCH 24.9 pg (25.7-33.7); MCHC 31.8 g/dl (32.0-36.0); MEAN CELL VOLUME 78.4 fl (80-96); MEAN PLT VOLUME 8.4 fl (7.5-11.1); MONO % 1.6 % (3.8-10.2); NEUT % 93.8 % (42.8-82.8); PLATELET COUNT 374 K/MM3 (134-434); RBC 4.04 M/mm3 (3.60-5.2); RDW 16.3 % (11.6-15.6); WHITE BLOOD COUNT 21.9 K/mm3 (4.0-10.0)
[2020-03-21 08:34] LABS: POTASSIUM 4.2 mmol/L (3.5-5.1)
[2020-03-21 08:42] LABS: CALCIUM 9.1 mg/dL (8.5-10.1)
[2020-03-21 08:43] LABS: ALBUMIN 3.1 g/dl (3.4-5.0); BLOOD UREA NITROGEN 17.9 mg/dL (7-18)
[2020-03-21 08:46] LABS: BILIRUBIN,TOTAL 0.4 mg/dL (0.2-1); CREATININE 0.9 mg/dL (0.55-1.3); TOT PROT 7.8 g/dl (6.4-8.2)
[2020-03-21 10:01] LABS: ANISOCYTOSIS 0; MACROCYTOSIS 0; PLATELET ESTIMATE NORMAL
[2020-03-21] MEDS: LISINOPRIL 10 MG TABLET PO SCH (10:13)
[2020-03-21] MEDS: FERROUS SO4 325 MG TABLET (FP) PO SCH (10:13)
[2020-03-21] MEDS: ENOXAPARIN NA (PORCINE) 40 MG/0.4 ML DISP.SYRIN SQ SCH (10:14)
[2020-03-22] MEDS: methylPREDNISolone NA SUCC 125 MG/2 ML VIAL IVPB SCH ×4 (02:26→21:15)
[2020-03-22] MEDS: metFORMIN HCL 500 MG TABLET (FP) PO SCH ×2 (06:26→16:58)
[2020-03-22] MEDS: INSULIN (NOVOLOG MIX 70/30) 100 UNITS/ML MDV SQ SCH ×2 (06:26→16:57)
[2020-03-22] MEDS: INSULIN SLIDING SCALE (NOVOLOG) 1 VIAL SQ SCH ×4 (06:26→21:15)
[2020-03-22 08:08] LABS: BASO % 0.1 % (0-2.0); HEMATOCRIT 34.2 % (32.4-45.2); HEMOGLOBIN 11.2 GM/dL (10.7-15.3); LYMPH % 4.8 % (8-40); MCH 25.8 pg (25.7-33.7); MCHC 32.7 g/dl (32.0-36.0); MEAN CELL VOLUME 78.9 fl (80-96); MONO % 1.4 % (3.8-10.2); NEUT % 93.7 % (42.8-82.8); PLATELET COUNT 392 K/MM3 (134-434); RBC 4.34 M/mm3 (3.60-5.2); RDW 16.6 % (11.6-15.6); WHITE BLOOD COUNT 22.7 K/mm3 (4.0-10.0)
[2020-03-22 08:11] LABS: POTASSIUM 4.1 mmol/L (3.5-5.1)
[2020-03-22 08:19] LABS: ALBUMIN 3.1 g/dl (3.4-5.0); BILIRUBIN,TOTAL 0.4 mg/dL (0.2-1); CALCIUM 9.1 mg/dL (8.5-10.1); TOT PROT 7.6 g/dl (6.4-8.2)
[2020-03-22 08:22] LABS: CREATININE 0.9 mg/dL (0.55-1.3)
[2020-03-22 09:29] LABS: ANISOCYTOSIS 1+; MACROCYTOSIS 0; PLATELET ESTIMATE NORMAL
[2020-03-22] MEDS: ENOXAPARIN NA (PORCINE) 40 MG/0.4 ML DISP.SYRIN SQ SCH (09:33)
[2020-03-22] MEDS: amLODIPine BESYLATE 2.5 MG TABLET (FP) PO SCH (09:33)
[2020-03-22] MEDS: FERROUS SO4 325 MG TABLET (FP) PO SCH (09:33)
[2020-03-22] MEDS: LISINOPRIL 10 MG TABLET PO SCH (09:34)
[2020-03-23] MEDS: methylPREDNISolone NA SUCC 125 MG/2 ML VIAL IVPB SCH ×4 (04:00→21:14)
[2020-03-23] MEDS: INSULIN (NOVOLOG MIX 70/30) 100 UNITS/ML MDV SQ SCH ×2 (07:34→17:03)
[2020-03-23] MEDS: metFORMIN HCL 500 MG TABLET (FP) PO SCH ×2 (07:34→17:03)
[2020-03-23] MEDS: INSULIN SLIDING SCALE (NOVOLOG) 1 VIAL SQ SCH ×4 (07:34→21:20)
[2020-03-23] MEDS: ENOXAPARIN NA (PORCINE) 40 MG/0.4 ML DISP.SYRIN SQ SCH (10:32)
[2020-03-23] MEDS: LISINOPRIL 10 MG TABLET PO SCH (10:33)
[2020-03-23] MEDS: amLODIPine BESYLATE 2.5 MG TABLET (FP) PO SCH (10:33)
[2020-03-23] MEDS: FERROUS SO4 325 MG TABLET (FP) PO SCH (14:31)
[2020-03-24] MEDS: methylPREDNISolone NA SUCC 125 MG/2 ML VIAL IVPB SCH (02:56)
[2020-03-24] MEDS: INSULIN SLIDING SCALE (NOVOLOG) 1 VIAL SQ SCH ×4 (06:20→21:33)
[2020-03-24] MEDS: metFORMIN HCL 500 MG TABLET (FP) PO SCH ×2 (06:20→17:12)
[2020-03-24] MEDS: INSULIN (NOVOLOG MIX 70/30) 100 UNITS/ML MDV SQ SCH ×2 (06:20→17:13)
[2020-03-24] MEDS: amLODIPine BESYLATE 2.5 MG TABLET (FP) PO SCH (10:35)
[2020-03-24] MEDS: FERROUS SO4 325 MG TABLET (FP) PO SCH (10:36)
[2020-03-24] MEDS: LISINOPRIL 10 MG TABLET PO SCH (10:36)
[2020-03-24] MEDS: ENOXAPARIN NA (PORCINE) 40 MG/0.4 ML DISP.SYRIN SQ SCH (10:36)
[2020-03-25] MEDS: metFORMIN HCL 500 MG TABLET (FP) PO SCH ×2 (07:47→18:02)
[2020-03-25] MEDS: INSULIN (NOVOLOG MIX 70/30) 100 UNITS/ML MDV SQ SCH ×2 (07:48→18:02)
[2020-03-25] MEDS: INSULIN SLIDING SCALE (NOVOLOG) 1 VIAL SQ SCH ×4 (07:48→21:22)
[2020-03-25] MEDS: FERROUS SO4 325 MG TABLET (FP) PO SCH (10:18)
[2020-03-25] MEDS: ENOXAPARIN NA (PORCINE) 40 MG/0.4 ML DISP.SYRIN SQ SCH (10:18)
[2020-03-25] MEDS: LISINOPRIL 10 MG TABLET PO SCH (10:19)
[2020-03-25] MEDS: amLODIPine BESYLATE 2.5 MG TABLET (FP) PO SCH (10:19)
[2020-03-25] MEDS: ACETAMINOPHEN 325 MG TABLET (FP) PO PRN ×2 (11:46→21:23)
[2020-03-26] MEDS: metFORMIN HCL 500 MG TABLET (FP) PO SCH ×3 (06:29→17:19)
[2020-03-26] MEDS: INSULIN SLIDING SCALE (NOVOLOG) 1 VIAL SQ SCH ×3 (06:30→17:19)
[2020-03-26] MEDS: INSULIN (NOVOLOG MIX 70/30) 100 UNITS/ML MDV SQ SCH ×2 (06:30→17:19)
[2020-03-26] MEDS: ACETAMINOPHEN 325 MG TABLET (FP) PO PRN (08:26)
[2020-03-26] MEDS: FERROUS SO4 325 MG TABLET (FP) PO SCH (10:39)
[2020-03-26] MEDS: ENOXAPARIN NA (PORCINE) 40 MG/0.4 ML DISP.SYRIN SQ SCH (10:40)
[2020-03-26] MEDS: amLODIPine BESYLATE 2.5 MG TABLET (FP) PO SCH (10:40)
[2020-03-26] MEDS: LISINOPRIL 10 MG TABLET PO SCH (10:44)
[2020-03-26 15:57] VITALS: BP 147/77; PULSE 102; TEMP 98.8
== END 2020-03-26 18:54 | DRG 43 ==
LOC: JER 12:45 → JERBED 18:51 → J6WEST-2 03-20 22:28
PROVIDERS: ADMIT Internal Medicine; ATTEND Internal Medicine
DX: G35 Multiple sclerosis (principal); I10 Essential (primary) hypertension; E78.5 Hyperlipidemia, unspecified; R47.81 Slurred speech; E11.65 Type 2 diabetes mellitus with hyperglycemia; E66.01 Morbid (severe) obesity due to excess calories; Z68.41 Body mass index [BMI] 40.0-44.9, adult; G81.91 Hemiplegia, unspecified affecting right dominant side; M50.223 Other cervical disc displacement at C6-C7 level; N83.209 Unspecified ovarian cyst, unspecified side; G93.9 Disorder of brain, unspecified
CPT/HCPCS: 36415; 70552-TC; 72142-TC; 80053; 81003; 82962; 84703; 85025; 87086; 97116-GP; 97162-GP; 99285-25; A9579; C9803; U0003

== ENCOUNTER 2020-07-10 05:09 | Inpatient (IN) | payer OTHER ==
[2020-07-10 06:12] LABS: EPI CELLS >36 /uL (0-25.1); HYALINE CASTS 0 /uL (0-3.1); URINE APPEARANCE TURBID; URINE BACTERIA 7992 /uL (0-1359); URINE BILIRUBIN NEGATIVE (NEGATIVE); URINE COLOR YELLOW; URINE GLUCOSE (UA) 2+ (NEGATIVE); URINE KETONE NEGATIVE (NEGATIVE); URINE LEUK ESTERASE 3+ (NEGATIVE); URINE NITRITE NEGATIVE (NEGATIVE); URINE PROTEIN 2+ (NEGATIVE); URINE RBC 94 /uL (0-23.9); URINE UROBILINOGEN 0.2 mg/dL (0.2-1.0); URINE WBC 2630 /uL (0-25.8)
[2020-07-10] MEDS ORDERED: ONDANSETRON 4 MG/2 ML VIAL IVPUSH ONE (06:39)
[2020-07-10] MEDS ORDERED: KETOROLAC TROMETHAMINE 15 MG/ML VIAL IVPUSH ONE (06:39)
[2020-07-10] MEDS ORDERED: SODIUM CHLORIDE 0.9% 500 ML INFUS.BAG IV ONE (06:39)
[2020-07-10] MEDS ORDERED: ONDANSETRON 4 MG/2 ML VIAL ONE (06:47)
[2020-07-10] MEDS ORDERED: KETOROLAC TROMETHAMINE 15 MG/ML VIAL ONE (06:47)
[2020-07-10 06:53] LABS: BASO % 0.4 % (0-2.0); EOS % 0.5 % (0-4.5); HEMATOCRIT 33.8 % (32.4-45.2); HEMOGLOBIN 11.3 GM/dL (10.7-15.3); LYMPH % 17.6 % (8-40); MCH 27.8 pg (25.7-33.7); MCHC 33.6 g/dl (32.0-36.0); MEAN CELL VOLUME 82.9 fl (80-96); MEAN PLT VOLUME 8.4 fl (7.5-11.1); MONO % 10.2 % (3.8-10.2); NEUT % 71.3 % (42.8-82.8); PLATELET COUNT 323 K/MM3 (134-434); RBC 4.07 M/mm3 (3.60-5.2); RDW 14.9 % (11.6-15.6); WHITE BLOOD COUNT 11.7 K/mm3 (4.0-10.0)
[2020-07-10 07:13] LABS: POTASSIUM 4.4 mmol/L (3.5-5.1)
[2020-07-10 07:15] LABS: CALCIUM 8.9 mg/dL (8.5-10.1)
[2020-07-10 07:16] LABS: ALBUMIN 3.6 g/dl (3.4-5.0)
[2020-07-10 07:19] LABS: CREATININE 0.9 mg/dL (0.55-1.3)
[2020-07-10 07:21] LABS: BILIRUBIN,TOTAL 0.4 mg/dL (0.2-1); TOT PROT 7.7 g/dl (6.4-8.2)
[2020-07-10 09:07] LABS: EPI CELLS 34 /uL (0-25.1); HYALINE CASTS 0 /uL (0-3.1); PH,URINE 5.5 (5.0-8.0); URINE APPEARANCE CLOUDY; URINE BACTERIA >9,000 /uL (0-1359); URINE BILIRUBIN NEGATIVE (NEGATIVE); URINE COLOR YELLOW; URINE GLUCOSE (UA) 2+ (NEGATIVE); URINE KETONE NEGATIVE (NEGATIVE); URINE LEUK ESTERASE 3+ (NEGATIVE); URINE NITRITE POSITIVE (NEGATIVE); URINE PROTEIN 2+ (NEGATIVE); URINE RBC 40 /uL (0-23.9); URINE UROBILINOGEN 0.2 mg/dL (0.2-1.0); URINE WBC 2462 /uL (0-25.8)
[2020-07-10 10:17] LABS: HIV INTERPRETATION NEGATIVE (NEGATIVE)
[2020-07-10] MEDS ORDERED: CEFTRIAXONE 1 GM/50 ML BAG ONE (11:33)
[2020-07-10] MEDS ORDERED: PIPERACILLIN/TAZOB 3.375 GM 3.375 GM in DEXTROSE 5%-WATER - 50 ML IVPB ONE (12:36)
[2020-07-10] MEDS ORDERED: PIPERACILLIN/TAZOB 3.375 GM 3.375 GM/50 ML BAG IVPB ONE (13:12)
[2020-07-10] MEDS ORDERED: ACETAMINOPHEN 1000 MG/100 ML VIAL (NON FORMULARY) IVPB ONE (14:13)
[2020-07-10] MEDS ORDERED: ACETAMINOPHEN INJECTION 100 ML IVPB ONE (14:15)
[2020-07-10 21:42] VITALS: BMI 40.8
[2020-07-10] MEDS: INSULIN SLIDING SCALE (NOVOLOG) 1 VIAL SQ SCH (22:21)
[2020-07-10] MEDS: SODIUM CHLORIDE 0.45% 1,000 ML IV SCH (22:24)
[2020-07-11] MEDS: ACETAMINOPHEN 325 MG TABLET (FP) PO PRN (04:04)
[2020-07-11] MEDS: metFORMIN HCL 500 MG TABLET (FP) PO SCH ×2 (06:45→16:53)
[2020-07-11] MEDS: INSULIN SLIDING SCALE (NOVOLOG) 1 VIAL SQ SCH ×4 (06:46→21:56)
[2020-07-11] MEDS: INSULIN (NOVOLOG MIX 70/30) 100 UNITS/ML MDV SQ SCH ×2 (06:47→16:54)
[2020-07-11] MEDS ORDERED: INSULIN SLIDING SCALE (NOVOLOG) 1 VIAL SQ SCH (07:00)
[2020-07-11 07:31] LABS: BASO % 0.5 % (0-2.0); EOS % 0.9 % (0-4.5); HEMOGLOBIN 10.1 GM/dL (10.7-15.3); LYMPH % 20.3 % (8-40); MCH 28.1 pg (25.7-33.7); MCHC 33.8 g/dl (32.0-36.0); MEAN CELL VOLUME 83.1 fl (80-96); MEAN PLT VOLUME 8.7 fl (7.5-11.1); MONO % 10.3 % (3.8-10.2); PLATELET COUNT 241 K/MM3 (134-434); RBC 3.61 M/mm3 (3.60-5.2); RDW 14.8 % (11.6-15.6); WHITE BLOOD COUNT 8.8 K/mm3 (4.0-10.0)
[2020-07-11 07:55] LABS: CREATININE 0.8 mg/dL (0.55-1.3)
[2020-07-11 07:57] LABS: BILIRUBIN,TOTAL 0.5 mg/dL (0.2-1); TOT PROT 6.3 g/dl (6.4-8.2)
[2020-07-11 08:00] LABS: ALBUMIN 2.8 g/dl (3.4-5.0)
[2020-07-11] MEDS: ENOXAPARIN NA (PORCINE) 40 MG/0.4 ML DISP.SYRIN SQ SCH (09:35)
[2020-07-11] MEDS: LISINOPRIL 10 MG TABLET PO SCH (09:36)
[2020-07-11] MEDS: FERROUS SO4 325 MG TABLET (FP) PO SCH (09:36)
[2020-07-11] MEDS: LACTOBACILLUS ACIDOPHILUS 1 TABLET PO SCH ×2 (09:36→21:52)
[2020-07-11] MEDS ORDERED: FLU VACCINE (FLULAVAL) PF 60 MCG/0.5 ML SYRINGE 2020-2021 IM ONE (10:00)
[2020-07-11] MEDS ORDERED: INSULIN (NOVOLOG) ASPART 100 UNITS/ML 10ML VIAL ONE (11:01)
[2020-07-11] MEDS: SODIUM CHLORIDE 0.45% 1,000 ML IV SCH (17:37)
[2020-07-12] MEDS ORDERED: PIPERACILLIN/TAZOBACTAM 3.375 GM VIAL IVPB ONE ×3 (02:20→16:49)
[2020-07-12] MEDS ORDERED: DEXTROSE 5%-WATER - 50 ML IVPB ONE ×4 (02:21→19:43)
[2020-07-12] MEDS: SODIUM CHLORIDE 0.45% 1,000 ML IV SCH ×2 (02:42→22:40)
[2020-07-12] MEDS: PIPERACILLIN/TAZOB 3.375 GM 3.375 GM in DEXTROSE 5%-WATER - 50 ML IVPB SCH ×3 (02:44→17:00)
[2020-07-12] MEDS: INSULIN SLIDING SCALE (NOVOLOG) 1 VIAL SQ SCH ×4 (06:16→22:41)
[2020-07-12] MEDS: metFORMIN HCL 500 MG TABLET (FP) PO SCH ×2 (06:17→16:38)
[2020-07-12] MEDS: INSULIN (NOVOLOG MIX 70/30) 100 UNITS/ML MDV SQ SCH ×2 (07:00→16:36)
[2020-07-12 07:35] LABS: BASO % 0.3 % (0-2.0); EOS % 0.8 % (0-4.5); HEMATOCRIT 30.6 % (32.4-45.2); HEMOGLOBIN 10.5 GM/dL (10.7-15.3); LYMPH % 20.7 % (8-40); MCHC 34.2 g/dl (32.0-36.0); MEAN PLT VOLUME 8.5 fl (7.5-11.1); MONO % 9.8 % (3.8-10.2); NEUT % 68.4 % (42.8-82.8); PLATELET COUNT 266 K/MM3 (134-434); RBC 3.73 M/mm3 (3.60-5.2); RDW 14.8 % (11.6-15.6); WHITE BLOOD COUNT 10.5 K/mm3 (4.0-10.0)
[2020-07-12 07:38] LABS: POTASSIUM 3.7 mmol/L (3.5-5.1)
[2020-07-12 07:41] LABS: ALBUMIN 2.8 g/dl (3.4-5.0); BLOOD UREA NITROGEN 7.3 mg/dL (7-18); CALCIUM 8.6 mg/dL (8.5-10.1)
[2020-07-12 07:44] LABS: CREATININE 0.8 mg/dL (0.55-1.3)
[2020-07-12 07:46] LABS: BILIRUBIN,TOTAL 0.4 mg/dL (0.2-1); TOT PROT 6.2 g/dl (6.4-8.2)
[2020-07-12] MEDS: FERROUS SO4 325 MG TABLET (FP) PO SCH (09:55)
[2020-07-12] MEDS: LACTOBACILLUS ACIDOPHILUS 1 TABLET PO SCH ×2 (09:55→22:41)
[2020-07-12] MEDS: ENOXAPARIN NA (PORCINE) 40 MG/0.4 ML DISP.SYRIN SQ SCH (09:55)
[2020-07-12] MEDS: LISINOPRIL 10 MG TABLET PO SCH (09:55)
[2020-07-12] MEDS ORDERED: INSULIN (NOVOLOG) ASPART 100 UNITS/ML 10ML VIAL ONE (11:04)
[2020-07-12] MEDS ORDERED: cefTRIAXone SODIUM 1 GM VIAL ONE (19:43)
[2020-07-12] MEDS: CEFTRIAXONE 1 GM in DEXTROSE 5%-WATER - 50 ML IVPB SCH (20:19)
[2020-07-12] MEDS: ACETAMINOPHEN 325 MG TABLET (FP) PO PRN (20:19)
[2020-07-13] MEDS: metFORMIN HCL 500 MG TABLET (FP) PO SCH ×2 (07:08→16:30)
[2020-07-13] MEDS: INSULIN SLIDING SCALE (NOVOLOG) 1 VIAL SQ SCH ×4 (07:11→22:02)
[2020-07-13] MEDS: INSULIN (NOVOLOG MIX 70/30) 100 UNITS/ML MDV SQ SCH ×2 (07:13→16:31)
[2020-07-13] MEDS ORDERED: cefTRIAXone SODIUM 1 GM VIAL ONE (08:48)
[2020-07-13] MEDS ORDERED: DEXTROSE 5%-WATER - 50 ML IVPB ONE (08:48)
[2020-07-13] MEDS: ENOXAPARIN NA (PORCINE) 40 MG/0.4 ML DISP.SYRIN SQ SCH (09:14)
[2020-07-13] MEDS: CEFTRIAXONE 1 GM in DEXTROSE 5%-WATER - 50 ML IVPB SCH (09:14)
[2020-07-13] MEDS: FERROUS SO4 325 MG TABLET (FP) PO SCH (09:15)
[2020-07-13] MEDS: LISINOPRIL 10 MG TABLET PO SCH (09:15)
[2020-07-13] MEDS: LACTOBACILLUS ACIDOPHILUS 1 TABLET PO SCH ×2 (09:15→22:02)
[2020-07-13] MEDS: SODIUM CHLORIDE 0.45% 1,000 ML IV SCH (15:44)
[2020-07-14] MEDS: metFORMIN HCL 500 MG TABLET (FP) PO SCH (06:00)
[2020-07-14] MEDS: INSULIN (NOVOLOG MIX 70/30) 100 UNITS/ML MDV SQ SCH (06:18)
[2020-07-14] MEDS: INSULIN SLIDING SCALE (NOVOLOG) 1 VIAL SQ SCH ×2 (06:18→11:59)
[2020-07-14] MEDS ORDERED: cefTRIAXone SODIUM 1 GM VIAL ONE (08:45)
[2020-07-14] MEDS ORDERED: DEXTROSE 5%-WATER - 50 ML IVPB ONE (08:45)
[2020-07-14] MEDS: FERROUS SO4 325 MG TABLET (FP) PO SCH (09:39)
[2020-07-14] MEDS: CEFTRIAXONE 1 GM in DEXTROSE 5%-WATER - 50 ML IVPB SCH (09:39)
[2020-07-14] MEDS: LISINOPRIL 10 MG TABLET PO SCH (09:39)
[2020-07-14] MEDS: ENOXAPARIN NA (PORCINE) 40 MG/0.4 ML DISP.SYRIN SQ SCH (09:40)
[2020-07-14] MEDS: LACTOBACILLUS ACIDOPHILUS 1 TABLET PO SCH (09:40)
[2020-07-14 13:04] VITALS: BP 149/78; PULSE 76; TEMP 98.8
== END 2020-07-14 15:42 | disposition home or self-care (01) | DRG 463 ==
LOC: JER 05:09 → JERBED 12:28 → J7W 20:30
PROVIDERS: ADMIT Internal Medicine; ATTEND Internal Medicine
DX: N39.0 Urinary tract infection, site not specified (principal); B96.20 Unspecified Escherichia coli [E. coli] as the cause of diseases classified elsewhere; I10 Essential (primary) hypertension; E11.9 Type 2 diabetes mellitus without complications; G35 Multiple sclerosis; E66.01 Morbid (severe) obesity due to excess calories; Z68.41 Body mass index [BMI] 40.0-44.9, adult; J45.909 Unspecified asthma, uncomplicated
CPT/HCPCS: 36415; 74176-TC; 80053; 80074; 81003; 82962; 84703; 85025; 86780; 87086; 87186; 87389; 87491; 87591; 87661; 99285-25; C9803; J0131; U0003; U0005

== ENCOUNTER 2020-10-12 14:52 | Inpatient (IN) | payer OTHER ==
[2020-10-12 15:14] VITALS: BMI 39.5
[2020-10-12] MEDS ORDERED: SODIUM CHLORIDE 1,000 ML IV STA (16:11)
[2020-10-12 17:43] LABS: BASO % 0.5 % (0-2.0); EOS % 0.9 % (0-4.5); HEMATOCRIT 35.7 % (32.4-45.2); HEMOGLOBIN 11.9 GM/dL (10.7-15.3); LYMPH % 23.7 % (8-40); MCH 27.7 pg (25.7-33.7); MCHC 33.4 g/dl (32.0-36.0); MEAN CELL VOLUME 82.9 fl (80-96); MEAN PLT VOLUME 8.1 fl (7.5-11.1); MONO % 7.6 % (3.8-10.2); NEUT % 67.3 % (42.8-82.8); PLATELET COUNT 322 10^3/uL (134-434); RDW 15.6 % (11.6-15.6); WHITE BLOOD COUNT 8.9 K/mm3 (4.0-10.0)
[2020-10-12 18:06] LABS: URINE APPEARANCE CLEAR; URINE BILIRUBIN NEGATIVE (NEGATIVE); URINE COLOR YELLOW; URINE GLUCOSE (UA) NEGATIVE (NEGATIVE); URINE KETONE NEGATIVE (NEGATIVE); URINE LEUK ESTERASE NEGATIVE (NEGATIVE); URINE NITRITE NEGATIVE (NEGATIVE); URINE PROTEIN NEGATIVE (NEGATIVE); URINE UROBILINOGEN 0.2 mg/dL (0.2-1.0)
[2020-10-12 18:10] LABS: ALBUMIN 3.9 g/dl (3.4-5.0); BLOOD UREA NITROGEN 14.6 mg/dL (7-18)
[2020-10-12 18:13] LABS: CREATININE 0.9 mg/dL (0.55-1.3)
[2020-10-12 18:15] LABS: BILIRUBIN,TOTAL 0.7 mg/dL (0.2-1); TOT PROT 7.7 g/dl (6.4-8.2)
[2020-10-12 19:08] LABS: ERYTHROCYTE SEDIMENTATION RATE 12 mm/hr (0-20)
[2020-10-12] MEDS ORDERED: methylPREDNISolone NA SUCC 125 MG/2 ML VIAL IVPUSH ONE (19:27)
[2020-10-12] MEDS ORDERED: PANTOPRAZOLE SODIUM 40 MG VIAL IVPB ONE (19:29)
[2020-10-12] MEDS ORDERED: methylPREDNISolone NA SUCC 125 MG/2 ML VIAL ONE (19:37)
[2020-10-12] MEDS ORDERED: FAMOTIDINE 20 MG/50 ML IVPB 20 MG/50 ML MG IVPB ONE (19:37)
[2020-10-12] MEDS ORDERED: PANTOPRAZOLE SODIUM 40 MG VIAL ONE (20:04)
[2020-10-13] MEDS ORDERED: hydrALAZINE HCL 10 MG TABLET PO ONE (02:21)
[2020-10-13] MEDS ORDERED: methylPREDNISolone NA SUCC 125 MG/2 ML VIAL ONE (03:36)
[2020-10-13] MEDS: methylPREDNISolone NA SUCC 125 MG/2 ML VIAL IVPB SCH ×2 (03:42→09:37)
[2020-10-13] MEDS: INSULIN SLIDING SCALE (NOVOLOG) 1 VIAL SQ SCH ×2 (06:29→10:23)
[2020-10-13] MEDS ORDERED: INSULIN (NOVOLOG MIX 70/30) 100 UNITS/ML MDV SQ SCH (07:00)
[2020-10-13 08:07] LABS: CHLORIDE 105 mmol/L (98-107); SODIUM 134 mmol/L (136-145)
[2020-10-13 08:11] LABS: BASO % 0.1 % (0-2.0); HEMATOCRIT 37.8 % (32.4-45.2); HEMOGLOBIN 12.2 GM/dL (10.7-15.3); LYMPH % 3.3 % (8-40); MCH 27.1 pg (25.7-33.7); MCHC 32.2 g/dl (32.0-36.0); MEAN CELL VOLUME 84.1 fl (80-96); MEAN PLT VOLUME 8.6 fl (7.5-11.1); MONO % 0.3 % (3.8-10.2); NEUT % 96.3 % (42.8-82.8); PLATELET COUNT 325 10^3/uL (134-434); RDW 15.7 % (11.6-15.6); WHITE BLOOD COUNT 12.6 K/mm3 (4.0-10.0)
[2020-10-13 08:12] LABS: CALCIUM 8.7 mg/dL (8.5-10.1)
[2020-10-13 08:13] LABS: ALBUMIN 3.8 g/dl (3.4-5.0); ANION GAP 10 MMOL/L (8-16); BLOOD UREA NITROGEN 14.7 mg/dL (7-18); CO2 20 mmol/L (21-32)
[2020-10-13 08:15] LABS: SGOT/AST 10 U/L (15-37); SGPT/ALT 16 U/L (13-61)
[2020-10-13 08:16] LABS: CREATININE 0.9 mg/dL (0.55-1.3)
[2020-10-13 08:17] LABS: BILIRUBIN,TOTAL 0.4 mg/dL (0.2-1); TOT PROT 7.9 g/dl (6.4-8.2)
[2020-10-13 08:18] LABS: ALK PHOS 82 U/L (45-117)
[2020-10-13 09:13] LABS: GLUCOSE,RANDOM 432 mg/dL (74-106)
[2020-10-13] MEDS ORDERED: LISINOPRIL 10 MG TABLET PO SCH (10:00)
[2020-10-13] MEDS ORDERED: ENOXAPARIN NA (PORCINE) 40 MG/0.4 ML DISP.SYRIN SQ SCH (10:00)
[2020-10-13] MEDS ORDERED: FERROUS SO4 325 MG TABLET (FP) PO SCH (10:00)
[2020-10-13] MEDS ORDERED: LACTOBACILLUS ACIDOPHILUS 1 TABLET PO SCH (10:00)
[2020-10-13] MEDS ORDERED: PANTOPRAZOLE 40 MG TABLET PO SCH (10:00)
[2020-10-13 10:14] LABS: ANISOCYTOSIS 0; MACROCYTOSIS 0; PLATELET ESTIMATE NORMAL
[2020-10-13] MEDS ORDERED: INSULIN (NOVOLOG) ASPART 100 UNITS/ML 10ML VIAL ONE (10:19)
[2020-10-13 14:02] VITALS: BP 160/96; PULSE 107; TEMP 98.1
== END 2020-10-13 14:37 | disposition home or self-care (01) | DRG 43 ==
LOC: JER 14:52 → JERBED 19:33 → J7W 10-13 04:05
PROVIDERS: ADMIT Internal Medicine; ATTEND Internal Medicine
DX: G35 Multiple sclerosis (principal); E11.9 Type 2 diabetes mellitus without complications; J45.909 Unspecified asthma, uncomplicated; I10 Essential (primary) hypertension; E66.9 Obesity, unspecified; Z68.39 Body mass index [BMI] 39.0-39.9, adult
CPT/HCPCS: 36415; 70553-TC; 80053; 81003; 82962; 84703; 85025; 85651; 86140; 87086; 93005; 93010; 97116-GP; 97161-GP; 99285-25; C9803; U0003; U0005

== ENCOUNTER 2020-12-04 14:10 | Inpatient (IN) | payer OTHER ==
[2020-12-04] MEDS ORDERED: SODIUM CHLORIDE 1,000 ML IV STA (15:09)
[2020-12-04 15:53] LABS: BASO % 0.4 % (0-2.0); HEMATOCRIT 34.9 % (32.4-45.2); HEMOGLOBIN 11.8 GM/dL (10.7-15.3); MCH 28.5 pg (25.7-33.7); MCHC 33.9 g/dl (32.0-36.0); MEAN CELL VOLUME 84.1 fl (80-96); MEAN PLT VOLUME 7.6 fl (7.5-11.1); MONO % 8.4 % (3.8-10.2); NEUT % 68.2 % (42.8-82.8); PLATELET COUNT 334 10^3/uL (134-434); RBC 4.15 M/mm3 (3.60-5.2); RDW 14.6 % (11.6-15.6); WHITE BLOOD COUNT 8.5 K/mm3 (4.0-10.0)
[2020-12-04 15:59] LABS: HCG,QUALITATIVE URINE Negative
[2020-12-04 16:07] LABS: URINE APPEARANCE CLEAR; URINE BILIRUBIN NEGATIVE (NEGATIVE); URINE COLOR YELLOW; URINE GLUCOSE (UA) TRACE (NEGATIVE); URINE KETONE NEGATIVE (NEGATIVE); URINE LEUK ESTERASE NEGATIVE (NEGATIVE); URINE NITRITE NEGATIVE (NEGATIVE); URINE PROTEIN TRACE (NEGATIVE); URINE UROBILINOGEN 0.2 mg/dL (0.2-1.0)
[2020-12-04 16:15] LABS: CALCIUM 9.2 mg/dL (8.5-10.1)
[2020-12-04 16:16] LABS: ALBUMIN 3.6 g/dl (3.4-5.0); BLOOD UREA NITROGEN 8.6 mg/dL (7-18)
[2020-12-04 16:19] LABS: CREATININE 0.8 mg/dL (0.55-1.3)
[2020-12-04 16:20] LABS: BILIRUBIN,TOTAL 0.5 mg/dL (0.2-1)
[2020-12-04 16:21] LABS: TOT PROT 7.4 g/dl (6.4-8.2)
[2020-12-04] MEDS ORDERED: methylPREDNISolone NA SUCC 125 MG/2 ML VIAL IVPB ONE (16:44)
[2020-12-04] MEDS ORDERED: methylPREDNISolone NA SUCC 125 MG/2 ML VIAL ONE (17:11)
[2020-12-04 23:57] VITALS: BMI 38.9
[2020-12-05] MEDS: methylPREDNISolone NA SUCC 125 MG/2 ML VIAL IVPB SCH ×4 (02:50→21:15)
[2020-12-05] MEDS ORDERED: INSULIN (NOVOLOG) ASPART 100 UNITS/ML 10ML VIAL ONE (10:12)
[2020-12-05] MEDS: LISINOPRIL 10 MG TABLET PO SCH (10:32)
[2020-12-05] MEDS: INSULIN SLIDING SCALE (NOVOLOG) 1 VIAL SQ SCH ×3 (10:32→21:15)
[2020-12-05] MEDS ORDERED: ENOXAPARIN NA (PORCINE) 30 MG/0.3 ML DISP.SYRIN SQ SCH (11:15)
[2020-12-05] MEDS: metFORMIN HCL 500 MG TABLET (FP) PO SCH (17:27)
[2020-12-06] MEDS: methylPREDNISolone NA SUCC 125 MG/2 ML VIAL IVPB SCH ×4 (02:15→22:08)
[2020-12-06] MEDS: INSULIN SLIDING SCALE (NOVOLOG) 1 VIAL SQ SCH ×4 (06:08→23:10)
[2020-12-06] MEDS: metFORMIN HCL 500 MG TABLET (FP) PO SCH ×2 (06:08→16:38)
[2020-12-06] MEDS: HEPARIN NA (PORCINE) 5,000 UNITS/ML 1ML VIAL SQ SCH ×2 (09:57→22:24)
[2020-12-06] MEDS: LISINOPRIL 10 MG TABLET PO SCH (09:58)
[2020-12-06] MEDS ORDERED: INSULIN (NOVOLOG) ASPART 100 UNITS/ML 10ML VIAL ONE (23:09)
[2020-12-07] MEDS: methylPREDNISolone NA SUCC 125 MG/2 ML VIAL IVPB SCH ×4 (02:51→23:03)
[2020-12-07] MEDS: metFORMIN HCL 500 MG TABLET (FP) PO SCH ×2 (06:48→16:18)
[2020-12-07] MEDS: INSULIN SLIDING SCALE (NOVOLOG) 1 VIAL SQ SCH ×4 (06:51→23:17)
[2020-12-07] MEDS: HEPARIN NA (PORCINE) 5,000 UNITS/ML 1ML VIAL SQ SCH ×2 (10:25→22:10)
[2020-12-07] MEDS: LISINOPRIL 10 MG TABLET PO SCH (10:26)
[2020-12-08] MEDS ORDERED: INSULIN (NOVOLOG) ASPART 100 UNITS/ML 10ML VIAL SQ ONE (01:47)
[2020-12-08 02:11] LABS: CALCIUM 9.5 mg/dL (8.5-10.1)
[2020-12-08 02:12] LABS: BLOOD UREA NITROGEN 19.2 mg/dL (7-18)
[2020-12-08] MEDS: methylPREDNISolone NA SUCC 125 MG/2 ML VIAL IVPB SCH ×4 (04:30→22:30)
[2020-12-08] MEDS: metFORMIN HCL 500 MG TABLET (FP) PO SCH ×2 (07:14→17:12)
[2020-12-08] MEDS: INSULIN SLIDING SCALE (NOVOLOG) 1 VIAL SQ SCH ×4 (07:15→22:39)
[2020-12-08] MEDS: LISINOPRIL 10 MG TABLET PO SCH (09:19)
[2020-12-08] MEDS: HEPARIN NA (PORCINE) 5,000 UNITS/ML 1ML VIAL SQ SCH ×3 (09:19→22:39)
[2020-12-08 09:33] LABS: HEMATOCRIT 36.2 % (32.4-45.2); HEMOGLOBIN 12.3 GM/dL (10.7-15.3); MCH 28.6 pg (25.7-33.7); MCHC 33.9 g/dl (32.0-36.0); MEAN CELL VOLUME 84.4 fl (80-96); MEAN PLT VOLUME 8.7 fl (7.5-11.1); PLATELET COUNT 360 10^3/uL (134-434); RBC 4.29 M/mm3 (3.60-5.2); RDW 14.9 % (11.6-15.6); WHITE BLOOD COUNT 19.5 K/mm3 (4.0-10.0)
[2020-12-08 10:01] LABS: ANISOCYTOSIS 0; HELMET CELLS 0; HOWELL-JOLLY BODIES 0; MACROCYTOSIS 0; OVALOCYTE 0; PLATELET ESTIMATE NORMAL; ROULEAU 0; SICKELED CELLS 0; TARGET CELLS 0; TEAR DROP CELLS 0; TOXIC GRANULATION 0
[2020-12-08 10:09] LABS: BLOOD UREA NITROGEN 18.2 mg/dL (7-18)
[2020-12-08 10:10] LABS: CALCIUM 9.3 mg/dL (8.5-10.1)
[2020-12-08 10:11] LABS: ALBUMIN 3.4 g/dl (3.4-5.0)
[2020-12-08 10:14] LABS: BILIRUBIN,TOTAL 0.8 mg/dL (0.2-1)
[2020-12-08 10:15] LABS: TOT PROT 7.4 g/dl (6.4-8.2)
[2020-12-08] MEDS ORDERED: INSULIN (LEVEMIR) 100 UNITS/ML UNITS SQ ONE (13:30)
[2020-12-08] MEDS ORDERED: INSULIN (NOVOLOG) ASPART 100 UNITS/ML 10ML VIAL ONE (17:11)
[2020-12-09] MEDS: methylPREDNISolone NA SUCC 125 MG/2 ML VIAL IVPB SCH ×4 (02:36→21:35)
[2020-12-09] MEDS: metFORMIN HCL 500 MG TABLET (FP) PO SCH ×2 (06:05→15:51)
[2020-12-09] MEDS: INSULIN SLIDING SCALE (NOVOLOG) 1 VIAL SQ SCH ×5 (06:05→21:48)
[2020-12-09] MEDS: LISINOPRIL 10 MG TABLET PO SCH ×2 (07:05→09:34)
[2020-12-09] MEDS: HEPARIN NA (PORCINE) 5,000 UNITS/ML 1ML VIAL SQ SCH ×2 (09:34→21:49)
[2020-12-09] MEDS ORDERED: INSULIN (NOVOLOG) ASPART 100 UNITS/ML 10ML VIAL ONE (11:53)
[2020-12-09] MEDS ORDERED: amLODIPine BESYLATE 2.5 MG TABLET (FP) PO ONE (18:30)
[2020-12-09] MEDS ORDERED: INSULIN (LEVEMIR) 100 UNITS/ML UNITS SQ SCH (22:00)
[2020-12-10] MEDS: metFORMIN HCL 500 MG TABLET (FP) PO SCH (06:13)
[2020-12-10] MEDS: INSULIN SLIDING SCALE (NOVOLOG) 1 VIAL SQ SCH ×2 (06:16→12:04)
[2020-12-10] MEDS: LISINOPRIL 10 MG TABLET PO SCH (09:06)
[2020-12-10] MEDS: HEPARIN NA (PORCINE) 5,000 UNITS/ML 1ML VIAL SQ SCH (09:06)
[2020-12-10] MEDS ORDERED: predniSONE 20 MG TABLET (UD) PO SCH ×2 (10:00)
[2020-12-10 11:21] VITALS: BP 180/99; PULSE 72; TEMP 98.4
[2020-12-10] MEDS ORDERED: amLODIPine BESYLATE 2.5 MG TABLET (FP) PO ONE (12:30)
== END 2020-12-10 16:14 | disposition home or self-care (01) | DRG 43 ==
LOC: JER 14:10 → JERBED 16:53 → J6S 23:24
PROVIDERS: ADMIT Internal Medicine; ATTEND Internal Medicine
DX: G35 Multiple sclerosis (principal); I10 Essential (primary) hypertension; E66.9 Obesity, unspecified; Z68.38 Body mass index [BMI] 38.0-38.9, adult; E11.65 Type 2 diabetes mellitus with hyperglycemia; E11.42 Type 2 diabetes mellitus with diabetic polyneuropathy; F41.9 Anxiety disorder, unspecified; Z79.4 Long term (current) use of insulin
CPT/HCPCS: 36415; 71046-TC-FY; 72141-TC; 80048; 80053; 81003; 82947; 82962; 84703; 85025; 93005; 93010; 99285-25; C9803; J1644; U0003; U0005

== ENCOUNTER 2021-05-31 09:38 | Inpatient (IN) | payer OTHER ==
[2021-05-31] MEDS ORDERED: morphine CARPU-JECT 4 MG/1 ML DISP.SYRIN IVPUSH ONE ×2 (10:43→13:55)
[2021-05-31] MEDS ORDERED: morphine SULFATE 4 MG/ML VIAL ONE ×2 (11:01→14:20)
[2021-05-31] MEDS ORDERED: PIPERACILLIN/TAZOB 2.25 GM 2.25 GM in DEXTROSE 5%-WATER - 50 ML IVPB ONE (11:23)
[2021-05-31] MEDS ORDERED: VANCOMYCIN/WATER 1,250 MG/250 ML BAG IVPB ONE (11:30)
[2021-05-31 12:07] LABS: BASO % 0.5 % (0-2.0); EOS % 0.4 % (0-4.5); HEMOGLOBIN 9.7 GM/dL (10.7-15.3); MCH 28.3 pg (25.7-33.7); MCHC 34.6 g/dl (32.0-36.0); MEAN CELL VOLUME 81.8 fl (80-96); MEAN PLT VOLUME 7.4 fl (7.5-11.1); MONO % 9.8 % (3.8-10.2); NEUT % 74.3 % (42.8-82.8); PLATELET COUNT 390 10^3/uL (134-434); RBC 3.43 M/mm3 (3.60-5.2); RDW 13.8 % (11.6-15.6); WHITE BLOOD COUNT 10.2 K/mm3 (4.0-10.0)
[2021-05-31 12:15] LABS: EPI CELLS 10 /uL (0-25.1); HYALINE CASTS 9 /uL (0-3.1); URINE APPEARANCE CLEAR; URINE BACTERIA 852 /uL (0-1359); URINE BILIRUBIN NEGATIVE (NEGATIVE); URINE COLOR YELLOW; URINE GLUCOSE (UA) 3+ (NEGATIVE); URINE KETONE 1+ (NEGATIVE); URINE LEUK ESTERASE 1+ (NEGATIVE); URINE NITRITE NEGATIVE (NEGATIVE); URINE PROTEIN 2+ (NEGATIVE); URINE RBC 5 /uL (0-23.9); URINE UROBILINOGEN 0.2 mg/dL (0.2-1.0); URINE WBC 136 /uL (0-25.8)
[2021-05-31] MEDS ORDERED: PIPERACILLIN/TAZOB 2.25 GM 2.25 GM/50 ML BAG IVPB ONE (12:57)
[2021-05-31] MEDS ORDERED: morphine SULFATE 4 MG/ML VIAL IVPUSH ONE (13:28)
[2021-05-31 13:33] LABS: YEAST MODERATE (NEGATIVE)
[2021-05-31 13:46] LABS: ALBUMIN 2.9 g/dl (3.4-5.0); BLOOD UREA NITROGEN 7.9 mg/dL (7-18); CALCIUM 9.2 mg/dL (8.5-10.1)
[2021-05-31 13:49] LABS: CREATININE 0.9 mg/dL (0.55-1.3)
[2021-05-31 13:50] LABS: BILIRUBIN,TOTAL 0.6 mg/dL (0.2-1); TOT PROT 7.9 g/dl (6.4-8.2)
[2021-05-31] MEDS ORDERED: PROPOFOL 20 ML ONE (14:20)
[2021-05-31] MEDS ORDERED: MIDAZOLAM HCL 2 MG/2 ML SINGLE DOSE VIAL ONE ×3 (14:20→14:56)
[2021-05-31] MEDS ORDERED: VANCOMYCIN HCL 1250 MG IVPB ONE (14:50)
[2021-05-31] MEDS ORDERED: LIDOCAINE 1%/EPI 1:100000 (20 ML MULTI DOSE VIAL) ONE (14:57)
[2021-05-31] MEDS ORDERED: KETAMINE HCL 200 MG/20 ML VIAL ONE (14:59)
[2021-05-31] MEDS ORDERED: LIDOCAINE 1%/EPI 1:100000 (20 ML MULTI DOSE VIAL) IJ ONE (15:01)
[2021-05-31] MEDS ORDERED: ACETAMINOPHEN 1000 MG/100 ML BAG IVPB ONE ×3 (15:27→22:30)
[2021-05-31] MEDS ORDERED: ONDANSETRON 4 MG/2 ML VIAL IVPUSH PRN (15:28)
[2021-05-31] MEDS ORDERED: LABETALOL HCL 5 MG/1 ML (200MG/40ML VIAL) IVPB ONE (15:29)
[2021-05-31] MEDS ORDERED: DOCUSATE SODIUM 100 MG CAPSULE (FP) PO PRN (16:56)
[2021-05-31] MEDS ORDERED: ACETAMINOPHEN 500 MG TABLET (FP) PO PRN (16:56)
[2021-05-31] MEDS: LACTATED RINGERS SOLUTION 1,000 ML IV SCH (17:41)
[2021-05-31] MEDS: INSULIN SLIDING SCALE (NOVOLOG) 1 VIAL SQ SCH ×2 (17:44→22:59)
[2021-05-31 17:53] VITALS: BMI 42.7
[2021-05-31] MEDS: oxyCODONE HCL 5 MG TABLET PO PRN (18:09)
[2021-05-31] MEDS: TOPIRAMATE 25 MG TABLET PO SCH (20:46)
[2021-05-31] MEDS: KETOROLAC TROMETHAMINE 30 MG/1 ML VIAL IVPUSH PRN (22:00)
[2021-05-31] MEDS: PRAMIPEXOLE DIHYDROCHLORIDE 0.25 MG TABLET PO SCH (23:00)
[2021-06-01] MEDS: oxyCODONE HCL 5 MG TABLET PO PRN ×3 (05:39→18:22)
[2021-06-01] MEDS: KETOROLAC TROMETHAMINE 30 MG/1 ML VIAL IVPUSH PRN ×3 (06:12→21:45)
[2021-06-01] MEDS: LACTATED RINGERS SOLUTION 1,000 ML IV SCH ×3 (06:33→15:30)
[2021-06-01] MEDS: INSULIN SLIDING SCALE (NOVOLOG) 1 VIAL SQ SCH ×4 (06:35→21:57)
[2021-06-01] MEDS ORDERED: INSULIN (NOVOLOG) ASPART 100 UNITS/ML 10ML VIAL ONE (07:14)
[2021-06-01 08:53] LABS: EOS % 1.9 % (0-4.5); HEMATOCRIT 26.7 % (32.4-45.2); HEMOGLOBIN 8.9 GM/dL (10.7-15.3); LYMPH % 21.1 % (8-40); MCH 27.8 pg (25.7-33.7); MCHC 33.5 g/dl (32.0-36.0); MEAN CELL VOLUME 82.9 fl (80-96); MEAN PLT VOLUME 7.7 fl (7.5-11.1); MONO % 11.3 % (3.8-10.2); NEUT % 64.7 % (42.8-82.8); PLATELET COUNT 372 10^3/uL (134-434); RBC 3.21 M/mm3 (3.60-5.2); RDW 13.8 % (11.6-15.6); WHITE BLOOD COUNT 7.3 K/mm3 (4.0-10.0)
[2021-06-01] MEDS: TOPIRAMATE 25 MG TABLET PO SCH ×2 (09:01→09:04)
[2021-06-01 09:16] LABS: CALCIUM 8.4 mg/dL (8.5-10.1)
[2021-06-01 09:17] LABS: BLOOD UREA NITROGEN 5.7 mg/dL (7-18)
[2021-06-01 09:20] LABS: CREATININE 0.8 mg/dL (0.55-1.3)
[2021-06-01 09:21] LABS: BILIRUBIN,TOTAL 0.5 mg/dL (0.2-1); TOT PROT 6.4 g/dl (6.4-8.2)
[2021-06-01 09:23] LABS: ALBUMIN 2.3 g/dl (3.4-5.0)
[2021-06-01] MEDS ORDERED: PIPERACILLIN/TAZOBACTAM 3.375 GM VIAL IVPB ONE (16:49)
[2021-06-01] MEDS ORDERED: DEXTROSE 5%-WATER - 50 ML IVPB ONE (16:49)
[2021-06-01] MEDS: PIPERACILLIN/TAZOB 3.375 GM 3.375 GM in DEXTROSE 5%-WATER - 50 ML IVPB SCH (17:20)
[2021-06-01] MEDS: PRAMIPEXOLE DIHYDROCHLORIDE 0.25 MG TABLET PO SCH (21:48)
[2021-06-02] MEDS: oxyCODONE HCL 5 MG TABLET PO PRN ×3 (01:25→19:03)
[2021-06-02] MEDS ORDERED: PIPERACILLIN/TAZOBACTAM 3.375 GM VIAL IVPB ONE ×3 (01:43→17:40)
[2021-06-02] MEDS ORDERED: DEXTROSE 5%-WATER - 50 ML IVPB ONE ×3 (01:43→17:40)
[2021-06-02] MEDS: PIPERACILLIN/TAZOB 3.375 GM 3.375 GM in DEXTROSE 5%-WATER - 50 ML IVPB SCH ×3 (01:53→17:48)
[2021-06-02] MEDS: KETOROLAC TROMETHAMINE 30 MG/1 ML VIAL IVPUSH PRN ×2 (06:18→14:29)
[2021-06-02] MEDS: INSULIN SLIDING SCALE (NOVOLOG) 1 VIAL SQ SCH ×3 (06:19→16:17)
[2021-06-02] MEDS: metFORMIN HCL 500 MG TABLET (FP) PO SCH ×2 (06:20→16:16)
[2021-06-02] MEDS: INSULIN (NOVOLOG MIX 70/30) 100 UNITS/ML MDV SQ SCH ×2 (06:20→16:16)
[2021-06-02] MEDS ORDERED: INSULIN (NOVOLOG) ASPART 100 UNITS/ML 10ML VIAL ONE (07:44)
[2021-06-02] MEDS: TOPIRAMATE 25 MG TABLET PO SCH ×2 (09:16→09:27)
[2021-06-02] MEDS ORDERED: LISINOPRIL 20 MG TABLET PO SCH (10:00)
[2021-06-02] MEDS: LACTATED RINGERS SOLUTION 1,000 ML IV SCH (16:43)
[2021-06-02] MEDS ORDERED: metFORMIN HCL 500 MG TABLET (FP) PO ONE (16:50)
[2021-06-02] MEDS ORDERED: INSULIN (NOVOLOG MIX 70/30) 100 UNITS/ML MDV SQ ONE (16:50)
[2021-06-02] MEDS: PRAMIPEXOLE DIHYDROCHLORIDE 0.25 MG TABLET PO SCH (22:17)
[2021-06-03] MEDS ORDERED: DEXTROSE 5%-WATER - 50 ML IVPB ONE ×3 (01:11→17:31)
[2021-06-03] MEDS ORDERED: PIPERACILLIN/TAZOBACTAM 3.375 GM VIAL IVPB ONE ×3 (01:11→17:31)
[2021-06-03] MEDS: PIPERACILLIN/TAZOB 3.375 GM 3.375 GM in DEXTROSE 5%-WATER - 50 ML IVPB SCH ×3 (01:49→17:37)
[2021-06-03] MEDS: KETOROLAC TROMETHAMINE 30 MG/1 ML VIAL IVPUSH PRN ×2 (02:28→15:35)
[2021-06-03] MEDS ORDERED: LIDOCAINE HCL 1%, 10 MG/ML (20ML VIAL) ONE (07:56)
[2021-06-03] MEDS ORDERED: ONDANSETRON 4 MG/2 ML VIAL IVPUSH PRN ×2 (08:03→09:51)
[2021-06-03] MEDS ORDERED: oxyCODONE HCL 5 MG TABLET PO PRN ×2 (08:03→09:51)
[2021-06-03] MEDS ORDERED: PROMETHAZINE HCL 25 MG/1 ML VIAL IVPUSH PRN ×2 (08:03→09:51)
[2021-06-03] MEDS ORDERED: MIDAZOLAM HCL 2 MG/2 ML SINGLE DOSE VIAL ONE ×2 (08:14)
[2021-06-03] MEDS ORDERED: PROPOFOL 20 ML ONE ×2 (08:14)
[2021-06-03] MEDS ORDERED: LIDOCAINE HCL 1%, 10 MG/ML (20ML VIAL) NR ONE (08:20)
[2021-06-03] MEDS ORDERED: DOCUSATE SODIUM 100 MG CAPSULE (FP) PO PRN (09:51)
[2021-06-03] MEDS: LACTATED RINGERS SOLUTION 1,000 ML IV SCH (10:45)
[2021-06-03] MEDS: TOPIRAMATE 25 MG TABLET PO SCH (10:45)
[2021-06-03] MEDS: LISINOPRIL 20 MG TABLET PO SCH (10:46)
[2021-06-03] MEDS ORDERED: INSULIN (NOVOLOG) ASPART 100 UNITS/ML 10ML VIAL ONE ×2 (11:06→21:36)
[2021-06-03] MEDS: INSULIN SLIDING SCALE (NOVOLOG) 1 VIAL SQ SCH ×3 (11:35→21:54)
[2021-06-03] MEDS: INSULIN (NOVOLOG MIX 70/30) 100 UNITS/ML MDV SQ SCH (17:37)
[2021-06-03] MEDS: metFORMIN HCL 500 MG TABLET (FP) PO SCH (17:37)
[2021-06-03] MEDS: oxyCODONE HCL 5 MG TABLET PO PRN ×2 (17:43→21:47)
[2021-06-03] MEDS: PRAMIPEXOLE DIHYDROCHLORIDE 0.25 MG TABLET PO SCH (21:47)
[2021-06-04] MEDS ORDERED: PIPERACILLIN/TAZOBACTAM 3.375 GM VIAL IVPB ONE ×3 (01:40→18:02)
[2021-06-04] MEDS ORDERED: DEXTROSE 5%-WATER - 50 ML IVPB ONE ×3 (01:40→18:02)
[2021-06-04] MEDS: PIPERACILLIN/TAZOB 3.375 GM 3.375 GM in DEXTROSE 5%-WATER - 50 ML IVPB SCH ×3 (01:51→18:09)
[2021-06-04] MEDS: KETOROLAC TROMETHAMINE 30 MG/1 ML VIAL IVPUSH PRN ×2 (06:28→20:58)
[2021-06-04] MEDS: metFORMIN HCL 500 MG TABLET (FP) PO SCH ×2 (06:28→17:27)
[2021-06-04] MEDS: INSULIN SLIDING SCALE (NOVOLOG) 1 VIAL SQ SCH ×4 (07:29→21:28)
[2021-06-04] MEDS: INSULIN (NOVOLOG MIX 70/30) 100 UNITS/ML MDV SQ SCH ×2 (07:29→17:26)
[2021-06-04 08:57] LABS: BASO % 0.3 % (0-2.0); EOS % 2.1 % (0-4.5); HEMATOCRIT 28.3 % (32.4-45.2); HEMOGLOBIN 9.7 GM/dL (10.7-15.3); LYMPH % 25.3 % (8-40); MCH 28.2 pg (25.7-33.7); MCHC 34.1 g/dl (32.0-36.0); MEAN CELL VOLUME 82.6 fl (80-96); MEAN PLT VOLUME 7.1 fl (7.5-11.1); MONO % 11.1 % (3.8-10.2); NEUT % 61.2 % (42.8-82.8); PLATELET COUNT 366 10^3/uL (134-434); RBC 3.43 M/mm3 (3.60-5.2); RDW 14.2 % (11.6-15.6); WHITE BLOOD COUNT 7.5 K/mm3 (4.0-10.0)
[2021-06-04] MEDS: TOPIRAMATE 25 MG TABLET PO SCH (09:04)
[2021-06-04] MEDS: LISINOPRIL 20 MG TABLET PO SCH (09:04)
[2021-06-04 09:28] LABS: BLOOD UREA NITROGEN 5.4 mg/dL (7-18)
[2021-06-04 09:29] LABS: ALBUMIN 2.6 g/dl (3.4-5.0)
[2021-06-04 09:31] LABS: CREATININE 0.8 mg/dL (0.55-1.3)
[2021-06-04 09:33] LABS: BILIRUBIN,TOTAL 0.7 mg/dL (0.2-1); TOT PROT 7.3 g/dl (6.4-8.2)
[2021-06-04] MEDS: LACTATED RINGERS SOLUTION 1,000 ML IV SCH ×2 (10:00→16:05)
[2021-06-04] MEDS ORDERED: INSULIN (NOVOLOG) ASPART 100 UNITS/ML 10ML VIAL ONE ×3 (11:01→17:24)
[2021-06-04] MEDS: PRAMIPEXOLE DIHYDROCHLORIDE 0.25 MG TABLET PO SCH (21:28)
[2021-06-05] MEDS ORDERED: DEXTROSE 5%-WATER - 50 ML IVPB ONE ×3 (01:52→16:58)
[2021-06-05] MEDS ORDERED: PIPERACILLIN/TAZOBACTAM 3.375 GM VIAL IVPB ONE ×3 (01:52→16:58)
[2021-06-05] MEDS: PIPERACILLIN/TAZOB 3.375 GM 3.375 GM in DEXTROSE 5%-WATER - 50 ML IVPB SCH ×3 (02:37→17:20)
[2021-06-05] MEDS: INSULIN SLIDING SCALE (NOVOLOG) 1 VIAL SQ SCH ×4 (06:15→21:08)
[2021-06-05] MEDS: INSULIN (NOVOLOG MIX 70/30) 100 UNITS/ML MDV SQ SCH ×2 (06:16→16:44)
[2021-06-05] MEDS: metFORMIN HCL 500 MG TABLET (FP) PO SCH ×2 (06:18→16:26)
[2021-06-05] MEDS: LISINOPRIL 20 MG TABLET PO SCH (09:03)
[2021-06-05] MEDS: TOPIRAMATE 25 MG TABLET PO SCH (09:03)
[2021-06-05] MEDS: LACTATED RINGERS SOLUTION 1,000 ML IV SCH (09:08)
[2021-06-05] MEDS: KETOROLAC TROMETHAMINE 30 MG/1 ML VIAL IVPUSH PRN (16:26)
[2021-06-05] MEDS: ACETAMINOPHEN 500 MG TABLET (FP) PO PRN (20:38)
[2021-06-05] MEDS: PRAMIPEXOLE DIHYDROCHLORIDE 0.25 MG TABLET PO SCH (21:07)
[2021-06-06] MEDS ORDERED: DEXTROSE 5%-WATER - 50 ML IVPB ONE ×3 (02:31→16:32)
[2021-06-06] MEDS ORDERED: PIPERACILLIN/TAZOBACTAM 3.375 GM VIAL IVPB ONE ×3 (02:31→16:32)
[2021-06-06] MEDS: PIPERACILLIN/TAZOB 3.375 GM 3.375 GM in DEXTROSE 5%-WATER - 50 ML IVPB SCH ×3 (02:37→16:59)
[2021-06-06] MEDS: metFORMIN HCL 500 MG TABLET (FP) PO SCH ×2 (06:28→16:57)
[2021-06-06] MEDS: INSULIN (NOVOLOG MIX 70/30) 100 UNITS/ML MDV SQ SCH ×2 (06:33→16:57)
[2021-06-06] MEDS: INSULIN SLIDING SCALE (NOVOLOG) 1 VIAL SQ SCH ×4 (06:33→21:34)
[2021-06-06] MEDS ORDERED: INSULIN (NOVOLOG) ASPART 100 UNITS/ML 10ML VIAL ONE ×2 (09:26→20:56)
[2021-06-06 09:36] LABS: BASO % 0.5 % (0-2.0); EOS % 1.5 % (0-4.5); HEMATOCRIT 30.4 % (32.4-45.2); HEMOGLOBIN 10.3 GM/dL (10.7-15.3); LYMPH % 25.5 % (8-40); MCH 27.9 pg (25.7-33.7); MCHC 33.8 g/dl (32.0-36.0); MEAN CELL VOLUME 82.5 fl (80-96); MEAN PLT VOLUME 7.1 fl (7.5-11.1); MONO % 8.7 % (3.8-10.2); NEUT % 63.8 % (42.8-82.8); PLATELET COUNT 489 10^3/uL (134-434); RBC 3.68 M/mm3 (3.60-5.2); RDW 14.6 % (11.6-15.6); WHITE BLOOD COUNT 9.9 K/mm3 (4.0-10.0)
[2021-06-06 10:04] LABS: BLOOD UREA NITROGEN 7.8 mg/dL (7-18)
[2021-06-06 10:08] LABS: TOT PROT 8.4 g/dl (6.4-8.2)
[2021-06-06 10:10] LABS: ALBUMIN 3.1 g/dl (3.4-5.0); BILIRUBIN,TOTAL 0.8 mg/dL (0.2-1)
[2021-06-06] MEDS: LISINOPRIL 20 MG TABLET PO SCH (10:13)
[2021-06-06] MEDS: TOPIRAMATE 25 MG TABLET PO SCH (10:13)
[2021-06-06] MEDS: ACETAMINOPHEN 500 MG TABLET (FP) PO PRN ×2 (17:00→22:30)
[2021-06-06] MEDS: PRAMIPEXOLE DIHYDROCHLORIDE 0.25 MG TABLET PO SCH (21:34)
[2021-06-07] MEDS ORDERED: PIPERACILLIN/TAZOBACTAM 3.375 GM VIAL IVPB ONE ×3 (01:49→16:45)
[2021-06-07] MEDS ORDERED: DEXTROSE 5%-WATER - 50 ML IVPB ONE ×3 (01:49→16:45)
[2021-06-07] MEDS: PIPERACILLIN/TAZOB 3.375 GM 3.375 GM in DEXTROSE 5%-WATER - 50 ML IVPB SCH ×3 (02:01→18:05)
[2021-06-07] MEDS: metFORMIN HCL 500 MG TABLET (FP) PO SCH ×2 (06:00→16:52)
[2021-06-07] MEDS: INSULIN SLIDING SCALE (NOVOLOG) 1 VIAL SQ SCH ×4 (06:01→21:12)
[2021-06-07] MEDS: INSULIN (NOVOLOG MIX 70/30) 100 UNITS/ML MDV SQ SCH ×2 (06:01→16:53)
[2021-06-07] MEDS ORDERED: INSULIN (NOVOLOG) ASPART 100 UNITS/ML 10ML VIAL ONE (09:15)
[2021-06-07] MEDS: TOPIRAMATE 25 MG TABLET PO SCH (09:41)
[2021-06-07] MEDS: LISINOPRIL 20 MG TABLET PO SCH (09:41)
[2021-06-07] MEDS: ACETAMINOPHEN 500 MG TABLET (FP) PO PRN ×2 (14:08→21:14)
[2021-06-07] MEDS: PRAMIPEXOLE DIHYDROCHLORIDE 0.25 MG TABLET PO SCH (21:09)
[2021-06-08] MEDS: ACETAMINOPHEN 500 MG TABLET (FP) PO PRN ×2 (02:00→09:24)
[2021-06-08] MEDS: INSULIN SLIDING SCALE (NOVOLOG) 1 VIAL SQ SCH ×2 (06:07→11:02)
[2021-06-08 10:04] VITALS: BP 105/57; PULSE 64; TEMP 97.2
[2021-06-08] MEDS: INSULIN (NOVOLOG MIX 70/30) 100 UNITS/ML MDV SQ SCH (10:11)
[2021-06-08] MEDS: metFORMIN HCL 500 MG TABLET (FP) PO SCH (10:11)
[2021-06-08] MEDS ORDERED: AMOX TR/POT CLAV 875MG/125MG TABLETS (FP) PO ONE (10:41)
[2021-06-08] MEDS: TOPIRAMATE 25 MG TABLET PO SCH (10:48)
[2021-06-08] MEDS: LISINOPRIL 20 MG TABLET PO SCH (10:48)
== END 2021-06-08 13:09 | disposition home health service (06) | DRG 364 ==
LOC: JER 09:38 → UNDOADMOB 12:59 → JERBED 12:59 → INTOOBSV 12:59 → J8W 17:28 → JERBED 17:28 → J8W 06-01 11:53 → JERBED 06-01 11:53 → OBSVTOIN 06-02 14:24
PROVIDERS: ADMIT Internal Medicine; ATTEND Internal Medicine
PROC: 0Y9600Z Drainage of Left Inguinal Region with Drainage Device, Open Approach (ICD-10-PCS; principal; 2021-05-31 14:00)
PROC: 0Y9500Z Drainage of Right Inguinal Region with Drainage Device, Open Approach (ICD-10-PCS; 2021-06-03)
DX: L02.214 Cutaneous abscess of groin (principal); G35 Multiple sclerosis; N39.0 Urinary tract infection, site not specified; E11.9 Type 2 diabetes mellitus without complications; G43.909 Migraine, unspecified, not intractable, without status migrainosus; E66.01 Morbid (severe) obesity due to excess calories; Z68.41 Body mass index [BMI] 40.0-44.9, adult; I10 Essential (primary) hypertension; G25.81 Restless legs syndrome
CPT/HCPCS: 36415; 70551-TC; 72193-TC; 80053; 81003; 82962; 84703; 85025; 87040; 87070; 87205; 93005; 93010; 94760; 97116-GP; 97161-GP; 99285-25; C9803; G0378; Q9967; U0003; U0005

== ENCOUNTER 2021-10-01 18:59 | Inpatient (IN) | payer OTHER ==
[2021-10-01] MEDS ORDERED: ACETAMINOPHEN 1000 MG/100 ML BAG IVPB ONE (19:43)
[2021-10-01] MEDS ORDERED: SODIUM CHLORIDE 0.9% 500 ML INFUS.BAG IV ONE ×2 (19:43→21:51)
[2021-10-01] MEDS ORDERED: ONDANSETRON 4 MG/2 ML VIAL IVPB ONE (19:56)
[2021-10-01] MEDS ORDERED: ACETAMINOPHEN INJECTION 100 ML IVPB ONE (20:58)
[2021-10-01] MEDS ORDERED: ONDANSETRON 4 MG/2 ML VIAL ONE (20:58)
[2021-10-01 21:03] LABS: PH,URINE 5.5 (5.0-8.0); URINE APPEARANCE CLEAR; URINE BILIRUBIN NEGATIVE (NEGATIVE); URINE COLOR YELLOW; URINE GLUCOSE (UA) 3+ (NEGATIVE); URINE KETONE NEGATIVE (NEGATIVE); URINE LEUK ESTERASE NEGATIVE (NEGATIVE); URINE NITRITE NEGATIVE (NEGATIVE); URINE PROTEIN NEGATIVE (NEGATIVE); URINE UROBILINOGEN 0.2 mg/dL (0.2-1.0)
[2021-10-01 21:07] LABS: BASO % 0.4 % (0-2.0); EOS % 0.5 % (0-4.5); HEMOGLOBIN 11.1 GM/dL (10.7-15.3); LYMPH % 18.3 % (8-40); MCH 27.1 pg (25.7-33.7); MCHC 33.5 g/dl (32.0-36.0); MEAN CELL VOLUME 80.8 fl (80-96); MEAN PLT VOLUME 8.5 fl (7.5-11.1); MONO % 10.6 % (3.8-10.2); NEUT % 70.2 % (42.8-82.8); PLATELET COUNT 319 10^3/uL (134-434); RBC 4.08 M/mm3 (3.60-5.2); RDW 15.3 % (11.6-15.6); WHITE BLOOD COUNT 10.9 K/mm3 (4.0-10.0)
[2021-10-01 21:21] LABS: INR 0.95 (0.83-1.09); PROTHROMBIN TIME (PATIENT) 10.9 SEC (9.7-13.0)
[2021-10-01 21:23] LABS: ACTIVATED PTT 26.6 SECONDS (25.2-36.5)
[2021-10-01 21:33] LABS: CHLORIDE 101 mmol/L (98-107); SODIUM 135 mmol/L (136-145)
[2021-10-01 21:35] LABS: ANION GAP 7 MMOL/L (8-16); BLOOD UREA NITROGEN 14.2 mg/dL (7-18); CALCIUM 9.3 mg/dL (8.5-10.1); CO2 27 mmol/L (21-32); LIPASE 192 U/L (73-393)
[2021-10-01 21:36] LABS: ALBUMIN 3.1 g/dl (3.4-5.0)
[2021-10-01 21:38] LABS: CREATININE 1.1 mg/dL (0.55-1.3); SGOT/AST 18 U/L (15-37); SGPT/ALT 14 U/L (13-61)
[2021-10-01 21:40] LABS: BILIRUBIN,TOTAL 0.4 mg/dL (0.2-1); TOT PROT 7.1 g/dl (6.4-8.2)
[2021-10-01 21:41] LABS: ALK PHOS 108 U/L (45-117)
[2021-10-01 21:47] LABS: GLUCOSE,RANDOM 511 mg/dL (74-106)
[2021-10-01] MEDS ORDERED: morphine SULFATE 4 MG/ML VIAL IVPUSH ONE (22:14)
[2021-10-01] MEDS ORDERED: morphine SULFATE 4 MG/ML VIAL ONE (22:25)
[2021-10-01 23:10] LABS: VENOUS BASE EXCESS -1.7 mmol/L (-2-2); VENOUS O2 SATURATION 91.1 % (70-80); VENOUS PCO2 46.7 mmHg (38-52)
[2021-10-01 23:11] LABS: VENOUS PH 7.336 (7.310-7.410)
[2021-10-02 03:39] VITALS: BMI 45.0
[2021-10-02] MEDS: metFORMIN HCL 500 MG TABLET (FP) PO SCH ×2 (06:14→16:42)
[2021-10-02] MEDS: oxyCODONE HCL 5 MG TABLET PO PRN ×2 (06:14→10:57)
[2021-10-02] MEDS: INSULIN SLIDING SCALE (NOVOLOG) 1 VIAL SQ SCH ×4 (06:15→22:01)
[2021-10-02 10:28] LABS: BASO % 0.4 % (0-2.0); EOS % 1.2 % (0-4.5); HEMATOCRIT 33.4 % (32.4-45.2); HEMOGLOBIN 11.1 GM/dL (10.7-15.3); LYMPH % 22.4 % (8-40); MCHC 33.2 g/dl (32.0-36.0); MEAN CELL VOLUME 81.2 fl (80-96); MEAN PLT VOLUME 8.5 fl (7.5-11.1); MONO % 10.3 % (3.8-10.2); NEUT % 65.7 % (42.8-82.8); PLATELET COUNT 310 10^3/uL (134-434); RBC 4.11 M/mm3 (3.60-5.2); RDW 15.3 % (11.6-15.6); WHITE BLOOD COUNT 8.5 K/mm3 (4.0-10.0)
[2021-10-02 10:51] LABS: ALBUMIN 2.9 g/dl (3.4-5.0); BLOOD UREA NITROGEN 9.8 mg/dL (7-18); CALCIUM 9.1 mg/dL (8.5-10.1)
[2021-10-02 10:54] LABS: CREATININE 0.9 mg/dL (0.55-1.3)
[2021-10-02 10:55] LABS: BILIRUBIN,TOTAL 0.6 mg/dL (0.2-1)
[2021-10-02] MEDS ORDERED: INSULIN (NOVOLOG) ASPART 100 UNITS/ML 10ML VIAL ONE ×2 (11:05→22:00)
[2021-10-02] MEDS: morphine SULFATE 4 MG/ML VIAL IVPUSH PRN ×2 (15:08→21:51)
[2021-10-02] MEDS: LISINOPRIL 10 MG TABLET PO SCH (15:08)
[2021-10-03] MEDS: metFORMIN HCL 500 MG TABLET (FP) PO SCH ×2 (06:33→16:36)
[2021-10-03] MEDS: INSULIN SLIDING SCALE (NOVOLOG) 1 VIAL SQ SCH ×4 (06:33→21:02)
[2021-10-03] MEDS ORDERED: INSULIN (NOVOLOG) ASPART 100 UNITS/ML 10ML VIAL ONE (10:33)
[2021-10-03] MEDS: LISINOPRIL 10 MG TABLET PO SCH (10:39)
[2021-10-03] MEDS: morphine SULFATE 4 MG/ML VIAL IVPUSH PRN ×3 (10:49→23:02)
[2021-10-04] MEDS: oxyCODONE HCL 5 MG TABLET PO PRN (01:39)
[2021-10-04] MEDS: metFORMIN HCL 500 MG TABLET (FP) PO SCH ×2 (06:08→17:04)
[2021-10-04] MEDS: INSULIN SLIDING SCALE (NOVOLOG) 1 VIAL SQ SCH ×4 (06:11→22:01)
[2021-10-04] MEDS: LISINOPRIL 10 MG TABLET PO SCH (10:44)
[2021-10-04] MEDS: DOCUSATE SODIUM 100 MG CAPSULE (FP) PO PRN (10:44)
[2021-10-04] MEDS: morphine SULFATE 4 MG/ML VIAL IVPUSH PRN ×3 (10:44→21:53)
[2021-10-05] MEDS: morphine SULFATE 4 MG/ML VIAL IVPUSH PRN ×3 (01:57→12:07)
[2021-10-05] MEDS: metFORMIN HCL 500 MG TABLET (FP) PO SCH ×2 (06:55→16:24)
[2021-10-05] MEDS: INSULIN SLIDING SCALE (NOVOLOG) 1 VIAL SQ SCH ×4 (06:55→21:56)
[2021-10-05] MEDS: DOCUSATE SODIUM 100 MG CAPSULE (FP) PO PRN (11:01)
[2021-10-05] MEDS: LISINOPRIL 10 MG TABLET PO SCH (11:02)
[2021-10-05] MEDS ORDERED: INSULIN (NOVOLOG) ASPART 100 UNITS/ML 10ML VIAL ONE ×2 (11:27→19:32)
[2021-10-05] MEDS: oxyCODONE HCL 5 MG TABLET PO PRN ×2 (16:25→20:00)
[2021-10-05] MEDS: DOCUSATE SODIUM 100 MG CAPSULE (FP) PO SCH (21:56)
[2021-10-06] MEDS: morphine SULFATE 4 MG/ML VIAL IVPUSH PRN ×3 (00:42→23:19)
[2021-10-06] MEDS: oxyCODONE HCL 5 MG TABLET PO PRN ×3 (05:53→21:15)
[2021-10-06] MEDS: DOCUSATE SODIUM 100 MG CAPSULE (FP) PO SCH ×3 (05:54→21:14)
[2021-10-06] MEDS: metFORMIN HCL 500 MG TABLET (FP) PO SCH ×2 (06:17→16:52)
[2021-10-06] MEDS: INSULIN SLIDING SCALE (NOVOLOG) 1 VIAL SQ SCH ×4 (06:17→21:16)
[2021-10-06] MEDS ORDERED: INSULIN (NOVOLOG) ASPART 100 UNITS/ML 10ML VIAL ONE (11:13)
[2021-10-06] MEDS: LISINOPRIL 10 MG TABLET PO SCH (11:19)
[2021-10-06] MEDS: POLYETHYLENE GLYCOL (HEALTHYLAX) 3350 17 GM PACKET PO SCH (11:20)
[2021-10-07] MEDS: oxyCODONE HCL 5 MG TABLET PO PRN ×3 (02:21→15:41)
[2021-10-07] MEDS: metFORMIN HCL 500 MG TABLET (FP) PO SCH ×2 (06:02→16:35)
[2021-10-07] MEDS: DOCUSATE SODIUM 100 MG CAPSULE (FP) PO SCH ×2 (06:02→13:14)
[2021-10-07] MEDS: INSULIN SLIDING SCALE (NOVOLOG) 1 VIAL SQ SCH ×3 (06:03→16:35)
[2021-10-07] MEDS: POLYETHYLENE GLYCOL (HEALTHYLAX) 3350 17 GM PACKET PO SCH (10:36)
[2021-10-07] MEDS: LISINOPRIL 10 MG TABLET PO SCH (10:38)
[2021-10-07 19:27] VITALS: BP 116/74; PULSE 107; TEMP 98.9
== END 2021-10-07 21:21 | DRG 342 ==
LOC: JER 18:59 → JERBED 23:21 → J6S 10-02 03:01 → J8W 10-04 15:45
PROVIDERS: ADMIT Internal Medicine; ATTEND Internal Medicine
DX: S82.121A Displaced fracture of lateral condyle of right tibia, initial encounter for closed fracture (principal); I10 Essential (primary) hypertension; G35 Multiple sclerosis; R55 Syncope and collapse; E11.65 Type 2 diabetes mellitus with hyperglycemia; E66.01 Morbid (severe) obesity due to excess calories; S82.131A Displaced fracture of medial condyle of right tibia, initial encounter for closed fracture; W19.XXXA Unspecified fall, initial encounter; M25.461 Effusion, right knee; Y93.89 Activity, other specified; Y92.89 Other specified places as the place of occurrence of the external cause; Y99.8 Other external cause status; D64.9 Anemia, unspecified; Z68.42 Body mass index [BMI] 45.0-49.9, adult; Z79.4 Long term (current) use of insulin
CPT/HCPCS: 0241U-QW; 36415; 70450-TC; 71045-TC-FY; 73562-TC-RT-FY; 73700-TC-RT; 80053; 81003; 82010; 82803; 82962; 83036; 83690; 83735; 84484; 84703; 85025; 85610; 85730; 86850; 86900; 86901; 87077; 87086; 93005; 93010; 97116-GP; 97161-GP; 99285-25; C9803-CS; U0003; U0005

== ENCOUNTER 2021-11-23 12:35 | Inpatient (IN) | payer OTHER ==
[2021-11-23 12:53] VITALS: BMI 42.5
[2021-11-23] MEDS ORDERED: ASPIRIN 81 MG CHEWABLE TABLETS PO ONE (13:42)
[2021-11-23] MEDS ORDERED: morphine CARPU-JECT 2 MG/1 ML DISP.SYRIN IVPUSH ONE (13:43)
[2021-11-23] MEDS ORDERED: GABAPENTIN 300 MG CAPSULE PO ONE (13:43)
[2021-11-23] MEDS ORDERED: ONDANSETRON 4 MG/2 ML VIAL IVPUSH ONE (13:43)
[2021-11-23] MEDS ORDERED: ASPIRIN 81 MG CHEWABLE TABLETS ONE (14:28)
[2021-11-23] MEDS ORDERED: ONDANSETRON 4 MG/2 ML VIAL ONE (14:29)
[2021-11-23] MEDS ORDERED: GABAPENTIN 300 MG CAPSULE ONE (14:29)
[2021-11-23] MEDS ORDERED: LISINOPRIL 10 MG TABLET PO ONE (14:46)
[2021-11-23 15:29] LABS: BASO % 0.7 % (0-2.0); EOS % 0.2 % (0-4.5); HEMOGLOBIN 11.4 GM/dL (10.7-15.3); LYMPH % 15.4 % (8-40); MCH 27.6 pg (25.7-33.7); MCHC 33.4 g/dl (32.0-36.0); MEAN CELL VOLUME 82.5 fl (80-96); MEAN PLT VOLUME 8.2 fl (7.5-11.1); MONO % 5.8 % (3.8-10.2); NEUT % 77.9 % (42.8-82.8); PLATELET COUNT 392 10^3/uL (134-434); RBC 4.12 M/mm3 (3.60-5.2); RDW 15.7 % (11.6-15.6); WHITE BLOOD COUNT 11.6 K/mm3 (4.0-10.0)
[2021-11-23 15:38] LABS: INR 1.07 (0.83-1.09); PROTHROMBIN TIME (PATIENT) 12.3 SEC (9.7-13.0)
[2021-11-23 15:41] LABS: ACTIVATED PTT 31.8 SECONDS (25.2-36.5)
[2021-11-23] MEDS ORDERED: LISINOPRIL 10 MG TABLET ONE (15:43)
[2021-11-23 15:54] LABS: ALBUMIN 3.4 g/dl (3.4-5.0); CALCIUM 9.3 mg/dL (8.5-10.1); MAGNESIUM 1.6 mg/dL (1.8-2.4)
[2021-11-23 15:56] LABS: BLOOD UREA NITROGEN 6.9 mg/dL (7-18)
[2021-11-23 15:58] LABS: CREATININE 0.8 mg/dL (0.55-1.3)
[2021-11-23 16:00] LABS: BILIRUBIN,TOTAL 0.6 mg/dL (0.2-1)
[2021-11-23 18:29] LABS: URINE APPEARANCE CLEAR; URINE BILIRUBIN NEGATIVE (NEGATIVE); URINE COLOR YELLOW; URINE GLUCOSE (UA) 3+ (NEGATIVE); URINE KETONE NEGATIVE (NEGATIVE); URINE LEUK ESTERASE NEGATIVE (NEGATIVE); URINE NITRITE NEGATIVE (NEGATIVE); URINE PROTEIN NEGATIVE (NEGATIVE); URINE UROBILINOGEN 0.2 mg/dL (0.2-1.0)
[2021-11-23 18:31] LABS: HCG,QUALITATIVE URINE Negative
[2021-11-23 18:42] LABS: ALBUMIN 3.1 g/dl (3.4-5.0); BLOOD UREA NITROGEN 7.7 mg/dL (7-18); CALCIUM 8.9 mg/dL (8.5-10.1)
[2021-11-23 18:46] LABS: CREATININE 0.7 mg/dL (0.55-1.3)
[2021-11-23 18:48] LABS: BILIRUBIN,TOTAL 0.3 mg/dL (0.2-1)
[2021-11-23] MEDS ORDERED: morphine CARPU-JECT 4 MG/1 ML DISP.SYRIN IVPUSH ONE (21:33)
[2021-11-23] MEDS ORDERED: morphine SULFATE 4 MG/ML VIAL ONE (21:43)
[2021-11-24] MEDS ORDERED: morphine CARPU-JECT 4 MG/1 ML DISP.SYRIN IVPUSH PRN (01:58)
[2021-11-24] MEDS ORDERED: morphine SULFATE 4 MG/ML VIAL ONE ×2 (02:10→08:41)
[2021-11-24] MEDS: INSULIN SLIDING SCALE (NOVOLOG) 1 VIAL SQ SCH ×4 (07:52→21:23)
[2021-11-24 08:10] LABS: BASO % 0.4 % (0-2.0); EOS % 1.2 % (0-4.5); HEMATOCRIT 32.9 % (32.4-45.2); HEMOGLOBIN 10.9 GM/dL (10.7-15.3); MCH 27.5 pg (25.7-33.7); MCHC 33.3 g/dl (32.0-36.0); MEAN CELL VOLUME 82.7 fl (80-96); MEAN PLT VOLUME 8.3 fl (7.5-11.1); NEUT % 63.4 % (42.8-82.8); PLATELET COUNT 336 10^3/uL (134-434); RBC 3.97 M/mm3 (3.60-5.2); RDW 15.5 % (11.6-15.6); WHITE BLOOD COUNT 8.1 K/mm3 (4.0-10.0)
[2021-11-24 08:27] LABS: ALBUMIN 3.1 g/dl (3.4-5.0); CALCIUM 8.9 mg/dL (8.5-10.1)
[2021-11-24 08:29] LABS: BLOOD UREA NITROGEN 9.9 mg/dL (7-18)
[2021-11-24 08:30] LABS: CREATININE 0.9 mg/dL (0.55-1.3)
[2021-11-24 08:33] LABS: BILIRUBIN,TOTAL 0.5 mg/dL (0.2-1); TOT PROT 7.2 g/dl (6.4-8.2)
[2021-11-24] MEDS: morphine SULFATE 4 MG/ML VIAL IVPUSH PRN ×2 (08:49→21:20)
[2021-11-24] MEDS: metFORMIN HCL 500 MG TABLET (FP) PO SCH ×2 (11:30→21:25)
[2021-11-24] MEDS: INSULIN (NOVOLOG MIX 70/30) 100 UNITS/ML MDV SQ SCH ×2 (11:35→21:25)
[2021-11-24] MEDS: LISINOPRIL 10 MG TABLET PO SCH (11:35)
[2021-11-24] MEDS ORDERED: metFORMIN HCL 500 MG TABLET (FP) ONE (11:37)
[2021-11-24] MEDS ORDERED: LISINOPRIL 20 MG TABLET ONE (11:38)
[2021-11-24] MEDS ORDERED: INSULIN (NOVOLOG MIX 70/30) 100 UNITS/ML MDV SQ ONE (11:48)
[2021-11-25] MEDS: morphine SULFATE 4 MG/ML VIAL IVPUSH PRN ×3 (05:58→21:31)
[2021-11-25] MEDS: INSULIN SLIDING SCALE (NOVOLOG) 1 VIAL SQ SCH ×4 (05:59→21:36)
[2021-11-25 07:00] LABS: BASO % 0.9 % (0-2.0); HEMATOCRIT 31.6 % (32.4-45.2); HEMOGLOBIN 10.7 GM/dL (10.7-15.3); LYMPH % 29.6 % (8-40); MCH 27.7 pg (25.7-33.7); MCHC 33.9 g/dl (32.0-36.0); MEAN CELL VOLUME 81.8 fl (80-96); MEAN PLT VOLUME 8.4 fl (7.5-11.1); MONO % 10.9 % (3.8-10.2); NEUT % 56.6 % (42.8-82.8); PLATELET COUNT 352 10^3/uL (134-434); RBC 3.87 M/mm3 (3.60-5.2); RDW 15.1 % (11.6-15.6); WHITE BLOOD COUNT 7.7 K/mm3 (4.0-10.0)
[2021-11-25 07:23] LABS: ALBUMIN 3.1 g/dl (3.4-5.0); BLOOD UREA NITROGEN 16.4 mg/dL (7-18)
[2021-11-25 07:26] LABS: CREATININE 0.9 mg/dL (0.55-1.3)
[2021-11-25 07:27] LABS: BILIRUBIN,TOTAL 0.3 mg/dL (0.2-1); TOT PROT 7.3 g/dl (6.4-8.2)
[2021-11-25] MEDS: LISINOPRIL 10 MG TABLET PO SCH (09:52)
[2021-11-25] MEDS: metFORMIN HCL 500 MG TABLET (FP) PO SCH ×2 (09:52→21:36)
[2021-11-25] MEDS: INSULIN (NOVOLOG MIX 70/30) 100 UNITS/ML MDV SQ SCH ×2 (09:52→21:36)
[2021-11-26] MEDS: INSULIN SLIDING SCALE (NOVOLOG) 1 VIAL SQ SCH ×4 (06:09→22:48)
[2021-11-26] MEDS: LISINOPRIL 10 MG TABLET PO SCH (10:04)
[2021-11-26] MEDS: INSULIN (NOVOLOG MIX 70/30) 100 UNITS/ML MDV SQ SCH ×2 (10:12→22:48)
[2021-11-26] MEDS: metFORMIN HCL 500 MG TABLET (FP) PO SCH ×2 (10:13→22:48)
[2021-11-27] MEDS: INSULIN SLIDING SCALE (NOVOLOG) 1 VIAL SQ SCH ×4 (06:04→21:38)
[2021-11-27] MEDS: ASPIRIN COATED 81 MG TABLET.EC PO SCH (10:49)
[2021-11-27] MEDS: metFORMIN HCL 500 MG TABLET (FP) PO SCH ×2 (10:49→21:38)
[2021-11-27] MEDS: LISINOPRIL 10 MG TABLET PO SCH (10:50)
[2021-11-27] MEDS: INSULIN (NOVOLOG MIX 70/30) 100 UNITS/ML MDV SQ SCH ×2 (11:05→21:38)
[2021-11-27] MEDS ORDERED: ROSUVASTATIN CA 10 MG TABLET PO SCH (22:00)
[2021-11-28] MEDS: INSULIN SLIDING SCALE (NOVOLOG) 1 VIAL SQ SCH ×2 (07:19→12:02)
[2021-11-28] MEDS: metFORMIN HCL 500 MG TABLET (FP) PO SCH (09:36)
[2021-11-28] MEDS: ASPIRIN COATED 81 MG TABLET.EC PO SCH (09:36)
[2021-11-28] MEDS: INSULIN (NOVOLOG MIX 70/30) 100 UNITS/ML MDV SQ SCH (09:36)
[2021-11-28] MEDS: LISINOPRIL 10 MG TABLET PO SCH (09:37)
[2021-11-28 15:28] VITALS: BP 116/47; PULSE 96; RESP 1; TEMP 97.4
== END 2021-11-28 16:45 | disposition home or self-care (01) | DRG 203 ==
LOC: JER 12:35 → JERBED 21:46 → J4S 11-24 18:52
PROVIDERS: ADMIT Internal Medicine; ATTEND Internal Medicine
DX: R07.89 Other chest pain (principal); Z68.41 Body mass index [BMI] 40.0-44.9, adult; I10 Essential (primary) hypertension; E66.01 Morbid (severe) obesity due to excess calories; G35 Multiple sclerosis; E11.9 Type 2 diabetes mellitus without complications; R06.02 Shortness of breath; Z72.89 Other problems related to lifestyle
CPT/HCPCS: 36415; 70553-TC; 71046-TC-FY; 71275-TC; 76700-TC; 80053; 80061; 81003; 82962; 83735; 84443; 84484; 84703; 85025; 85379; 85610; 85730; 93005; 93010; 93306-TC; 99285-25; C9803-CS; Q9967; U0003; U0005

== ENCOUNTER 2022-07-29 16:36 | Inpatient (IN) | payer OTHER ==
[2022-07-29 17:09] VITALS: BMI 41.8
[2022-07-29] MEDS ORDERED: SODIUM CHLORIDE 0.9% 500 ML INFUS.BAG IV ONE (18:14)
[2022-07-29] MEDS ORDERED: METOCLOPRAMIDE HCL INJECTION 10 MG/2 ML VIAL IVPB ONE (18:14)
[2022-07-29] MEDS ORDERED: ACETAMINOPHEN 1000 MG/100 ML BAG IVPB ONE (18:14)
[2022-07-29] MEDS ORDERED: methylPREDNISolone NA SUCC 1000 MG/8 ML VIAL IVPB ONE (18:22)
[2022-07-29] MEDS ORDERED: ACETAMINOPHEN INJECTION 100 ML IVPB ONE (18:28)
[2022-07-29] MEDS ORDERED: METOCLOPRAMIDE HCL INJECTION 10 MG/2 ML VIAL ONE (18:28)
[2022-07-29] MEDS ORDERED: HYDROCORTISONE SOD SUCCINATE 100 MG/2 ML VIAL ONE (18:29)
[2022-07-29 20:04] LABS: BASO % 0.9 % (0-2.0); EOS % 0.9 % (0-4.5); HEMATOCRIT 34.4 % (32.4-45.2); HEMOGLOBIN 11.8 GM/dL (10.7-15.3); LYMPH % 24.3 % (8-40); MCHC 34.3 g/dl (32.0-36.0); MEAN CELL VOLUME 84.6 fl (80-96); MEAN PLT VOLUME 8.3 fl (7.5-11.1); MONO % 8.5 % (3.8-10.2); NEUT % 65.4 % (42.8-82.8); PLATELET COUNT 303 10^3/uL (134-434); RBC 4.07 M/mm3 (3.60-5.2); RDW 14.6 % (11.6-15.6); WHITE BLOOD COUNT 8.7 K/mm3 (4.0-10.0)
[2022-07-29 20:15] LABS: CHLORIDE 104 mmol/L (98-107); SODIUM 134 mmol/L (136-145)
[2022-07-29 20:17] LABS: CALCIUM 8.6 mg/dL (8.5-10.1); GLUCOSE,RANDOM 189 mg/dL (74-106)
[2022-07-29 20:18] LABS: ALBUMIN 3.1 g/dl (3.4-5.0); BLOOD UREA NITROGEN 12.2 mg/dL (7-18); CO2 26 mmol/L (21-32); MAGNESIUM 1.9 mg/dL (1.8-2.4)
[2022-07-29 20:20] LABS: SGPT/ALT 21 U/L (13-61)
[2022-07-29 20:21] LABS: CREATININE 0.9 mg/dL (0.55-1.3); SGOT/AST 45 U/L (15-37)
[2022-07-29 20:22] LABS: BILIRUBIN,TOTAL 0.4 mg/dL (0.2-1); TOT PROT 7.7 g/dl (6.4-8.2)
[2022-07-29 20:23] LABS: ALK PHOS 86 U/L (45-117)
[2022-07-29 20:42] LABS: ERYTHROCYTE SEDIMENTATION RATE 9 mm/hr (0-20)
[2022-07-29 20:43] LABS: ANION GAP 3 MMOL/L (8-16)
[2022-07-29 21:22] LABS: BLOOD UREA NITROGEN 12.1 mg/dL (7-18); CALCIUM 8.3 mg/dL (8.5-10.1)
[2022-07-29 21:25] LABS: CREATININE 0.8 mg/dL (0.55-1.3)
[2022-07-30 01:03] VITALS: RESP 18
[2022-07-30] MEDS ORDERED: ACETAMINOPHEN 1000 MG/100 ML BAG IVPB ONE (04:15)
[2022-07-30] MEDS: INSULIN SLIDING SCALE (NOVOLOG) 1 VIAL SQ SCH ×4 (06:13→21:56)
[2022-07-30] MEDS: metFORMIN HCL 500 MG TABLET (FP) PO SCH ×2 (06:13→16:55)
[2022-07-30 06:48] LABS: BASO % 0.5 % (0-2.0); EOS % 0.1 % (0-4.5); HEMATOCRIT 33.4 % (32.4-45.2); HEMOGLOBIN 11.6 GM/dL (10.7-15.3); LYMPH % 12.3 % (8-40); MCH 29.5 pg (25.7-33.7); MCHC 34.7 g/dl (32.0-36.0); MEAN CELL VOLUME 84.9 fl (80-96); MEAN PLT VOLUME 7.9 fl (7.5-11.1); MONO % 7.2 % (3.8-10.2); NEUT % 79.9 % (42.8-82.8); PLATELET COUNT 297 10^3/uL (134-434); RBC 3.94 M/mm3 (3.60-5.2); RDW 14.6 % (11.6-15.6); WHITE BLOOD COUNT 9.2 K/mm3 (4.0-10.0)
[2022-07-30 07:07] LABS: ALBUMIN 3.1 g/dl (3.4-5.0); BLOOD UREA NITROGEN 16.6 mg/dL (7-18); CALCIUM 8.4 mg/dL (8.5-10.1)
[2022-07-30 07:10] LABS: CREATININE 0.9 mg/dL (0.55-1.3)
[2022-07-30 07:12] LABS: BILIRUBIN,TOTAL 0.4 mg/dL (0.2-1); TOT PROT 7.5 g/dl (6.4-8.2)
[2022-07-30] MEDS: INSULIN (LEVEMIR) 100 UNITS/ML UNITS SQ SCH ×2 (09:36→21:56)
[2022-07-30] MEDS: ENOXAPARIN NA (PORCINE) 40 MG/0.4 ML DISP.SYRIN SQ SCH (09:37)
[2022-07-30] MEDS: methylPREDNISolone NA SUCC 125 MG/2 ML VIAL IVPUSH SCH (09:37)
[2022-07-30] MEDS: LISINOPRIL 20 MG TABLET PO SCH (09:37)
[2022-07-30] MEDS ORDERED: INSULIN (LEVEMIR) 100 UNITS/ML UNITS SQ ONE (09:50)
[2022-07-30] MEDS ORDERED: PNEUMOC 20-VAL CONJ-DIP CRM/PF 0.5 ML SYRINGE IM ONE (10:00)
[2022-07-30] MEDS ORDERED: INSULIN (NOVOLOG) ASPART 100 UNITS/ML 10ML VIAL ONE ×5 (11:24→21:48)
[2022-07-30] MEDS: ACETAMINOPHEN 1000 MG/100 ML BAG IVPB PRN ×2 (14:31→20:34)
[2022-07-30] MEDS: ROSUVASTATIN CA 10 MG TABLET PO SCH (21:57)
[2022-07-31] MEDS: INSULIN SLIDING SCALE (NOVOLOG) 1 VIAL SQ SCH ×4 (06:33→21:03)
[2022-07-31] MEDS: metFORMIN HCL 500 MG TABLET (FP) PO SCH ×2 (06:34→17:06)
[2022-07-31 10:00] LABS: EOS % 0.1 % (0-4.5); HEMATOCRIT 35.9 % (32.4-45.2); HEMOGLOBIN 12.7 GM/dL (10.7-15.3); LYMPH % 17.6 % (8-40); MCH 29.7 pg (25.7-33.7); MCHC 35.3 g/dl (32.0-36.0); MEAN CELL VOLUME 84.1 fl (80-96); MEAN PLT VOLUME 8.7 fl (7.5-11.1); MONO % 7.7 % (3.8-10.2); NEUT % 73.6 % (42.8-82.8); PLATELET COUNT 323 10^3/uL (134-434); RBC 4.27 M/mm3 (3.60-5.2); RDW 14.4 % (11.6-15.6); WHITE BLOOD COUNT 14.3 K/mm3 (4.0-10.0)
[2022-07-31] MEDS: ENOXAPARIN NA (PORCINE) 40 MG/0.4 ML DISP.SYRIN SQ SCH (10:10)
[2022-07-31] MEDS: LISINOPRIL 20 MG TABLET PO SCH (10:11)
[2022-07-31] MEDS: methylPREDNISolone NA SUCC 125 MG/2 ML VIAL IVPUSH SCH (10:11)
[2022-07-31] MEDS: INSULIN (LEVEMIR) 100 UNITS/ML UNITS SQ SCH ×2 (10:12→21:02)
[2022-07-31] MEDS: ACETAMINOPHEN 1000 MG/100 ML BAG IVPB PRN (10:13)
[2022-07-31 10:36] LABS: BLOOD UREA NITROGEN 19.8 mg/dL (7-18)
[2022-07-31 10:37] LABS: ALBUMIN 3.4 g/dl (3.4-5.0)
[2022-07-31 10:41] LABS: BILIRUBIN,TOTAL 0.6 mg/dL (0.2-1); TOT PROT 7.9 g/dl (6.4-8.2)
[2022-07-31 10:46] LABS: CALCIUM 9.8 mg/dL (8.5-10.1)
[2022-07-31] MEDS ORDERED: INSULIN (NOVOLOG) ASPART 100 UNITS/ML 10ML VIAL ONE ×3 (17:02→20:20)
[2022-07-31] MEDS ORDERED: ACETAMINOPHEN 500 MG TABLET (FP) PO PRN (17:16)
[2022-07-31] MEDS ORDERED: INSULIN (NOVOLOG) ASPART 100 UNITS/ML 10ML VIAL SQ ONE (17:18)
[2022-07-31] MEDS ORDERED: traMADol HCL 50 MG TABLET PO PRN (17:18)
[2022-07-31] MEDS: ROSUVASTATIN CA 10 MG TABLET PO SCH (21:02)
[2022-07-31] MEDS: GABAPENTIN 100 MG CAPSULE PO SCH (21:35)
[2022-08-01] MEDS: INSULIN SLIDING SCALE (NOVOLOG) 1 VIAL SQ SCH ×2 (06:02→11:58)
[2022-08-01] MEDS: GABAPENTIN 100 MG CAPSULE PO SCH (06:02)
[2022-08-01] MEDS: metFORMIN HCL 500 MG TABLET (FP) PO SCH (06:02)
[2022-08-01 06:19] VITALS: BP 152/75; PULSE 62; TEMP 97.9
[2022-08-01] MEDS: ENOXAPARIN NA (PORCINE) 40 MG/0.4 ML DISP.SYRIN SQ SCH (10:13)
[2022-08-01] MEDS: INSULIN (LEVEMIR) 100 UNITS/ML UNITS SQ SCH (10:13)
[2022-08-01] MEDS: LISINOPRIL 20 MG TABLET PO SCH (10:13)
== END 2022-08-01 14:38 | disposition home or self-care (01) | DRG 43 ==
LOC: JER 16:36 → JERBED 21:37 → J7W 07-30 00:24
PROVIDERS: ADMIT Internal Medicine; ATTEND Internal Medicine
DX: G35 Multiple sclerosis (principal); Z68.41 Body mass index [BMI] 40.0-44.9, adult; E66.01 Morbid (severe) obesity due to excess calories; R51.9 Headache, unspecified; E11.9 Type 2 diabetes mellitus without complications; I10 Essential (primary) hypertension
CPT/HCPCS: 0241U-QW; 36415; 70450-TC; 70553-TC; 71045-TC-FY; 80048; 80053; 82962; 83735; 84100; 84484; 84703; 85025; 85651; 86140; 90677; 93005; 93010; 99285-25

== ENCOUNTER 2022-12-07 19:15 | Inpatient (IN) | payer OTHER ==
[2022-12-07 21:39] LABS: BASO % 0.4 % (0-2.0); EOS % 1.2 % (0-4.5); HEMATOCRIT 34.3 % (32.4-45.2); HEMOGLOBIN 11.6 GM/dL (10.7-15.3); LYMPH % 22.9 % (8-40); MCH 28.7 pg (25.7-33.7); MCHC 33.9 g/dl (32.0-36.0); MEAN CELL VOLUME 84.9 fl (80-96); MONO % 11.3 % (3.8-10.2); NEUT % 64.2 % (42.8-82.8); PLATELET COUNT 270 10^3/uL (134-434); RBC 4.04 M/mm3 (3.60-5.2); RDW 13.5 % (11.6-15.6); WHITE BLOOD COUNT 7.7 K/mm3 (4.0-10.0)
[2022-12-07 21:44] LABS: INR 1.01 (0.83-1.09); PROTHROMBIN TIME (PATIENT) 11.7 SEC (9.7-13.0)
[2022-12-07 21:47] LABS: ACTIVATED PTT 27.6 SECONDS (25.2-36.5)
[2022-12-07] MEDS ORDERED: LACTATED RINGERS SOLUTION 1000 ML INFUS.BAG IV ONE (21:53)
[2022-12-07] MEDS ORDERED: ACETAMINOPHEN 1000 MG/100 ML BAG IVPB ONE (21:53)
[2022-12-07] MEDS ORDERED: METOCLOPRAMIDE HCL INJECTION 10 MG/2 ML VIAL IVPB ONE (21:53)
[2022-12-07 22:06] LABS: POTASSIUM 4.1 mmol/L (3.5-5.1)
[2022-12-07] MEDS ORDERED: ACETAMINOPHEN INJECTION 100 ML IVPB ONE (22:06)
[2022-12-07] MEDS ORDERED: METOCLOPRAMIDE HCL INJECTION 10 MG/2 ML VIAL ONE (22:06)
[2022-12-07 22:08] LABS: ALBUMIN 3.2 g/dl (3.4-5.0); BLOOD UREA NITROGEN 11.3 mg/dL (7-18); CALCIUM 8.3 mg/dL (8.5-10.1)
[2022-12-07 22:12] LABS: BILIRUBIN,TOTAL 0.3 mg/dL (0.2-1); CREATININE 0.8 mg/dL (0.55-1.3); TOT PROT 6.9 g/dl (6.4-8.2)
[2022-12-07] MEDS ORDERED: methylPREDNISolone NA SUCC 1000 MG/8 ML VIAL IVPB ONE (23:37)
[2022-12-07] MEDS ORDERED: methylPREDNISolone NA SUCC 1000 MG/8 ML VIAL ONE (23:54)
[2022-12-08 04:19] VITALS: BMI 41.8
[2022-12-08] MEDS ORDERED: LISINOPRIL 10 MG TABLET PO SCH (10:00)
[2022-12-08] MEDS: INSULIN (NOVOLOG MIX 70/30) 100 UNITS/ML MDV SQ SCH ×2 (10:48→17:22)
[2022-12-08] MEDS: ENOXAPARIN NA (PORCINE) 40 MG/0.4 ML DISP.SYRIN SQ SCH ×2 (10:50→11:31)
[2022-12-08] MEDS: methylPREDNISolone NA SUCC 125 MG/2 ML VIAL IVPUSH SCH ×2 (10:50→17:22)
[2022-12-08] MEDS: metFORMIN HCL 500 MG TABLET (FP) PO SCH ×2 (10:50→17:23)
[2022-12-08] MEDS: GABAPENTIN 100 MG CAPSULE PO SCH ×2 (14:55→21:09)
[2022-12-08] MEDS: INSULIN SLIDING SCALE (NOVOLOG) 1 VIAL SQ SCH ×2 (17:22→21:10)
[2022-12-08] MEDS: ROSUVASTATIN CA 10 MG TABLET PO SCH (21:09)
[2022-12-09] MEDS: methylPREDNISolone NA SUCC 125 MG/2 ML VIAL IVPUSH SCH (01:08)
[2022-12-09] MEDS: GABAPENTIN 100 MG CAPSULE PO SCH ×3 (06:32→21:11)
[2022-12-09] MEDS: INSULIN (NOVOLOG MIX 70/30) 100 UNITS/ML MDV SQ SCH ×2 (06:32→16:25)
[2022-12-09] MEDS: INSULIN SLIDING SCALE (NOVOLOG) 1 VIAL SQ SCH ×4 (06:32→21:12)
[2022-12-09] MEDS: metFORMIN HCL 500 MG TABLET (FP) PO SCH (06:32)
[2022-12-09 09:55] LABS: HEMATOCRIT 36.4 % (32.4-45.2); HEMOGLOBIN 11.9 GM/dL (10.7-15.3); MCH 28.1 pg (25.7-33.7); MCHC 32.7 g/dl (32.0-36.0); MEAN CELL VOLUME 85.8 fl (80-96); PLATELET COUNT 315 10^3/uL (134-434); RBC 4.25 M/mm3 (3.60-5.2); RDW 13.4 % (11.6-15.6)
[2022-12-09 10:10] LABS: POTASSIUM 4.2 mmol/L (3.5-5.1)
[2022-12-09 10:13] LABS: ALBUMIN 3.2 g/dl (3.4-5.0); BLOOD UREA NITROGEN 18.1 mg/dL (7-18); CALCIUM 8.9 mg/dL (8.5-10.1)
[2022-12-09 10:17] LABS: CREATININE 0.8 mg/dL (0.55-1.3)
[2022-12-09 10:19] LABS: BILIRUBIN,TOTAL 0.5 mg/dL (0.2-1); TOT PROT 7.1 g/dl (6.4-8.2)
[2022-12-09 10:41] LABS: ANISOCYTOSIS 0; MACROCYTOSIS 0
[2022-12-09] MEDS: TOPIRAMATE 25 MG TABLET PO SCH ×2 (11:05→11:12)
[2022-12-09] MEDS: LISINOPRIL 20 MG TABLET PO SCH (11:05)
[2022-12-09] MEDS: ENOXAPARIN NA (PORCINE) 40 MG/0.4 ML DISP.SYRIN SQ SCH (11:07)
[2022-12-09] MEDS: ROSUVASTATIN CA 10 MG TABLET PO SCH (21:11)
[2022-12-10] MEDS: GABAPENTIN 100 MG CAPSULE PO SCH ×3 (06:13→21:35)
[2022-12-10] MEDS: INSULIN (NOVOLOG MIX 70/30) 100 UNITS/ML MDV SQ SCH ×2 (06:20→16:28)
[2022-12-10] MEDS: INSULIN SLIDING SCALE (NOVOLOG) 1 VIAL SQ SCH ×4 (06:20→21:38)
[2022-12-10] MEDS: LISINOPRIL 20 MG TABLET PO SCH (09:24)
[2022-12-10] MEDS: TOPIRAMATE 25 MG TABLET PO SCH (09:26)
[2022-12-10] MEDS: ENOXAPARIN NA (PORCINE) 40 MG/0.4 ML DISP.SYRIN SQ SCH (09:26)
[2022-12-10] MEDS: ROSUVASTATIN CA 10 MG TABLET PO SCH (21:35)
[2022-12-11] MEDS: GABAPENTIN 100 MG CAPSULE PO SCH ×3 (06:13→21:57)
[2022-12-11] MEDS: INSULIN SLIDING SCALE (NOVOLOG) 1 VIAL SQ SCH ×4 (06:18→22:01)
[2022-12-11] MEDS: INSULIN (NOVOLOG MIX 70/30) 100 UNITS/ML MDV SQ SCH ×2 (06:18→18:35)
[2022-12-11 08:14] LABS: POTASSIUM 4.5 mmol/L (3.5-5.1)
[2022-12-11 08:22] LABS: BILIRUBIN,TOTAL 0.4 mg/dL (0.2-1); TOT PROT 6.5 g/dl (6.4-8.2)
[2022-12-11 08:24] LABS: CREATININE 0.8 mg/dL (0.55-1.3)
[2022-12-11 08:25] LABS: CALCIUM 8.6 mg/dL (8.5-10.1)
[2022-12-11 08:27] LABS: ALBUMIN 2.9 g/dl (3.4-5.0); BLOOD UREA NITROGEN 22.2 mg/dL (7-18)
[2022-12-11] MEDS: LISINOPRIL 20 MG TABLET PO SCH (09:53)
[2022-12-11] MEDS: TOPIRAMATE 25 MG TABLET PO SCH (09:56)
[2022-12-11] MEDS: ENOXAPARIN NA (PORCINE) 40 MG/0.4 ML DISP.SYRIN SQ SCH (09:56)
[2022-12-11] MEDS ORDERED: INSULIN (NOVOLOG) ASPART 100 UNITS/ML 10ML VIAL ONE (21:16)
[2022-12-11] MEDS ORDERED: ROSUVASTATIN CA 10 MG TABLET PO SCH (22:00)
[2022-12-12] MEDS ORDERED: INSULIN (NOVOLOG MIX 70/30) 100 UNITS/ML MDV SQ ONE (05:55)
[2022-12-12] MEDS: GABAPENTIN 100 MG CAPSULE PO SCH ×2 (06:21→16:26)
[2022-12-12] MEDS: INSULIN (NOVOLOG MIX 70/30) 100 UNITS/ML MDV SQ SCH ×2 (06:26→17:43)
[2022-12-12] MEDS: INSULIN SLIDING SCALE (NOVOLOG) 1 VIAL SQ SCH ×3 (06:27→17:43)
[2022-12-12] MEDS ORDERED: LISINOPRIL 20 MG TABLET PO SCH (10:00)
[2022-12-12] MEDS ORDERED: ENOXAPARIN NA (PORCINE) 40 MG/0.4 ML DISP.SYRIN SQ SCH (10:00)
[2022-12-12] MEDS: TOPIRAMATE 25 MG TABLET PO SCH ×2 (11:51→12:02)
[2022-12-12 15:01] VITALS: BP 140/68; PULSE 62; RESP 16; TEMP 97.7
== END 2022-12-12 18:10 | disposition home or self-care (01) | DRG 43 ==
LOC: JER 19:15 → INTOOBSV 12-08 00:20 → UNDOADMOB 12-08 00:20 → JERBED 12-08 00:20 → J4S 12-08 04:06 → JERBED 12-08 12:53 → OBSVTOIN 12-10 13:13 → J8W 12-11 12:24
PROVIDERS: ADMIT Internal Medicine; ATTEND Internal Medicine
DX: G35 Multiple sclerosis (principal); E11.9 Type 2 diabetes mellitus without complications; H49.3 Total (external) ophthalmoplegia; I10 Essential (primary) hypertension; E78.5 Hyperlipidemia, unspecified; R20.0 Anesthesia of skin; G63 Polyneuropathy in diseases classified elsewhere
CPT/HCPCS: 36415; 70450-TC; 70496-TC; 70498-TC; 70553-TC; 80053; 80061; 82962; 83036; 84443; 84703; 85025; 85610; 85730; 86850; 86900; 86901; 87081; 93005; 93010; 99285-25; G0378; Q9967

== ENCOUNTER 2023-10-22 11:15 | Emergency (ER) | payer OTHER ==
[2023-10-22 11:24] VITALS: BP 159/78; PULSE 107; RESP 18; TEMP 98.3; BMI 41.8
[2023-10-22 13:33] LABS: BASO % 0.6 % (0-2.0); EOS % 0.3 % (0-4.5); HEMATOCRIT 30.8 % (32.4-45.2); HEMOGLOBIN 10.3 GM/dL (10.7-15.3); LYMPH % 9.2 % (8-40); MCH 26.4 pg (25.7-33.7); MCHC 33.3 g/dl (32.0-36.0); MEAN CELL VOLUME 79.2 fl (80-96); MEAN PLT VOLUME 7.4 fl (7.5-11.1); MONO % 8.7 % (3.8-10.2); NEUT % 81.2 % (42.8-82.8); PLATELET COUNT 510 10^3/uL (134-434); RBC 3.89 M/mm3 (3.60-5.2); RDW 14.8 % (11.6-15.6); WHITE BLOOD COUNT 13.7 K/mm3 (4.0-10.0)
[2023-10-22 13:58] LABS: POTASSIUM 4.9 mmol/L (3.5-5.1)
[2023-10-22 14:01] LABS: CALCIUM 9.3 mg/dL (8.5-10.1)
[2023-10-22 14:02] LABS: ALBUMIN 2.8 g/dl (3.4-5.0)
[2023-10-22 14:06] LABS: BILIRUBIN,TOTAL 0.4 mg/dL (0.2-1); BLOOD UREA NITROGEN 11.3 mg/dL (7-18)
[2023-10-22 14:18] LABS: EPI CELLS 35 /uL (0-25.1); HYALINE CASTS 1 /uL (0-3.1); PH,URINE 5.5 (5.0-8.0); URINE APPEARANCE CLOUDY; URINE BACTERIA 1453 /uL (0-1359); URINE BILIRUBIN NEGATIVE (NEGATIVE); URINE COLOR YELLOW; URINE GLUCOSE (UA) 3+ (NEGATIVE); URINE KETONE NEGATIVE (NEGATIVE); URINE LEUK ESTERASE 1+ (NEGATIVE); URINE NITRITE NEGATIVE (NEGATIVE); URINE PROTEIN 1+ (NEGATIVE); URINE UROBILINOGEN 0.2 mg/dL (0.2-1.0); URINE WBC 386 /uL (0-25.8)
[2023-10-22] MEDS ORDERED: cefTRIAXone SODIUM 1 GM VIAL ONE (16:16)
[2023-10-22] MEDS: ACETAMINOPHEN 1000 MG/100 ML BAG IVPB ONE (21:29)
[2023-10-23] MEDS ORDERED: IBUPROFEN 600 MG TABLET (FP) PO ONE (00:08)
[2023-10-23] MEDS: IBUPROFEN 600 MG TABLET (FP) PO ONE (00:13)
== END 2023-10-23 00:22 | disposition home or self-care (01) ==
LOC: JER 11:15
PROC: 3E033NZ Introduction of Analgesics, Hypnotics, Sedatives into Peripheral Vein, Percutaneous Approach (ICD-10-PCS; principal; 2023-10-22)
PROC: 3E03329 Introduction of Other Anti-infective into Peripheral Vein, Percutaneous Approach (ICD-10-PCS; 2023-10-22)
DX: N83.202 Unspecified ovarian cyst, left side (principal); N39.0 Urinary tract infection, site not specified; N12 Tubulo-interstitial nephritis, not specified as acute or chronic; R10.2 Pelvic and perineal pain; R10.32 Left lower quadrant pain; R11.0 Nausea; R19.7 Diarrhea, unspecified; R00.0 Tachycardia, unspecified
CPT/HCPCS: 36415; 74177-TC; 76830-TC; 80053; 81003; 84703; 85025; 87086; 96374; 96375; 99285-25; J0131